=== PATIENT | male | born 1960 | race American Indian/Alaskan Native ===

== ENCOUNTER 2018-01-20 19:15 | Inpatient (IN) | payer OTHER ==
--- NOTE | 2018-01-20 20:01 | ED PDOC ---
Arrival/HPI - General Historian: Patient - History of Present Illness Narrative History of Present Illness (Text): 01/20/18 20:14 57yo male with pmhx of hypertension, Diabetes and DVT present with 3weeks history of b/l LE pain and swelling. States the swelling improved, but still having pain . Pain is not releived or exacerbated by anything. He also admits to intermittent SOB x weeks. He denies chest pain, fever, chills, nausea, abdominal pain, diaphoresis, recent travel/surgery, trauma, any other complaint. <Saroj Espinoza A - Last Filed: 01/20/18 23:37> - Critical Care Critical Care Minutes: 45 minutes <Bartolome Norton - Last Filed: 01/21/18 22:29> - General Chief Complaint: Lower Extremity Problem/Injury Time Seen by Provider: 01/20/18 19:58 Past Medical History - Provider Review Nursing Documentation Reviewed: Yes - Cardiac Hx Cardiac Disorders: Yes Hx Hypertension: Yes - Pulmonary Hx Respiratory Disorders: No - Neurological Hx Neurological Disorder: No - HEENT Hx HEENT Disorder: No - Renal Hx Renal Disorder: No - Endocrine/Metabolic Hx Endocrine Disorders: Yes Hx Adrenal Cancer: Yes Hx Diabetes Mellitus Type 1: Yes Hx Diabetes Mellitus Type 2: Yes - Hematological/Oncological Hx Blood Disorders: No - Integumentary Hx Dermatological Disorder: No - Musculoskeletal/Rheumatological Hx Musculoskeletal Disorders: No Hx Falls: No Other/Comment: Orthopedic surgery to L knee 07/02/2013 - Gastrointestinal Hx Gastrointestinal Disorders: No - Genitourinary/Gynecological Hx Genitourinary Disorders: No - Psychiatric Hx Psychophysiologic Disorder: No Hx Substance Use: Yes (CANNABIS) - Surgical History Hx Orthopedic Surgery: Yes Hx Tonsillectomy: Yes - Suicidal Assessment Feels Threatened In Home Enviroment: No <Saroj Espinoza A - Last Filed: 01/20/18 23:37> Family/Social History - Physician Review Nursing Documentation Reviewed: Yes Family/Social History: Unknown Family HX Smoking Status: Never Smoked Hx Alcohol Use: Yes Frequency of alcohol use: Socially Hx Substance Use: Yes (CANNABIS) <Saroj Espinoza A - Last Filed: 01/20/18 23:37> Allergies/Home Meds <Saroj Espinoza A - Last Filed: 01/20/18 23:37> <Bartolome Norton - Last Filed: 01/21/18 22:29> Allergies/Adverse Reactions: Allergies No Known Allergies Allergy (Verified 01/20/18 19:34) Home Medications: Home Meds Medication Instructions Recorded Confirmed RX: No Known Home Med 01/20/18 01/20/18 Review of Systems - Physician Review All systems were reviewed & negative as marked: Yes - Review of Systems Constitutional: Normal Eyes: Normal ENT: Normal Respiratory: Normal Cardiovascular: Normal Gastrointestinal: Normal Genitourinary Male: Normal Musculoskeletal: Arthralgias (B/L leg pain) Skin: Normal Neurological: Normal Endocrine: Normal Hemo/Lymphatic: Normal Psychiatric: Normal <Diru,Happiness A - Last Filed: 01/20/18 23:37> Physical Exam Vital Signs Reviewed: Yes Temperature: Afebrile Blood Pressure: Hypertensive Pulse: Tachycardic Respiratory Rate: Normal Appearance: Positive for: Well-Appearing, Non-Toxic, Comfortable Pain Distress: None Mental Status: Positive for: Alert and Oriented X 3 - Systems Exam Head: Present: Atraumatic, Normocephalic Pupils: Present: PERRL Extroacular Muscles: Present: EOMI Conjunctiva: Present: Icteric (b/l) Mouth: Present: Moist Mucous Membranes Neck: Present: Normal Range of Motion Respiratory/Chest: Present: Clear to Auscultation, Good Air Exchange. No: Respiratory Distress, Accessory Muscle Use Cardiovascular: Present: Regular Rate and Rhythm, Normal S1, S2. No: Murmurs Abdomen: No: Tenderness, Distention, Peritoneal Signs Back: Present: Normal Inspection Upper Extremity: Present: Normal Inspection. No: Cyanosis, Edema Lower Extremity: Present: Edema (4+ Worse on the left ), CALF TENDERNESS (B/L), Normal ROM, Tenderness, Erythema (Left lower leg), Neurovascularly Intact, Other (2blisters noted on left lower leg). No: NORMAL PULSES (Decreased ) Neurological: Present: GCS=15, CN II-XII Intact, Speech Normal Skin: Present: Warm, Dry, Normal Color. No: Rashes Psychiatric: Present: Alert, Oriented x 3, Normal Insight, Normal Concentration <Diru,Happiness A - Last Filed: 01/20/18 23:37> Vital Signs Temp Pulse Resp BP Pulse Ox 01/20/18 21:07 126 H 18 136/76 100 01/20/18 20:29 98.9 F 119 H 20 166/98 H 100 01/20/18 20:12 171 H 159/111 H 01/20/18 20:08 98.9 F 174 H 22 159/111 H 100 <Bartolome Norton - Last Filed: 01/21/18 22:29> Medical Decision Making ED Course and Treatment: 01/20/18 20:18 57yo male present with complaint of b/l lower leg x 3weeks Differential includes DVT VS PE VS Cellulitis Labs D dimer Car iso Doppler US b/l Chest CTA EKG Cardizem will re evaluate pt 01/20/18 21:52 EKG Sinus tach @ 174bpm. NSTEMI. CXR Cardiomegaly. NAD. Lab reviewed with h/h of 6.9 noted. Elevated d dimer 2210 , Leukocytosis, and Low bicarb of 12 noted Result was DW the pt and he denies melena, hematochezia, any source of bleeding. Type and cross x 2units ordered Consent for transfusion obtained. Pt leukocytosis likely secondary to cellulitis of left lower leg. Rocephin and vano will be ordered. CTA and Doppler US ordered and pending 01/20/18 22:36 Pt elevated Cr show acute kidney failure. Elevated troponin and BNP was also noted secondary to the kidney failure. Potassimu is only mildly elevated. Pt may need emergent dialysis. CTA was cancelled Guaic was positive and Protonix was ordered Per US tech Preliminary report pt have a partial popliteal vein DVT on the left. Pt cannot be heparinize at this time. He is actively bleeding. PT will be admitted to ICU for further treatment and obs Case was DW Dr. Longo and he accepted the case. 01/20/18 23:37 - Critical Care Critical Care Minutes: 45 minutes - RAD Interpretation Radiology Orders: 01/20/18 19:59 DUPLEX LOWER EXTRM VEIN BILAT [US] Stat 01/20/18 20:00 CHEST PORTABLE [RAD] Stat - Medication Orders Current Medication Orders: Diltiazem HCl (Cardizem) 25 mg IVP STAT STA Stop: 01/20/18 20:00 <Saroj Espinoza - Last Filed: 01/20/18 23:37> - Lab Interpretations Lab Results: 01/20/18 20:30 01/20/18 20:30 Lab Results 01/20/18 21:50: Stool Occult Blood Positive H 01/20/18 21:50: Urine Color Yellow, Urine Appearance Clear, Urine pH 6.0, Ur Specific [place] 1.025, Urine Protein >=300 H, Urine Glucose (UA) 250 H, Urine Ketones Negative, Urine Blood Small H, Urine Nitrate Negative, Urine Bilirubin Negative, Urine Urobilinogen 0.2, Ur Leukocyte Esterase Negative, Urine RBC 15 - 20, Urine WBC 2 - 5, Ur Epithelial Cells 6 - 8 01/20/18 21:00: Blood Type Pending, Antibody Screen Pending, BBK History Checked No verified bt 01/20/18 20:30: Sodium 136, Chloride 103, Potassium 5.2 H, Carbon Dioxide 12 L, Anion Gap 26 H, BUN 162 H*, Creatinine 18.5 H*, Est GFR ( Amer) 3, Est GFR (Non-Af Amer) 3, Random Glucose 157 H, Calcium 8.1 L, Magnesium 1.4 L, Total Bilirubin 0.6, AST 26, ALT 27, Alkaline Phosphatase 122, Lactate Dehydrogenase 514, Total Creatine Kinase 224, Troponin I 0.15 H*, NT-Pro-B Natriuret Pep Pending, Total Protein 7.4, Albumin 3.4, Globulin 3.9, Albumin/Globulin Ratio 0.9 L 01/20/18 20:30: pO2 40, VBG pH 7.24 L, VBG pCO2 28.0 L, VBG HCO3 12.0 L, VBG Total CO2 12.9 L, VBG O2 Sat (Calc) 73.7 H, VBG Base Excess -13.9 L, VBG Potassium 5.1, Sodium 133.0, Chloride 104.0, Glucose 158 H, Lactate 1.1, FiO2 21.0, Venous Blood Potassium 5.1 01/20/18 20:30: PT 17.3 H, INR 1.50, APTT 43.8 H, D-Dimer, Quantitative 2331 H 01/20/18 20:30: WBC 13.4 H, RBC 2.31 L, Hgb 6.9 L*, Hct 20.2 L*, MCV 87.4, MCH 29.9, MCHC 34.2, RDW 14.4, Plt Count 335, MPV 10.2, Gran % 91.9 H, Lymph % (Aut o) 5.7 L, [place] % (Auto) 2.2, Eos % (Auto) 0.1 L, Baso % (Auto) 0.1, Gran # 12.30 H, Lymph # (Auto) 0.8 L, [place] # (Auto) 0.3, Eos # (Auto) 0.0, Baso # (Auto) 0.01, Neutrophils % (Manual) 91 H, Band Neutrophils % 0, Lymphocytes % (Manual) 4 L, Atypical Lymphs % 0, Monocytes % (Manual) 5, Toxic Granulation 3+, Platelet Evaluation Normal, Hypochromasia 2+, Target Cells 1+, Rouleaux 2+ - RAD Interpretation Radiology Orders: 01/20/18 19:59 DUPLEX LOWER EXTRM VEIN BILAT [US] Stat 01/20/18 20:00 CHEST PORTABLE [RAD] Stat - Medication Orders Current Medication Orders: Ceftriaxone Sodium (Rocephin 1 Gram Ivpb) 1 gm in 100 mls @ 200 mls/hr IVPB STAT STA; Protocol Stop: 01/20/18 22:27 Vancomycin HCl (Vancomycin 1gm) 1 gm in 250 mls @ 167 mls/hr IVPB STAT STA; Protocol Stop: 01/20/18 23:28 Discontinued Medications Diltiazem HCl (Cardizem) 25 mg IVP STAT STA Stop: 01/20/18 20:00 Last Admin: 01/20/18 20:12 Dose: 25 mg IVP Administration Document 01/20/18 20:12 OCS (Rec: 01/20/18 20:12 OCS [id number]) Charges for Administration # of IVP Administrations 1 JUN Pulse and Blood Pressure Document 01/20/18 20:12 OCS (Rec: 01/20/18 20:12 OCS [id number]) Pulse Pulse Rate (60-90 beats/min) 171 Blood Pressure Blood Pressure (100/60-150/90 mm Hg) 159/111 Sodium Chloride (Sodium Chloride 0.9%) 1,000 mls @ 999 mls/hr IV .Q1H1M STA Stop: 01/20/18 22:08 Last Admin: 01/20/18 21:40 Dose: 999 mls/hr eMAR Start Stop Document 01/20/18 21:40 OCS (Rec: 01/20/18 21:40 OCS [id number]) Intravenous Solution Start Date 01/20/18 Start Time 21:40 End Date 01/20/18 End time 22:40 Total Infusion Time 60 Pantoprazole Sodium (Protonix Inj) 80 mg IVP STAT STA Stop: 01/20/18 22:05 <Bartolome Norton - Last Filed: 01/21/18 22:29> - PA / EN[employer]EVEL [employer]IV[employer] ENGINEER / Resident Statement EN has reviewed & agrees with the documentation as recorded. EN has examined the patient and agrees with the treatment plan. <Bartolome Norton - Last Filed: 01/21/18 22:29> Disposition/Present on Arrival - Present on Arrival Any Indicators Present on Arrival: No History of DVT/PE: No History of Uncontrolled Diabetes: No Urinary Catheter: No History of Decub. Ulcer: No History Surgical Site Infection Following: None - Disposition Have Diagnosis and Disposition been Completed?: Yes Disposition Time: 22:05 Patient Plan: Admission <Saroj Espinoza - Last Filed: 01/20/18 23:37> <Bartolome Norton - Last Filed: 01/21/18 22:29> - Disposition Diagnosis: Anemia, Cellulitis, GI bleed, Elevated troponin, Acute renal failure, DVT (deep venous thrombosis), CHF (congestive heart failure) Disposition: HOSPITALIZED Patient Problems: Current Active Problems Problem Status Onset Acute renal failure Acute Anemia Acute CHF (congestive heart failure) Acute Cellulitis Acute DVT (deep venous thrombosis) Acute Elevated troponin Acute GI bleed Acute Condition: GUARDED
[2018-01-20 20:42] LABS: BASO # 0.01 K/mm3 (0.0-2.0); BASO % 0.1 % (0.0-3.0); EOS % 0.1 % (1.5-5.0); GRAN % 91.9 % (50.0-68.0); LYMPH # 0.8 (1.2-3.4); LYMPH % 5.7 % (22.0-35.0); MEAN CELL VOLUME 87.4 fl (80.0-105.0); MEAN CORPUSCULAR HEMOGLOBIN 29.9 pg (25.0-35.0); MEAN CORPUSCULAR HGB CONC 34.2 g/dl (31.0-37.0); MEAN PLATELET VOLUME 10.2 fl (7.0-11.0); MONO # 0.3 (0.1-0.6); MONO % 2.2 % (1.0-6.0); PLATELET COUNT 335 10^3/uL (120.0-450.0); RBC 2.31 10^6/uL (3.5-6.1); RED CELL DISTRIBUTION WIDTH 14.4 % (11.5-14.5); WHITE BLOOD COUNT 13.4 10^3/ul (4.5-11.0)
[2018-01-20 20:52] LABS: HEMOGLOBIN 6.9 g/dL (14.0-18.0)
[2018-01-20 20:57] LABS: ALB/GLOB RATIO 0.9 (1.1-1.8); ALBUMIN 3.4 g/dL (3.0-4.8); CALCIUM 8.1 mg/dL (8.4-10.5); VENOUS BLOOD GAS BASE EXCESS -13.9 mmol/L (0.0-2.0); VENOUS BLOOD GAS PO2 40 mm/Hg (30-55); VENOUS BLOOD PH 7.24 (7.32-7.43)
[2018-01-20] MEDS ORDERED: Sodium Chloride 0.9% 1,000 ML IV STA (21:08)
[2018-01-20 21:09] LABS: INR 1.5; PARTIAL THROMBOPLASTIN TIME 43.8 Seconds (25.1-36.5); PROTHROMBIN TIME 17.3 SECONDS (9.4-12.5)
[2018-01-20 21:22] LABS: ATYPICAL LYMPHOCYTE 0 % (0.0-0.0); BAND 0 % (0-2); HYPOCHROMIA 2+; LYMPHOCYTE 4 % (22.0-35.0); MONOCYTE 5 % (1.0-6.0); NEUTROPHIL 91 % (50.0-70.0); PLATELET ESTIMATE NORMAL (NORMAL); ROULEAU 2+; TARGET CELLS 1+; TOXIC GRANULATION 3+
[2018-01-20] MEDS ORDERED: Iodixanol 320 MG/ML 100 ML BOTTLE IV ONE (21:49)
[2018-01-20] MEDS ORDERED: cefTRIAXone 1 gm 1 GM/100 ML BAG IVPB STA (21:58)
[2018-01-20] MEDS ORDERED: Vancomycin 1gm in NS 250ml 1 GM/250 ML BAG IVPB STA (21:59)
[2018-01-20 22:00] LABS: URINE BILIRUBIN NEGATIVE (NEGATIVE); URINE BLOOD SMALL (NEGATIVE); URINE GLUCOSE (UA) 250 mg/dL (NEGATIVE); URINE LEUKOCYTE ESTERASE NEGATIVE Leu/uL (NEGATIVE); URINE PROTEIN >=300 mg/dL (<30 mg/dL); URINE UROBILINOGEN 0.2 E.U./dL (<1 E.U./dL)
[2018-01-20 22:03] LABS: URINE APPEARANCE CLEAR (CLEAR); URINE COLOR YELLOW (YELLOW)
[2018-01-20 22:08] LABS: TROPONIN I 0.15 ng/mL
[2018-01-20 22:12] LABS: URINE RBC 15 - 20 /hpf (0-2)
--- NOTE | 2018-01-20 22:38 | CP.PCM.HP ---
<Fredrick Claire - Last Filed: 01/20/18 23:54> History of Present Illness - History of Present Illness History of Present Illness: PGY-2 H&P medicine note for Dr Longo Mr Meadows is a 57 year old male with a PMHx of CKD stage III, left lower extremity DVT, DM2, HTN, HLD, non-compliance with medications, who presented with worsening shortness of breath and increased swelling and pain in his lower left extremity. He stated these symptoms began concurrently 1 month ago. He had not seen a doctor because he felt the symptoms would go away on their own. He states his dyspnea is worse with exertion. His lower left extremity pain is most pronounced in the cha/calf area. He stated he hasn't seen his PMD in over a year. He ambulates normally with a cane. PMD: Dr Patel PMHx: CKD stage III, left lower extremity DVT, DM2, HTN, HLD PSHx: ACL repair 2012 All: NKA Home Meds: FamHx: Mother with diabetes and unknown cancer; Father with unknown cancer SocialHx: Denies tobacco use and hx, social alcohol use, denies illicit drug use Present on Admission - Present on Admission Any Indicators Present on Admission: No Review of Systems - Constitutional Constitutional: absent: Chills, Fever - EENT Eyes: absent: Blurred Vision Nose/Mouth/Throat: absent: Epistaxis - Cardiovascular Cardiovascular: Dyspnea. absent: Chest Pain, Diaphoresis - Respiratory Respiratory: Dyspnea, Dyspnea on Exertion. absent: Cough, Hemoptysis, Wheezing, Stridor - Gastrointestinal Gastrointestinal: absent: Abdominal Pain, Constipation, Diarrhea - Genitourinary Genitourinary: Urinary Hesitance. absent: Dysuria - Musculoskeletal Musculoskeletal: Back Pain Past Patient History - Past Social History Smoking Status: Never Smoked - CARDIAC Hx Cardiac Disorders: Yes Hx Hypertension: Yes - PULMONARY Hx Respiratory Disorders: No - NEUROLOGICAL Hx Neurological Disorder: No - HEENT Hx HEENT Problems: No - RENAL Hx Chronic Kidney Disease: No - ENDOCRINE/METABOLIC Hx Endocrine Disorders: Yes Hx Adrenal Cancer: Yes Hx Diabetes Mellitus Type 1: Yes Hx Diabetes Mellitus Type 2: Yes - HEMATOLOGICAL/ONCOLOGICAL Hx Blood Disorders: No - INTEGUMENTARY Hx Dermatological Problems: No - MUSCULOSKELETAL/RHEUMATOLOGICAL Hx Musculoskeletal Disorders: No Hx Falls: No Other/Comment: Orthopedic surgery to L knee 07/02/2013 - GASTROINTESTINAL Hx Gastrointestinal Disorders: No - GENITOURINARY/GYNECOLOGICAL Hx Genitourinary Disorders: No - PSYCHIATRIC Hx Psychophysiologic Disorder: No Hx Substance Use: Yes (CANNABIS) - SURGICAL HISTORY Hx Orthopedic Surgery: Yes Hx Tonsillectomy: Yes Meds Allergies/Adverse Reactions: Allergies Allergy/AdvReac Type Severity Reaction Status Date / Time No Known Allergies Allergy Verified 01/20/18 19:34 Physical Exam - Constitutional Appears: In Acute Distress, Older Than Stated Age, Chronically Ill - Head Exam Head Exam: ATRAUMATIC, NORMAL INSPECTION - Eye Exam Eye Exam: EOMI, Normal appearance, PERRL, Scleral icterus - ENT Exam ENT Exam: Mucous Membranes Dry, Normal Oropharynx Additional comments: poor dentition - Neck Exam Neck exam: Positive for: Normal Inspection - Respiratory Exam Respiratory Exam: Accessory Muscle Use, Clear to Auscultation Bilateral, NORMAL BREATHING PATTERN. absent: Rales, Rhonchi, Wheezes - Cardiovascular Exam Cardiovascular Exam: Tachycardia, REGULAR RHYTHM, +S1, +S2. absent: JVD, +S4, Systolic Murmur - GI/Abdominal Exam GI & Abdominal Exam: Normal Bowel Sounds, Soft. absent: Distended, Firm, Guarding, Hernia, Tenderness - Extremities Exam Extremities exam: Positive for: calf tenderness, pedal edema, tenderness, pedal pulses present. Negative for: normal inspection Additional comments: 3+ pitting edema left LE 1+ pitting edema right LE - Neurological Exam Neurological exam: Alert, CN II-XII Intact, Oriented x3 - Psychiatric Exam Psychiatric exam: Flat Affect - Skin Skin Exam: Normal Color, Warm Additional comments: 3 inch long bulla in left medial leg Results - Vital Signs Recent Vital Signs: Last Vital Signs Temp 98.9 F 01/20/18 20:29 Pulse 126 H 01/20/18 21:07 Resp 18 01/20/18 21:07 BP 136/76 01/20/18 21:07 Pulse Ox 100 01/20/18 21:07 - Labs Result Diagrams: 01/20/18 20:30 01/20/18 20:30 Labs: Laboratory Results - last 24 hr 01/20/18 01/20/18 01/20/18 20:30 20:30 20:30 WBC 13.4 H RBC 2.31 L Hgb 6.9 L* Hct 20.2 L* MCV 87.4 MCH 29.9 MCHC 34.2 RDW 14.4 Plt Count 335 MPV 10.2 Gran % 91.9 H Lymph % (Auto) 5.7 L [place] % (Auto) 2.2 Eos % (Auto) 0.1 L Baso % (Auto) 0.1 Gran # 12.30 H Lymph # (Auto) 0.8 L [place] # (Auto) 0.3 Eos # (Auto) 0.0 Baso # (Auto) 0.01 Neutrophils % (Manual) 91 H Band Neutrophils % 0 Lymphocytes % (Manual) 4 L Atypical Lymphs % 0 Monocytes % (Manual) 5 Toxic Granulation 3+ Platelet Evaluation Normal Hypochromasia 2+ Target Cells 1+ Rouleaux 2+ PT 17.3 H INR 1.50 APTT 43.8 H D-Dimer, Quantitative 2331 H pO2 40 VBG pH 7.24 L VBG pCO2 28.0 L VBG HCO3 12.0 L VBG Total CO2 12.9 L VBG O2 Sat (Calc) 73.7 H VBG Base Excess -13.9 L VBG Potassium 5.1 Sodium 133.0 Chloride 104.0 Glucose 158 H Lactate 1.1 FiO2 21.0 Potassium Carbon Dioxide Anion Gap BUN Creatinine Est GFR ( Amer) Est GFR (Non-Af Amer) Random Glucose Calcium Magnesium Total Bilirubin AST ALT Alkaline Phosphatase Lactate Dehydrogenase Total Creatine Kinase Troponin I NT-Pro-B Natriuret Pep Total Protein Albumin Globulin Albumin/Globulin Ratio Venous Blood Potassium 5.1 Urine Color Urine Appearance Urine pH Ur Specific Murray Urine Protein Urine Glucose (UA) Urine Ketones Urine Blood Urine Nitrate Urine Bilirubin Urine Urobilinogen Ur Leukocyte Esterase Urine RBC Urine WBC Ur Epithelial Cells Stool Occult Blood BBK History Checked 01/20/18 01/20/18 01/20/18 20:30 21:00 21:50 WBC RBC Hgb Hct MCV MCH MCHC RDW Plt Count MPV Gran % Lymph % (Auto) [place] % (Auto) Eos % (Auto) Baso % (Auto) Gran # Lymph # (Auto) [place] # (Auto) Eos # (Auto) Baso # (Auto) Neutrophils % (Manual) Band Neutrophils % Lymphocytes % (Manual) Atypical Lymphs % Monocytes % (Manual) Toxic Granulation Platelet Evaluation Hypochromasia Target Cells Rouleaux PT INR APTT D-Dimer, Quantitative pO2 VBG pH VBG pCO2 VBG HCO3 VBG Total CO2 VBG O2 Sat (Calc) VBG Base Excess VBG Potassium Sodium 136 Chloride 103 Glucose Lactate FiO2 Potassium 5.2 H Carbon Dioxide 12 L Anion Gap 26 H BUN 162 H* Creatinine 18.5 H* Est GFR ( Amer) 3 Est GFR (Non-Af Amer) 3 Random Glucose 157 H Calcium 8.1 L Magnesium 1.4 L Total Bilirubin 0.6 AST 26 ALT 27 Alkaline Phosphatase 122 Lactate Dehydrogenase 514 Total Creatine Kinase 224 Troponin I 0.15 H* NT-Pro-B Natriuret Pep 06867 H Total Protein 7.4 Albumin 3.4 Globulin 3.9 Albumin/Globulin Ratio 0.9 L Venous Blood Potassium Urine Color Yellow Urine Appearance Clear Urine pH 6.0 Ur Specific Murray 1.025 Urine Protein >=300 H Urine Glucose (UA) 250 H Urine Ketones Negative Urine Blood Small H Urine Nitrate Negative Urine Bilirubin Negative Urine Urobilinogen 0.2 Ur Leukocyte Esterase Negative Urine RBC 15 - 20 Urine WBC 2 - 5 Ur Epithelial Cells 6 - 8 Stool Occult Blood BBK History Checked No verified bt 01/20/18 21:50 WBC RBC Hgb Hct MCV MCH MCHC RDW Plt Count MPV Gran % Lymph % (Auto) [place] % (Auto) Eos % (Auto) Baso % (Auto) Gran # Lymph # (Auto) [place] # (Auto) Eos # (Auto) Baso # (Auto) Neutrophils % (Manual) Band Neutrophils % Lymphocytes % (Manual) Atypical Lymphs % Monocytes % (Manual) Toxic Granulation Platelet Evaluation Hypochromasia Target Cells Rouleaux PT INR APTT D-Dimer, Quantitative pO2 VBG pH VBG pCO2 VBG HCO3 VBG Total CO2 VBG O2 Sat (Calc) VBG Base Excess VBG Potassium Sodium Chloride Glucose Lactate FiO2 Potassium Carbon Dioxide Anion Gap BUN Creatinine Est GFR ( Amer) Est GFR (Non-Af Amer) Random Glucose Calcium Magnesium Total Bilirubin AST ALT Alkaline Phosphatase Lactate Dehydrogenase Total Creatine Kinase Troponin I NT-Pro-B Natriuret Pep Total Protein Albumin Globulin Albumin/Globulin Ratio Venous Blood Potassium Urine Color Urine Appearance Urine pH Ur Specific Murray Urine Protein Urine Glucose (UA) Urine Ketones Urine Blood Urine Nitrate Urine Bilirubin Urine Urobilinogen Ur Leukocyte Esterase Urine RBC Urine WBC Ur Epithelial Cells Stool Occult Blood Positive H BBK History Checked Assessment & Plan - Assessment and Plan (Free Text) Plan: Mr Meadows is a 57 year old male with a PMHx of CKD stage III, left lower extremity DVT, DM2, HTN, HLD, non-compliance with medications, who presented with worsening shortness of breath and increased swelling and pain in his lower left extremity: Anemia -consult GI, Dr Griffin -possibly 2/2 to GI bleed as patient with positive FOBT however CKD likely playing a role as well -Hgb 6.9 on admission -FOBT positive -transfuse 1u pRBC -f/u iron studies, vitamin b12, folate levels -protonix 40mg ivp q12h Left LE DVT -LE duplex preliminary report shows popliteal DVT of LLE -hx of LLE DVT and was previously on coumadin -patient not a candidate for therapeutic anticoagulation at this time 2/2 to GI bleed Elevated D-Dimer -D-dimer on admission 2331 -f/u V/Q scan * unable to do CTA as patient with GIO and poor kidney function (Cr 18.5) -f/u ekg, look for right heart strain GIO on CKD -consult nephrology, Dr Lea -BUN/Cr on admission: 162/18.5 -UA showing high protein leak -Per records, patient was stage III CKD in 2014 -hydrate gently at 75cc/hr NS for now as cardiac status unknown Elevated Pro-BNP -probnp on admission: 28540 -f/u echo -daily weights, strict Is/Os, head of bed 30 degrees, lundy Elevated Troponin -consult cardiology, Dr Mendez -troponin on admission 0.15 -trend serial troponins -patient not a candidate for therapeutic anticoagulation at this time 2/2 to GI bleed Leukocytosis -wbc on admission 13.4; afebrile -possibly stress response and/or 2/2 to LLE cellulitis -vancomycin 1g and ceftriaxone 1g given in ED -zosyn 2.25g ivpb q6h (renal dose) -f/u blood cx, urine cx Dyspnea -saturating well on room air however using accessory muscles; lung exam clean - did not appear to be congested -f/u v/q scan (unable to get CTA 2/2 to poor kidney function) -f/u cxr report -f/u echo -f/u ekg, look for right heart strain Cocaine Abuse -UDS positive for cocaine -avoid beta-blockers HTN -hydralzine 10mg ivp q6h prn DM2 -accuchecks achs -insulin sliding scale -f/u [id number] -hypoglycemia protocol PPX -scd's contraindicated 2/2 dvt -AO contraindicated 2/2 to gi bleed -renal diet <Tato Longo - Last Filed: 01/21/18 02:16> Results - Vital Signs Recent Vital Signs: Last Vital Signs Temp 98.6 F 01/21/18 01:54 Pulse 122 H 01/21/18 01:54 Resp 18 01/21/18 01:54 BP 159/99 H 01/21/18 01:54 Pulse Ox 96 01/21/18 01:54 - Labs Result Diagrams: 01/20/18 20:30 01/20/18 20:30 Labs: Laboratory Results - last 24 hr 01/20/18 01/20/18 01/20/18 20:30 20:30 20:30 WBC 13.4 H RBC 2.31 L Hgb 6.9 L* Hct 20.2 L* MCV 87.4 MCH 29.9 MCHC 34.2 RDW 14.4 Plt Count 335 MPV 10.2 Gran % 91.9 H Lymph % (Auto) 5.7 L [place] % (Auto) 2.2 Eos % (Auto) 0.1 L Baso % (Auto) 0.1 Gran # 12.30 H Lymph # (Auto) 0.8 L [place] # (Auto) 0.3 Eos # (Auto) 0.0 Baso # (Auto) 0.01 Neutrophils % (Manual) 91 H Band Neutrophils % 0 Lymphocytes % (Manual) 4 L Atypical Lymphs % 0 Monocytes % (Manual) 5 Toxic Granulation 3+ Platelet Evaluation Normal Hypochromasia 2+ Target Cells 1+ Rouleaux 2+ PT 17.3 H INR 1.50 APTT 43.8 H D-Dimer, Quantitative 2331 H pO2 40 VBG pH 7.24 L VBG pCO2 28.0 L VBG HCO3 12.0 L VBG Total CO2 12.9 L VBG O2 Sat (Calc) 73.7 H VBG Base Excess -13.9 L VBG Potassium 5.1 Sodium 133.0 Chloride 104.0 Glucose 158 H Lactate 1.1 FiO2 21.0 Potassium Carbon Dioxide Anion Gap BUN Creatinine Est GFR ( Amer) Est GFR (Non-Af Amer) Random Glucose Calcium Magnesium Total Bilirubin AST ALT Alkaline Phosphatase Lactate Dehydrogenase Total Creatine Kinase Troponin I NT-Pro-B Natriuret Pep Total Protein Albumin Globulin Albumin/Globulin Ratio Venous Blood Potassium 5.1 Urine Color Urine Appearance Urine pH Ur Specific Murray Urine Protein Urine Glucose (UA) Urine Ketones Urine Blood Urine Nitrate Urine Bilirubin Urine Urobilinogen Ur Leukocyte Esterase Urine RBC Urine WBC Ur Epithelial Cells Stool Occult Blood Urine Opiates Screen Urine Methadone Screen Ur Barbiturates Screen Ur Phencyclidine Scrn Ur Amphetamines Screen U Benzodiazepines Scrn U Oth Cocaine Metabols U Cannabinoids Screen Alcohol, Quantitative Blood Type Blood Type Confirm Antibody Screen BBK History Checked 01/20/18 01/20/18 01/20/18 20:30 20:30 21:00 WBC RBC Hgb Hct MCV MCH MCHC RDW Plt Count MPV Gran % Lymph % (Auto) [place] % (Auto) Eos % (Auto) Baso % (Auto) Gran # Lymph # (Auto) [place] # (Auto) Eos # (Auto) Baso # (Auto) Neutrophils % (Manual) Band Neutrophils % Lymphocytes % (Manual) Atypical Lymphs % Monocytes % (Manual) Toxic Granulation Platelet Evaluation Hypochromasia Target Cells Rouleaux PT INR APTT D-Dimer, Quantitative pO2 VBG pH VBG pCO2 VBG HCO3 VBG Total CO2 VBG O2 Sat (Calc) VBG Base Excess VBG Potassium Sodium 136 Chloride 103 Glucose Lactate FiO2 Potassium 5.2 H Carbon Dioxide 12 L Anion Gap 26 H BUN 162 H* Creatinine 18.5 H* Est GFR ( Amer) 3 Est GFR (Non-Af Amer) 3 Random Glucose 157 H Calcium 8.1 L Magnesium 1.4 L Total Bilirubin 0.6 AST 26 ALT 27 Alkaline Phosphatase 122 Lactate Dehydrogenase 514 Total Creatine Kinase 224 Troponin I 0.15 H* NT-Pro-B Natriuret Pep 56032 H Total Protein 7.4 Albumin 3.4 Globulin 3.9 Albumin/Globulin Ratio 0.9 L Venous Blood Potassium Urine Color Urine Appearance Urine pH Ur Specific Murray Urine Protein Urine Glucose (UA) Urine Ketones Urine Blood Urine Nitrate Urine Bilirubin Urine Urobilinogen Ur Leukocyte Esterase Urine RBC Urine WBC Ur Epithelial Cells Stool Occult Blood Urine Opiates Screen Urine Methadone Screen Ur Barbiturates Screen Ur Phencyclidine Scrn Ur Amphetamines Screen U Benzodiazepines Scrn U Oth Cocaine Metabols U Cannabinoids Screen Alcohol, Quantitative < 10 Blood Type A POSITIVE Blood Type Confirm Antibody Screen Negative BBK History Checked No verified bt 01/20/18 01/20/18 01/20/18 21:50 21:50 21:50 WBC RBC Hgb Hct MCV MCH MCHC RDW Plt Count MPV Gran % Lymph % (Auto) [place] % (Auto) Eos % (Auto) Baso % (Auto) Gran # Lymph # (Auto) [place] # (Auto) Eos # (Auto) Baso # (Auto) Neutrophils % (Manual) Band Neutrophils % Lymphocytes % (Manual) Atypical Lymphs % Monocytes % (Manual) Toxic Granulation Platelet Evaluation Hypochromasia Target Cells Rouleaux PT INR APTT D-Dimer, Quantitative pO2 VBG pH VBG pCO2 VBG HCO3 VBG Total CO2 VBG O2 Sat (Calc) VBG Base Excess VBG Potassium Sodium Chloride Glucose Lactate FiO2 Potassium Carbon Dioxide Anion Gap BUN Creatinine Est GFR ( Amer) Est GFR (Non-Af Amer) Random Glucose Calcium Magnesium Total Bilirubin AST ALT Alkaline Phosphatase Lactate Dehydrogenase Total Creatine Kinase Troponin I NT-Pro-B Natriuret Pep Total Protein Albumin Globulin Albumin/Globulin Ratio Venous Blood Potassium Urine Color Yellow Urine Appearance Clear Urine pH 6.0 Ur Specific Murray 1.025 Urine Protein >=300 H Urine Glucose (UA) 250 H Urine Ketones Negative Urine Blood Small H Urine Nitrate Negative Urine Bilirubin Negative Urine Urobilinogen 0.2 Ur Leukocyte Esterase Negative Urine RBC 15 - 20 Urine WBC 2 - 5 Ur Epithelial Cells 6 - 8 Stool Occult Blood Positive H Urine Opiates Screen Negative Urine Methadone Screen Negative Ur Barbiturates Screen Negative Ur Phencyclidine Scrn Negative Ur Amphetamines Screen Negative U Benzodiazepines Scrn Negative U Oth Cocaine Metabols Positive H U Cannabinoids Screen Negative Alcohol, Quantitative Blood Type Blood Type Confirm Antibody Screen BBK History Checked 01/20/18 22:22 WBC RBC Hgb Hct MCV MCH MCHC RDW Plt Count MPV Gran % Lymph % (Auto) [place] % (Auto) Eos % (Auto) Baso % (Auto) Gran # Lymph # (Auto) [place] # (Auto) Eos # (Auto) Baso # (Auto) Neutrophils % (Manual) Band Neutrophils % Lymphocytes % (Manual) Atypical Lymphs % Monocytes % (Manual) Toxic Granulation Platelet Evaluation Hypochromasia Target Cells Rouleaux PT INR APTT D-Dimer, Quantitative pO2 VBG pH VBG pCO2 VBG HCO3 VBG Total CO2 VBG O2 Sat (Calc) VBG Base Excess VBG Potassium Sodium Chloride Glucose Lactate FiO2 Potassium Carbon Dioxide Anion Gap BUN Creatinine Est GFR ( Amer) Est GFR (Non-Af Amer) Random Glucose Calcium Magnesium Total Bilirubin AST ALT Alkaline Phosphatase Lactate Dehydrogenase Total Creatine Kinase Troponin I NT-Pro-B Natriuret Pep Total Protein Albumin Globulin Albumin/Globulin Ratio Venous Blood Potassium Urine Color Urine Appearance Urine pH Ur Specific Murray Urine Protein Urine Glucose (UA) Urine Ketones Urine Blood Urine Nitrate Urine Bilirubin Urine Urobilinogen Ur Leukocyte Esterase Urine RBC Urine WBC Ur Epithelial Cells Stool Occult Blood Urine Opiates Screen Urine Methadone Screen Ur Barbiturates Screen Ur Phencyclidine Scrn Ur Amphetamines Screen U Benzodiazepines Scrn U Oth Cocaine Metabols U Cannabinoids Screen Alcohol, Quantitative Blood Type Blood Type Confirm A POSITIVE Antibody Screen BBK History Checked Attending/Attestation - Attestation I have personally seen and examined this patient.: Yes I have fully participated in the care of the patient.: Yes I have reviewed all pertinent clinical information: Yes
[2018-01-20 22:41] LABS: BARBITURATES, UR NEGATIVE (NEGATIVE); BENZODIAZEPINES, UR NEGATIVE (NEGATIVE); OPIATES, UR NEGATIVE (NEGATIVE); PHENCYCLIDINE, UR NEGATIVE (NEGATIVE)
[2018-01-21] MEDS ORDERED: Sodium Chloride 0.9% 1,000 ML IV SCH (00:30)
[2018-01-21] MEDS ORDERED: Magnesium Sulfate 2 gm/50 ml 2 GM/50 ML BAG IVPB ONE (00:30)
[2018-01-21] MEDS ORDERED: Dextrose 50% SYRINGE Inj (50 ml) IV PRN (00:34)
[2018-01-21] MEDS: Piperacillin/Tazobact 2.25gm 2.25 GM/100 ML BAG IVPB SCH ×2 (02:31→08:40)
[2018-01-21 05:32] LABS: BASO # 0.01 K/mm3 (0.0-2.0); BASO % 0.1 % (0.0-3.0); EOS # 0.1 (0.0-0.7); EOS % 0.5 % (1.5-5.0); GRAN # 11.75 (1.4-6.5); LYMPH # 1.1 (1.2-3.4); LYMPH % 8.4 % (22.0-35.0); MEAN CELL VOLUME 86.7 fl (80.0-105.0); MEAN CORPUSCULAR HGB CONC 34.7 g/dl (31.0-37.0); MEAN PLATELET VOLUME 8.8 fl (7.0-11.0); MONO # 0.3 (0.1-0.6); PLATELET COUNT 271 10^3/uL (120.0-450.0); RBC 2.03 10^6/uL (3.5-6.1); RED CELL DISTRIBUTION WIDTH 14.1 % (11.5-14.5); WHITE BLOOD COUNT 13.2 10^3/ul (4.5-11.0)
[2018-01-21 05:35] LABS: HEMOGLOBIN 6.1 g/dL (14.0-18.0)
[2018-01-21 06:04] LABS: IRON 27 ug/dL (45-180)
[2018-01-21 06:14] LABS: % IRON SATURATION 14 % (20-55); TOTAL IRON BINDING CAPACITY 190 ug/dL (261-462)
[2018-01-21 07:03] LABS: ALB/GLOB RATIO 0.8 (1.1-1.8); ALBUMIN 3.1 g/dL (3.0-4.8); CALCIUM 7.8 mg/dL (8.4-10.5)
[2018-01-21] MEDS ORDERED: Sodium Bicarbonate 8.4% 150 MEQ in Dextrose 5% In Water 1,000 ML IV SCH ×2 (08:15→19:57)
[2018-01-21 08:36] VITALS: BMI 30.5
[2018-01-21] MEDS ORDERED: Influenza Vaccine 60 mcg/0.5 mL SYR (4YR UP) IM ONE (08:37)
[2018-01-21] MEDS: Heparin25000 units/250ml 1/2NS 25,000 UNITS/250 ML BAG IV PRN (08:43)
[2018-01-21] MEDS: Insulin Lispro (humaLOG) MEDIUM Coverage SC SCH ×4 (08:49→21:55)
--- NOTE | 2018-01-21 09:08 | CP.PCM.CON ---
History of Present Illness - History of Present Illness History of Present Illness: Leonard Paz DO, PGY-2: Nephrology Consult Note for Dr. Lea 57 year old male with a past medical history of CKD III, LLE DVT, DM II, hypertension, and dyslipidemia who presents with one month of worsening shortness of breath, lower extremity swelling, fatigue, episodic anorexia and dysgeusia. He reports for the past two weeks or so unable to go to work secondary to feeling weak and his legs remaining. On admission he was found to have an GIO on CKD, elevated D-dimer, elevated Pro BNP, anemia requiring blood transfusion, and a metabolic acidosis, among other things. He underwent an US of the lower extremities that showed a partial DVT in the LLE. He was admitted to the ICU and started on a bicarbonate drip earlier this morning for his metabolic acidosis and a heparin drip for his likely PE. At the time of my examination, the patient is tachycardic, able to converse, on 3 L on oxygen via NC, and receiving PRBCs. He denies any recent diarrheal illness or URI. He denies fever, melena, hematochezia, chills, palpitations, or chest pain. He admits to lower extremity swelling, dyspnea, pruritus, dysgeusia. Otherwise, 12 point ROS is negative except as noted above. PMH: CKD III, LLE DVT, DM II, hypertension, dyslipidemia PSHx: ACL repair 2012 All: NKA Home Meds: FamHx: Mother with diabetes and unknown cancer; Father with unknown cancer Social: Ex-smoker, UDS positive for cocaine, works cleaning tanks; lives alone; has girlfriend Review of Systems - Review of Systems All systems: reviewed and no additional remarkable complaints except (as per HPI) Past Patient History - Past Social History Smoking Status: Never Smoked - CARDIAC Hx Cardiac Disorders: Yes Hx Hypertension: Yes - PULMONARY Hx Respiratory Disorders: No - NEUROLOGICAL Hx Neurological Disorder: No - HEENT Hx HEENT Problems: No - RENAL Hx Chronic Kidney Disease: No - ENDOCRINE/METABOLIC Hx Endocrine Disorders: Yes Hx Adrenal Cancer: Yes Hx Diabetes Mellitus Type 1: Yes Hx Diabetes Mellitus Type 2: Yes - HEMATOLOGICAL/ONCOLOGICAL Hx Blood Disorders: No - INTEGUMENTARY Hx Dermatological Problems: No - MUSCULOSKELETAL/RHEUMATOLOGICAL Hx Musculoskeletal Disorders: No Hx Falls: No Other/Comment: Orthopedic surgery to L knee 07/02/2013 - GASTROINTESTINAL Hx Gastrointestinal Disorders: No - GENITOURINARY/GYNECOLOGICAL Hx Genitourinary Disorders: No - PSYCHIATRIC Hx Psychophysiologic Disorder: No - SURGICAL HISTORY Hx Orthopedic Surgery: Yes Meds Allergies/Adverse Reactions: Allergies Allergy/AdvReac Type Severity Reaction Status Date / Time No Known Allergies Allergy Verified 01/20/18 19:34 - Medications Medications: Current Medications Acetaminophen (Tylenol 325mg Tab) 650 mg PO Q6H PRN PRN Reason: Fever >100.4 F Last Admin: 01/21/18 04:32 Dose: 650 mg Dextrose (Dextrose 50% Inj) 0 ml IV STAT PRN; Protocol PRN Reason: Hypoglycemia Protocol Hydralazine HCl (Apresoline) 10 mg IVP Q6H PRN PRN Reason: Systolic Blood Pressure Sodium Chloride (Sodium Chloride 0.9%) 1,000 mls @ 75 mls/hr IV .[id number] [facility] Last Admin: 01/21/18 00:46 Dose: 75 mls/hr Dextrose (Dextrose 5% In Water 1000 Ml) 1,000 mls @ 0 mls/hr IV .Q0M PRN; Protocol PRN Reason: Hypoglycemia Protocol Heparin Sodium/Sodium Chloride (Heparin 01687 Units/250ml 1/2 Normal Saline) 25,000 units in 250 mls @ 18.37 mls/hr IV .[id number] PRN; Protocol PRN Reason: ADJUST RATE PER PROTOCOL Last Admin: 01/21/18 08:43 Dose: 18 units/kg/hr, 18.37 mls/hr Sodium Bicarbonate 150 meq/ (Dextrose) 1,150 mls @ 200 mls/hr IV .[id number] [facility] Insulin Human Lispro (Humalog Med) 0 units SC ACHS [facility]; Protocol Last Admin: 01/21/18 08:49 Dose: Not Given Pantoprazole Sodium (Protonix Inj) 40 mg IVP Q12 CATHIE Last Admin: 01/21/18 09:03 Dose: 40 mg Physical Exam - Constitutional Appears: Toxic - Head Exam Head Exam: ATRAUMATIC, NORMOCEPHALIC - Eye Exam Eye Exam: EOMI Additional comments: conjunctival pallor - ENT Exam ENT Exam: Mucous Membranes Dry - Neck Exam Additional comments: JVD - Respiratory Exam Respiratory Exam: absent: Accessory Muscle Use - Cardiovascular Exam Cardiovascular Exam: Tachycardia Additional comments: hyperdynamic heart sounds - GI/Abdominal Exam GI & Abdominal Exam: absent: Guarding, Rebound - Extremities Exam Additional comments: 3/4 pitting edema, bullae noted in left medial cha - Neurological Exam Neurological exam: Oriented x3 - Psychiatric Exam Psychiatric exam: Flat Affect - Skin Skin Exam: Dry Results - Vital Signs Recent Vital Signs: Last Vital Signs Temp 98.9 F 01/21/18 08:01 Pulse 111 H 01/21/18 08:01 Resp 25 H 01/21/18 08:01 BP 156/94 H 01/21/18 08:01 Pulse Ox 95 01/21/18 07:20 - Labs Result Diagrams: 01/21/18 05:10 01/21/18 05:10 Labs: Laboratory Results - last 24 hr 01/20/18 01/20/18 01/20/18 20:30 20:30 20:30 WBC 13.4 H RBC 2.31 L Hgb 6.9 L* Hct 20.2 L* MCV 87.4 MCH 29.9 MCHC 34.2 RDW 14.4 Plt Count 335 MPV 10.2 Gran % 91.9 H Lymph % (Auto) 5.7 L [place] % (Auto) 2.2 Eos % (Auto) 0.1 L Baso % (Auto) 0.1 Gran # 12.30 H Lymph # (Auto) 0.8 L [place] # (Auto) 0.3 Eos # (Auto) 0.0 Baso # (Auto) 0.01 Neutrophils % (Manual) 91 H Band Neutrophils % 0 Lymphocytes % (Manual) 4 L Atypical Lymphs % 0 Monocytes % (Manual) 5 Toxic Granulation 3+ Platelet Evaluation Normal Hypochromasia 2+ Target Cells 1+ Rouleaux 2+ Retic Count PT 17.3 H INR 1.50 APTT 43.8 H D-Dimer, Quantitative 2331 H pO2 40 VBG pH 7.24 L VBG pCO2 28.0 L VBG HCO3 12.0 L VBG Total CO2 12.9 L VBG O2 Sat (Calc) 73.7 H VBG Base Excess -13.9 L VBG Potassium 5.1 Sodium 133.0 Chloride 104.0 Glucose 158 H Lactate 1.1 FiO2 21.0 Potassium Carbon Dioxide Anion Gap BUN Creatinine Est GFR ( Amer) Est GFR (Non-Af Amer) Random Glucose Calcium Magnesium Iron TIBC % Saturation Total Bilirubin AST ALT Alkaline Phosphatase Lactate Dehydrogenase Total Creatine Kinase Troponin I NT-Pro-B Natriuret Pep Total Protein Albumin Globulin Albumin/Globulin Ratio Triglycerides Cholesterol LDL Cholesterol Direct HDL Cholesterol TSH 3rd Generation Venous Blood Potassium 5.1 Urine Color Urine Appearance Urine pH Ur Specific [place] Urine Protein Urine Glucose (UA) Urine Ketones Urine Blood Urine Nitrate Urine Bilirubin Urine Urobilinogen Ur Leukocyte Esterase Urine RBC Urine WBC Ur Epithelial Cells Stool Occult Blood Urine Opiates Screen Urine Methadone Screen Ur Barbiturates Screen Ur Phencyclidine Scrn Ur Amphetamines Screen U Benzodiazepines Scrn U Oth Cocaine Metabols U Cannabinoids Screen Alcohol, Quantitative Blood Type Blood Type Confirm Antibody Screen Crossmatch BBK History Checked 01/20/18 01/20/18 01/20/18 20:30 20:30 21:00 WBC RBC Hgb Hct MCV MCH MCHC RDW Plt Count MPV Gran % Lymph % (Auto) [place] % (Auto) Eos % (Auto) Baso % (Auto) Gran # Lymph # (Auto) [place] # (Auto) Eos # (Auto) Baso # (Auto) Neutrophils % (Manual) Band Neutrophils % Lymphocytes % (Manual) Atypical Lymphs % Monocytes % (Manual) Toxic Granulation Platelet Evaluation Hypochromasia Target Cells Rouleaux Retic Count PT INR APTT D-Dimer, Quantitative pO2 VBG pH VBG pCO2 VBG HCO3 VBG Total CO2 VBG O2 Sat (Calc) VBG Base Excess VBG Potassium Sodium 136 Chloride 103 Glucose Lactate FiO2 Potassium 5.2 H Carbon Dioxide 12 L Anion Gap 26 H BUN 162 H* Creatinine 18.5 H* Est GFR ( Amer) 3 Est GFR (Non-Af Amer) 3 Random Glucose 157 H Calcium 8.1 L Magnesium 1.4 L Iron TIBC % Saturation Total Bilirubin 0.6 AST 26 ALT 27 Alkaline Phosphatase 122 Lactate Dehydrogenase 514 Total Creatine Kinase 224 Troponin I 0.15 H* NT-Pro-B Natriuret Pep 73700 H Total Protein 7.4 Albumin 3.4 Globulin 3.9 Albumin/Globulin Ratio 0.9 L Triglycerides Cholesterol LDL Cholesterol Direct HDL Cholesterol TSH 3rd Generation Venous Blood Potassium Urine Color Urine Appearance Urine pH Ur Specific [place] Urine Protein Urine Glucose (UA) Urine Ketones Urine Blood Urine Nitrate Urine Bilirubin Urine Urobilinogen Ur Leukocyte Esterase Urine RBC Urine WBC Ur Epithelial Cells Stool Occult Blood Urine Opiates Screen Urine Methadone Screen Ur Barbiturates Screen Ur Phencyclidine Scrn Ur Amphetamines Screen U Benzodiazepines Scrn U Oth Cocaine Metabols U Cannabinoids Screen Alcohol, Quantitative < 10 Blood Type A POSITIVE Blood Type Confirm Antibody Screen Negative Crossmatch See Detail BBK History Checked No verified bt 01/20/18 01/20/18 01/20/18 21:50 21:50 21:50 WBC RBC Hgb Hct MCV MCH MCHC RDW Plt Count MPV Gran % Lymph % (Auto) [place] % (Auto) Eos % (Auto) Baso % (Auto) Gran # Lymph # (Auto) [place] # (Auto) Eos # (Auto) Baso # (Auto) Neutrophils % (Manual) Band Neutrophils % Lymphocytes % (Manual) Atypical Lymphs % Monocytes % (Manual) Toxic Granulation Platelet Evaluation Hypochromasia Target Cells Rouleaux Retic Count PT INR APTT D-Dimer, Quantitative pO2 VBG pH VBG pCO2 VBG HCO3 VBG Total CO2 VBG O2 Sat (Calc) VBG Base Excess VBG Potassium Sodium Chloride Glucose Lactate FiO2 Potassium Carbon Dioxide Anion Gap BUN Creatinine Est GFR ( Amer) Est GFR (Non-Af Amer) Random Glucose Calcium Magnesium Iron TIBC % Saturation Total Bilirubin AST ALT Alkaline Phosphatase Lactate Dehydrogenase Total Creatine Kinase Troponin I NT-Pro-B Natriuret Pep Total Protein Albumin Globulin Albumin/Globulin Ratio Triglycerides Cholesterol LDL Cholesterol Direct HDL Cholesterol TSH 3rd Generation Venous Blood Potassium Urine Color Yellow Urine Appearance Clear Urine pH 6.0 Ur Specific [place] 1.025 Urine Protein >=300 H Urine Glucose (UA) 250 H Urine Ketones Negative Urine Blood Small H Urine Nitrate Negative Urine Bilirubin Negative Urine Urobilinogen 0.2 Ur Leukocyte Esterase Negative Urine RBC 15 - 20 Urine WBC 2 - 5 Ur Epithelial Cells 6 - 8 Stool Occult Blood Positive H Urine Opiates Screen Negative Urine Methadone Screen Negative Ur Barbiturates Screen Negative Ur Phencyclidine Scrn Negative Ur Amphetamines Screen Negative U Benzodiazepines Scrn Negative U Oth Cocaine Metabols Positive H U Cannabinoids Screen Negative Alcohol, Quantitative Blood Type Blood Type Confirm Antibody Screen Crossmatch BBK History Checked 01/20/18 01/21/18 01/21/18 22:22 02:45 05:10 WBC 13.2 H RBC 2.03 L Hgb 6.1 L* Hct 17.6 L* MCV 86.7 MCH 30.0 MCHC 34.7 RDW 14.1 Plt Count 271 MPV 8.8 Gran % 89.0 H Lymph % (Auto) 8.4 L [place] % (Auto) 2.0 Eos % (Auto) 0.5 L Baso % (Auto) 0.1 Gran # 11.75 H Lymph # (Auto) 1.1 L [place] # (Auto) 0.3 Eos # (Auto) 0.1 Baso # (Auto) 0.01 Neutrophils % (Manual) Band Neutrophils % Lymphocytes % (Manual) Atypical Lymphs % Monocytes % (Manual) Toxic Granulation Platelet Evaluation Hypochromasia Target Cells Rouleaux Retic Count 2.49 H PT INR APTT D-Dimer, Quantitative pO2 VBG pH VBG pCO2 VBG HCO3 VBG Total CO2 VBG O2 Sat (Calc) VBG Base Excess VBG Potassium Sodium Chloride Glucose Lactate FiO2 Potassium Carbon Dioxide Anion Gap BUN Creatinine Est GFR ( Amer) Est GFR (Non-Af Amer) Random Glucose Calcium Magnesium Iron TIBC % Saturation Total Bilirubin AST ALT Alkaline Phosphatase Lactate Dehydrogenase Total Creatine Kinase Troponin I 0.18 H* NT-Pro-B Natriuret Pep Total Protein Albumin Globulin Albumin/Globulin Ratio Triglycerides Cholesterol LDL Cholesterol Direct HDL Cholesterol TSH 3rd Generation Venous Blood Potassium Urine Color Urine Appearance Urine pH Ur Specific [place] Urine Protein Urine Glucose (UA) Urine Ketones Urine Blood Urine Nitrate Urine Bilirubin Urine Urobilinogen Ur Leukocyte Esterase Urine RBC Urine WBC Ur Epithelial Cells Stool Occult Blood Urine Opiates Screen Urine Methadone Screen Ur Barbiturates Screen Ur Phencyclidine Scrn Ur Amphetamines Screen U Benzodiazepines Scrn U Oth Cocaine Metabols U Cannabinoids Screen Alcohol, Quantitative Blood Type Blood Type Confirm A POSITIVE Antibody Screen Crossmatch BBK History Checked 01/21/18 01/21/18 01/21/18 05:10 05:10 05:10 WBC RBC Hgb Hct MCV MCH MCHC RDW Plt Count MPV Gran % Lymph % (Auto) [place] % (Auto) Eos % (Auto) Baso % (Auto) Gran # Lymph # (Auto) [place] # (Auto) Eos # (Auto) Baso # (Auto) Neutrophils % (Manual) Band Neutrophils % Lymphocytes % (Manual) Atypical Lymphs % Monocytes % (Manual) Toxic Granulation Platelet Evaluation Hypochromasia Target Cells Rouleaux Retic Count PT INR APTT D-Dimer, Quantitative pO2 VBG pH VBG pCO2 VBG HCO3 VBG Total CO2 VBG O2 Sat (Calc) VBG Base Excess VBG Potassium Sodium 137 Chloride 107 Glucose Lactate FiO2 Potassium 5.1 H Carbon Dioxide 8 L D Anion Gap 27 H BUN 159 H* Creatinine 17.8 H* Est GFR ( Amer) 3 Est GFR (Non-Af Amer) 3 Random Glucose 115 H Calcium 7.8 L Magnesium Iron 27 L TIBC 190 L % Saturation 14 L Total Bilirubin 0.4 AST 27 ALT 25 Alkaline Phosphatase 107 Lactate Dehydrogenase Total Creatine Kinase Troponin I NT-Pro-B Natriuret Pep Total Protein 6.7 Albumin 3.1 Globulin 3.7 Albumin/Globulin Ratio 0.8 L Triglycerides 71 Cholesterol 105 L LDL Cholesterol Direct 34 HDL Cholesterol 43 TSH 3rd Generation 1.73 Venous Blood Potassium Urine Color Urine Appearance Urine pH Ur Specific [place] Urine Protein Urine Glucose (UA) Urine Ketones Urine Blood Urine Nitrate Urine Bilirubin Urine Urobilinogen Ur Leukocyte Esterase Urine RBC Urine WBC Ur Epithelial Cells Stool Occult Blood Urine Opiates Screen Urine Methadone Screen Ur Barbiturates Screen Ur Phencyclidine Scrn Ur Amphetamines Screen U Benzodiazepines Scrn U Oth Cocaine Metabols U Cannabinoids Screen Alcohol, Quantitative Blood Type Blood Type Confirm Antibody Screen Crossmatch BBK History Checked Assessment & Plan - Assessment and Plan (Free Text) Assessment: 57 year old male with Acute Kidney failure. Plan: 1) Hemodialysis - Tunnel Catheter placement scheduled with IR - HD orders to be prescribed 2) GIO - Follow up PTH, serum protein electropheresis, urine total protein to creatinine ratio, urine microalbumin to creatinine ratio, 25-Vitamin D, HIV, Hepatitis B surface antigen, hepatitis B surface antibody, Hepatitis C Core Antibody, HIV 4th generation We will continue to treat aggressively with the primary medical team and the other consultants. - Date & Time Date: 01/21/18 Time: 14:54
--- NOTE | 2018-01-21 09:20 | CON ---
DATE: 01/21/2018 CARDIOLOGY CONSULTATION HISTORY: The patient is a 57-year-old male, who presents with swelling in his lower extremities and is thought to have a DVT. His laboratories were markedly abnormal with renal failure, hypertension and marked anemia to a hemoglobin is 6. EKG shows marked narrow complex tachycardia consistent with atrial fibrillation versus MAT. The patient denies previous cardiac history. No angina noted. No previous lung disease. According to the patient, he stopped smoking 30 years ago. Social history and review of systems are noncontributory. PHYSICAL EXAMINATION: VITAL SIGNS: Blood pressure is 156/94, heart rate is 110, what appears to be a multifocal atrial tachycardia. NECK: Negative JVD. LUNGS: Without rales. HEART: Reveals S1, S2. EXTREMITIES: Trace edema bilaterally, creatinine is 17.8. Troponins are 0.18. Hemoglobin is 6. IMPRESSION: 1. Marked anemia. 2. End-stage renal disease. 3. Multifocal atrial tachycardia secondary to marked anemia. 4. History of hypertension. PLAN: Given these findings, we will obtain an echocardiogram to evaluate the LV function. I would aggressively transfuse the patient. The patient will likely need dialysis. Maurizio Mendez MD
--- NOTE | 2018-01-21 09:21 | US ---
HISTORY: Leg pain and swelling. Evaluate for DVT PHYSICIAN(S): Maurizio Soria MD. TECHNIQUE: Duplex sonography and color-flow Doppler with graded compression were used to evaluate the deep venous systems of both lower extremities. FINDINGS: There is adherent thrombus noted in the left popliteal vein. It is somewhat echogenic. The left femoral vein and left common femoral vein are patent and compressible. There is no sonographic evidence for deep venous thrombosis in the visualized segments of the right lower extremity. IMPRESSION: Subacute/chronic partially occlusive thrombus in the left popliteal vein.
--- NOTE | 2018-01-21 09:31 | RAD ---
Date of service: 01/20/2018 HISTORY: admission COMPARISON: 07/25/2013 FINDINGS: LUNGS: No active pulmonary disease. PLEURA: No significant pleural effusion identified, no pneumothorax apparent. CARDIOVASCULAR: Normal. OSSEOUS STRUCTURES: No significant abnormalities. VISUALIZED UPPER ABDOMEN: Normal. OTHER FINDINGS: None. IMPRESSION: No active disease.
--- NOTE | 2018-01-21 10:04 | CARD ---
APPROVED REPORT Date of service: 01/21/2018 EKG Measurement Heart [id number] <Conclusion> Sinus tachycardia with premature supraventricular complexes with occasional Abberrantly Conducted Beat. Clockwise Rotation. Non Specific ST_T Changes.
[2018-01-21 11:53] LABS: TROPONIN I 0.21 ng/mL
[2018-01-21] MEDS: Sodium Bicarbonate 8.4% 150 MEQ in Dextrose 5% In Water 1,000 ML IV SCH ×2 (12:57→18:15)
--- NOTE | 2018-01-21 13:03 | CARD ---
APPROVED REPORT Date of service: 01/20/2018 EKG Measurement Heart [id number] <Conclusion> Sinus tachycardia Anteroseptal infarct, age undetermined Abnormal ECG
[2018-01-21] MEDS ORDERED: Lidocaine 2% PF (10 ml) Amp ONE (13:22)
[2018-01-21] MEDS ORDERED: Midazolam 2 MG/2 ML VIAL ONE ×2 (13:54→14:22)
[2018-01-21] MEDS ORDERED: Labetalol 5 mg/ml Inj 20ML ONE (14:29)
--- NOTE | 2018-01-21 15:26 | CP.CCUPN ---
<Murtaza Kwok - Last Filed: 01/21/18 16:03> CCU Subjective - Physician Review Subjective (Free Text): Murtaza Kwok, PGY-1, CCU Progress Note for Dr. Lisa Patient seen and evaluated at bedside. No overnight events occurred. Patient was transfused 1 U of PRBCs due to anemia of 6.1. Patient reports bilateral calf pain and left leg warmth, redness, and swelling. Patient denies dizziness, headache, fever, chest pain, dyspnea, heart palpitations, abdominal pain, nausea, vomiting, constipation, diarrhea, dysuria, hematuria, numbness/tingling. CCU Objective - Vital Signs / Intake & Output Vital Signs (Last 4 hours): Vital Signs Temp Pulse Resp BP Pulse Ox 01/21/18 14:00 109 H 01/21/18 13:00 125 H 25 H 175/103 H 95 01/21/18 12:30 115 H 23 179/92 H 90 L 01/21/18 12:00 99.5 F 119 H 27 H 191/93 H 90 L 01/21/18 11:31 99.5 F 126 H 23 195/98 H 01/21/18 11:30 107 H 24 195/98 H 100 Intake and Output (Last 8hrs): Intake & Output 01/21/18 01/21/18 01/21/18 06:59 14:59 22:59 Intake Total 345 371 Output Total 500 Balance -155 371 Weight 225 lb Intake: IV 225 46 Right Forearm 225 Oral 120 Blood Product 0 325 Red Blood Cells Cpd As1 0 Lr Unit [id number] Red Blood Cells Cpd As1 0 325 Lr Unit [id number] Output: Urine 500 Urethral (Bailey) 500 Other: Voiding Method Indwelling Catheter - Physical Exam Head: Positive for: Atraumatic, Normocephalic Pupils: Positive for: PERRL Extroacular Muscles: Positive for: EOMI Conjunctiva: Positive for: Icteric (b/l) Mouth: Positive for: Moist Mucous Membranes Neck: Positive for: Normal Range of Motion Respiratory/Chest: Positive for: Clear to Auscultation, Good Air Exchange. Negative for: Respiratory Distress, Accessory Muscle Use Cardiovascular: Positive for: Regular Rate and Rhythm, Normal S1, S2. Negative for: Murmurs Abdomen: Negative for: Tenderness, Distention, Peritoneal Signs Back: Positive for: Normal Inspection Upper Extremity: Positive for: Normal Inspection. Negative for: Cyanosis, Edema Lower Extremity: Positive for: Edema (4+ Worse on the left ), CALF TENDERNESS (B/L), Normal ROM, Tenderness, Erythema (Left lower leg), Neurovascularly Intact, Other (2 blisters noted on left lower extremity. left lower extremity is warm and painful to the touch and has no discharge.). Negative for: NORMAL PULSES (Decreased ) Neurological: Positive for: GCS=15, CN II-XII Intact, Speech Normal Skin: Positive for: Warm, Dry, Normal Color. Negative for: Rashes Psychiatric: Positive for: Alert, Oriented x 3, Normal Insight, Normal Concentration - Medications Active Medications: Active Medications Generic Name Dose Route Start Last Admin Trade Name Freq PRN Reason Stop Dose Admin Acetaminophen 650 mg 01/21/18 04:19 01/21/18 04:32 Tylenol 325mg Tab PO 650 mg Q6H PRN Administration Fever >100.4 F Dextrose 0 ml 01/21/18 00:34 Dextrose 50% Inj IV STAT PRN Hypoglycemia Protocol Protocol Hydralazine HCl 10 mg 01/21/18 00:25 01/21/18 10:01 Apresoline IVP 10 mg Q6H PRN Administration Systolic Blood Pressure Dextrose 1,000 mls @ 0 mls/hr 01/21/18 00:34 Dextrose 5% In Water 1000 Ml IV .Q0M PRN Hypoglycemia Protocol Protocol Per Protocol Heparin Sodium/Sodium Chloride 25,000 units in 250 mls @ 18.37 mls/hr 01/21/18 08:09 01/21/18 11:20 Heparin 50413 Units/250ml 1/2 Normal Saline IV 0 units/kg/hr .[id number] PRN 0 mls/hr ADJUST RATE PER PROTOCOL Titration Protocol 18 UNITS/KG/HR Sodium Bicarbonate 150 meq/ 1,150 mls @ 200 mls/hr 01/21/18 08:20 01/21/18 12:57 Dextrose IV 200 mls/hr .[id number] CATHIE Administration Insulin Human Lispro 0 units 01/21/18 07:30 01/21/18 13:06 Humalog Med SC Not Given ACHS CATHIE Protocol Pantoprazole Sodium 40 mg 01/21/18 10:00 01/21/18 09:03 Protonix Inj IVP 40 mg Q12 CATHIE Administration - Patient Studies Lab Studies: Lab Studies 01/21/18 01/21/18 01/21/18 Range/Units 11:29 10:50 05:10 WBC (4.5-11.0) 10^3/ul RBC (3.5-6.1) 10^6/uL Hgb (14.0-18.0) g/dL Hct (42.0-52.0) % MCV (80.0-105.0) fl MCH (25.0-35.0) pg MCHC (31.0-37.0) g/dl RDW (11.5-14.5) % Plt Count (120.0-450.0) 10^3/uL MPV (7.0-11.0) fl Gran % (50.0-68.0) % Lymph % (Auto) (22.0-35.0) % Jenkins % (Auto) (1.0-6.0) % Eos % (Auto) (1.5-5.0) % Baso % (Auto) (0.0-3.0) % Gran # (1.4-6.5) Lymph # (Auto) (1.2-3.4) Jenkins # (Auto) (0.1-0.6) Eos # (Auto) (0.0-0.7) Baso # (Auto) (0.0-2.0) K/mm3 Neutrophils % (Manual) (50.0-70.0) % Band Neutrophils % (0-2) % Lymphocytes % (Manual) (22.0-35.0) % Atypical Lymphs % (0.0-0.0) % Monocytes % (Manual) (1.0-6.0) % Toxic Granulation Platelet Evaluation (NORMAL) Hypochromasia Target Cells Rouleaux Retic Count (0.5-1.5) % PT (9.4-12.5) SECONDS INR APTT (25.1-36.5) Seconds D-Dimer, Quantitative (0-243) ng/mlDDU pO2 (30-55) mm/Hg VBG pH (7.32-7.43) VBG pCO2 (40-60) VBG HCO3 (21-28) mmol/l VBG Total CO2 (22-28) mmol.L VBG O2 Sat (Calc) (40-65) % VBG Base Excess (0.0-2.0) mmol/L VBG Potassium (3.6-5.2) mmol/L Sodium (132-148) mmol/L Chloride (98-107) mmol/L Glucose (75-110) mg/dl Lactate (0.7-2.1) mmol/L FiO2 % Potassium (3.6-5.0) mmol/L Carbon Dioxide (21-33) mmol/L Anion Gap (10-20) BUN (7-21) mg/dL Creatinine (0.8-1.5) mg/dl Est GFR ( Amer) Est GFR (Non-Af Amer) POC Glucose (mg/dL) 156 H (65-110) mg/dL Random Glucose (70-110) mg/dL Calcium (8.4-10.5) mg/dL Magnesium (1.7-2.2) mg/dL Iron (45-180) ug/dL TIBC (261-462) ug/dL % Saturation (20-55) % Total Bilirubin (0.2-1.3) mg/dL AST (17-59) U/L ALT (7-56) U/L Alkaline Phosphatase (38-126) U/L Lactate Dehydrogenase (333-699) U/L Total Creatine Kinase 217 (35-230) U/L Troponin I 0.21 H* ng/mL NT-Pro-B Natriuret Pep (0-450) pg/mL Total Protein (5.8-8.3) g/dL Albumin (3.0-4.8) g/dL Globulin gm/dL Albumin/Globulin Ratio (1.1-1.8) Triglycerides (35-160) mg/dL Cholesterol (130-200) mg/dL LDL Cholesterol Direct (0-129) mg/dL HDL Cholesterol (29-60) mg/dL TSH 3rd Generation 1.73 (0.46-4.68) mIU/mL Venous Blood Potassium (3.6-5.2) mmol/L Urine Color (YELLOW) Urine Appearance (CLEAR) Urine pH (4.7-8.0) Ur Specific [place] (1.005-1.035) Urine Protein (<30 mg/dL) mg/dL Urine Glucose (UA) (NEGATIVE) mg/dL Urine Ketones (NEGATIVE) mg/dL Urine Blood (NEGATIVE) Urine Nitrate (NEGATIVE) Urine Bilirubin (NEGATIVE) Urine Urobilinogen (<1 E.U./dL) E.U./dL Ur Leukocyte Esterase (NEGATIVE) Krystle/uL Urine RBC (0-2) /hpf Urine WBC (0-6) /hpf Ur Epithelial Cells (0-5) /hpf Stool Occult Blood (NEGATIVE) Urine Opiates Screen (NEGATIVE) Urine Methadone Screen (NEGATIVE) Ur Barbiturates Screen (NEGATIVE) Ur Phencyclidine Scrn (NEGATIVE) Ur Amphetamines Screen (NEGATIVE) U Benzodiazepines Scrn (NEGATIVE) U Oth Cocaine Metabols (NEGATIVE) U Cannabinoids Screen (NEGATIVE) Alcohol, Quantitative (0-10) mg/dL Blood Type Blood Type Confirm Antibody Screen Crossmatch BBK History Checked 01/21/18 01/21/18 01/21/18 Range/Units 05:10 05:10 05:10 WBC 13.2 H (4.5-11.0) 10^3/ul RBC 2.03 L (3.5-6.1) 10^6/uL Hgb 6.1 L* (14.0-18.0) g/dL Hct 17.6 L* (42.0-52.0) % MCV 86.7 (80.0-105.0) fl MCH 30.0 (25.0-35.0) pg MCHC 34.7 (31.0-37.0) g/dl RDW 14.1 (11.5-14.5) % Plt Count 271 (120.0-450.0) 10^3/uL MPV 8.8 (7.0-11.0) fl Gran % 89.0 H (50.0-68.0) % Lymph % (Auto) 8.4 L (22.0-35.0) % Jenkins % (Auto) 2.0 (1.0-6.0) % Eos % (Auto) 0.5 L (1.5-5.0) % Baso % (Auto) 0.1 (0.0-3.0) % Gran # 11.75 H (1.4-6.5) Lymph # (Auto) 1.1 L (1.2-3.4) Jenkins # (Auto) 0.3 (0.1-0.6) Eos # (Auto) 0.1 (0.0-0.7) Baso # (Auto) 0.01 (0.0-2.0) K/mm3 Neutrophils % (Manual) (50.0-70.0) % Band Neutrophils % (0-2) % Lymphocytes % (Manual) (22.0-35.0) % Atypical Lymphs % (0.0-0.0) % Monocytes % (Manual) (1.0-6.0) % Toxic Granulation Platelet Evaluation (NORMAL) Hypochromasia Target Cells Rouleaux Retic Count 2.49 H (0.5-1.5) % PT (9.4-12.5) SECONDS INR APTT (25.1-36.5) Seconds D-Dimer, Quantitative (0-243) ng/mlDDU pO2 (30-55) mm/Hg VBG pH (7.32-7.43) VBG pCO2 (40-60) VBG HCO3 (21-28) mmol/l VBG Total CO2 (22-28) mmol.L VBG O2 Sat (Calc) (40-65) % VBG Base Excess (0.0-2.0) mmol/L VBG Potassium (3.6-5.2) mmol/L Sodium 137 (132-148) mmol/L Chloride 107 (98-107) mmol/L Glucose (75-110) mg/dl Lactate (0.7-2.1) mmol/L FiO2 % Potassium 5.1 H (3.6-5.0) mmol/L Carbon Dioxide 8 L D (21-33) mmol/L Anion Gap 27 H (10-20) BUN 159 H* (7-21) mg/dL Creatinine 17.8 H* (0.8-1.5) mg/dl Est GFR ( Amer) 3 Est GFR (Non-Af Amer) 3 POC Glucose (mg/dL) (65-110) mg/dL Random Glucose 115 H (70-110) mg/dL Calcium 7.8 L (8.4-10.5) mg/dL Magnesium (1.7-2.2) mg/dL Iron 27 L (45-180) ug/dL TIBC 190 L (261-462) ug/dL % Saturation 14 L (20-55) % Total Bilirubin 0.4 (0.2-1.3) mg/dL AST 27 (17-59) U/L ALT 25 (7-56) U/L Alkaline Phosphatase 107 (38-126) U/L Lactate Dehydrogenase (333-699) U/L Total Creatine Kinase (35-230) U/L Troponin I ng/mL NT-Pro-B Natriuret Pep (0-450) pg/mL Total Protein 6.7 (5.8-8.3) g/dL Albumin 3.1 (3.0-4.8) g/dL Globulin 3.7 gm/dL Albumin/Globulin Ratio 0.8 L (1.1-1.8) Triglycerides 71 (35-160) mg/dL Cholesterol 105 L (130-200) mg/dL LDL Cholesterol Direct 34 (0-129) mg/dL HDL Cholesterol 43 (29-60) mg/dL TSH 3rd Generation (0.46-4.68) mIU/mL Venous Blood Potassium (3.6-5.2) mmol/L Urine Color (YELLOW) Urine Appearance (CLEAR) Urine pH (4.7-8.0) Ur Specific [place] (1.005-1.035) Urine Protein (<30 mg/dL) mg/dL Urine Glucose (UA) (NEGATIVE) mg/dL Urine Ketones (NEGATIVE) mg/dL Urine Blood (NEGATIVE) Urine Nitrate (NEGATIVE) Urine Bilirubin (NEGATIVE) Urine Urobilinogen (<1 E.U./dL) E.U./dL Ur Leukocyte Esterase (NEGATIVE) Krystle/uL Urine RBC (0-2) /hpf Urine WBC (0-6) /hpf Ur Epithelial Cells (0-5) /hpf Stool Occult Blood (NEGATIVE) Urine Opiates Screen (NEGATIVE) Urine Methadone Screen (NEGATIVE) Ur Barbiturates Screen (NEGATIVE) Ur Phencyclidine Scrn (NEGATIVE) Ur Amphetamines Screen (NEGATIVE) U Benzodiazepines Scrn (NEGATIVE) U Oth Cocaine Metabols (NEGATIVE) U Cannabinoids Screen (NEGATIVE) Alcohol, Quantitative (0-10) mg/dL Blood Type Blood Type Confirm Antibody Screen Crossmatch BBK History Checked 01/21/18 01/20/18 01/20/18 Range/Units 02:45 22:22 21:50 WBC (4.5-11.0) 10^3/ul RBC (3.5-6.1) 10^6/uL Hgb (14.0-18.0) g/dL Hct (42.0-52.0) % MCV (80.0-105.0) fl MCH (25.0-35.0) pg MCHC (31.0-37.0) g/dl RDW (11.5-14.5) % Plt Count (120.0-450.0) 10^3/uL MPV (7.0-11.0) fl Gran % (50.0-68.0) % Lymph % (Auto) (22.0-35.0) % Jenkins % (Auto) (1.0-6.0) % Eos % (Auto) (1.5-5.0) % Baso % (Auto) (0.0-3.0) % Gran # (1.4-6.5) Lymph # (Auto) (1.2-3.4) Jenkins # (Auto) (0.1-0.6) Eos # (Auto) (0.0-0.7) Baso # (Auto) (0.0-2.0) K/mm3 Neutrophils % (Manual) (50.0-70.0) % Band Neutrophils % (0-2) % Lymphocytes % (Manual) (22.0-35.0) % Atypical Lymphs % (0.0-0.0) % Monocytes % (Manual) (1.0-6.0) % Toxic Granulation Platelet Evaluation (NORMAL) Hypochromasia Target Cells Rouleaux Retic Count (0.5-1.5) % PT (9.4-12.5) SECONDS INR APTT (25.1-36.5) Seconds D-Dimer, Quantitative (0-243) ng/mlDDU pO2 (30-55) mm/Hg VBG pH (7.32-7.43) VBG pCO2 (40-60) VBG HCO3 (21-28) mmol/l VBG Total CO2 (22-28) mmol.L VBG O2 Sat (Calc) (40-65) % VBG Base Excess (0.0-2.0) mmol/L VBG Potassium (3.6-5.2) mmol/L Sodium (132-148) mmol/L Chloride (98-107) mmol/L Glucose (75-110) mg/dl Lactate (0.7-2.1) mmol/L FiO2 % Potassium (3.6-5.0) mmol/L Carbon Dioxide (21-33) mmol/L Anion Gap (10-20) BUN (7-21) mg/dL Creatinine (0.8-1.5) mg/dl Est GFR ( Amer) Est GFR (Non-Af Amer) POC Glucose (mg/dL) (65-110) mg/dL Random Glucose (70-110) mg/dL Calcium (8.4-10.5) mg/dL Magnesium (1.7-2.2) mg/dL Iron (45-180) ug/dL TIBC (261-462) ug/dL % Saturation (20-55) % Total Bilirubin (0.2-1.3) mg/dL AST (17-59) U/L ALT (7-56) U/L Alkaline Phosphatase (38-126) U/L Lactate Dehydrogenase (333-699) U/L Total Creatine Kinase (35-230) U/L Troponin I 0.18 H* ng/mL NT-Pro-B Natriuret Pep (0-450) pg/mL Total Protein (5.8-8.3) g/dL Albumin (3.0-4.8) g/dL Globulin gm/dL Albumin/Globulin Ratio (1.1-1.8) Triglycerides (35-160) mg/dL Cholesterol (130-200) mg/dL LDL Cholesterol Direct (0-129) mg/dL HDL Cholesterol (29-60) mg/dL TSH 3rd Generation (0.46-4.68) mIU/mL Venous Blood Potassium (3.6-5.2) mmol/L Urine Color (YELLOW) Urine Appearance (CLEAR) Urine pH (4.7-8.0) Ur Specific [place] (1.005-1.035) Urine Protein (<30 mg/dL) mg/dL Urine Glucose (UA) (NEGATIVE) mg/dL Urine Ketones (NEGATIVE) mg/dL Urine Blood (NEGATIVE) Urine Nitrate (NEGATIVE) Urine Bilirubin (NEGATIVE) Urine Urobilinogen (<1 E.U./dL) E.U./dL Ur Leukocyte Esterase (NEGATIVE) Krystle/uL Urine RBC (0-2) /hpf Urine WBC (0-6) /hpf Ur Epithelial Cells (0-5) /hpf Stool Occult Blood Positive H (NEGATIVE) Urine Opiates Screen (NEGATIVE) Urine Methadone Screen (NEGATIVE) Ur Barbiturates Screen (NEGATIVE) Ur Phencyclidine Scrn (NEGATIVE) Ur Amphetamines Screen (NEGATIVE) U Benzodiazepines Scrn (NEGATIVE) U Oth Cocaine Metabols (NEGATIVE) U Cannabinoids Screen (NEGATIVE) Alcohol, Quantitative (0-10) mg/dL Blood Type Blood Type Confirm A POSITIVE Antibody Screen Crossmatch BBK History Checked 01/20/18 01/20/18 01/20/18 Range/Units 21:50 21:50 21:00 WBC (4.5-11.0) 10^3/ul RBC (3.5-6.1) 10^6/uL Hgb (14.0-18.0) g/dL Hct (42.0-52.0) % MCV (80.0-105.0) fl MCH (25.0-35.0) pg MCHC (31.0-37.0) g/dl RDW (11.5-14.5) % Plt Count (120.0-450.0) 10^3/uL MPV (7.0-11.0) fl Gran % (50.0-68.0) % Lymph % (Auto) (22.0-35.0) % Jenkins % (Auto) (1.0-6.0) % Eos % (Auto) (1.5-5.0) % Baso % (Auto) (0.0-3.0) % Gran # (1.4-6.5) Lymph # (Auto) (1.2-3.4) Jenkins # (Auto) (0.1-0.6) Eos # (Auto) (0.0-0.7) Baso # (Auto) (0.0-2.0) K/mm3 Neutrophils % (Manual) (50.0-70.0) % Band Neutrophils % (0-2) % Lymphocytes % (Manual) (22.0-35.0) % Atypical Lymphs % (0.0-0.0) % Monocytes % (Manual) (1.0-6.0) % Toxic Granulation Platelet Evaluation (NORMAL) Hypochromasia Target Cells Rouleaux Retic Count (0.5-1.5) % PT (9.4-12.5) SECONDS INR APTT (25.1-36.5) Seconds D-Dimer, Quantitative (0-243) ng/mlDDU pO2 (30-55) mm/Hg VBG pH (7.32-7.43) VBG pCO2 (40-60) VBG HCO3 (21-28) mmol/l VBG Total CO2 (22-28) mmol.L VBG O2 Sat (Calc) (40-65) % VBG Base Excess (0.0-2.0) mmol/L VBG Potassium (3.6-5.2) mmol/L Sodium (132-148) mmol/L Chloride (98-107) mmol/L Glucose (75-110) mg/dl Lactate (0.7-2.1) mmol/L FiO2 % Potassium (3.6-5.0) mmol/L Carbon Dioxide (21-33) mmol/L Anion Gap (10-20) BUN (7-21) mg/dL Creatinine (0.8-1.5) mg/dl Est GFR ( Amer) Est GFR (Non-Af Amer) POC Glucose (mg/dL) (65-110) mg/dL Random Glucose (70-110) mg/dL Calcium (8.4-10.5) mg/dL Magnesium (1.7-2.2) mg/dL Iron (45-180) ug/dL TIBC (261-462) ug/dL % Saturation (20-55) % Total Bilirubin (0.2-1.3) mg/dL AST (17-59) U/L ALT (7-56) U/L Alkaline Phosphatase (38-126) U/L Lactate Dehydrogenase (333-699) U/L Total Creatine Kinase (35-230) U/L Troponin I ng/mL NT-Pro-B Natriuret Pep (0-450) pg/mL Total Protein (5.8-8.3) g/dL Albumin (3.0-4.8) g/dL Globulin gm/dL Albumin/Globulin Ratio (1.1-1.8) Triglycerides (35-160) mg/dL Cholesterol (130-200) mg/dL LDL Cholesterol Direct (0-129) mg/dL HDL Cholesterol (29-60) mg/dL TSH 3rd Generation (0.46-4.68) mIU/mL Venous Blood Potassium (3.6-5.2) mmol/L Urine Color Yellow (YELLOW) Urine Appearance Clear (CLEAR) Urine pH 6.0 (4.7-8.0) Ur Specific [place] 1.025 (1.005-1.035) Urine Protein >=300 H (<30 mg/dL) mg/dL Urine Glucose (UA) 250 H (NEGATIVE) mg/dL Urine Ketones Negative (NEGATIVE) mg/dL Urine Blood Small H (NEGATIVE) Urine Nitrate Negative (NEGATIVE) Urine Bilirubin Negative (NEGATIVE) Urine Urobilinogen 0.2 (<1 E.U./dL) E.U./dL Ur Leukocyte Esterase Negative (NEGATIVE) Krystle/uL Urine RBC 15 - 20 (0-2) /hpf Urine WBC 2 - 5 (0-6) /hpf Ur Epithelial Cells 6 - 8 (0-5) /hpf Stool Occult Blood (NEGATIVE) Urine Opiates Screen Negative (NEGATIVE) Urine Methadone Screen Negative (NEGATIVE) Ur Barbiturates Screen Negative (NEGATIVE) Ur Phencyclidine Scrn Negative (NEGATIVE) Ur Amphetamines Screen Negative (NEGATIVE) U Benzodiazepines Scrn Negative (NEGATIVE) U Oth Cocaine Metabols Positive H (NEGATIVE) U Cannabinoids Screen Negative (NEGATIVE) Alcohol, Quantitative (0-10) mg/dL Blood Type A POSITIVE Blood Type Confirm Antibody Screen Negative Crossmatch See Detail BBK History Checked No verified bt 01/20/18 01/20/18 01/20/18 Range/Units 20:30 20:30 20:30 WBC (4.5-11.0) 10^3/ul RBC (3.5-6.1) 10^6/uL Hgb (14.0-18.0) g/dL Hct (42.0-52.0) % MCV (80.0-105.0) fl MCH (25.0-35.0) pg MCHC (31.0-37.0) g/dl RDW (11.5-14.5) % Plt Count (120.0-450.0) 10^3/uL MPV (7.0-11.0) fl Gran % (50.0-68.0) % Lymph % (Auto) (22.0-35.0) % Jenkins % (Auto) (1.0-6.0) % Eos % (Auto) (1.5-5.0) % Baso % (Auto) (0.0-3.0) % Gran # (1.4-6.5) Lymph # (Auto) (1.2-3.4) Jenkins # (Auto) (0.1-0.6) Eos # (Auto) (0.0-0.7) Baso # (Auto) (0.0-2.0) K/mm3 Neutrophils % (Manual) (50.0-70.0) % Band Neutrophils % (0-2) % Lymphocytes % (Manual) (22.0-35.0) % Atypical Lymphs % (0.0-0.0) % Monocytes % (Manual) (1.0-6.0) % Toxic Granulation Platelet Evaluation (NORMAL) Hypochromasia Target Cells Rouleaux Retic Count (0.5-1.5) % PT (9.4-12.5) SECONDS INR APTT (25.1-36.5) Seconds D-Dimer, Quantitative (0-243) ng/mlDDU pO2 40 (30-55) mm/Hg VBG pH 7.24 L (7.32-7.43) VBG pCO2 28.0 L (40-60) VBG HCO3 12.0 L (21-28) mmol/l VBG Total CO2 12.9 L (22-28) mmol.L VBG O2 Sat (Calc) 73.7 H (40-65) % VBG Base Excess -13.9 L (0.0-2.0) mmol/L VBG Potassium 5.1 (3.6-5.2) mmol/L Sodium 136 133.0 (132-148) mmol/L Chloride 103 104.0 (98-107) mmol/L Glucose 158 H (75-110) mg/dl Lactate 1.1 (0.7-2.1) mmol/L FiO2 21.0 % Potassium 5.2 H (3.6-5.0) mmol/L Carbon Dioxide 12 L (21-33) mmol/L Anion Gap 26 H (10-20) BUN 162 H* (7-21) mg/dL Creatinine 18.5 H* (0.8-1.5) mg/dl Est GFR ( Amer) 3 Est GFR (Non-Af Amer) 3 POC Glucose (mg/dL) (65-110) mg/dL Random Glucose 157 H (70-110) mg/dL Calcium 8.1 L (8.4-10.5) mg/dL Magnesium 1.4 L (1.7-2.2) mg/dL Iron (45-180) ug/dL TIBC (261-462) ug/dL % Saturation (20-55) % Total Bilirubin 0.6 (0.2-1.3) mg/dL AST 26 (17-59) U/L ALT 27 (7-56) U/L Alkaline Phosphatase 122 (38-126) U/L Lactate Dehydrogenase 514 (333-699) U/L Total Creatine Kinase 224 (35-230) U/L Troponin I 0.15 H* ng/mL NT-Pro-B Natriuret Pep 54145 H (0-450) pg/mL Total Protein 7.4 (5.8-8.3) g/dL Albumin 3.4 (3.0-4.8) g/dL Globulin 3.9 gm/dL Albumin/Globulin Ratio 0.9 L (1.1-1.8) Triglycerides (35-160) mg/dL Cholesterol (130-200) mg/dL LDL Cholesterol Direct (0-129) mg/dL HDL Cholesterol (29-60) mg/dL TSH 3rd Generation (0.46-4.68) mIU/mL Venous Blood Potassium 5.1 (3.6-5.2) mmol/L Urine Color (YELLOW) Urine Appearance (CLEAR) Urine pH (4.7-8.0) Ur Specific [place] (1.005-1.035) Urine Protein (<30 mg/dL) mg/dL Urine Glucose (UA) (NEGATIVE) mg/dL Urine Ketones (NEGATIVE) mg/dL Urine Blood (NEGATIVE) Urine Nitrate (NEGATIVE) Urine Bilirubin (NEGATIVE) Urine Urobilinogen (<1 E.U./dL) E.U./dL Ur Leukocyte Esterase (NEGATIVE) Krystle/uL Urine RBC (0-2) /hpf Urine WBC (0-6) /hpf Ur Epithelial Cells (0-5) /hpf Stool Occult Blood (NEGATIVE) Urine Opiates Screen (NEGATIVE) Urine Methadone Screen (NEGATIVE) Ur Barbiturates Screen (NEGATIVE) Ur Phencyclidine Scrn (NEGATIVE) Ur Amphetamines Screen (NEGATIVE) U Benzodiazepines Scrn (NEGATIVE) U Oth Cocaine Metabols (NEGATIVE) U Cannabinoids Screen (NEGATIVE) Alcohol, Quantitative < 10 (0-10) mg/dL Blood Type Blood Type Confirm Antibody Screen Crossmatch BBK History Checked 01/20/18 01/20/18 Range/Units 20:30 20:30 WBC 13.4 H (4.5-11.0) 10^3/ul RBC 2.31 L (3.5-6.1) 10^6/uL Hgb 6.9 L* (14.0-18.0) g/dL Hct 20.2 L* (42.0-52.0) % MCV 87.4 (80.0-105.0) fl MCH 29.9 (25.0-35.0) pg MCHC 34.2 (31.0-37.0) g/dl RDW 14.4 (11.5-14.5) % Plt Count 335 (120.0-450.0) 10^3/uL MPV 10.2 (7.0-11.0) fl Gran % 91.9 H (50.0-68.0) % Lymph % (Auto) 5.7 L (22.0-35.0) % Jenkins % (Auto) 2.2 (1.0-6.0) % Eos % (Auto) 0.1 L (1.5-5.0) % Baso % (Auto) 0.1 (0.0-3.0) % Gran # 12.30 H (1.4-6.5) Lymph # (Auto) 0.8 L (1.2-3.4) Jenkins # (Auto) 0.3 (0.1-0.6) Eos # (Auto) 0.0 (0.0-0.7) Baso # (Auto) 0.01 (0.0-2.0) K/mm3 Neutrophils % (Manual) 91 H (50.0-70.0) % Band Neutrophils % 0 (0-2) % Lymphocytes % (Manual) 4 L (22.0-35.0) % Atypical Lymphs % 0 (0.0-0.0) % Monocytes % (Manual) 5 (1.0-6.0) % Toxic Granulation 3+ Platelet Evaluation Normal (NORMAL) Hypochromasia 2+ Target Cells 1+ Rouleaux 2+ Retic Count (0.5-1.5) % PT 17.3 H (9.4-12.5) SECONDS INR 1.50 APTT 43.8 H (25.1-36.5) Seconds D-Dimer, Quantitative 2331 H (0-243) ng/mlDDU pO2 (30-55) mm/Hg VBG pH (7.32-7.43) VBG pCO2 (40-60) VBG HCO3 (21-28) mmol/l VBG Total CO2 (22-28) mmol.L VBG O2 Sat (Calc) (40-65) % VBG Base Excess (0.0-2.0) mmol/L VBG Potassium (3.6-5.2) mmol/L Sodium (132-148) mmol/L Chloride (98-107) mmol/L Glucose (75-110) mg/dl Lactate (0.7-2.1) mmol/L FiO2 % Potassium (3.6-5.0) mmol/L Carbon Dioxide (21-33) mmol/L Anion Gap (10-20) BUN (7-21) mg/dL Creatinine (0.8-1.5) mg/dl Est GFR ( Amer) Est GFR (Non-Af Amer) POC Glucose (mg/dL) (65-110) mg/dL Random Glucose (70-110) mg/dL Calcium (8.4-10.5) mg/dL Magnesium (1.7-2.2) mg/dL Iron (45-180) ug/dL TIBC (261-462) ug/dL % Saturation (20-55) % Total Bilirubin (0.2-1.3) mg/dL AST (17-59) U/L ALT (7-56) U/L Alkaline Phosphatase (38-126) U/L Lactate Dehydrogenase (333-699) U/L Total Creatine Kinase (35-230) U/L Troponin I ng/mL NT-Pro-B Natriuret Pep (0-450) pg/mL Total Protein (5.8-8.3) g/dL Albumin (3.0-4.8) g/dL Globulin gm/dL Albumin/Globulin Ratio (1.1-1.8) Triglycerides (35-160) mg/dL Cholesterol (130-200) mg/dL LDL Cholesterol Direct (0-129) mg/dL HDL Cholesterol (29-60) mg/dL TSH 3rd Generation (0.46-4.68) mIU/mL Venous Blood Potassium (3.6-5.2) mmol/L Urine Color (YELLOW) Urine Appearance (CLEAR) Urine pH (4.7-8.0) Ur Specific [place] (1.005-1.035) Urine Protein (<30 mg/dL) mg/dL Urine Glucose (UA) (NEGATIVE) mg/dL Urine Ketones (NEGATIVE) mg/dL Urine Blood (NEGATIVE) Urine Nitrate (NEGATIVE) Urine Bilirubin (NEGATIVE) Urine Urobilinogen (<1 E.U./dL) E.U./dL Ur Leukocyte Esterase (NEGATIVE) Krystle/uL Urine RBC (0-2) /hpf Urine WBC (0-6) /hpf Ur Epithelial Cells (0-5) /hpf Stool Occult Blood (NEGATIVE) Urine Opiates Screen (NEGATIVE) Urine Methadone Screen (NEGATIVE) Ur Barbiturates Screen (NEGATIVE) Ur Phencyclidine Scrn (NEGATIVE) Ur Amphetamines Screen (NEGATIVE) U Benzodiazepines Scrn (NEGATIVE) U Oth Cocaine Metabols (NEGATIVE) U Cannabinoids Screen (NEGATIVE) Alcohol, Quantitative (0-10) mg/dL Blood Type Blood Type Confirm Antibody Screen Crossmatch BBK History Checked Laboratory Results - last 24 hr 01/20/18 01/20/18 01/20/18 20:30 20:30 20:30 WBC 13.4 H RBC 2.31 L Hgb 6.9 L* Hct 20.2 L* MCV 87.4 MCH 29.9 MCHC 34.2 RDW 14.4 Plt Count 335 MPV 10.2 Gran % 91.9 H Lymph % (Auto) 5.7 L Jenkins % (Auto) 2.2 Eos % (Auto) 0.1 L Baso % (Auto) 0.1 Gran # 12.30 H Lymph # (Auto) 0.8 L Jenkins # (Auto) 0.3 Eos # (Auto) 0.0 Baso # (Auto) 0.01 Neutrophils % (Manual) 91 H Band Neutrophils % 0 Lymphocytes % (Manual) 4 L Atypical Lymphs % 0 Monocytes % (Manual) 5 Toxic Granulation 3+ Platelet Evaluation Normal Hypochromasia 2+ Target Cells 1+ Rouleaux 2+ Retic Count PT 17.3 H INR 1.50 APTT 43.8 H D-Dimer, Quantitative 2331 H pO2 40 VBG pH 7.24 L VBG pCO2 28.0 L VBG HCO3 12.0 L VBG Total CO2 12.9 L VBG O2 Sat (Calc) 73.7 H VBG Base Excess -13.9 L VBG Potassium 5.1 Sodium 133.0 Chloride 104.0 Glucose 158 H Lactate 1.1 FiO2 21.0 Potassium Carbon Dioxide Anion Gap BUN Creatinine Est GFR ( Amer) Est GFR (Non-Af Amer) POC Glucose (mg/dL) Random Glucose Calcium Magnesium Iron TIBC % Saturation Total Bilirubin AST ALT Alkaline Phosphatase Lactate Dehydrogenase Total Creatine Kinase Troponin I NT-Pro-B Natriuret Pep Total Protein Albumin Globulin Albumin/Globulin Ratio Triglycerides Cholesterol LDL Cholesterol Direct HDL Cholesterol TSH 3rd Generation Venous Blood Potassium 5.1 Urine Color Urine Appearance Urine pH Ur Specific [place] Urine Protein Urine Glucose (UA) Urine Ketones Urine Blood Urine Nitrate Urine Bilirubin Urine Urobilinogen Ur Leukocyte Esterase Urine RBC Urine WBC Ur Epithelial Cells Stool Occult Blood Urine Opiates Screen Urine Methadone Screen Ur Barbiturates Screen Ur Phencyclidine Scrn Ur Amphetamines Screen U Benzodiazepines Scrn U Oth Cocaine Metabols U Cannabinoids Screen Alcohol, Quantitative Blood Type Blood Type Confirm Antibody Screen Crossmatch BBK History Checked 01/20/18 01/20/18 01/20/18 20:30 20:30 21:00 WBC RBC Hgb Hct MCV MCH MCHC RDW Plt Count MPV Gran % Lymph % (Auto) Jenkins % (Auto) Eos % (Auto) Baso % (Auto) Gran # Lymph # (Auto) Jenkins # (Auto) Eos # (Auto) Baso # (Auto) Neutrophils % (Manual) Band Neutrophils % Lymphocytes % (Manual) Atypical Lymphs % Monocytes % (Manual) Toxic Granulation Platelet Evaluation Hypochromasia Target Cells Rouleaux Retic Count PT INR APTT D-Dimer, Quantitative pO2 VBG pH VBG pCO2 VBG HCO3 VBG Total CO2 VBG O2 Sat (Calc) VBG Base Excess VBG Potassium Sodium 136 Chloride 103 Glucose Lactate FiO2 Potassium 5.2 H Carbon Dioxide 12 L Anion Gap 26 H BUN 162 H* Creatinine 18.5 H* Est GFR ( Amer) 3 Est GFR (Non-Af Amer) 3 POC Glucose (mg/dL) Random Glucose 157 H Calcium 8.1 L Magnesium 1.4 L Iron TIBC % Saturation Total Bilirubin 0.6 AST 26 ALT 27 Alkaline Phosphatase 122 Lactate Dehydrogenase 514 Total Creatine Kinase 224 Troponin I 0.15 H* NT-Pro-B Natriuret Pep 77939 H Total Protein 7.4 Albumin 3.4 Globulin 3.9 Albumin/Globulin Ratio 0.9 L Triglycerides Cholesterol LDL Cholesterol Direct HDL Cholesterol TSH 3rd Generation Venous Blood Potassium Urine Color Urine Appearance Urine pH Ur Specific [place] Urine Protein Urine Glucose (UA) Urine Ketones Urine Blood Urine Nitrate Urine Bilirubin Urine Urobilinogen Ur Leukocyte Esterase Urine RBC Urine WBC Ur Epithelial Cells Stool Occult Blood Urine Opiates Screen Urine Methadone Screen Ur Barbiturates Screen Ur Phencyclidine Scrn Ur Amphetamines Screen U Benzodiazepines Scrn U Oth Cocaine Metabols U Cannabinoids Screen Alcohol, Quantitative < 10 Blood Type A POSITIVE Blood Type Confirm Antibody Screen Negative Crossmatch See Detail BBK History Checked No verified bt 01/20/18 01/20/18 01/20/18 21:50 21:50 21:50 WBC RBC Hgb Hct MCV MCH MCHC RDW Plt Count MPV Gran % Lymph % (Auto) Jenkins % (Auto) Eos % (Auto) Baso % (Auto) Gran # Lymph # (Auto) Jenkins # (Auto) Eos # (Auto) Baso # (Auto) Neutrophils % (Manual) Band Neutrophils % Lymphocytes % (Manual) Atypical Lymphs % Monocytes % (Manual) Toxic Granulation Platelet Evaluation Hypochromasia Target Cells Rouleaux Retic Count PT INR APTT D-Dimer, Quantitative pO2 VBG pH VBG pCO2 VBG HCO3 VBG Total CO2 VBG O2 Sat (Calc) VBG Base Excess VBG Potassium Sodium Chloride Glucose Lactate FiO2 Potassium Carbon Dioxide Anion Gap BUN Creatinine Est GFR ( Amer) Est GFR (Non-Af Amer) POC Glucose (mg/dL) Random Glucose Calcium Magnesium Iron TIBC % Saturation Total Bilirubin AST ALT Alkaline Phosphatase Lactate Dehydrogenase Total Creatine Kinase Troponin I NT-Pro-B Natriuret Pep Total Protein Albumin Globulin Albumin/Globulin Ratio Triglycerides Cholesterol LDL Cholesterol Direct HDL Cholesterol TSH 3rd Generation Venous Blood Potassium Urine Color Yellow Urine Appearance Clear Urine pH 6.0 Ur Specific [place] 1.025 Urine Protein >=300 H Urine Glucose (UA) 250 H Urine Ketones Negative Urine Blood Small H Urine Nitrate Negative Urine Bilirubin Negative Urine Urobilinogen 0.2 Ur Leukocyte Esterase Negative Urine RBC 15 - 20 Urine WBC 2 - 5 Ur Epithelial Cells 6 - 8 Stool Occult Blood Positive H Urine Opiates Screen Negative Urine Methadone Screen Negative Ur Barbiturates Screen Negative Ur Phencyclidine Scrn Negative Ur Amphetamines Screen Negative U Benzodiazepines Scrn Negative U Oth Cocaine Metabols Positive H U Cannabinoids Screen Negative Alcohol, Quantitative Blood Type Blood Type Confirm Antibody Screen Crossmatch BBK History Checked 01/20/18 01/21/18 01/21/18 22:22 02:45 05:10 WBC 13.2 H RBC 2.03 L Hgb 6.1 L* Hct 17.6 L* MCV 86.7 MCH 30.0 MCHC 34.7 RDW 14.1 Plt Count 271 MPV 8.8 Gran % 89.0 H Lymph % (Auto) 8.4 L Jenkins % (Auto) 2.0 Eos % (Auto) 0.5 L Baso % (Auto) 0.1 Gran # 11.75 H Lymph # (Auto) 1.1 L Jenkins # (Auto) 0.3 Eos # (Auto) 0.1 Baso # (Auto) 0.01 Neutrophils % (Manual) Band Neutrophils % Lymphocytes % (Manual) Atypical Lymphs % Monocytes % (Manual) Toxic Granulation Platelet Evaluation Hypochromasia Target Cells Rouleaux Retic Count 2.49 H PT INR APTT D-Dimer, Quantitative pO2 VBG pH VBG pCO2 VBG HCO3 VBG Total CO2 VBG O2 Sat (Calc) VBG Base Excess VBG Potassium Sodium Chloride Glucose Lactate FiO2 Potassium Carbon Dioxide Anion Gap BUN Creatinine Est GFR ( Amer) Est GFR (Non-Af Amer) POC Glucose (mg/dL) Random Glucose Calcium Magnesium Iron TIBC % Saturation Total Bilirubin AST ALT Alkaline Phosphatase Lactate Dehydrogenase Total Creatine Kinase Troponin I 0.18 H* NT-Pro-B Natriuret Pep Total Protein Albumin Globulin Albumin/Globulin Ratio Triglycerides Cholesterol LDL Cholesterol Direct HDL Cholesterol TSH 3rd Generation Venous Blood Potassium Urine Color Urine Appearance Urine pH Ur Specific [place] Urine Protein Urine Glucose (UA) Urine Ketones Urine Blood Urine Nitrate Urine Bilirubin Urine Urobilinogen Ur Leukocyte Esterase Urine RBC Urine WBC Ur Epithelial Cells Stool Occult Blood Urine Opiates Screen Urine Methadone Screen Ur Barbiturates Screen Ur Phencyclidine Scrn Ur Amphetamines Screen U Benzodiazepines Scrn U Oth Cocaine Metabols U Cannabinoids Screen Alcohol, Quantitative Blood Type Blood Type Confirm A POSITIVE Antibody Screen Crossmatch BBK History Checked 01/21/18 01/21/18 01/21/18 05:10 05:10 05:10 WBC RBC Hgb Hct MCV MCH MCHC RDW Plt Count MPV Gran % Lymph % (Auto) Jenkins % (Auto) Eos % (Auto) Baso % (Auto) Gran # Lymph # (Auto) Jenkins # (Auto) Eos # (Auto) Baso # (Auto) Neutrophils % (Manual) Band Neutrophils % Lymphocytes % (Manual) Atypical Lymphs % Monocytes % (Manual) Toxic Granulation Platelet Evaluation Hypochromasia Target Cells Rouleaux Retic Count PT INR APTT D-Dimer, Quantitative pO2 VBG pH VBG pCO2 VBG HCO3 VBG Total CO2 VBG O2 Sat (Calc) VBG Base Excess VBG Potassium Sodium 137 Chloride 107 Glucose Lactate FiO2 Potassium 5.1 H Carbon Dioxide 8 L D Anion Gap 27 H BUN 159 H* Creatinine 17.8 H* Est GFR ( Amer) 3 Est GFR (Non-Af Amer) 3 POC Glucose (mg/dL) Random Glucose 115 H Calcium 7.8 L Magnesium Iron 27 L TIBC 190 L % Saturation 14 L Total Bilirubin 0.4 AST 27 ALT 25 Alkaline Phosphatase 107 Lactate Dehydrogenase Total Creatine Kinase Troponin I NT-Pro-B Natriuret Pep Total Protein 6.7 Albumin 3.1 Globulin 3.7 Albumin/Globulin Ratio 0.8 L Triglycerides 71 Cholesterol 105 L LDL Cholesterol Direct 34 HDL Cholesterol 43 TSH 3rd Generation 1.73 Venous Blood Potassium Urine Color Urine Appearance Urine pH Ur Specific [place] Urine Protein Urine Glucose (UA) Urine Ketones Urine Blood Urine Nitrate Urine Bilirubin Urine Urobilinogen Ur Leukocyte Esterase Urine RBC Urine WBC Ur Epithelial Cells Stool Occult Blood Urine Opiates Screen Urine Methadone Screen Ur Barbiturates Screen Ur Phencyclidine Scrn Ur Amphetamines Screen U Benzodiazepines Scrn U Oth Cocaine Metabols U Cannabinoids Screen Alcohol, Quantitative Blood Type Blood Type Confirm Antibody Screen Crossmatch BBK History Checked 01/21/18 01/21/18 10:50 11:29 WBC RBC Hgb Hct MCV MCH MCHC RDW Plt Count MPV Gran % Lymph % (Auto) Jenkins % (Auto) Eos % (Auto) Baso % (Auto) Gran # Lymph # (Auto) Jenkins # (Auto) Eos # (Auto) Baso # (Auto) Neutrophils % (Manual) Band Neutrophils % Lymphocytes % (Manual) Atypical Lymphs % Monocytes % (Manual) Toxic Granulation Platelet Evaluation Hypochromasia Target Cells Rouleaux Retic Count PT INR APTT D-Dimer, Quantitative pO2 VBG pH VBG pCO2 VBG HCO3 VBG Total CO2 VBG O2 Sat (Calc) VBG Base Excess VBG Potassium Sodium Chloride Glucose Lactate FiO2 Potassium Carbon Dioxide Anion Gap BUN Creatinine Est GFR ( Amer) Est GFR (Non-Af Amer) POC Glucose (mg/dL) 156 H Random Glucose Calcium Magnesium Iron TIBC % Saturation Total Bilirubin AST ALT Alkaline Phosphatase Lactate Dehydrogenase Total Creatine Kinase 217 Troponin I 0.21 H* NT-Pro-B Natriuret Pep Total Protein Albumin Globulin Albumin/Globulin Ratio Triglycerides Cholesterol LDL Cholesterol Direct HDL Cholesterol TSH 3rd Generation Venous Blood Potassium Urine Color Urine Appearance Urine pH Ur Specific [place] Urine Protein Urine Glucose (UA) Urine Ketones Urine Blood Urine Nitrate Urine Bilirubin Urine Urobilinogen Ur Leukocyte Esterase Urine RBC Urine WBC Ur Epithelial Cells Stool Occult Blood Urine Opiates Screen Urine Methadone Screen Ur Barbiturates Screen Ur Phencyclidine Scrn Ur Amphetamines Screen U Benzodiazepines Scrn U Oth Cocaine Metabols U Cannabinoids Screen Alcohol, Quantitative Blood Type Blood Type Confirm Antibody Screen Crossmatch BBK History Checked EKG/Cardiology Studies: Cardiology / EKG Studies 01/20/18 19:55 EKG [ELECTROCARDIOGRAM] Stat Comment: Reason For Exam: LEG PROBLEM AND PAIN 01/21/18 08:00 EKG [ELECTROCARDIOGRAM] Routine Comment: Reason For Exam: elevated troponin Fingerstick Blood Sugar Results: 156 Review of Systems - Constitutional Constitutional: absent: Fever, Chills, Sweats - EENT Eyes: absent: Blurred Vision Ears: absent: Decreased Hearing Nose/Mouth/Throat: absent: Dysphagia - Cardiovascular Cardiovascular: absent: Chest Pain, Chest Pain at Rest, Chest Pain with Activity - Respiratory Respiratory: absent: Cough, Dyspnea, Wheezing - Gastrointestinal Gastrointestinal: absent: Abdominal Pain, Constipation, Diarrhea, Nausea, Vomiting - Genitourinary Genitourinary: absent: Change in Urinary Stream, Dysuria, Hematuria - Musculoskeletal Musculoskeletal: absent: Arthralgias, Back Pain, Myalgias - Integumentary Integumentary: Other (large blister) - Neurological Neurological: absent: Confusion, Numbness, Tingling, Weakness Critical Care Progress Note - Ventilator Checklist Head of Bed 30 Degrees: Yes PUD Prophalyxis: Yes DVT Prophylaxis: Yes - Extremities/Vascular Does the Patient have a Central Venous Catheter?: Yes Does the Patient need a Central Venous Catheter?: Yes Does the Patient have a Bailey Catheter?: Yes - Nutrition Nutrition: Nutrition Category Date Time Status Renal Diet [DIET] Diets 01/21/18 Breakfast Ordered Assessment/Plan - Assessment and Plan (Free Text) Assessment: 57 year old male with past medical history of CKD stage V, left lower extremity DVT, diabetes mellitus type II, Hypertension, hyperlipidemia, presents with shortness of breath worse with exertion; swelling, erythema, and pain of left lower extremity which started one month ago. Patient also presented with fecal occult blood test positive, had a hemoglobin of 6.9 on presentation and was given 1 U of PRBCs. Popliteal vein DVT was seen on ultrasound Plan: Neuro: -AAOx3, no FND, moving extremities past midline. -Monitor neuro status. -Reorient patient as necessary. Cardio: -Tachycardic, hypertensive at 156/94, no signs of HD compromise -EKG: sinus tachycardia with premature supraventricular complexes and PVCs. HR: 124, VT: 144, QRS: 80, QTc: 483 -Patient has elevated troponins taken Q6 at 0.15, 0.18, 0.21. Elevated troponins likely due to elevated creatinine vs. right heart strain from massive PE vs. myocardial infarction vs. cocaine use. -BNP: 59,000 -Hydralazine 10 mg Q6 for elevated blood pressures -Maintain MAP>65. -Monitor for S/S, HD compromise. -Dr. Mendez, Cardiology, consulted for recommendations. Dr. Mendez recommends patient get echocardiogram to evaluate cardiac function. Pulm: -No signs of respiratory distress. CTA B/L -Lower extremity ultrasound: left popliteal DVT -CXR: mild pulmonary congestion -V/Q scan ordered to evaluate for PE since CTA cannot be done due to renal status. -Elevated troponins possibly due to right heart strain from PE. -Patient started on therapeutic heparin 18 mg/kg/hr -Patient is stating well on room air. -Maintain O2 saturation>95%. GI: -Renal diet -Protonix 40 mg Q12 /Nephro: -BUN/Cr severely elevated at 154/17.8 -UA: protein>300, glucose>250, small blood, negative nitrate, negative leukocyte esterase, 15-20 RBC, 2-5 WBC, 6-8 epithelial cells -UDS: cocaine positive -Bailey catheter insertion showing 275 mL this morning. -Potassium: elevated at 5.2 from 5.1. Continue to monitor. -Bicarbonate 8 from 12. Sodium bicarbonate drip started at 200 cc/hr -Renal ultrasound and renal duplex ultrasound ordered. -Tunnel catheter procedure performed today. -As per nephrology, ANNETTE, HIV, immunofixation, kappa light chain, antiphospholipid antibody, PTH, protein electrophoresis, hepatitis B panel -As per nephrology, hemodialysis to be done due to GIO on CKD stage V. -Continue monitoring. -Replete electrolytes as needed. -Strict I and Os. Take daily weights. -Maintain euvolemia. Endocrinology: -Random glucose: 115 -Medium dose SSI -Maintain euglycemia. Heme/Onc: -H/H stable at 6.1/17.6. Last hemoglobin was 6.9. One more unit of PRBCs was given. -Iron low at 27. TIBC low at 190. Bilirubin normal at 0.4. Ferritin pending. Anemia likely due to anemia of chronic disease. -Leukocytosis at 13.2. -Continue monitoring H/H ID: -Afebrile, Leukocytosis at 13.2 -Follow up BCx, UCx, Procalcitonin -VBG lactate: 1.1 -Monitor for signs and symptoms of infection. DVT prophylaxis: therapeutic heparin at 18 mg/kg/hr GI prophylaxis: protonix 40 mg BID Patient case discussed with Dr. Lisa. - Date & Time Date: 01/21/18 Time: 15:35 <Duarte Lisa - Last Filed: 01/21/18 16:56> CCU Objective - Vital Signs / Intake & Output Vital Signs (Last 4 hours): Vital Signs Pulse Resp BP Pulse Ox 01/21/18 14:00 109 H 01/21/18 13:00 125 H 25 H 175/103 H 95 Intake and Output (Last 8hrs): Intake & Output 01/21/18 01/21/18 01/21/18 06:59 14:59 22:59 Intake Total 345 371 0 Output Total 500 Balance -155 371 0 Weight 225 lb Intake: IV 225 46 0 Right Forearm 225 Oral 120 Blood Product 0 325 Red Blood Cells Cpd As1 0 Lr Unit [id number] Red Blood Cells Cpd As1 0 325 Lr Unit [id number] Output: Urine 500 Urethral (Bailey) 500 Other: Voiding Method Indwelling Catheter - Medications Active Medications: Active Medications Generic Name Dose Route Start Last Admin Trade Name Freq PRN Reason Stop Dose Admin Acetaminophen 650 mg 01/21/18 04:19 01/21/18 04:32 Tylenol 325mg Tab PO 650 mg Q6H PRN Administration Fever >100.4 F Dextrose 0 ml 01/21/18 00:34 Dextrose 50% Inj IV STAT PRN Hypoglycemia Protocol Protocol Hydralazine HCl 10 mg 01/21/18 00:25 01/21/18 10:01 Apresoline IVP 10 mg Q6H PRN Administration Systolic Blood Pressure Dextrose 1,000 mls @ 0 mls/hr 01/21/18 00:34 Dextrose 5% In Water 1000 Ml IV .Q0M PRN Hypoglycemia Protocol Protocol Per Protocol Heparin Sodium/Sodium Chloride 25,000 units in 250 mls @ 18.37 mls/hr 01/21/18 08:09 01/21/18 16:00 Heparin 93164 Units/250ml 1/2 Normal Saline IV 18 units/kg/hr .[id number] PRN 18.37 mls/hr ADJUST RATE PER PROTOCOL Titration Protocol 18 UNITS/KG/HR Sodium Bicarbonate 150 meq/ 1,150 mls @ 200 mls/hr 01/21/18 08:20 01/21/18 12:57 Dextrose IV 200 mls/hr .[id number] CATHIE Administration Insulin Human Lispro 0 units 01/21/18 07:30 01/21/18 13:06 Humalog Med SC Not Given ACHS [facility] Protocol Pantoprazole Sodium 40 mg 01/21/18 10:00 01/21/18 09:03 Protonix Inj IVP 40 mg Q12 CATHIE Administration - Patient Studies Lab Studies: Lab Studies 01/21/18 01/21/18 01/21/18 Range/Units 11:29 10:50 05:10 WBC (4.5-11.0) 10^3/ul RBC (3.5-6.1) 10^6/uL Hgb (14.0-18.0) g/dL Hct (42.0-52.0) % MCV (80.0-105.0) fl MCH (25.0-35.0) pg MCHC (31.0-37.0) g/dl RDW (11.5-14.5) % Plt Count (120.0-450.0) 10^3/uL MPV (7.0-11.0) fl Gran % (50.0-68.0) % Lymph % (Auto) (22.0-35.0) % Jenkins % (Auto) (1.0-6.0) % Eos % (Auto) (1.5-5.0) % Baso % (Auto) (0.0-3.0) % Gran # (1.4-6.5) Lymph # (Auto) (1.2-3.4) Jenkins # (Auto) (0.1-0.6) Eos # (Auto) (0.0-0.7) Baso # (Auto) (0.0-2.0) K/mm3 Neutrophils % (Manual) (50.0-70.0) % Band Neutrophils % (0-2) % Lymphocytes % (Manual) (22.0-35.0) % Atypical Lymphs % (0.0-0.0) % Monocytes % (Manual) (1.0-6.0) % Toxic Granulation Platelet Evaluation (NORMAL) Hypochromasia Target Cells Rouleaux Retic Count (0.5-1.5) % PT (9.4-12.5) SECONDS INR APTT (25.1-36.5) Seconds D-Dimer, Quantitative (0-243) ng/mlDDU pO2 (30-55) mm/Hg VBG pH (7.32-7.43) VBG pCO2 (40-60) VBG HCO3 (21-28) mmol/l VBG Total CO2 (22-28) mmol.L VBG O2 Sat (Calc) (40-65) % VBG Base Excess (0.0-2.0) mmol/L VBG Potassium (3.6-5.2) mmol/L Sodium (132-148) mmol/L Chloride (98-107) mmol/L Glucose (75-110) mg/dl Lactate (0.7-2.1) mmol/L FiO2 % Potassium (3.6-5.0) mmol/L Carbon Dioxide (21-33) mmol/L Anion Gap (10-20) BUN (7-21) mg/dL Creatinine (0.8-1.5) mg/dl Est GFR ( Amer) Est GFR (Non-Af Amer) POC Glucose (mg/dL) 156 H (65-110) mg/dL Random Glucose (70-110) mg/dL Hemoglobin A1c (4.2-6.5) % Calcium (8.4-10.5) mg/dL Magnesium (1.7-2.2) mg/dL Iron (45-180) ug/dL TIBC (261-462) ug/dL % Saturation (20-55) % Ferritin ng/mL Total Bilirubin (0.2-1.3) mg/dL AST (17-59) U/L ALT (7-56) U/L Alkaline Phosphatase (38-126) U/L Lactate Dehydrogenase (333-699) U/L Total Creatine Kinase 217 (35-230) U/L Troponin I 0.21 H* ng/mL NT-Pro-B Natriuret Pep (0-450) pg/mL Total Protein (5.8-8.3) g/dL Albumin (3.0-4.8) g/dL Globulin gm/dL Albumin/Globulin Ratio (1.1-1.8) Triglycerides (35-160) mg/dL Cholesterol (130-200) mg/dL LDL Cholesterol Direct (0-129) mg/dL HDL Cholesterol (29-60) mg/dL TSH 3rd Generation 1.73 (0.46-4.68) mIU/mL Venous Blood Potassium (3.6-5.2) mmol/L Urine Color (YELLOW) Urine Appearance (CLEAR) Urine pH (4.7-8.0) Ur Specific [place] (1.005-1.035) Urine Protein (<30 mg/dL) mg/dL Urine Glucose (UA) (NEGATIVE) mg/dL Urine Ketones (NEGATIVE) mg/dL Urine Blood (NEGATIVE) Urine Nitrate (NEGATIVE) Urine Bilirubin (NEGATIVE) Urine Urobilinogen (<1 E.U./dL) E.U./dL Ur Leukocyte Esterase (NEGATIVE) Rkystle/uL Urine RBC (0-2) /hpf Urine WBC (0-6) /hpf Ur Epithelial Cells (0-5) /hpf Stool Occult Blood (NEGATIVE) Urine Opiates Screen (NEGATIVE) Urine Methadone Screen (NEGATIVE) Ur Barbiturates Screen (NEGATIVE) Ur Phencyclidine Scrn (NEGATIVE) Ur Amphetamines Screen (NEGATIVE) U Benzodiazepines Scrn (NEGATIVE) U Oth Cocaine Metabols (NEGATIVE) U Cannabinoids Screen (NEGATIVE) Alcohol, Quantitative (0-10) mg/dL Blood Type Blood Type Confirm Antibody Screen Crossmatch BBK History Checked 01/21/18 01/21/18 01/21/18 Range/Units 05:10 05:10 05:10 WBC (4.5-11.0) 10^3/ul RBC (3.5-6.1) 10^6/uL Hgb (14.0-18.0) g/dL Hct (42.0-52.0) % MCV (80.0-105.0) fl MCH (25.0-35.0) pg MCHC (31.0-37.0) g/dl RDW (11.5-14.5) % Plt Count (120.0-450.0) 10^3/uL MPV (7.0-11.0) fl Gran % (50.0-68.0) % Lymph % (Auto) (22.0-35.0) % Jenkins % (Auto) (1.0-6.0) % Eos % (Auto) (1.5-5.0) % Baso % (Auto) (0.0-3.0) % Gran # (1.4-6.5) Lymph # (Auto) (1.2-3.4) Jenkins # (Auto) (0.1-0.6) Eos # (Auto) (0.0-0.7) Baso # (Auto) (0.0-2.0) K/mm3 Neutrophils % (Manual) (50.0-70.0) % Band Neutrophils % (0-2) % Lymphocytes % (Manual) (22.0-35.0) % Atypical Lymphs % (0.0-0.0) % Monocytes % (Manual) (1.0-6.0) % Toxic Granulation Platelet Evaluation (NORMAL) Hypochromasia Target Cells Rouleaux Retic Count (0.5-1.5) % PT (9.4-12.5) SECONDS INR APTT (25.1-36.5) Seconds D-Dimer, Quantitative (0-243) ng/mlDDU pO2 (30-55) mm/Hg VBG pH (7.32-7.43) VBG pCO2 (40-60) VBG HCO3 (21-28) mmol/l VBG Total CO2 (22-28) mmol.L VBG O2 Sat (Calc) (40-65) % VBG Base Excess (0.0-2.0) mmol/L VBG Potassium (3.6-5.2) mmol/L Sodium 137 (132-148) mmol/L Chloride 107 (98-107) mmol/L Glucose (75-110) mg/dl Lactate (0.7-2.1) mmol/L FiO2 % Potassium 5.1 H (3.6-5.0) mmol/L Carbon Dioxide 8 L D (21-33) mmol/L Anion Gap 27 H (10-20) BUN 159 H* (7-21) mg/dL Creatinine 17.8 H* (0.8-1.5) mg/dl Est GFR ( Amer) 3 Est GFR (Non-Af Amer) 3 POC Glucose (mg/dL) (65-110) mg/dL Random Glucose 115 H (70-110) mg/dL Hemoglobin A1c 6.5 (4.2-6.5) % Calcium 7.8 L (8.4-10.5) mg/dL Magnesium (1.7-2.2) mg/dL Iron 27 L (45-180) ug/dL TIBC 190 L (261-462) ug/dL % Saturation 14 L (20-55) % Ferritin 477.0 ng/mL Total Bilirubin 0.4 (0.2-1.3) mg/dL AST 27 (17-59) U/L ALT 25 (7-56) U/L Alkaline Phosphatase 107 (38-126) U/L Lactate Dehydrogenase (333-699) U/L Total Creatine Kinase (35-230) U/L Troponin I ng/mL NT-Pro-B Natriuret Pep (0-450) pg/mL Total Protein 6.7 (5.8-8.3) g/dL Albumin 3.1 (3.0-4.8) g/dL Globulin 3.7 gm/dL Albumin/Globulin Ratio 0.8 L (1.1-1.8) Triglycerides 71 (35-160) mg/dL Cholesterol 105 L (130-200) mg/dL LDL Cholesterol Direct 34 (0-129) mg/dL HDL Cholesterol 43 (29-60) mg/dL TSH 3rd Generation (0.46-4.68) mIU/mL Venous Blood Potassium (3.6-5.2) mmol/L Urine Color (YELLOW) Urine Appearance (CLEAR) Urine pH (4.7-8.0) Ur Specific [place] (1.005-1.035) Urine Protein (<30 mg/dL) mg/dL Urine Glucose (UA) (NEGATIVE) mg/dL Urine Ketones (NEGATIVE) mg/dL Urine Blood (NEGATIVE) Urine Nitrate (NEGATIVE) Urine Bilirubin (NEGATIVE) Urine Urobilinogen (<1 E.U./dL) E.U./dL Ur Leukocyte Esterase (NEGATIVE) Krystle/uL Urine RBC (0-2) /hpf Urine WBC (0-6) /hpf Ur Epithelial Cells (0-5) /hpf Stool Occult Blood (NEGATIVE) Urine Opiates Screen (NEGATIVE) Urine Methadone Screen (NEGATIVE) Ur Barbiturates Screen (NEGATIVE) Ur Phencyclidine Scrn (NEGATIVE) Ur Amphetamines Screen (NEGATIVE) U Benzodiazepines Scrn (NEGATIVE) U Oth Cocaine Metabols (NEGATIVE) U Cannabinoids Screen (NEGATIVE) Alcohol, Quantitative (0-10) mg/dL Blood Type Blood Type Confirm Antibody Screen Crossmatch BBK History Checked 01/21/18 01/21/18 01/20/18 Range/Units 05:10 02:45 22:22 WBC 13.2 H (4.5-11.0) 10^3/ul RBC 2.03 L (3.5-6.1) 10^6/uL Hgb 6.1 L* (14.0-18.0) g/dL Hct 17.6 L* (42.0-52.0) % MCV 86.7 (80.0-105.0) fl MCH 30.0 (25.0-35.0) pg MCHC 34.7 (31.0-37.0) g/dl RDW 14.1 (11.5-14.5) % Plt Count 271 (120.0-450.0) 10^3/uL MPV 8.8 (7.0-11.0) fl Gran % 89.0 H (50.0-68.0) % Lymph % (Auto) 8.4 L (22.0-35.0) % Jenkins % (Auto) 2.0 (1.0-6.0) % Eos % (Auto) 0.5 L (1.5-5.0) % Baso % (Auto) 0.1 (0.0-3.0) % Gran # 11.75 H (1.4-6.5) Lymph # (Auto) 1.1 L (1.2-3.4) Jenkins # (Auto) 0.3 (0.1-0.6) Eos # (Auto) 0.1 (0.0-0.7) Baso # (Auto) 0.01 (0.0-2.0) K/mm3 Neutrophils % (Manual) (50.0-70.0) % Band Neutrophils % (0-2) % Lymphocytes % (Manual) (22.0-35.0) % Atypical Lymphs % (0.0-0.0) % Monocytes % (Manual) (1.0-6.0) % Toxic Granulation Platelet Evaluation (NORMAL) Hypochromasia Target Cells Rouleaux Retic Count 2.49 H (0.5-1.5) % PT (9.4-12.5) SECONDS INR APTT (25.1-36.5) Seconds D-Dimer, Quantitative (0-243) ng/mlDDU pO2 (30-55) mm/Hg VBG pH (7.32-7.43) VBG pCO2 (40-60) VBG HCO3 (21-28) mmol/l VBG Total CO2 (22-28) mmol.L VBG O2 Sat (Calc) (40-65) % VBG Base Excess (0.0-2.0) mmol/L VBG Potassium (3.6-5.2) mmol/L Sodium (132-148) mmol/L Chloride (98-107) mmol/L Glucose (75-110) mg/dl Lactate (0.7-2.1) mmol/L FiO2 % Potassium (3.6-5.0) mmol/L Carbon Dioxide (21-33) mmol/L Anion Gap (10-20) BUN (7-21) mg/dL Creatinine (0.8-1.5) mg/dl Est GFR ( Amer) Est GFR (Non-Af Amer) POC Glucose (mg/dL) (65-110) mg/dL Random Glucose (70-110) mg/dL Hemoglobin A1c (4.2-6.5) % Calcium (8.4-10.5) mg/dL Magnesium (1.7-2.2) mg/dL Iron (45-180) ug/dL TIBC (261-462) ug/dL % Saturation (20-55) % Ferritin ng/mL Total Bilirubin (0.2-1.3) mg/dL AST (17-59) U/L ALT (7-56) U/L Alkaline Phosphatase (38-126) U/L Lactate Dehydrogenase (333-699) U/L Total Creatine Kinase (35-230) U/L Troponin I 0.18 H* ng/mL NT-Pro-B Natriuret Pep (0-450) pg/mL Total Protein (5.8-8.3) g/dL Albumin (3.0-4.8) g/dL Globulin gm/dL Albumin/Globulin Ratio (1.1-1.8) Triglycerides (35-160) mg/dL Cholesterol (130-200) mg/dL LDL Cholesterol Direct (0-129) mg/dL HDL Cholesterol (29-60) mg/dL TSH 3rd Generation (0.46-4.68) mIU/mL Venous Blood Potassium (3.6-5.2) mmol/L Urine Color (YELLOW) Urine Appearance (CLEAR) Urine pH (4.7-8.0) Ur Specific [place] (1.005-1.035) Urine Protein (<30 mg/dL) mg/dL Urine Glucose (UA) (NEGATIVE) mg/dL Urine Ketones (NEGATIVE) mg/dL Urine Blood (NEGATIVE) Urine Nitrate (NEGATIVE) Urine Bilirubin (NEGATIVE) Urine Urobilinogen (<1 E.U./dL) E.U./dL Ur Leukocyte Esterase (NEGATIVE) Krystle/uL Urine RBC (0-2) /hpf Urine WBC (0-6) /hpf Ur Epithelial Cells (0-5) /hpf Stool Occult Blood (NEGATIVE) Urine Opiates Screen (NEGATIVE) Urine Methadone Screen (NEGATIVE) Ur Barbiturates Screen (NEGATIVE) Ur Phencyclidine Scrn (NEGATIVE) Ur Amphetamines Screen (NEGATIVE) U Benzodiazepines Scrn (NEGATIVE) U Oth Cocaine Metabols (NEGATIVE) U Cannabinoids Screen (NEGATIVE) Alcohol, Quantitative (0-10) mg/dL Blood Type Blood Type Confirm A POSITIVE Antibody Screen Crossmatch BBK History Checked 01/20/18 01/20/18 01/20/18 Range/Units 21:50 21:50 21:50 WBC (4.5-11.0) 10^3/ul RBC (3.5-6.1) 10^6/uL Hgb (14.0-18.0) g/dL Hct (42.0-52.0) % MCV (80.0-105.0) fl MCH (25.0-35.0) pg MCHC (31.0-37.0) g/dl RDW (11.5-14.5) % Plt Count (120.0-450.0) 10^3/uL MPV (7.0-11.0) fl Gran % (50.0-68.0) % Lymph % (Auto) (22.0-35.0) % Jenkins % (Auto) (1.0-6.0) % Eos % (Auto) (1.5-5.0) % Baso % (Auto) (0.0-3.0) % Gran # (1.4-6.5) Lymph # (Auto) (1.2-3.4) Jenkins # (Auto) (0.1-0.6) Eos # (Auto) (0.0-0.7) Baso # (Auto) (0.0-2.0) K/mm3 Neutrophils % (Manual) (50.0-70.0) % Band Neutrophils % (0-2) % Lymphocytes % (Manual) (22.0-35.0) % Atypical Lymphs % (0.0-0.0) % Monocytes % (Manual) (1.0-6.0) % Toxic Granulation Platelet Evaluation (NORMAL) Hypochromasia Target Cells Rouleaux Retic Count (0.5-1.5) % PT (9.4-12.5) SECONDS INR APTT (25.1-36.5) Seconds D-Dimer, Quantitative (0-243) ng/mlDDU pO2 (30-55) mm/Hg VBG pH (7.32-7.43) VBG pCO2 (40-60) VBG HCO3 (21-28) mmol/l VBG Total CO2 (22-28) mmol.L VBG O2 Sat (Calc) (40-65) % VBG Base Excess (0.0-2.0) mmol/L VBG Potassium (3.6-5.2) mmol/L Sodium (132-148) mmol/L Chloride (98-107) mmol/L Glucose (75-110) mg/dl Lactate (0.7-2.1) mmol/L FiO2 % Potassium (3.6-5.0) mmol/L Carbon Dioxide (21-33) mmol/L Anion Gap (10-20) BUN (7-21) mg/dL Creatinine (0.8-1.5) mg/dl Est GFR ( Amer) Est GFR (Non-Af Amer) POC Glucose (mg/dL) (65-110) mg/dL Random Glucose (70-110) mg/dL Hemoglobin A1c (4.2-6.5) % Calcium (8.4-10.5) mg/dL Magnesium (1.7-2.2) mg/dL Iron (45-180) ug/dL TIBC (261-462) ug/dL % Saturation (20-55) % Ferritin ng/mL Total Bilirubin (0.2-1.3) mg/dL AST (17-59) U/L ALT (7-56) U/L Alkaline Phosphatase (38-126) U/L Lactate Dehydrogenase (333-699) U/L Total Creatine Kinase (35-230) U/L Troponin I ng/mL NT-Pro-B Natriuret Pep (0-450) pg/mL Total Protein (5.8-8.3) g/dL Albumin (3.0-4.8) g/dL Globulin gm/dL Albumin/Globulin Ratio (1.1-1.8) Triglycerides (35-160) mg/dL Cholesterol (130-200) mg/dL LDL Cholesterol Direct (0-129) mg/dL HDL Cholesterol (29-60) mg/dL TSH 3rd Generation (0.46-4.68) mIU/mL Venous Blood Potassium (3.6-5.2) mmol/L Urine Color Yellow (YELLOW) Urine Appearance Clear (CLEAR) Urine pH 6.0 (4.7-8.0) Ur Specific [place] 1.025 (1.005-1.035) Urine Protein >=300 H (<30 mg/dL) mg/dL Urine Glucose (UA) 250 H (NEGATIVE) mg/dL Urine Ketones Negative (NEGATIVE) mg/dL Urine Blood Small H (NEGATIVE) Urine Nitrate Negative (NEGATIVE) Urine Bilirubin Negative (NEGATIVE) Urine Urobilinogen 0.2 (<1 E.U./dL) E.U./dL Ur Leukocyte Esterase Negative (NEGATIVE) Krystle/uL Urine RBC 15 - 20 (0-2) /hpf Urine WBC 2 - 5 (0-6) /hpf Ur Epithelial Cells 6 - 8 (0-5) /hpf Stool Occult Blood Positive H (NEGATIVE) Urine Opiates Screen Negative (NEGATIVE) Urine Methadone Screen Negative (NEGATIVE) Ur Barbiturates Screen Negative (NEGATIVE) Ur Phencyclidine Scrn Negative (NEGATIVE) Ur Amphetamines Screen Negative (NEGATIVE) U Benzodiazepines Scrn Negative (NEGATIVE) U Oth Cocaine Metabols Positive H (NEGATIVE) U Cannabinoids Screen Negative (NEGATIVE) Alcohol, Quantitative (0-10) mg/dL Blood Type Blood Type Confirm Antibody Screen Crossmatch BBK History Checked 01/20/18 01/20/18 01/20/18 Range/Units 21:00 20:30 20:30 WBC (4.5-11.0) 10^3/ul RBC (3.5-6.1) 10^6/uL Hgb (14.0-18.0) g/dL Hct (42.0-52.0) % MCV (80.0-105.0) fl MCH (25.0-35.0) pg MCHC (31.0-37.0) g/dl RDW (11.5-14.5) % Plt Count (120.0-450.0) 10^3/uL MPV (7.0-11.0) fl Gran % (50.0-68.0) % Lymph % (Auto) (22.0-35.0) % Jenkins % (Auto) (1.0-6.0) % Eos % (Auto) (1.5-5.0) % Baso % (Auto) (0.0-3.0) % Gran # (1.4-6.5) Lymph # (Auto) (1.2-3.4) Jenkins # (Auto) (0.1-0.6) Eos # (Auto) (0.0-0.7) Baso # (Auto) (0.0-2.0) K/mm3 Neutrophils % (Manual) (50.0-70.0) % Band Neutrophils % (0-2) % Lymphocytes % (Manual) (22.0-35.0) % Atypical Lymphs % (0.0-0.0) % Monocytes % (Manual) (1.0-6.0) % Toxic Granulation Platelet Evaluation (NORMAL) Hypochromasia Target Cells Rouleaux Retic Count (0.5-1.5) % PT (9.4-12.5) SECONDS INR APTT (25.1-36.5) Seconds D-Dimer, Quantitative (0-243) ng/mlDDU pO2 (30-55) mm/Hg VBG pH (7.32-7.43) VBG pCO2 (40-60) VBG HCO3 (21-28) mmol/l VBG Total CO2 (22-28) mmol.L VBG O2 Sat (Calc) (40-65) % VBG Base Excess (0.0-2.0) mmol/L VBG Potassium (3.6-5.2) mmol/L Sodium 136 (132-148) mmol/L Chloride 103 (98-107) mmol/L Glucose (75-110) mg/dl Lactate (0.7-2.1) mmol/L FiO2 % Potassium 5.2 H (3.6-5.0) mmol/L Carbon Dioxide 12 L (21-33) mmol/L Anion Gap 26 H (10-20) BUN 162 H* (7-21) mg/dL Creatinine 18.5 H* (0.8-1.5) mg/dl Est GFR ( Amer) 3 Est GFR (Non-Af Amer) 3 POC Glucose (mg/dL) (65-110) mg/dL Random Glucose 157 H (70-110) mg/dL Hemoglobin A1c (4.2-6.5) % Calcium 8.1 L (8.4-10.5) mg/dL Magnesium 1.4 L (1.7-2.2) mg/dL Iron (45-180) ug/dL TIBC (261-462) ug/dL % Saturation (20-55) % Ferritin ng/mL Total Bilirubin 0.6 (0.2-1.3) mg/dL AST 26 (17-59) U/L ALT 27 (7-56) U/L Alkaline Phosphatase 122 (38-126) U/L Lactate Dehydrogenase 514 (333-699) U/L Total Creatine Kinase 224 (35-230) U/L Troponin I 0.15 H* ng/mL NT-Pro-B Natriuret Pep 35773 H (0-450) pg/mL Total Protein 7.4 (5.8-8.3) g/dL Albumin 3.4 (3.0-4.8) g/dL Globulin 3.9 gm/dL Albumin/Globulin Ratio 0.9 L (1.1-1.8) Triglycerides (35-160) mg/dL Cholesterol (130-200) mg/dL LDL Cholesterol Direct (0-129) mg/dL HDL Cholesterol (29-60) mg/dL TSH 3rd Generation (0.46-4.68) mIU/mL Venous Blood Potassium (3.6-5.2) mmol/L Urine Color (YELLOW) Urine Appearance (CLEAR) Urine pH (4.7-8.0) Ur Specific [place] (1.005-1.035) Urine Protein (<30 mg/dL) mg/dL Urine Glucose (UA) (NEGATIVE) mg/dL Urine Ketones (NEGATIVE) mg/dL Urine Blood (NEGATIVE) Urine Nitrate (NEGATIVE) Urine Bilirubin (NEGATIVE) Urine Urobilinogen (<1 E.U./dL) E.U./dL Ur Leukocyte Esterase (NEGATIVE) Krystle/uL Urine RBC (0-2) /hpf Urine WBC (0-6) /hpf Ur Epithelial Cells (0-5) /hpf Stool Occult Blood (NEGATIVE) Urine Opiates Screen (NEGATIVE) Urine Methadone Screen (NEGATIVE) Ur Barbiturates Screen (NEGATIVE) Ur Phencyclidine Scrn (NEGATIVE) Ur Amphetamines Screen (NEGATIVE) U Benzodiazepines Scrn (NEGATIVE) U Oth Cocaine Metabols (NEGATIVE) U Cannabinoids Screen (NEGATIVE) Alcohol, Quantitative < 10 (0-10) mg/dL Blood Type A POSITIVE Blood Type Confirm Antibody Screen Negative Crossmatch See Detail BBK History Checked No verified bt 01/20/18 01/20/18 01/20/18 Range/Units 20:30 20:30 20:30 WBC 13.4 H (4.5-11.0) 10^3/ul RBC 2.31 L (3.5-6.1) 10^6/uL Hgb 6.9 L* (14.0-18.0) g/dL Hct 20.2 L* (42.0-52.0) % MCV 87.4 (80.0-105.0) fl MCH 29.9 (25.0-35.0) pg MCHC 34.2 (31.0-37.0) g/dl RDW 14.4 (11.5-14.5) % Plt Count 335 (120.0-450.0) 10^3/uL MPV 10.2 (7.0-11.0) fl Gran % 91.9 H (50.0-68.0) % Lymph % (Auto) 5.7 L (22.0-35.0) % Jenkins % (Auto) 2.2 (1.0-6.0) % Eos % (Auto) 0.1 L (1.5-5.0) % Baso % (Auto) 0.1 (0.0-3.0) % Gran # 12.30 H (1.4-6.5) Lymph # (Auto) 0.8 L (1.2-3.4) Jenkins # (Auto) 0.3 (0.1-0.6) Eos # (Auto) 0.0 (0.0-0.7) Baso # (Auto) 0.01 (0.0-2.0) K/mm3 Neutrophils % (Manual) 91 H (50.0-70.0) % Band Neutrophils % 0 (0-2) % Lymphocytes % (Manual) 4 L (22.0-35.0) % Atypical Lymphs % 0 (0.0-0.0) % Monocytes % (Manual) 5 (1.0-6.0) % Toxic Granulation 3+ Platelet Evaluation Normal (NORMAL) Hypochromasia 2+ Target Cells 1+ Rouleaux 2+ Retic Count (0.5-1.5) % PT 17.3 H (9.4-12.5) SECONDS INR 1.50 APTT 43.8 H (25.1-36.5) Seconds D-Dimer, Quantitative 2331 H (0-243) ng/mlDDU pO2 40 (30-55) mm/Hg VBG pH 7.24 L (7.32-7.43) VBG pCO2 28.0 L (40-60) VBG HCO3 12.0 L (21-28) mmol/l VBG Total CO2 12.9 L (22-28) mmol.L VBG O2 Sat (Calc) 73.7 H (40-65) % VBG Base Excess -13.9 L (0.0-2.0) mmol/L VBG Potassium 5.1 (3.6-5.2) mmol/L Sodium 133.0 (132-148) mmol/L Chloride 104.0 (98-107) mmol/L Glucose 158 H (75-110) mg/dl Lactate 1.1 (0.7-2.1) mmol/L FiO2 21.0 % Potassium (3.6-5.0) mmol/L Carbon Dioxide (21-33) mmol/L Anion Gap (10-20) BUN (7-21) mg/dL Creatinine (0.8-1.5) mg/dl Est GFR ( Amer) Est GFR (Non-Af Amer) POC Glucose (mg/dL) (65-110) mg/dL Random Glucose (70-110) mg/dL Hemoglobin A1c (4.2-6.5) % Calcium (8.4-10.5) mg/dL Magnesium (1.7-2.2) mg/dL Iron (45-180) ug/dL TIBC (261-462) ug/dL % Saturation (20-55) % Ferritin ng/mL Total Bilirubin (0.2-1.3) mg/dL AST (17-59) U/L ALT (7-56) U/L Alkaline Phosphatase (38-126) U/L Lactate Dehydrogenase (333-699) U/L Total Creatine Kinase (35-230) U/L Troponin I ng/mL NT-Pro-B Natriuret Pep (0-450) pg/mL Total Protein (5.8-8.3) g/dL Albumin (3.0-4.8) g/dL Globulin gm/dL Albumin/Globulin Ratio (1.1-1.8) Triglycerides (35-160) mg/dL Cholesterol (130-200) mg/dL LDL Cholesterol Direct (0-129) mg/dL HDL Cholesterol (29-60) mg/dL TSH 3rd Generation (0.46-4.68) mIU/mL Venous Blood Potassium 5.1 (3.6-5.2) mmol/L Urine Color (YELLOW) Urine Appearance (CLEAR) Urine pH (4.7-8.0) Ur Specific [place] (1.005-1.035) Urine Protein (<30 mg/dL) mg/dL Urine Glucose (UA) (NEGATIVE) mg/dL Urine Ketones (NEGATIVE) mg/dL Urine Blood (NEGATIVE) Urine Nitrate (NEGATIVE) Urine Bilirubin (NEGATIVE) Urine Urobilinogen (<1 E.U./dL) E.U./dL Ur Leukocyte Esterase (NEGATIVE) Krystle/uL Urine RBC (0-2) /hpf Urine WBC (0-6) /hpf Ur Epithelial Cells (0-5) /hpf Stool Occult Blood (NEGATIVE) Urine Opiates Screen (NEGATIVE) Urine Methadone Screen (NEGATIVE) Ur Barbiturates Screen (NEGATIVE) Ur Phencyclidine Scrn (NEGATIVE) Ur Amphetamines Screen (NEGATIVE) U Benzodiazepines Scrn (NEGATIVE) U Oth Cocaine Metabols (NEGATIVE) U Cannabinoids Screen (NEGATIVE) Alcohol, Quantitative (0-10) mg/dL Blood Type Blood Type Confirm Antibody Screen Crossmatch BBK History Checked Laboratory Results - last 24 hr 01/20/18 01/20/18 01/20/18 20:30 20:30 20:30 WBC 13.4 H RBC 2.31 L Hgb 6.9 L* Hct 20.2 L* MCV 87.4 MCH 29.9 MCHC 34.2 RDW 14.4 Plt Count 335 MPV 10.2 Gran % 91.9 H Lymph % (Auto) 5.7 L Jenkins % (Auto) 2.2 Eos % (Auto) 0.1 L Baso % (Auto) 0.1 Gran # 12.30 H Lymph # (Auto) 0.8 L Jenkins # (Auto) 0.3 Eos # (Auto) 0.0 Baso # (Auto) 0.01 Neutrophils % (Manual) 91 H Band Neutrophils % 0 Lymphocytes % (Manual) 4 L Atypical Lymphs % 0 Monocytes % (Manual) 5 Toxic Granulation 3+ Platelet Evaluation Normal Hypochromasia 2+ Target Cells 1+ Rouleaux 2+ Retic Count PT 17.3 H INR 1.50 APTT 43.8 H D-Dimer, Quantitative 2331 H pO2 40 VBG pH 7.24 L VBG pCO2 28.0 L VBG HCO3 12.0 L VBG Total CO2 12.9 L VBG O2 Sat (Calc) 73.7 H VBG Base Excess -13.9 L VBG Potassium 5.1 Sodium 133.0 Chloride 104.0 Glucose 158 H Lactate 1.1 FiO2 21.0 Potassium Carbon Dioxide Anion Gap BUN Creatinine Est GFR ( Amer) Est GFR (Non-Af Amer) POC Glucose (mg/dL) Random Glucose Hemoglobin A1c Calcium Magnesium Iron TIBC % Saturation Ferritin Total Bilirubin AST ALT Alkaline Phosphatase Lactate Dehydrogenase Total Creatine Kinase Troponin I NT-Pro-B Natriuret Pep Total Protein Albumin Globulin Albumin/Globulin Ratio Triglycerides Cholesterol LDL Cholesterol Direct HDL Cholesterol TSH 3rd Generation Venous Blood Potassium 5.1 Urine Color Urine Appearance Urine pH Ur Specific [place] Urine Protein Urine Glucose (UA) Urine Ketones Urine Blood Urine Nitrate Urine Bilirubin Urine Urobilinogen Ur Leukocyte Esterase Urine RBC Urine WBC Ur Epithelial Cells Stool Occult Blood Urine Opiates Screen Urine Methadone Screen Ur Barbiturates Screen Ur Phencyclidine Scrn Ur Amphetamines Screen U Benzodiazepines Scrn U Oth Cocaine Metabols U Cannabinoids Screen Alcohol, Quantitative Blood Type Blood Type Confirm Antibody Screen Crossmatch BBK History Checked 01/20/18 01/20/18 01/20/18 20:30 20:30 21:00 WBC RBC Hgb Hct MCV MCH MCHC RDW Plt Count MPV Gran % Lymph % (Auto) Jenkins % (Auto) Eos % (Auto) Baso % (Auto) Gran # Lymph # (Auto) Jenkins # (Auto) Eos # (Auto) Baso # (Auto) Neutrophils % (Manual) Band Neutrophils % Lymphocytes % (Manual) Atypical Lymphs % Monocytes % (Manual) Toxic Granulation Platelet Evaluation Hypochromasia Target Cells Rouleaux Retic Count PT INR APTT D-Dimer, Quantitative pO2 VBG pH VBG pCO2 VBG HCO3 VBG Total CO2 VBG O2 Sat (Calc) VBG Base Excess VBG Potassium Sodium 136 Chloride 103 Glucose Lactate FiO2 Potassium 5.2 H Carbon Dioxide 12 L Anion Gap 26 H BUN 162 H* Creatinine 18.5 H* Est GFR ( Amer) 3 Est GFR (Non-Af Amer) 3 POC Glucose (mg/dL) Random Glucose 157 H Hemoglobin A1c Calcium 8.1 L Magnesium 1.4 L Iron TIBC % Saturation Ferritin Total Bilirubin 0.6 AST 26 ALT 27 Alkaline Phosphatase 122 Lactate Dehydrogenase 514 Total Creatine Kinase 224 Troponin I 0.15 H* NT-Pro-B Natriuret Pep 10925 H Total Protein 7.4 Albumin 3.4 Globulin 3.9 Albumin/Globulin Ratio 0.9 L Triglycerides Cholesterol LDL Cholesterol Direct HDL Cholesterol TSH 3rd Generation Venous Blood Potassium Urine Color Urine Appearance Urine pH Ur Specific [place] Urine Protein Urine Glucose (UA) Urine Ketones Urine Blood Urine Nitrate Urine Bilirubin Urine Urobilinogen Ur Leukocyte Esterase Urine RBC Urine WBC Ur Epithelial Cells Stool Occult Blood Urine Opiates Screen Urine Methadone Screen Ur Barbiturates Screen Ur Phencyclidine Scrn Ur Amphetamines Screen U Benzodiazepines Scrn U Oth Cocaine Metabols U Cannabinoids Screen Alcohol, Quantitative < 10 Blood Type A POSITIVE Blood Type Confirm Antibody Screen Negative Crossmatch See Detail BBK History Checked No verified bt 01/20/18 01/20/18 01/20/18 21:50 21:50 21:50 WBC RBC Hgb Hct MCV MCH MCHC RDW Plt Count MPV Gran % Lymph % (Auto) Jenkins % (Auto) Eos % (Auto) Baso % (Auto) Gran # Lymph # (Auto) Jenkins # (Auto) Eos # (Auto) Baso # (Auto) Neutrophils % (Manual) Band Neutrophils % Lymphocytes % (Manual) Atypical Lymphs % Monocytes % (Manual) Toxic Granulation Platelet Evaluation Hypochromasia Target Cells Rouleaux Retic Count PT INR APTT D-Dimer, Quantitative pO2 VBG pH VBG pCO2 VBG HCO3 VBG Total CO2 VBG O2 Sat (Calc) VBG Base Excess VBG Potassium Sodium Chloride Glucose Lactate FiO2 Potassium Carbon Dioxide Anion Gap BUN Creatinine Est GFR ( Amer) Est GFR (Non-Af Amer) POC Glucose (mg/dL) Random Glucose Hemoglobin A1c Calcium Magnesium Iron TIBC % Saturation Ferritin Total Bilirubin AST ALT Alkaline Phosphatase Lactate Dehydrogenase Total Creatine Kinase Troponin I NT-Pro-B Natriuret Pep Total Protein Albumin Globulin Albumin/Globulin Ratio Triglycerides Cholesterol LDL Cholesterol Direct HDL Cholesterol TSH 3rd Generation Venous Blood Potassium Urine Color Yellow Urine Appearance Clear Urine pH 6.0 Ur Specific [place] 1.025 Urine Protein >=300 H Urine Glucose (UA) 250 H Urine Ketones Negative Urine Blood Small H Urine Nitrate Negative Urine Bilirubin Negative Urine Urobilinogen 0.2 Ur Leukocyte Esterase Negative Urine RBC 15 - 20 Urine WBC 2 - 5 Ur Epithelial Cells 6 - 8 Stool Occult Blood Positive H Urine Opiates Screen Negative Urine Methadone Screen Negative Ur Barbiturates Screen Negative Ur Phencyclidine Scrn Negative Ur Amphetamines Screen Negative U Benzodiazepines Scrn Negative U Oth Cocaine Metabols Positive H U Cannabinoids Screen Negative Alcohol, Quantitative Blood Type Blood Type Confirm Antibody Screen Crossmatch BBK History Checked 01/20/18 01/21/18 01/21/18 22:22 02:45 05:10 WBC 13.2 H RBC 2.03 L Hgb 6.1 L* Hct 17.6 L* MCV 86.7 MCH 30.0 MCHC 34.7 RDW 14.1 Plt Count 271 MPV 8.8 Gran % 89.0 H Lymph % (Auto) 8.4 L Jenkins % (Auto) 2.0 Eos % (Auto) 0.5 L Baso % (Auto) 0.1 Gran # 11.75 H Lymph # (Auto) 1.1 L Jenkins # (Auto) 0.3 Eos # (Auto) 0.1 Baso # (Auto) 0.01 Neutrophils % (Manual) Band Neutrophils % Lymphocytes % (Manual) Atypical Lymphs % Monocytes % (Manual) Toxic Granulation Platelet Evaluation Hypochromasia Target Cells Rouleaux Retic Count 2.49 H PT INR APTT D-Dimer, Quantitative pO2 VBG pH VBG pCO2 VBG HCO3 VBG Total CO2 VBG O2 Sat (Calc) VBG Base Excess VBG Potassium Sodium Chloride Glucose Lactate FiO2 Potassium Carbon Dioxide Anion Gap BUN Creatinine Est GFR ( Amer) Est GFR (Non-Af Amer) POC Glucose (mg/dL) Random Glucose Hemoglobin A1c Calcium Magnesium Iron TIBC % Saturation Ferritin Total Bilirubin AST ALT Alkaline Phosphatase Lactate Dehydrogenase Total Creatine Kinase Troponin I 0.18 H* NT-Pro-B Natriuret Pep Total Protein Albumin Globulin Albumin/Globulin Ratio Triglycerides Cholesterol LDL Cholesterol Direct HDL Cholesterol TSH 3rd Generation Venous Blood Potassium Urine Color Urine Appearance Urine pH Ur Specific [place] Urine Protein Urine Glucose (UA) Urine Ketones Urine Blood Urine Nitrate Urine Bilirubin Urine Urobilinogen Ur Leukocyte Esterase Urine RBC Urine WBC Ur Epithelial Cells Stool Occult Blood Urine Opiates Screen Urine Methadone Screen Ur Barbiturates Screen Ur Phencyclidine Scrn Ur Amphetamines Screen U Benzodiazepines Scrn U Oth Cocaine Metabols U Cannabinoids Screen Alcohol, Quantitative Blood Type Blood Type Confirm A POSITIVE Antibody Screen Crossmatch BBK History Checked 01/21/18 01/21/18 01/21/18 05:10 05:10 05:10 WBC RBC Hgb Hct MCV MCH MCHC RDW Plt Count MPV Gran % Lymph % (Auto) Jenkins % (Auto) Eos % (Auto) Baso % (Auto) Gran # Lymph # (Auto) Jenkins # (Auto) Eos # (Auto) Baso # (Auto) Neutrophils % (Manual) Band Neutrophils % Lymphocytes % (Manual) Atypical Lymphs % Monocytes % (Manual) Toxic Granulation Platelet Evaluation Hypochromasia Target Cells Rouleaux Retic Count PT INR APTT D-Dimer, Quantitative pO2 VBG pH VBG pCO2 VBG HCO3 VBG Total CO2 VBG O2 Sat (Calc) VBG Base Excess VBG Potassium Sodium 137 Chloride 107 Glucose Lactate FiO2 Potassium 5.1 H Carbon Dioxide 8 L D Anion Gap 27 H BUN 159 H* Creatinine 17.8 H* Est GFR ( Amer) 3 Est GFR (Non-Af Amer) 3 POC Glucose (mg/dL) Random Glucose 115 H Hemoglobin A1c 6.5 Calcium 7.8 L Magnesium Iron 27 L TIBC 190 L % Saturation 14 L Ferritin 477.0 Total Bilirubin 0.4 AST 27 ALT 25 Alkaline Phosphatase 107 Lactate Dehydrogenase Total Creatine Kinase Troponin I NT-Pro-B Natriuret Pep Total Protein 6.7 Albumin 3.1 Globulin 3.7 Albumin/Globulin Ratio 0.8 L Triglycerides 71 Cholesterol 105 L LDL Cholesterol Direct 34 HDL Cholesterol 43 TSH 3rd Generation Venous Blood Potassium Urine Color Urine Appearance Urine pH Ur Specific [place] Urine Protein Urine Glucose (UA) Urine Ketones Urine Blood Urine Nitrate Urine Bilirubin Urine Urobilinogen Ur Leukocyte Esterase Urine RBC Urine WBC Ur Epithelial Cells Stool Occult Blood Urine Opiates Screen Urine Methadone Screen Ur Barbiturates Screen Ur Phencyclidine Scrn Ur Amphetamines Screen U Benzodiazepines Scrn U Oth Cocaine Metabols U Cannabinoids Screen Alcohol, Quantitative Blood Type Blood Type Confirm Antibody Screen Crossmatch BBK History Checked 01/21/18 01/21/18 01/21/18 05:10 10:50 11:29 WBC RBC Hgb Hct MCV MCH MCHC RDW Plt Count MPV Gran % Lymph % (Auto) Jenkins % (Auto) Eos % (Auto) Baso % (Auto) Gran # Lymph # (Auto) Jenkins # (Auto) Eos # (Auto) Baso # (Auto) Neutrophils % (Manual) Band Neutrophils % Lymphocytes % (Manual) Atypical Lymphs % Monocytes % (Manual) Toxic Granulation Platelet Evaluation Hypochromasia Target Cells Rouleaux Retic Count PT INR APTT D-Dimer, Quantitative pO2 VBG pH VBG pCO2 VBG HCO3 VBG Total CO2 VBG O2 Sat (Calc) VBG Base Excess VBG Potassium Sodium Chloride Glucose Lactate FiO2 Potassium Carbon Dioxide Anion Gap BUN Creatinine Est GFR ( Amer) Est GFR (Non-Af Amer) POC Glucose (mg/dL) 156 H Random Glucose Hemoglobin A1c Calcium Magnesium Iron TIBC % Saturation Ferritin Total Bilirubin AST ALT Alkaline Phosphatase Lactate Dehydrogenase Total Creatine Kinase 217 Troponin I 0.21 H* NT-Pro-B Natriuret Pep Total Protein Albumin Globulin Albumin/Globulin Ratio Triglycerides Cholesterol LDL Cholesterol Direct HDL Cholesterol TSH 3rd Generation 1.73 Venous Blood Potassium Urine Color Urine Appearance Urine pH Ur Specific [place] Urine Protein Urine Glucose (UA) Urine Ketones Urine Blood Urine Nitrate Urine Bilirubin Urine Urobilinogen Ur Leukocyte Esterase Urine RBC Urine WBC Ur Epithelial Cells Stool Occult Blood Urine Opiates Screen Urine Methadone Screen Ur Barbiturates Screen Ur Phencyclidine Scrn Ur Amphetamines Screen U Benzodiazepines Scrn U Oth Cocaine Metabols U Cannabinoids Screen Alcohol, Quantitative Blood Type Blood Type Confirm Antibody Screen Crossmatch BBK History Checked EKG/Cardiology Studies: Cardiology / EKG Studies 01/20/18 19:55 EKG [ELECTROCARDIOGRAM] Stat Comment: Reason For Exam: LEG PROBLEM AND PAIN 01/21/18 08:00 EKG [ELECTROCARDIOGRAM] Routine Comment: Reason For Exam: elevated troponin Critical Care Progress Note - Nutrition Nutrition: Nutrition Category Date Time Status Renal Diet [DIET] Diets 01/21/18 Breakfast Ordered Attending/Attestation - Attestation I have personally seen and examined this patient.: Yes I have fully participated in the care of the patient.: Yes I have reviewed all pertinent clinical information: Yes Notes (Text): 01/21/18 16:[address] Lisa note
[2018-01-21 16:59] LABS: FOLATE 7.3 ng/mL
--- NOTE | 2018-01-21 18:03 | US ---
Date of service: 01/21/2018 PROCEDURE: Ultrasound of the Kidneys HISTORY: GIO COMPARISON: 07/26/2013 renal ultrasound. TECHNIQUE: Sonogram of the kidneys. FINDINGS: RIGHT KIDNEY: Measures: 4.2 x 5.5 x 10.7 cm. Normal in size, contour and echogenicity. No stone, solid mass lesion or hydronephrosis visualized. LEFT KIDNEY: Measures: 5.4 x 5.1 x 9.2 cm. Normal in size, contour and echogenicity. No stone, solid mass lesion or hydronephrosis visualized. OTHER FINDINGS: Low volume abdominal ascites. IMPRESSION: Unremarkable renal sonogram.No significant interval change compared to the prior examination(s).
--- NOTE | 2018-01-21 18:08 | CON ---
DATE: 01/21/2018 HISTORY OF PRESENT ILLNESS: I saw Mr. Meadows this morning. He is a 57-year-old black male with past medical history of advanced chronic kidney disease, lower extremity DVT, diabetes, hypertension and medication noncompliance. Patient presents with increasing shortness of breath and pain to his lower extremity. He has not seen Dr. Patel, his primary care doctor in about a year. He also indicates he does not follow his blood sugar level from the outside. Patient has never had any upper endoscopy or colonoscopy previously. He denied abdominal operations. There is no family history of colon cancer as he knows in the family. I discussed his history of anemia with him at the bedside. He indicated that there was no evidence of rectal bleeding to his knowledge. Denied any abdominal pain, nausea, vomiting, etc. PHYSICAL EXAMINATION: VITAL SIGNS: I reviewed this patient's vital signs. HEENT: Noncontributory. LUNGS: Decreased breath sounds bilaterally at the bases. HEART: Mildly tachy, irregular. ABDOMEN: Soft, doughy. LABORATORY DATA: I reviewed the patient's laboratory data. White count 13,000, H and H 6 and 17. Procalcitonin 1. Retic count 2.4. Rest of CMP indicates BUN/creatinine ratio 162/19, iron 27 with the TIBC 190. His B-natriuretic peptide 59,000. ASSESSMENT: This is a 57-year-old black male with history of diabetes, severe kidney disease, medication noncompliance, presents with anemia, renal failure, shortness of breath and, swelling of his extremity. The laboratory data and physical exam plus history is not suggestive of an acute gastrointestinal bleed. I think my assessment is more inclined to feel that his anemia is based on his renal failure issue. No endoscopic evaluation pending this admission. Patient obviously needs colonoscopy at some time point, which can be completed on the outpatient side after he is released from the hospital. However, this patient needs followed by Renal information consultant and optimization of his kidney function. His lower extremity issue can be addressed as well. Floyd Griffin DO, PhD MEGAN
[2018-01-21 18:24] LABS: EOS % 0.2 % (1.5-5.0); GRAN # 11.72 (1.4-6.5); GRAN % 91.9 % (50.0-68.0); HEMOGLOBIN 7.5 g/dL (14.0-18.0); LYMPH # 0.9 (1.2-3.4); LYMPH % 6.7 % (22.0-35.0); MEAN CELL VOLUME 86.2 fl (80.0-105.0); MEAN CORPUSCULAR HEMOGLOBIN 29.6 pg (25.0-35.0); MEAN CORPUSCULAR HGB CONC 34.4 g/dl (31.0-37.0); MEAN PLATELET VOLUME 10.8 fl (7.0-11.0); MONO # 0.2 (0.1-0.6); MONO % 1.2 % (1.0-6.0); RBC 2.53 10^6/uL (3.5-6.1); RED CELL DISTRIBUTION WIDTH 14.6 % (11.5-14.5); WHITE BLOOD COUNT 12.8 10^3/ul (4.5-11.0)
--- NOTE | 2018-01-21 18:48 | CARD ---
APPROVED REPORT Date of service: 01/21/2018 EXAM: Two-dimensional and M-mode echocardiogram with Doppler and color Doppler. INDICATION ACUTE CHF 2D DIMENSIONS RVDd3.6 (2.9-3.5cm)Left Atrium (2D)5.8 (1.6-4.0cm) IVSd1.6 (0.7-1.1cm)LVDd5.6 (3.9-5.9cm) PWd1.8 (0.7-1.1cm)LVDs4.8 (2.5-4.0cm) FS (%) 14.4 %LVEF (%)30.1 (>50%) M-Mode DIMENSIONS Aortic Root3.60 (2.2-3.7cm)Aortic Cusp Exc.2.20 (1.5-2.0cm) Aortic Valve AoV Peak Csebucry606.0cm/Annabella Peak GR.5mmHgAI P 1/2 Sook067mb Mitral Valve E/A ratio0.0 TDI E/Lateral E'0.0E/Medial E'0.0 Pulmonary Valve PV Peak Wvfiifrj76.3cm/sPV Peak Grad.1mmHg Tricuspid Valve TR Peak [id number]/sRAP [id number] Peak Gr.39mmHg [id number] LEFT VENTRICLE The Left Ventricle is borderline dilated. There is mild concentric left ventricular hypertrophy. The systolic function is severely impaired.EF-20-2% There is global hypokinesis of the left ventricle. Transmitral Doppler flow pattern is Grade II-pseudonormal filling dynamics. No left ventricle thrombus noted on this study. There is no ventricular septal defect visualized. There is no left ventricular aneurysm. There is no mass noted in the left ventricle. RIGHT VENTRICLE The right ventricle is moderately dilated. There is normal right ventricular wall thickness. Systolic function is moderately to severely reduced. ATRIA The left atrium is moderately dilated. The right atrium is moderately dilated. The interatrial septum is intact with no evidence for an atrial septal defect. AORTIC VALVE The aortic valve is thickened but opens well. There is trace to mild aortic regurgitation. There is no aortic valvular stenosis. There is no aortic valvular vegetation. MITRAL VALVE The mitral valve is thickened but opens well. Mitral regurgitation is moderate. There is no mitral valve stenosis. There is no evidence of mitral valve prolapse. TRICUSPID VALVE The tricuspid valve leaflets are thickened , but open well. There is severe tricuspid regurgitation. There is no tricuspid valve stenosis. There is no tricuspid valve prolapse or vegetation. PULMONIC VALVE The pulmonic valve is borderline thickened. There is trace pulmonic valvular regurgitation. There is no pulmonic valvular stenosis. GREAT VESSELS The aortic root is normal in size. The ascending aorta is normal in size. The pulmonary artery is normal. The IVC is dilated. PERICARDIAL EFFUSION There is no pleural effusion. There is no pericardial effusion. <Conclusion> Four chamber Dilatation C/w CMP EF-20-25% global Hypokinesis There is trace to mild aortic regurgitation. Mitral regurgitation is moderate. There is severe tricuspid regurgitation. There is trace pulmonic valvular regurgitation. The IVC is dilated. There is no pericardial effusion. Calculate RVSP-49 mmof Hg is underestimating B/c of configuration of TR jet( severe TR).
--- NOTE | 2018-01-21 20:31 | CON ---
DATE: 01/21/2018 HISTORY OF PRESENT ILLNESS: This is a 57-year-old gentleman with history of DVT in the past, past medical history of CKD stage 3, left lower extremity DVT, diabetes, hypertension, hypercholesterolemia, who presented with worsening shortness of breath and increased swelling and pain in his lower left extremity. It appears that initially his symptoms started about a month ago, but he was really noncompliant with physician appointments and it reached to the point that he could not tolerate it yesterday and he decided to go to Emergency Room. No nausea, no vomiting, no diarrhea, no constipation at present time; however, nausea and vomiting were present before he came to ER. PAST MEDICAL HISTORY: CKD stage 3, left lower extremity DVT, diabetes, hypertension, and hypercholesterolemia. PAST SURGICAL HISTORY: ACL repair in 2012. ALLERGIES: NKDA. FAMILY HISTORY: Noncontributory. SOCIAL HISTORY: No alcohol or illicit drug abuse. No tobacco smoking. MEDICATIONS: Glipizide, metoprolol, and insulin. Heparin drip, hydralazine p.r.n., regular insulin sliding scale medium protocol, Protonix, ceftriaxone, vancomycin x1, bicarb drip at 200 mL/hour. REVIEW OF SYSTEMS: Reveals 12-organ systems other than mentioned in history present illness is negative. PHYSICAL EXAMINATION: VITAL SIGNS: Heart rate is 108 (irregular on the monitor), oxygen saturation 100% on nasal cannula 2 L per minute, respiratory rate 26, blood pressure 157/99. ENT: Head and neck atraumatic. LUNGS: Clear to auscultation bilaterally. HEART: Regular rate and rhythm. S1 and S2 normal. ABDOMEN: Soft, nontender and nondistended. MUSCULOSKELETAL: There is a bulla on the left calf and left calf is swollen; however, palpable pulses on DPA. Left calf is tender on palpation, but not a lot. The left calf is asymmetrically swollen compared with the right side. The patient is able to move toes on the left foot. SKIN: Moist. PSYCH: The patient is alert, awake and oriented, not in respiratory or otherwise distress. LABORATORY DATA: WBC 13.2, hemoglobin 6.1 (1 unit of blood was transfused and 2 units of blood will be transfused shortly), platelet count 271. Sodium 137, potassium 5.1, chloride 107, carbon dioxide 8 (bicarb drip started at rate of 200 mL/hour), BUN 159, creatinine 17.8 (the patient is not on hemodialysis), AST 27, ALT 25, and total bilirubin 0.4. ProBNP 59,000 (echocardiogram was ordered). Renal ultrasound, renal Doppler and CT of the abdomen and pelvis were ordered. Lower extremity venous Doppler revealed DVT's in the left extremities. ASSESSMENT AND PLAN: This is a 57-year-old gentleman, who presented with acute deep venous thrombosis with very low hemoglobin without melena, hematemesis or hematochezia. At present time, we will proceed with fluid resuscitation and Nephrology consult. Whether or not to proceed with renal replacement therapy will be deferred to Nephrology Service. Of note, no significant CPK elevation or lactate elevation noted on labs. I have low suspicion for phlegmasia cerulea dolens or alba. The patient will be started on therapeutic anticoagulation. I spoke with GI Service (Dr. Griffin), who thinks that the low hemoglobin is not related to gastrointestinal bleed and he okayed to proceed with therapeutic anticoagulation as needed for deep venous thrombosis. We will, however, proceed with CAT scan of the abdomen and pelvis to rule out extraluminal sources of bleeding. We will continue with serial CBC. We will continue with proton pump inhibitor b.i.d. The patient had low-grade fever and has mild leukocytosis. I agree with septic workup and antibiotics. ccm time 40 min Duarte Lisa MD MEGAN
--- NOTE | 2018-01-21 20:40 | VASCULAR ---
PROCEDURE: Ultrasound and fluoroscopic tunneled right IJ dialysis catheter. CLINICAL HISTORY: ESRD PHYSICIAN(S): Maurizio Soria M.D. TECHNIQUE: The relative risks and indications for the procedure were explained to the patient and informed written consent obtained. The patient was placed supine on the arteriography table and the right neck/chest was prepped and draped in the usual sterile fashion. 1% Xylocaine was used to anesthetize the skin and soft tissues at the puncture site. Conscious sedation and monitoring were provided throughout the procedure by a nurse. Under direct ultrasound guidance, the rightinternal jugular vein was punctured with a micropuncture set. A 0.035 Glidewire was advanced into the IVC. Sequential dilatation was performed with subsequent placement of a 28cm next gen catheter with its tip in the right atrium. A retrograde tunnel below the right clavicle was performed. The catheter was trimmed and the hub attached. Both ports aspirate and inject easily. The catheter was secured and a dressing applied. The patient tolerated the procedure well. IMPRESSION: 1. Ultrasound and fluoroscopically placed right IJ tunneled dialysis catheter.
[2018-01-21 21:30] LABS: MEAN CELL VOLUME 84.9 fl (80.0-105.0); MEAN CORPUSCULAR HEMOGLOBIN 30.1 pg (25.0-35.0); MEAN CORPUSCULAR HGB CONC 35.5 g/dl (31.0-37.0); MEAN PLATELET VOLUME 10.3 fl (7.0-11.0); RBC 2.39 10^6/uL (3.5-6.1); RED CELL DISTRIBUTION WIDTH 14.6 % (11.5-14.5); WHITE BLOOD COUNT 12.8 10^3/ul (4.5-11.0)
[2018-01-21 21:35] LABS: HEMOGLOBIN 7.2 g/dL (14.0-18.0)
[2018-01-21 21:36] LABS: HEPATITIS B SURFACE AG Negative (NEGATIVE)
[2018-01-21 21:41] LABS: HEPATITIS B CORE AB NEGATIVE (NEGATIVE)
[2018-01-22] MEDS ORDERED: DiphenhydrAMINE 50 mg/ml Inj IVP ONE (00:28)
[2018-01-22 02:03] LABS: URINE APPEARANCE CLEAR (CLEAR); URINE BILIRUBIN NEGATIVE (NEGATIVE); URINE BLOOD MODERATE (NEGATIVE); URINE COLOR YELLOW (YELLOW); URINE GLUCOSE (UA) 500 mg/dL (NEGATIVE); URINE LEUKOCYTE ESTERASE SMALL Leu/uL (NEGATIVE); URINE PROTEIN >=300 mg/dL (<30 mg/dL); URINE UROBILINOGEN 0.2 E.U./dL (<1 E.U./dL)
[2018-01-22 02:14] LABS: URINE BILIRUBIN NEGATIVE (NEGATIVE); URINE BLOOD MODERATE (NEGATIVE); URINE GLUCOSE (UA) 500 mg/dL (NEGATIVE); URINE LEUKOCYTE ESTERASE SMALL Leu/uL (NEGATIVE); URINE PROTEIN >=300 mg/dL (<30 mg/dL); URINE UROBILINOGEN 0.2 E.U./dL (<1 E.U./dL)
[2018-01-22 02:17] LABS: URINE APPEARANCE CLEAR (CLEAR); URINE COLOR YELLOW (YELLOW)
[2018-01-22 02:20] LABS: URINE BACTERIA SMALL (NEG); URINE EPITHELIAL CELLS 0 - 2 /hpf (0-5); URINE WBC 15 - 20 /hpf (0-6)
[2018-01-22 02:23] LABS: URINE EPITHELIAL CELLS 0 - 2 /hpf (0-5); URINE WBC 15 - 20 /hpf (0-6)
[2018-01-22 02:24] LABS: URINE BACTERIA SMALL (NEG)
--- NOTE | 2018-01-22 02:50 | CP.PCM.PN ---
<Fletcher Gunderson - Last Filed: 01/22/18 02:55> Subjective - Date & Time of Evaluation Date of Evaluation: 01/22/18 Time of Evaluation: 01:15 - Subjective Subjective: Fletcher Gunderson, PGY-1 Progress Note for Hospitalist Service Patient was set to receive his fourth unit of PRBCs earlier today. Patient's most recent Hgb was 7.2. 75 cc into the transfustion, patient became hypertensive, experienced chills, and temperature abner. Transfusion was stopped, at which point patient received Benadryl and Tylenol for symptom management. Denies chest pain and shortness of breath. Symptoms improved. Patient hemodynamically stabilized. Will continue to monitor for manifestations of reactions and circulatory compromise. Patient discussed with Dr Liu. Fletcher Gunderson, PGY-1 Objective - Vital Signs/Intake and Output Vital Signs (last 24 hours): Temp Pulse Resp BP Pulse Ox 100.2 F H 128 H 29 H 178/106 H 95 01/22/18 00:51 01/22/18 00:52 01/22/18 00:30 01/22/18 00:52 01/21/18 13:00 Intake and Output: 01/21/18 01/22/18 18:59 06:59 Intake Total 2801 273 Output Total 850 Balance 1951 273 - Medications Medications: Current Medications Acetaminophen (Tylenol 325mg Tab) 650 mg PO Q6H PRN PRN Reason: Fever >100.4 F Last Admin: 01/21/18 04:32 Dose: 650 mg Dextrose (Dextrose 50% Inj) 0 ml IV STAT PRN; Protocol PRN Reason: Hypoglycemia Protocol Hydralazine HCl (Apresoline) 10 mg IVP Q6H PRN PRN Reason: Systolic Blood Pressure Last Admin: 01/22/18 00:52 Dose: 10 mg Dextrose (Dextrose 5% In Water 1000 Ml) 1,000 mls @ 0 mls/hr IV .Q0M PRN; Protocol PRN Reason: Hypoglycemia Protocol Heparin Sodium/Sodium Chloride (Heparin 48021 Units/250ml 1/2 Normal Saline) 25,000 units in 250 mls @ 18.37 mls/hr IV .[id number] PRN; Protocol PRN Reason: ADJUST RATE PER PROTOCOL Last Titration: 01/21/18 23:00 Dose: 22 units/kg/hr, 22.453 mls/hr Sodium Bicarbonate 150 meq/ (Dextrose) 1,150 mls @ 100 mls/hr IV .[id number] [facility] Last Admin: 01/22/18 00:55 Dose: 100 mls/hr Insulin Human Lispro (Humalog Med) 0 units SC ACHS CATHIE; Protocol Last Admin: 01/21/18 21:55 Dose: Not Given Pantoprazole Sodium (Protonix Inj) 40 mg IVP Q12 [facility] Last Admin: 01/21/18 21:44 Dose: 40 mg - Labs Labs: 01/21/18 21:00 01/21/18 05:10 PT 17.3 SECONDS (9.4-12.5) H 01/20/18 20:30 INR 1.50 01/20/18 20:30 APTT 31.9 Seconds (25.1-36.5) 01/21/18 22:00 <Alex Liu - Last Filed: 01/22/18 03:17> Objective - Vital Signs/Intake and Output Vital Signs (last 24 hours): Temp Pulse Resp BP Pulse Ox 100.2 F H 128 H 30 H 178/106 H 95 01/22/18 00:51 01/22/18 00:52 01/22/18 00:30 01/22/18 00:52 01/21/18 13:00 Intake and Output: 01/21/18 01/22/18 18:59 06:59 Intake Total 2801 273 Output Total 850 Balance 1951 273 - Medications Medications: Current Medications Acetaminophen (Tylenol 325mg Tab) 650 mg PO Q6H PRN PRN Reason: Fever >100.4 F Last Admin: 01/21/18 04:32 Dose: 650 mg Dextrose (Dextrose 50% Inj) 0 ml IV STAT PRN; Protocol PRN Reason: Hypoglycemia Protocol Hydralazine HCl (Apresoline) 10 mg IVP Q6H PRN PRN Reason: Systolic Blood Pressure Last Admin: 01/22/18 00:52 Dose: 10 mg Dextrose (Dextrose 5% In Water 1000 Ml) 1,000 mls @ 0 mls/hr IV .Q0M PRN; Protocol PRN Reason: Hypoglycemia Protocol Heparin Sodium/Sodium Chloride (Heparin 89072 Units/250ml 1/2 Normal Saline) 25,000 units in 250 mls @ 18.37 mls/hr IV .[id number] PRN; Protocol PRN Reason: ADJUST RATE PER PROTOCOL Last Titration: 01/21/18 23:00 Dose: 22 units/kg/hr, 22.453 mls/hr Sodium Bicarbonate 150 meq/ (Dextrose) 1,150 mls @ 100 mls/hr IV .[id number] [facility] Last Admin: 01/22/18 00:55 Dose: 100 mls/hr Insulin Human Lispro (Humalog Med) 0 units SC ACHS CATHIE; Protocol Last Admin: 01/21/18 21:55 Dose: Not Given Pantoprazole Sodium (Protonix Inj) 40 mg IVP Q12 [facility] Last Admin: 01/21/18 21:44 Dose: 40 mg - Labs Labs: 01/21/18 21:00 01/21/18 05:10 PT 17.3 SECONDS (9.4-12.5) H 01/20/18 20:30 INR 1.50 01/20/18 20:30 APTT 31.9 Seconds (25.1-36.5) 01/21/18 22:00 Attending/Attestation - Attestation I have personally seen and examined this patient.: Yes I have fully participated in the care of the patient.: Yes I have reviewed all pertinent clinical information, including history, physical exam and plan: Yes Notes (Text): 01/22/18 03:17 Agree with resident physician's documentation.
[2018-01-22 03:19] LABS: FREE KAPPA SERUM 272.1 mg/L (3.3-19.4)
[2018-01-22 03:52] LABS: MEAN CELL VOLUME 85.7 fl (80.0-105.0); MEAN CORPUSCULAR HEMOGLOBIN 29.1 pg (25.0-35.0); MEAN PLATELET VOLUME 10.3 fl (7.0-11.0); RBC 2.37 10^6/uL (3.5-6.1); RED CELL DISTRIBUTION WIDTH 14.7 % (11.5-14.5); WHITE BLOOD COUNT 12.5 10^3/ul (4.5-11.0)
[2018-01-22 03:55] LABS: HEMOGLOBIN 6.9 g/dL (14.0-18.0)
--- NOTE | 2018-01-22 05:30 | CP.PCM.PN ---
Subjective - Date & Time of Evaluation Date of Evaluation: 01/22/18 Time of Evaluation: 05:30 - Subjective Subjective: INTERNAL MEDICINE PROGRESS NOTE FOR DR. HILARIA Ruffin D.O. PGY-1 Objective - Vital Signs/Intake and Output Vital Signs (last 24 hours): Temp Pulse Resp BP Pulse Ox 100 F H 17 L 30 H 178/106 H 95 01/22/18 04:00 01/22/18 02:00 01/22/18 00:30 01/22/18 00:52 01/21/18 13:00 Intake and Output: 01/21/18 01/22/18 18:59 06:59 Intake Total 2801 273 Output Total 850 Balance 1951 273 - Medications Medications: Current Medications Acetaminophen (Tylenol 325mg Tab) 650 mg PO Q6H PRN PRN Reason: Fever >100.4 F Last Admin: 01/21/18 04:32 Dose: 650 mg Dextrose (Dextrose 50% Inj) 0 ml IV STAT PRN; Protocol PRN Reason: Hypoglycemia Protocol Hydralazine HCl (Apresoline) 10 mg IVP Q6H PRN PRN Reason: Systolic Blood Pressure Last Admin: 01/22/18 00:52 Dose: 10 mg Dextrose (Dextrose 5% In Water 1000 Ml) 1,000 mls @ 0 mls/hr IV .Q0M PRN; Protocol PRN Reason: Hypoglycemia Protocol Heparin Sodium/Sodium Chloride (Heparin 35671 Units/250ml 1/2 Normal Saline) 25,000 units in 250 mls @ 18.37 mls/hr IV .[id number] PRN; Protocol PRN Reason: ADJUST RATE PER PROTOCOL Last Titration: 01/21/18 23:00 Dose: 22 units/kg/hr, 22.453 mls/hr Sodium Bicarbonate 150 meq/ (Dextrose) 1,150 mls @ 100 mls/hr IV .[id number] [facility] Last Admin: 01/22/18 00:55 Dose: 100 mls/hr Insulin Human Lispro (Humalog Med) 0 units SC ACHS CATHIE; Protocol Last Admin: 01/21/18 21:55 Dose: Not Given Pantoprazole Sodium (Protonix Inj) 40 mg IVP Q12 [facility] Last Admin: 01/21/18 21:44 Dose: 40 mg - Labs Labs: 01/22/18 03:00 01/21/18 05:10 PT 17.3 SECONDS (9.4-12.5) H 01/20/18 20:30 INR 1.50 01/20/18 20:30 APTT 38.8 Seconds (25.1-36.5) H 01/22/18 03:00
[2018-01-22 07:10] LABS: BASO # 0.01 K/mm3 (0.0-2.0); BASO % 0.1 % (0.0-3.0); EOS # 0.1 (0.0-0.7); EOS % 0.5 % (1.5-5.0); GRAN # 11.9 (1.4-6.5); GRAN % 87.8 % (50.0-68.0); LYMPH # 0.5 (1.2-3.4); LYMPH % 3.9 % (22.0-35.0); MEAN CELL VOLUME 85.2 fl (80.0-105.0); MEAN CORPUSCULAR HEMOGLOBIN 29.7 pg (25.0-35.0); MEAN CORPUSCULAR HGB CONC 34.8 g/dl (31.0-37.0); MEAN PLATELET VOLUME 10.1 fl (7.0-11.0); MONO % 7.7 % (1.0-6.0); RBC 2.36 10^6/uL (3.5-6.1); RED CELL DISTRIBUTION WIDTH 14.6 % (11.5-14.5); WHITE BLOOD COUNT 13.6 10^3/ul (4.5-11.0)
[2018-01-22] MEDS: Heparin25000 units/250ml 1/2NS 25,000 UNITS/250 ML BAG IV PRN ×2 (07:15→18:39)
[2018-01-22 07:35] LABS: ALB/GLOB RATIO 0.8 (1.1-1.8); ALBUMIN 2.8 g/dL (3.0-4.8); CALCIUM 7.3 mg/dL (8.4-10.5)
--- NOTE | 2018-01-22 08:10 | CP.PCM.PN ---
<Palmira Ruffin - Last Filed: 01/22/18 12:15> Subjective - Date & Time of Evaluation Date of Evaluation: 01/21/18 Time of Evaluation: 10:00 - Subjective Subjective: INTERNAL MEDICINE PROGRESS NOTE FOR DR. HILARIA Ruffin D.O. PGY-1 Pt seen and examined at bedside in ICU this am. Pt reports continued discomfort in lower extremities. He continues to complain of discomfort from lundy catheter. He also complains of b/l lower extremity swelling/erythema with L greater than R. Pt had received 1u PRBC @0516 this am. Scheduled to receive 2 more units PRBC this am. He denies fevers, chills, chest pain, palpitations, dyspnea, constipation, diarrhea, hematuria. Objective - Vital Signs/Intake and Output Vital Signs (last 24 hours): Temp Pulse Resp BP Pulse Ox 100 F H 17 L 30 H 178/106 H 95 01/22/18 04:00 01/22/18 02:00 01/22/18 00:30 01/22/18 00:52 01/21/18 13:00 Intake and Output: 01/22/18 01/22/18 06:59 18:59 Intake Total 279 Balance 279 - Medications Medications: Current Medications Acetaminophen (Tylenol 325mg Tab) 650 mg PO Q6H PRN PRN Reason: Fever >100.4 F Last Admin: 01/21/18 04:32 Dose: 650 mg Dextrose (Dextrose 50% Inj) 0 ml IV STAT PRN; Protocol PRN Reason: Hypoglycemia Protocol Hydralazine HCl (Apresoline) 10 mg IVP Q6H PRN PRN Reason: Systolic Blood Pressure Last Admin: 01/22/18 00:52 Dose: 10 mg Dextrose (Dextrose 5% In Water 1000 Ml) 1,000 mls @ 0 mls/hr IV .Q0M PRN; Protocol PRN Reason: Hypoglycemia Protocol Heparin Sodium/Sodium Chloride (Heparin 78389 Units/250ml 1/2 Normal Saline) 25,000 units in 250 mls @ 18.37 mls/hr IV .[id number] PRN; Protocol PRN Reason: ADJUST RATE PER PROTOCOL Last Admin: 01/22/18 07:15 Dose: 22 units/kg/hr, 22.453 mls/hr Sodium Bicarbonate 150 meq/ (Dextrose) 1,150 mls @ 100 mls/hr IV .[id number] [facility] Last Admin: 01/22/18 00:55 Dose: 100 mls/hr Insulin Human Lispro (Humalog Med) 0 units SC ACHS [facility]; Protocol Last Admin: 01/21/18 21:55 Dose: Not Given Pantoprazole Sodium (Protonix Inj) 40 mg IVP Q12 [facility] Last Admin: 01/21/18 21:44 Dose: 40 mg - Labs Labs: 01/22/18 06:20 01/22/18 06:20 PT 17.3 SECONDS (9.4-12.5) H 01/20/18 20:30 INR 1.50 01/20/18 20:30 APTT 38.8 Seconds (25.1-36.5) H 01/22/18 03:00 - Constitutional Appears: Well, Non-toxic, No Acute Distress - Head Exam Head Exam: NORMAL INSPECTION - Eye Exam Eye Exam: EOMI, Normal appearance - ENT Exam ENT Exam: Mucous Membranes Moist, Normal Exam - Respiratory Exam Respiratory Exam: NORMAL BREATHING PATTERN. absent: Rhonchi, Wheezes Additional comments: crackles @ lung bases - Cardiovascular Exam Cardiovascular Exam: Tachycardia, +S1, +S2 - GI/Abdominal Exam GI & Abdominal Exam: Soft, Normal Bowel Sounds. absent: Tenderness - Exam Additional comments: lundy catheter in place - Extremities Exam Extremities Exam: Calf Tenderness (L sided), Pedal Edema - Back Exam Back Exam: NORMAL INSPECTION. absent: CVA tenderness (L), CVA tenderness (R) - Neurological Exam Neurological Exam: Alert, Awake, Oriented x3 - Psychiatric Exam Psychiatric exam: Normal Affect, Normal Mood - Skin Skin Exam: Dry, Intact, Warm Assessment and Plan - Assessment and Plan (Free Text) Assessment: 57 year old male with past medical history of CKD stage V, left lower extremity DVT, diabetes mellitus type II, Hypertension, hyperlipidemia, presents with shortness of breath worse with exertion; swelling, erythema, and pain of left lower extremity which started one month ago. Patient also presented with fecal occult blood test positive, had a hemoglobin of 6.9 on presentation and was given 1 U of PRBCs. Popliteal vein DVT was seen on ultrasound Plan: CKD3 BUN/Cr severely elevated at 154/17.8 UA: protein>300, glucose>250, small blood, negative nitrate, negative leukocyte esterase, 15-20 RBC, 2-5 WBC, 6-8 epithelial cells UDS: cocaine positive Lundy catheter insertion showing 275 mL this morning. Potassium: elevated at 5.2 from 5.1. Continue to monitor. Bicarbonate 8 from 12. Sodium bicarbonate drip started at 200 cc/hr Renal ultrasound and renal duplex ultrasound ordered. Tunnel catheter procedure performed today. As per nephrology, ANNETTE, HIV, immunofixation, kappa light chain, antiphospholipid antibody, PTH, protein electrophoresis, hepatitis B panel As per nephrology, hemodialysis to be done due to GIO on CKD stage V. Continue monitoring. Replete electrolytes as needed. Strict I and Os. Take daily weights. Maintain euvolemia. 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 right heart strain from massive PE vs. myocardial infarction vs. cocaine use Start therapeutic heparin drip Monitor H&H for signs of bleeding. Appreciate GI recs V/Q scan ordered to evaluate for PE since CTA cannot be done due to renal status. CHFrEF Echo: EF 20-25% BNP: 59,000 Elevated troponins likely due to elevated creatinine vs. right heart strain from massive PE vs. myocardial infarction vs. cocaine use Pt to start hemodialysis after IJ port placement Maintain MAP>65. Monitor for S/S, HD compromise. Dr. Mendez, Cardiology, consulted for recommendations. Dr. Mendez recommends patient get echocardiogram to evaluate cardiac function DM2 Hgb A1c 6.5% Medium dose SSI Maintain euglycemia. HTN Hydralazine 10 mg Q6 for elevated blood pressures Dr. Mendez, Cardiology, consulted for recommendations. Dr. Mendez recommends patient get echocardiogram to evaluate cardiac function DVT prophylaxis: therapeutic heparin at 18 mg/kg/hr GI prophylaxis:protonix 40 mg BID Case seen, examined & discussed with attending physician, Dr. Marc <Elizabeth Marc R - Last Filed: 01/27/18 14:38> Objective - Vital Signs/Intake and Output Vital Signs (last 24 hours): Temp Pulse Resp BP Pulse Ox 99.4 F 129 H 22 154/90 H 98 01/27/18 12:00 01/27/18 13:50 01/27/18 12:00 01/27/18 13:50 01/27/18 06:00 Intake and Output: 01/27/18 01/27/18 06:59 18:59 Intake Total 1652 500 Output Total 1650 950 Balance 2 -450 - Medications Medications: Current Medications Acetaminophen (Tylenol 325mg Tab) 650 mg PO Q6H PRN PRN Reason: Fever >100.4 F Last Admin: 01/25/18 17:42 Dose: 650 mg Calcium Acetate (Phoslo) 667 mg PO WM [facility] Last Admin: 01/27/18 12:26 Dose: 667 mg Dextrose (Dextrose 50% Inj) 0 ml IV STAT PRN; Protocol PRN Reason: Hypoglycemia Protocol Digoxin (Lanoxin) 0.125 mg PO 1400 [facility] Last Admin: 01/27/18 13:49 Dose: 0.125 mg Diltiazem HCl (Cardizem Cd) 180 mg PO DAILY [facility] Last Admin: 01/27/18 13:49 Dose: 180 mg Hydralazine HCl (Apresoline) 25 mg PO QID [facility] Last Admin: 01/27/18 13:50 Dose: 25 mg Dextrose (Dextrose 5% In Water 1000 Ml) 1,000 mls @ 0 mls/hr IV .Q0M PRN; Protocol PRN Reason: Hypoglycemia Protocol Heparin Sodium/Sodium Chloride (Heparin 29503 Units/250ml 1/2 Normal Saline) 25,000 units in 250 mls @ 18.37 mls/hr IV .[id number] PRN; Protocol PRN Reason: ADJUST RATE PER PROTOCOL Last Titration: 01/27/18 08:40 Dose: 30 units/kg/hr, 30.617 mls/hr Insulin Human Lispro (Humalog Med) 0 units SC ACHS [facility]; Protocol Last Admin: 01/27/18 11:43 Dose: Not Given Isosorbide Mononitrate (Imdur) 60 mg PO DAILY [facility] Last Admin: 01/27/18 09:07 Dose: 60 mg - Labs Labs: 01/27/18 06:00 01/27/18 06:00 PT 17.3 SECONDS (9.4-12.5) H 01/20/18 20:30 INR 1.50 01/20/18 20:30 APTT 35.2 Seconds (25.1-36.5) 01/27/18 06:30 Attending/Attestation - Attestation I have personally seen and examined this patient.: Yes I have fully participated in the care of the patient.: Yes I have reviewed all pertinent clinical information, including history, physical exam and plan: Yes Notes (Text): Patient seen and examined by me at 10:10AM with resident 01/21/18. Case including HPI, physical exam, and assessment and plan discussed with resident. Agree with above with following additions/corrections. Patient is a 57-year-old male with past medical history significant for chronic kidney disease stage III, left lower extremity DVT, type 2 diabetes, hypertension, hyperlipidemia, and noncompliance of medications that presented to the emergency room with worsening of shortness of breath and increased swelling and pain in left lower extremity. Patient states that he is feeling ok. Complains of bilateral lower extremity pain. Patient also complains of discomfort at lundy catheter site. He denies any chest pain or shortness of breath. No nausea, vomiting,or abdominal pain. No h eadaches or dizziness. Patient afebrile.Patient is tolerating diet. Physical exam: General: Awake and alert, lying in bed in no acute distress HEENT: Normocephalic, atraumatic. Extraocular muscles intact. Pupils equal reactive. No scleral icterus. Oropharynx is pink and moist. Neck is supple. Cardiovascular: Normal rhythm. Normal S1, S2. Positive systolic murmur. No rubs or gallops appreciated Pulmonary: Normal respiratory effort. Decreased breath sounds. No rhonchi, rales, or wheezing appreciated. Gastrointestinal: Soft, nondistended. Nontender. Positive bowel sounds all 4 quadrants, no guarding. Musculoskeletal: Moves all extremities. Positive bilateral lower extremity edema, left greater than right. Positive erythema left lower extremity. Positive calf tenderness left lower extremity. Central nervous system: AAO x3 Dermatologic: Skin warm and dry. Assessment and plan: Patient is a 57-year-old male with past medical history significant for chronic kidney disease stage III, left lower extremity DVT, type 2 diabetes, hypertension, hyperlipidemia, and noncompliance of medications that presented to the emergency room with worsening of shortness of breath and increased swelling and pain in left lower extremity. 1. Acute on chronic renal failure. BUN/Cr slightly improved. Nephrology following, recommendations appreciated. Patient to have dialysis. Renal ultraso und per radiologist showed unremarkable renal sonogram; no significant interval change. CT abd/pelvis per radiologist showed no acute intra-abdominal findings. Continue sodium bicarb drip. 2. Anemia. Likely secondary to renal failure. Patient being transfused PRBCs. Stool for occult blood positive. GI following, recommendations appreciated. Patient placed on heparin drip for DVT. Continue to monitor CBC. Continue with protonix 3. Dyspnea. Likely multifactorial. Secondary to renal failure, CHF exacerbation, and anemia. Pending V/q Scan to rule out PE. Patient for dialysis. Patient also receiving PRBCs. 4. Elevated troponin. Multifocal atrial tachycardia. Cardiology following, recommendations appreciated. Patient on heparin drip. Troponins uptrending. 2d echo per linotype machinist showed four chamber dilatation consistent with CMP, EF 20- 25%, global hypokinesis, trace to mild aortic regurgitation, mitral regurgitation is moderate, severe tricuspid regurgitation, IVC dilated, no pericardial effusion. Tachycardia may be secondary to anemia. Patient given Cardizem overnight. 5. Elevated BNP. Acute on chronic CHF exacerbation. 2d echo as above. Cardiology following, recommendations appreciated. Patient for dialysis. Monitor ins and outs. 6. Elevated d-dimer. Left lower extremity DVT. V/Q scan pending. On heparin drip. Left lower extremity venous Doppler per radiologist showed subacute/chronic partially occlusive thrombus in the left popliteal vein. 7. Leukocytosis. Downtrending. Likely reactive. Blood and urine culture pending. 8. DM2. Continue insulin sliding scale. Hgb A1C 6.5. Continue to monitor accuchecks 9. Hypertension. Continue hydralazine. 10. Cocaine abuse. Patient counseled on cessation. 11. GI and DVT prophylaxis. Protonix and heparin drip 12. Patient is a full code. Case was discussed in detail with patient regarding current diagnosis and treatment plan. All questions answered.
[2018-01-22 10:07] LABS: ALBUMIN (PEP) 2.5 g/dL (3.8-4.8); ALPHA-1-GLOBULIN (PEP) 0.6 g/dL (0.2-0.3)
[2018-01-22] MEDS ORDERED: Metoprolol 1 mg/ml Inj IVP ONE (11:04)
[2018-01-22] MEDS ORDERED: Metoprolol 1 mg/ml Inj ONE (11:07)
[2018-01-22] MEDS: Insulin Lispro (humaLOG) MEDIUM Coverage SC SCH ×4 (11:10→21:44)
--- NOTE | 2018-01-22 11:46 | CARD ---
APPROVED REPORT Date of service: 01/22/2018 EKG Measurement Heart [id number] <Conclusion> Sinus tachycardia with blocked premature atrial complexes Possible Left atrial enlargement Nonspecific T wave abnormality Abnormal ECG
[2018-01-22 12:34] LABS: HEMOGLOBIN 7.6 g/dL (14.0-18.0)
--- NOTE | 2018-01-22 14:17 | PN ---
DATE: 01/22/2018 CARDIOLOGY FOLLOWUP SUBJECTIVE: The patient is in bed, undergoing dialysis and tolerating. PHYSICAL EXAMINATION: VITAL SIGNS: Blood pressure is 154/70, heart rate is in the 90s, normal sinus rhythm with frequent APCs and PVCs. NECK: Negative JVD. LUNGS: Without rales. HEART: Reveals S1, S2. EXTREMITIES: Without edema. LABORATORY DATA: Hemoglobin is 7. Chemistries: BUN and creatinine are noted. IMPRESSION: 1. End-stage renal disease. 2. Improvement of the tachycardia. 3. Marked anemia. 4. Frequent atrial premature contractions and premature ventricular contractions. PLAN: Given these findings, the heart rate is much improved after dialysis and transfusions of blood. Maurizio Menedz MD
--- NOTE | 2018-01-22 16:00 | CP.CCUPN ---
<Murtaza Kwok - Last Filed: 01/22/18 16:01> CCU Subjective - Physician Review Subjective (Free Text): Murtaza Kwok, PGY-1, CCU Progress Note for Dr. Lisa Patient seen and evaluated at bedside. No overnight events occurred. Patient was transfused 1 U of PRBCs due to anemia of 6.1. Patient reports bilateral calf pain and left leg warmth, redness, and swelling. Patient denies dizziness, headache, fever, chest pain, dyspnea, heart palpitations, abdominal pain, nausea, vomiting, constipation, diarrhea, dysuria, hematuria, numbness/tingling. CCU Objective - Vital Signs / Intake & Output Vital Signs (Last 4 hours): Vital Signs Pulse BP 01/22/18 14:10 112 H 137/84 Intake and Output (Last 8hrs): Intake & Output 01/22/18 01/22/18 01/22/18 06:59 14:59 22:59 Intake Total 2579 Output Total 1000 Balance 1579 Intake: IV 2404 bicarb 2200 Oral 100 Blood Product 75 Red Blood Cells Cpd As1 75 Lr Unit [id number] Output: Urine 1000 Urethral (Bailey) 1000 Other: # Bowel Movements 0 - Physical Exam Head: Positive for: Atraumatic, Normocephalic Pupils: Positive for: PERRL Extroacular Muscles: Positive for: EOMI Conjunctiva: Positive for: Icteric (b/l) Mouth: Positive for: Moist Mucous Membranes Neck: Positive for: Normal Range of Motion Respiratory/Chest: Positive for: Clear to Auscultation, Good Air Exchange. Negative for: Respiratory Distress, Accessory Muscle Use Cardiovascular: Positive for: Regular Rate and Rhythm, Normal S1, S2. Negative for: Murmurs Abdomen: Negative for: Tenderness, Distention, Peritoneal Signs Back: Positive for: Normal Inspection Upper Extremity: Positive for: Normal Inspection. Negative for: Cyanosis, Edema Lower Extremity: Positive for: Edema (4+ Worse on the left ), CALF TENDERNESS (B/L), Normal ROM, Tenderness, Erythema (Left lower leg), Neurovascularly Intact, Other (2 blisters noted on left lower extremity. left lower extremity is warm and painful to the touch and has no discharge.). Negative for: NORMAL PULSES (Decreased ) Neurological: Positive for: GCS=15, CN II-XII Intact, Speech Normal Skin: Positive for: Warm, Dry, Normal Color. Negative for: Rashes Psychiatric: Positive for: Alert, Oriented x 3, Normal Insight, Normal Concentration - Medications Active Medications: Active Medications Generic Name Dose Route Start Last Admin Trade Name Freq PRN Reason Stop Dose Admin Acetaminophen 650 mg 01/21/18 04:19 01/21/18 04:32 Tylenol 325mg Tab PO 650 mg Q6H PRN Administration Fever >100.4 F Dextrose 0 ml 01/21/18 00:34 Dextrose 50% Inj IV STAT PRN Hypoglycemia Protocol Protocol Hydralazine HCl 25 mg 01/22/18 14:00 01/22/18 14:10 Apresoline PO 25 mg QID CATHIE Administration Dextrose 1,000 mls @ 0 mls/hr 01/21/18 00:34 Dextrose 5% In Water 1000 Ml IV .Q0M PRN Hypoglycemia Protocol Protocol Per Protocol Heparin Sodium/Sodium Chloride 25,000 units in 250 mls @ 18.37 mls/hr 01/21/18 08:09 01/22/18 07:15 Heparin 18437 Units/250ml 1/2 Normal Saline IV 22 units/kg/hr .[id number] PRN 22.453 mls/hr ADJUST RATE PER PROTOCOL Administration Protocol 18 UNITS/KG/HR Insulin Human Lispro 0 units 01/21/18 07:30 01/22/18 12:58 Humalog Med SC Not Given ACHS CATHIE Protocol Isosorbide Mononitrate 60 mg 01/22/18 11:00 01/22/18 13:00 Imdur PO 60 mg DAILY CATHIE Administration Metoprolol Tartrate 25 mg 01/22/18 11:00 01/22/18 11:24 Lopressor PO 25 mg BID CATHIE Administration Pantoprazole Sodium 40 mg 01/21/18 10:00 01/22/18 13:00 Protonix Inj IVP 40 mg Q12 CATHIE Administration - Patient Studies Lab Studies: Microbiology Studies 01/20/18 20:30 Blood Culture - Preliminary Blood-Venous NO GROWTH AFTER 24 HOURS 01/20/18 20:00 Blood Culture - Preliminary Blood-Venous NO GROWTH AFTER 24 HOURS Lab Studies 01/22/18 01/22/18 01/22/18 Range/Units 12:20 11:04 10:50 WBC (4.5-11.0) 10^3/ul RBC (3.5-6.1) 10^6/uL Hgb 7.6 L (14.0-18.0) g/dL Hct 21.6 L (42.0-52.0) % MCV (80.0-105.0) fl MCH (25.0-35.0) pg MCHC (31.0-37.0) g/dl RDW (11.5-14.5) % Plt Count (120.0-450.0) 10^3/uL MPV (7.0-11.0) fl Gran % (50.0-68.0) % Lymph % (Auto) (22.0-35.0) % [place] % (Auto) (1.0-6.0) % Eos % (Auto) (1.5-5.0) % Baso % (Auto) (0.0-3.0) % Gran # (1.4-6.5) Lymph # (Auto) (1.2-3.4) [place] # (Auto) (0.1-0.6) Eos # (Auto) (0.0-0.7) Baso # (Auto) (0.0-2.0) K/mm3 APTT 58.1 H (25.1-36.5) Seconds Sodium (132-148) mmol/L Potassium (3.6-5.0) mmol/L Chloride (98-107) mmol/L Carbon Dioxide (21-33) mmol/L Anion Gap (10-20) BUN (7-21) mg/dL Creatinine (0.8-1.5) mg/dl Est GFR ( Amer) Est GFR (Non-Af Amer) POC Glucose (mg/dL) 197 H (65-110) mg/dL Random Glucose (70-110) mg/dL Calcium (8.4-10.5) mg/dL Ferritin ng/mL Total Bilirubin (0.2-1.3) mg/dL Pre-Trans Tot Bilirubin (0.2-1.3) mg/dL Post-Trans Total Bili mg/dL AST (17-59) U/L ALT (7-56) U/L Alkaline Phosphatase (38-126) U/L Total Protein (5.8-8.3) g/dL Total Protein (PEP) (6.1-8.1) g/dL Albumin (3.0-4.8) g/dL Albumin (PEP) (3.8-4.8) g/dL Globulin gm/dL Albumin/Globulin Ratio (1.1-1.8) Yylmg-7-Hbmmcpwwg (0.2-0.3) g/dL Xevnr-9-Jwueehzeu (0.5-0.9) g/dL Rocm-2-Bwxxxxbr (0.4-0.6) g/dL Ohme-9-Dgcqwhoy (0.2-0.5) g/dL Gamma Globulins (0.8-1.7) g/dL Abnorm Protein Band 1 Abnorm Protein Band 2 Abnorm Protein Band 3 Vitamin B12 (239-931) pg/mL 25-OH Vitamin D Total (30.0-100.0) NG/ML Folate ng/mL PTH Intact Whole Molec (14-64) pg/mL Urine Color (YELLOW) Urine Appearance (CLEAR) Urine pH (4.7-8.0) Ur Specific [place] (1.005-1.035) Urine Protein (<30 mg/dL) mg/dL Urine Glucose (UA) (NEGATIVE) mg/dL Urine Ketones (NEGATIVE) mg/dL Urine Blood (NEGATIVE) Urine Nitrate (NEGATIVE) Urine Bilirubin (NEGATIVE) Urine Urobilinogen (<1 E.U./dL) E.U./dL Ur Leukocyte Esterase (NEGATIVE) Krystle/uL Urine RBC (0-2) /hpf Urine WBC (0-6) /hpf Ur Epithelial Cells (0-5) /hpf Urine Bacteria (NEG) TANIYA & SPEP Interp Free [place] Light Chains (3.3-19.4) mg/L Hep Bs Antigen (NEGATIVE) Hep Bs Antibody (NEGATIVE) Hep B Core IgM Ab (NEGATIVE) HIV-1 Antibody HIV-2 Antibody HIV 1&2 Ag/Ab, 4th Gen (Nonreactive) Blood Type Antibody Screen Crossmatch Reaction Clerical Check (NO DISCREPA) Pre-Trans Blood Type Pre-Trans Bld Appearanc (NO HEMOLYSI) Pre-Trans BEA (NEGATIVE) Post-Trans Blood Type Post-Trans Spec Appear (NO HEMOLYSI) Post-Trans BEA (NEGATIVE) BBK History Checked 01/22/18 01/22/18 01/22/18 Range/Units 06:20 06:20 06:20 WBC 13.6 H (4.5-11.0) 10^3/ul RBC 2.36 L (3.5-6.1) 10^6/uL Hgb 7.0 L (14.0-18.0) g/dL Hct 20.1 L* (42.0-52.0) % MCV 85.2 (80.0-105.0) fl MCH 29.7 (25.0-35.0) pg MCHC 34.8 (31.0-37.0) g/dl RDW 14.6 H (11.5-14.5) % Plt Count 238 (120.0-450.0) 10^3/uL MPV 10.1 (7.0-11.0) fl Gran % 87.8 H (50.0-68.0) % Lymph % (Auto) 3.9 L (22.0-35.0) % [place] % (Auto) 7.7 H (1.0-6.0) % Eos % (Auto) 0.5 L (1.5-5.0) % Baso % (Auto) 0.1 (0.0-3.0) % Gran # 11.90 H (1.4-6.5) Lymph # (Auto) 0.5 L (1.2-3.4) [place] # (Auto) 1.0 H (0.1-0.6) Eos # (Auto) 0.1 (0.0-0.7) Baso # (Auto) 0.01 (0.0-2.0) K/mm3 APTT (25.1-36.5) Seconds Sodium 136 (132-148) mmol/L Potassium 4.0 (3.6-5.0) mmol/L Chloride 103 (98-107) mmol/L Carbon Dioxide 18 L (21-33) mmol/L Anion Gap 19 (10-20) BUN 124 H* (7-21) mg/dL Creatinine 13.5 H* D (0.8-1.5) mg/dl Est GFR ( Amer) 5 Est GFR (Non-Af Amer) 4 POC Glucose (mg/dL) (65-110) mg/dL Random Glucose 136 H (70-110) mg/dL Calcium 7.3 L (8.4-10.5) mg/dL Ferritin ng/mL Total Bilirubin 0.8 (0.2-1.3) mg/dL Pre-Trans Tot Bilirubin (0.2-1.3) mg/dL Post-Trans Total Bili 0.9 mg/dL AST 23 (17-59) U/L ALT 26 (7-56) U/L Alkaline Phosphatase 101 (38-126) U/L Total Protein 6.3 (5.8-8.3) g/dL Total Protein (PEP) (6.1-8.1) g/dL Albumin 2.8 L (3.0-4.8) g/dL Albumin (PEP) (3.8-4.8) g/dL Globulin 3.5 gm/dL Albumin/Globulin Ratio 0.8 L (1.1-1.8) Fpojt-0-Zlncjxfvw (0.2-0.3) g/dL Nezyi-9-Pjmhzynyr (0.5-0.9) g/dL Teyy-2-Yiwglerk (0.4-0.6) g/dL Lvip-3-Bragkrvq (0.2-0.5) g/dL Gamma Globulins (0.8-1.7) g/dL Abnorm Protein Band 1 Abnorm Protein Band 2 Abnorm Protein Band 3 Vitamin B12 (239-931) pg/mL 25-OH Vitamin D Total (30.0-100.0) NG/ML Folate ng/mL PTH Intact Whole Molec (14-64) pg/mL Urine Color (YELLOW) Urine Appearance (CLEAR) Urine pH (4.7-8.0) Ur Specific [place] (1.005-1.035) Urine Protein (<30 mg/dL) mg/dL Urine Glucose (UA) (NEGATIVE) mg/dL Urine Ketones (NEGATIVE) mg/dL Urine Blood (NEGATIVE) Urine Nitrate (NEGATIVE) Urine Bilirubin (NEGATIVE) Urine Urobilinogen (<1 E.U./dL) E.U./dL Ur Leukocyte Esterase (NEGATIVE) Krystle/uL Urine RBC (0-2) /hpf Urine WBC (0-6) /hpf Ur Epithelial Cells (0-5) /hpf Urine Bacteria (NEG) TANIYA & SPEP Interp Free [place] Light Chains (3.3-19.4) mg/L Hep Bs Antigen (NEGATIVE) Hep Bs Antibody (NEGATIVE) Hep B Core IgM Ab (NEGATIVE) HIV-1 Antibody HIV-2 Antibody HIV 1&2 Ag/Ab, 4th Gen (Nonreactive) Blood Type Antibody Screen Crossmatch Reaction Clerical Check (NO DISCREPA) Pre-Trans Blood Type Pre-Trans Bld Appearanc (NO HEMOLYSI) Pre-Trans BEA (NEGATIVE) Post-Trans Blood Type Post-Trans Spec Appear (NO HEMOLYSI) Post-Trans BEA (NEGATIVE) BBK History Checked 01/22/18 01/22/18 01/22/18 Range/Units 03:00 03:00 00:40 WBC 12.5 H (4.5-11.0) 10^3/ul RBC 2.37 L (3.5-6.1) 10^6/uL Hgb 6.9 L* (14.0-18.0) g/dL Hct 20.3 L* (42.0-52.0) % MCV 85.7 (80.0-105.0) fl MCH 29.1 (25.0-35.0) pg MCHC 34.0 (31.0-37.0) g/dl RDW 14.7 H (11.5-14.5) % Plt Count 242 (120.0-450.0) 10^3/uL MPV 10.3 (7.0-11.0) fl Gran % (50.0-68.0) % Lymph % (Auto) (22.0-35.0) % [place] % (Auto) (1.0-6.0) % Eos % (Auto) (1.5-5.0) % Baso % (Auto) (0.0-3.0) % Gran # (1.4-6.5) Lymph # (Auto) (1.2-3.4) [place] # (Auto) (0.1-0.6) Eos # (Auto) (0.0-0.7) Baso # (Auto) (0.0-2.0) K/mm3 APTT 38.8 H (25.1-36.5) Seconds Sodium (132-148) mmol/L Potassium (3.6-5.0) mmol/L Chloride (98-107) mmol/L Carbon Dioxide (21-33) mmol/L Anion Gap (10-20) BUN (7-21) mg/dL Creatinine (0.8-1.5) mg/dl Est GFR ( Amer) Est GFR (Non-Af Amer) POC Glucose (mg/dL) (65-110) mg/dL Random Glucose (70-110) mg/dL Calcium (8.4-10.5) mg/dL Ferritin ng/mL Total Bilirubin (0.2-1.3) mg/dL Pre-Trans Tot Bilirubin (0.2-1.3) mg/dL Post-Trans Total Bili mg/dL AST (17-59) U/L ALT (7-56) U/L Alkaline Phosphatase (38-126) U/L Total Protein (5.8-8.3) g/dL Total Protein (PEP) (6.1-8.1) g/dL Albumin (3.0-4.8) g/dL Albumin (PEP) (3.8-4.8) g/dL Globulin gm/dL Albumin/Globulin Ratio (1.1-1.8) Spywo-5-Owfwrywbl (0.2-0.3) g/dL Lsfst-4-Erbpxjlwp (0.5-0.9) g/dL Djgg-2-Nubbbaot (0.4-0.6) g/dL Amqx-6-Afghkdns (0.2-0.5) g/dL Gamma Globulins (0.8-1.7) g/dL Abnorm Protein Band 1 Abnorm Protein Band 2 Abnorm Protein Band 3 Vitamin B12 (239-931) pg/mL 25-OH Vitamin D Total (30.0-100.0) NG/ML Folate ng/mL PTH Intact Whole Molec (14-64) pg/mL Urine Color Yellow (YELLOW) Urine Appearance Clear (CLEAR) Urine pH 6.0 (4.7-8.0) Ur Specific [place] 1.015 (1.005-1.035) Urine Protein >=300 H (<30 mg/dL) mg/dL Urine Glucose (UA) 500 H (NEGATIVE) mg/dL Urine Ketones Negative (NEGATIVE) mg/dL Urine Blood Moderate H (NEGATIVE) Urine Nitrate Negative (NEGATIVE) Urine Bilirubin Negative (NEGATIVE) Urine Urobilinogen 0.2 (<1 E.U./dL) E.U./dL Ur Leukocyte Esterase Small H (NEGATIVE) Krystle/uL Urine RBC 1 - 3 (0-2) /hpf Urine WBC 15 - 20 (0-6) /hpf Ur Epithelial Cells 0 - 2 (0-5) /hpf Urine Bacteria Small (NEG) TANIYA & SPEP Interp Free [place] Light Chains (3.3-19.4) mg/L Hep Bs Antigen (NEGATIVE) Hep Bs Antibody (NEGATIVE) Hep B Core IgM Ab (NEGATIVE) HIV-1 Antibody HIV-2 Antibody HIV 1&2 Ag/Ab, 4th Gen (Nonreactive) Blood Type Antibody Screen Crossmatch Reaction Clerical Check (NO DISCREPA) Pre-Trans Blood Type Pre-Trans Bld Appearanc (NO HEMOLYSI) Pre-Trans BEA (NEGATIVE) Post-Trans Blood Type Post-Trans Spec Appear (NO HEMOLYSI) Post-Trans BEA (NEGATIVE) BBK History Checked 01/22/18 01/22/18 01/22/18 Range/Units 00:40 00:40 00:36 WBC (4.5-11.0) 10^3/ul RBC (3.5-6.1) 10^6/uL Hgb (14.0-18.0) g/dL Hct (42.0-52.0) % MCV (80.0-105.0) fl MCH (25.0-35.0) pg MCHC (31.0-37.0) g/dl RDW (11.5-14.5) % Plt Count (120.0-450.0) 10^3/uL MPV (7.0-11.0) fl Gran % (50.0-68.0) % Lymph % (Auto) (22.0-35.0) % [place] % (Auto) (1.0-6.0) % Eos % (Auto) (1.5-5.0) % Baso % (Auto) (0.0-3.0) % Gran # (1.4-6.5) Lymph # (Auto) (1.2-3.4) [place] # (Auto) (0.1-0.6) Eos # (Auto) (0.0-0.7) Baso # (Auto) (0.0-2.0) K/mm3 APTT (25.1-36.5) Seconds Sodium (132-148) mmol/L Potassium (3.6-5.0) mmol/L Chloride (98-107) mmol/L Carbon Dioxide (21-33) mmol/L Anion Gap (10-20) BUN (7-21) mg/dL Creatinine (0.8-1.5) mg/dl Est GFR ( Amer) Est GFR (Non-Af Amer) POC Glucose (mg/dL) (65-110) mg/dL Random Glucose (70-110) mg/dL Calcium (8.4-10.5) mg/dL Ferritin ng/mL Total Bilirubin (0.2-1.3) mg/dL Pre-Trans Tot Bilirubin 0.8 (0.2-1.3) mg/dL Post-Trans Total Bili mg/dL AST (17-59) U/L ALT (7-56) U/L Alkaline Phosphatase (38-126) U/L Total Protein (5.8-8.3) g/dL Total Protein (PEP) (6.1-8.1) g/dL Albumin (3.0-4.8) g/dL Albumin (PEP) (3.8-4.8) g/dL Globulin gm/dL Albumin/Globulin Ratio (1.1-1.8) Oobtx-3-Rhktoacaz (0.2-0.3) g/dL Otzmd-7-Puxofnpzt (0.5-0.9) g/dL Xmio-9-Otyzbcth (0.4-0.6) g/dL Zfxi-3-Mlhclyir (0.2-0.5) g/dL Gamma Globulins (0.8-1.7) g/dL Abnorm Protein Band 1 Abnorm Protein Band 2 Abnorm Protein Band 3 Vitamin B12 (239-931) pg/mL 25-OH Vitamin D Total (30.0-100.0) NG/ML Folate ng/mL PTH Intact Whole [place]olec (14-64) pg/mL Urine Color Yellow (YELLOW) Urine Appearance Clear (CLEAR) Urine pH 6.0 (4.7-8.0) Ur Specific [place] 1.020 (1.005-1.035) Urine Protein >=300 H (<30 mg/dL) mg/dL Urine Glucose (UA) 500 H (NEGATIVE) mg/dL Urine Ketones Negative (NEGATIVE) mg/dL Urine Blood Moderate H (NEGATIVE) Urine Nitrate Negative (NEGATIVE) Urine Bilirubin Negative (NEGATIVE) Urine Urobilinogen 0.2 (<1 E.U./dL) E.U./dL Ur Leukocyte Esterase Small H (NEGATIVE) Krystle/uL Urine RBC 1 - 3 (0-2) /hpf Urine WBC 15 - 20 (0-6) /hpf Ur Epithelial Cells 0 - 2 (0-5) /hpf Urine Bacteria Small (NEG) TANIYA & SPEP Interp Free [place]ains (3.3-19.4) mg/L Hep Bs Antigen (NEGATIVE) Hep Bs Antibody (NEGATIVE) Hep B Core IgM Ab (NEGATIVE) HIV-1 Antibody HIV-2 Antibody HIV 1&2 Ag/Ab, 4th Gen (Nonreactive) Blood Type Antibody Screen Crossmatch Reaction Clerical Check No discrepancy (NO DISCREPA) Pre-Trans Blood Type A POSITIVE Pre-Trans Bld Appearanc No hemolysis (NO HEMOLYSI) Pre-Trans BEA Negative (NEGATIVE) Post-Trans Blood Type A POSITIVE Post-Trans Spec Appear No hemolysis (NO HEMOLYSI) Post-Trans BEA Negative (NEGATIVE) BBK History Checked 01/21/18 01/21/18 01/21/18 Range/Units 22:00 21:53 21:00 WBC 12.8 H (4.5-11.0) 10^3/ul RBC 2.39 L (3.5-6.1) 10^6/uL Hgb 7.2 L (14.0-18.0) g/dL Hct 20.3 L* (42.0-52.0) % MCV 84.9 (80.0-105.0) fl MCH 30.1 (25.0-35.0) pg MCHC 35.5 (31.0-37.0) g/dl RDW 14.6 H (11.5-14.5) % Plt Count 249 (120.0-450.0) 10^3/uL MPV 10.3 (7.0-11.0) fl Gran % (50.0-68.0) % Lymph % (Auto) (22.0-35.0) % [place] % (Auto) (1.0-6.0) % Eos % (Auto) (1.5-5.0) % Baso % (Auto) (0.0-3.0) % Gran # (1.4-6.5) Lymph # (Auto) (1.2-3.4) [place] # (Auto) (0.1-0.6) Eos # (Auto) (0.0-0.7) Baso # (Auto) (0.0-2.0) K/mm3 APTT 31.9 (25.1-36.5) Seconds Sodium (132-148) mmol/L Potassium (3.6-5.0) mmol/L Chloride (98-107) mmol/L Carbon Dioxide (21-33) mmol/L Anion Gap (10-20) BUN (7-21) mg/dL Creatinine (0.8-1.5) mg/dl Est GFR ( Amer) Est GFR (Non-Af Amer) POC Glucose (mg/dL) 179 H (65-110) mg/dL Random Glucose (70-110) mg/dL Calcium (8.4-10.5) mg/dL Ferritin ng/mL Total Bilirubin (0.2-1.3) mg/dL Pre-Trans Tot Bilirubin (0.2-1.3) mg/dL Post-Trans Total Bili mg/dL AST (17-59) U/L ALT (7-56) U/L Alkaline Phosphatase (38-126) U/L Total Protein (5.8-8.3) g/dL Total Protein (PEP) (6.1-8.1) g/dL Albumin (3.0-4.8) g/dL Albumin (PEP) (3.8-4.8) g/dL Globulin gm/dL Albumin/Globulin Ratio (1.1-1.8) Qgvhx-7-Iwjtzyqyy (0.2-0.3) g/dL Eexwb-4-Oehtwqqdx (0.5-0.9) g/dL Xkqd-3-Hzoknlsn (0.4-0.6) g/dL Ysxc-9-Pggwlbmd (0.2-0.5) g/dL Gamma Globulins (0.8-1.7) g/dL Abnorm Protein Band 1 Abnorm Protein Band 2 Abnorm Protein Band 3 Vitamin B12 (239-931) pg/mL 25-OH Vitamin D Total (30.0-100.0) NG/ML Folate ng/mL PTH Intact Whole [place]olec (14-64) pg/mL Urine Color (YELLOW) Urine Appearance (CLEAR) Urine pH (4.7-8.0) Ur Specific [place] (1.005-1.035) Urine Protein (<30 mg/dL) mg/dL Urine Glucose (UA) (NEGATIVE) mg/dL Urine Ketones (NEGATIVE) mg/dL Urine Blood (NEGATIVE) Urine Nitrate (NEGATIVE) Urine Bilirubin (NEGATIVE) Urine Urobilinogen (<1 E.U./dL) E.U./dL Ur Leukocyte Esterase (NEGATIVE) Krystle/uL Urine RBC (0-2) /hpf Urine WBC (0-6) /hpf Ur Epithelial Cells (0-5) /hpf Urine Bacteria (NEG) TANIYA & SPEP Interp Free [place]ains (3.3-19.4) mg/L Hep Bs Antigen (NEGATIVE) Hep Bs Antibody (NEGATIVE) Hep B Core IgM Ab (NEGATIVE) HIV-1 Antibody HIV-2 Antibody HIV 1&2 Ag/Ab, 4th Gen (Nonreactive) Blood Type Antibody Screen Crossmatch Reaction Clerical Check (NO DISCREPA) Pre-Trans Blood Type Pre-Trans Bld Appearanc (NO HEMOLYSI) Pre-Trans BEA (NEGATIVE) Post-Trans Blood Type Post-Trans Spec Appear (NO HEMOLYSI) Post-Trans BEA (NEGATIVE) BBK History Checked 01/21/18 01/21/18 01/21/18 Range/Units 18:16 18:16 18:16 WBC 12.8 H (4.5-11.0) 10^3/ul RBC 2.53 L (3.5-6.1) 10^6/uL Hgb 7.5 L (14.0-18.0) g/dL Hct 21.8 L (42.0-52.0) % MCV 86.2 (80.0-105.0) fl MCH 29.6 (25.0-35.0) pg MCHC 34.4 (31.0-37.0) g/dl RDW 14.6 H (11.5-14.5) % Plt Count 268 (120.0-450.0) 10^3/uL MPV 10.8 (7.0-11.0) fl Gran % 91.9 H (50.0-68.0) % Lymph % (Auto) 6.7 L (22.0-35.0) % [place] % (Auto) 1.2 (1.0-6.0) % Eos % (Auto) 0.2 L (1.5-5.0) % Baso % (Auto) 0.0 (0.0-3.0) % Gran # 11.72 H (1.4-6.5) Lymph # (Auto) 0.9 L (1.2-3.4) [place] # (Auto) 0.2 (0.1-0.6) Eos # (Auto) 0.0 (0.0-0.7) Baso # (Auto) 0.00 (0.0-2.0) K/mm3 APTT (25.1-36.5) Seconds Sodium (132-148) mmol/L Potassium (3.6-5.0) mmol/L Chloride (98-107) mmol/L Carbon Dioxide (21-33) mmol/L Anion Gap (10-20) BUN (7-21) mg/dL Creatinine (0.8-1.5) mg/dl Est GFR ( Amer) Est GFR (Non-Af Amer) POC Glucose (mg/dL) (65-110) mg/dL Random Glucose (70-110) mg/dL Calcium (8.4-10.5) mg/dL Ferritin ng/mL Total Bilirubin (0.2-1.3) mg/dL Pre-Trans Tot Bilirubin (0.2-1.3) mg/dL Post-Trans Total Bili mg/dL AST (17-59) U/L ALT (7-56) U/L Alkaline Phosphatase (38-126) U/L Total Protein (5.8-8.3) g/dL Total Protein (PEP) (6.1-8.1) g/dL Albumin (3.0-4.8) g/dL Albumin (PEP) (3.8-4.8) g/dL Globulin gm/dL Albumin/Globulin Ratio (1.1-1.8) Pnnck-9-Iqzbjvjyo (0.2-0.3) g/dL Qhxya-6-Fuitpqxnf (0.5-0.9) g/dL Zgdv-5-Suidirgk (0.4-0.6) g/dL Japk-1-Lvnpcmgm (0.2-0.5) g/dL Gamma Globulins (0.8-1.7) g/dL Abnorm Protein Band 1 Abnorm Protein Band 2 Abnorm Protein Band 3 Vitamin B12 (239-931) pg/mL 25-OH Vitamin D Total (30.0-100.0) NG/ML Folate ng/mL PTH Intact Whole Molec (14-64) pg/mL Urine Color (YELLOW) Urine Appearance (CLEAR) Urine pH (4.7-8.0) Ur Specific [place] (1.005-1.035) Urine Protein (<30 mg/dL) mg/dL Urine Glucose (UA) (NEGATIVE) mg/dL Urine Ketones (NEGATIVE) mg/dL Urine Blood (NEGATIVE) Urine Nitrate (NEGATIVE) Urine Bilirubin (NEGATIVE) Urine Urobilinogen (<1 E.U./dL) E.U./dL Ur Leukocyte Esterase (NEGATIVE) Krystle/uL Urine RBC (0-2) /hpf Urine WBC (0-6) /hpf Ur Epithelial Cells (0-5) /hpf Urine Bacteria (NEG) TANIYA & SPEP Interp Free [place] Light Chains 272.1 H (3.3-19.4) mg/L Hep Bs Antigen (NEGATIVE) Hep Bs Antibody (NEGATIVE) Hep B Core IgM Ab (NEGATIVE) HIV-1 Antibody TEST NOT PERFORMED HIV-2 Antibody TEST NOT PERFORMED HIV 1&2 Ag/Ab, 4th Gen Nonreactive (Nonreactive) Blood Type Antibody Screen Crossmatch Reaction Clerical Check (NO DISCREPA) Pre-Trans Blood Type Pre-Trans Bld Appearanc (NO HEMOLYSI) Pre-Trans BEA (NEGATIVE) Post-Trans Blood Type Post-Trans Spec Appear (NO HEMOLYSI) Post-Trans BEA (NEGATIVE) BBK History Checked 01/21/18 01/21/18 01/21/18 Range/Units 16:39 13:44 13:44 WBC (4.5-11.0) 10^3/ul RBC (3.5-6.1) 10^6/uL Hgb (14.0-18.0) g/dL Hct (42.0-52.0) % MCV (80.0-105.0) fl MCH (25.0-35.0) pg MCHC (31.0-37.0) g/dl RDW (11.5-14.5) % Plt Count (120.0-450.0) 10^3/uL MPV (7.0-11.0) fl Gran % (50.0-68.0) % Lymph % (Auto) (22.0-35.0) % [place] % (Auto) (1.0-6.0) % Eos % (Auto) (1.5-5.0) % Baso % (Auto) (0.0-3.0) % Gran # (1.4-6.5) Lymph # (Auto) (1.2-3.4) [place] # (Auto) (0.1-0.6) Eos # (Auto) (0.0-0.7) Baso # (Auto) (0.0-2.0) K/mm3 APTT (25.1-36.5) Seconds Sodium (132-148) mmol/L Potassium (3.6-5.0) mmol/L Chloride (98-107) mmol/L Carbon Dioxide (21-33) mmol/L Anion Gap (10-20) BUN (7-21) mg/dL Creatinine (0.8-1.5) mg/dl Est GFR ( Amer) Est GFR (Non-Af Amer) POC Glucose (mg/dL) 210 H (65-110) mg/dL Random Glucose (70-110) mg/dL Calcium (8.4-10.5) mg/dL Ferritin ng/mL Total Bilirubin (0.2-1.3) mg/dL Pre-Trans Tot Bilirubin (0.2-1.3) mg/dL Post-Trans Total Bili mg/dL AST (17-59) U/L ALT (7-56) U/L Alkaline Phosphatase (38-126) U/L Total Protein (5.8-8.3) g/dL Total Protein (PEP) (6.1-8.1) g/dL Albumin (3.0-4.8) g/dL Albumin (PEP) (3.8-4.8) g/dL Globulin gm/dL Albumin/Globulin Ratio (1.1-1.8) Zudna-2-Fwplcbmis (0.2-0.3) g/dL Kkwhz-0-Viqkxzwsd (0.5-0.9) g/dL Zglg-9-Svogcgqf (0.4-0.6) g/dL Wkpw-3-Soigmtmq (0.2-0.5) g/dL Gamma Globulins (0.8-1.7) g/dL Abnorm Protein Band 1 Abnorm Protein Band 2 Abnorm Protein Band 3 Vitamin B12 (239-931) pg/mL 25-OH Vitamin D Total (30.0-100.0) NG/ML Folate ng/mL PTH Intact Whole [place] (14-64) pg/mL Urine Color (YELLOW) Urine Appearance (CLEAR) Urine pH (4.7-8.0) Ur Specific [place] (1.005-1.035) Urine Protein (<30 mg/dL) mg/dL Urine Glucose (UA) (NEGATIVE) mg/dL Urine Ketones (NEGATIVE) mg/dL Urine Blood (NEGATIVE) Urine Nitrate (NEGATIVE) Urine Bilirubin (NEGATIVE) Urine Urobilinogen (<1 E.U./dL) E.U./dL Ur Leukocyte Esterase (NEGATIVE) Krystle/uL Urine RBC (0-2) /hpf Urine WBC (0-6) /hpf Ur Epithelial Cells (0-5) /hpf Urine Bacteria (NEG) TANIYA & SPEP Interp Free [place] Chains (3.3-19.4) mg/L Hep Bs Antigen Negative (NEGATIVE) Hep Bs Antibody Negative (NEGATIVE) Hep B Core IgM Ab Negative (NEGATIVE) HIV-1 Antibody HIV-2 Antibody HIV 1&2 Ag/Ab, 4th Gen (Nonreactive) Blood Type Antibody Screen Crossmatch Reaction Clerical Check (NO DISCREPA) Pre-Trans Blood Type Pre-Trans Bld Appearanc (NO HEMOLYSI) Pre-Trans BEA (NEGATIVE) Post-Trans Blood Type Post-Trans Spec Appear (NO HEMOLYSI) Post-Trans BEA (NEGATIVE) BBK History Checked 01/21/18 01/21/18 01/21/18 Range/Units 13:31 12:16 12:14 WBC (4.5-11.0) 10^3/ul RBC (3.5-6.1) 10^6/uL Hgb (14.0-18.0) g/dL Hct (42.0-52.0) % MCV (80.0-105.0) fl MCH (25.0-35.0) pg MCHC (31.0-37.0) g/dl RDW (11.5-14.5) % Plt Count (120.0-450.0) 10^3/uL MPV (7.0-11.0) fl Gran % (50.0-68.0) % Lymph % (Auto) (22.0-35.0) % [place] % (Auto) (1.0-6.0) % Eos % (Auto) (1.5-5.0) % Baso % (Auto) (0.0-3.0) % Gran # (1.4-6.5) Lymph # (Auto) (1.2-3.4) [place] # (Auto) (0.1-0.6) Eos # (Auto) (0.0-0.7) Baso # (Auto) (0.0-2.0) K/mm3 APTT (25.1-36.5) Seconds Sodium (132-148) mmol/L Potassium (3.6-5.0) mmol/L Chloride (98-107) mmol/L Carbon Dioxide (21-33) mmol/L Anion Gap (10-20) BUN (7-21) mg/dL Creatinine (0.8-1.5) mg/dl Est GFR ( Amer) Est GFR (Non-Af Amer) POC Glucose (mg/dL) (65-110) mg/dL Random Glucose (70-110) mg/dL Calcium (8.4-10.5) mg/dL Ferritin ng/mL Total Bilirubin (0.2-1.3) mg/dL Pre-Trans Tot Bilirubin (0.2-1.3) mg/dL Post-Trans Total Bili mg/dL AST (17-59) U/L ALT (7-56) U/L Alkaline Phosphatase (38-126) U/L Total Protein (5.8-8.3) g/dL Total Protein (PEP) 6.3 (6.1-8.1) g/dL Albumin (3.0-4.8) g/dL Albumin (PEP) 2.5 L (3.8-4.8) g/dL Globulin gm/dL Albumin/Globulin Ratio (1.1-1.8) Mtjrn-4-Betohspnq 0.6 H (0.2-0.3) g/dL Thmrd-4-Gbudbxahd 1.1 H (0.5-0.9) g/dL Ujpp-0-Yuqqnlfw 0.3 L (0.4-0.6) g/dL Igqx-6-Fvbwpqim 0.4 (0.2-0.5) g/dL Gamma Globulins 1.4 (0.8-1.7) g/dL Abnorm Protein Band 1 TEST NOT PERFORMED Abnorm Protein Band 2 TEST NOT PERFORMED Abnorm Protein Band 3 TEST NOT PERFORMED Vitamin B12 (239-931) pg/mL 25-OH Vitamin D Total 31.4 (30.0-100.0) NG/ML Folate ng/mL PTH Intact Whole [place] 1649 H (14-64) pg/mL Urine Color (YELLOW) Urine Appearance (CLEAR) Urine pH (4.7-8.0) Ur Specific [place] (1.005-1.035) Urine Protein (<30 mg/dL) mg/dL Urine Glucose (UA) (NEGATIVE) mg/dL Urine Ketones (NEGATIVE) mg/dL Urine Blood (NEGATIVE) Urine Nitrate (NEGATIVE) Urine Bilirubin (NEGATIVE) Urine Urobilinogen (<1 E.U./dL) E.U./dL Ur Leukocyte Esterase (NEGATIVE) Krystle/uL Urine RBC (0-2) /hpf Urine WBC (0-6) /hpf Ur Epithelial Cells (0-5) /hpf Urine Bacteria (NEG) TANIYA & SPEP Interp See note Free [place] Light Chains (3.3-19.4) mg/L Hep Bs Antigen (NEGATIVE) Hep Bs Antibody (NEGATIVE) Hep B Core IgM Ab (NEGATIVE) HIV-1 Antibody HIV-2 Antibody HIV 1&2 Ag/Ab, 4th Gen (Nonreactive) Blood Type Antibody Screen Crossmatch Reaction Clerical Check (NO DISCREPA) Pre-Trans Blood Type Pre-Trans Bld Appearanc (NO HEMOLYSI) Pre-Trans BEA (NEGATIVE) Post-Trans Blood Type Post-Trans Spec Appear (NO HEMOLYSI) Post-Trans BEA (NEGATIVE) BBK History Checked 01/21/18 01/20/18 Range/Units 05:10 21:00 WBC (4.5-11.0) 10^3/ul RBC (3.5-6.1) 10^6/uL Hgb (14.0-18.0) g/dL Hct (42.0-52.0) % MCV (80.0-105.0) fl MCH (25.0-35.0) pg MCHC (31.0-37.0) g/dl RDW (11.5-14.5) % Plt Count (120.0-450.0) 10^3/uL MPV (7.0-11.0) fl Gran % (50.0-68.0) % Lymph % (Auto) (22.0-35.0) % [place] % (Auto) (1.0-6.0) % Eos % (Auto) (1.5-5.0) % Baso % (Auto) (0.0-3.0) % Gran # (1.4-6.5) Lymph # (Auto) (1.2-3.4) [place] # (Auto) (0.1-0.6) Eos # (Auto) (0.0-0.7) Baso # (Auto) (0.0-2.0) K/mm3 APTT (25.1-36.5) Seconds Sodium (132-148) mmol/L Potassium (3.6-5.0) mmol/L Chloride (98-107) mmol/L Carbon Dioxide (21-33) mmol/L Anion Gap (10-20) BUN (7-21) mg/dL Creatinine (0.8-1.5) mg/dl Est GFR ( Amer) Est GFR (Non-Af Amer) POC Glucose (mg/dL) (65-110) mg/dL Random Glucose (70-110) mg/dL Calcium (8.4-10.5) mg/dL Ferritin 477.0 ng/mL Total Bilirubin (0.2-1.3) mg/dL Pre-Trans Tot Bilirubin (0.2-1.3) mg/dL Post-Trans Total Bili mg/dL AST (17-59) U/L ALT (7-56) U/L Alkaline Phosphatase (38-126) U/L Total Protein (5.8-8.3) g/dL Total Protein (PEP) (6.1-8.1) g/dL Albumin (3.0-4.8) g/dL Albumin (PEP) (3.8-4.8) g/dL Globulin gm/dL Albumin/Globulin Ratio (1.1-1.8) Lxqmw-3-Syewgjhhw (0.2-0.3) g/dL Pdpiv-6-Iubqwplpv (0.5-0.9) g/dL Fwmp-3-Zngugciq (0.4-0.6) g/dL Advp-9-Snncvvtg (0.2-0.5) g/dL Gamma Globulins (0.8-1.7) g/dL Abnorm Protein Band 1 Abnorm Protein Band 2 Abnorm Protein Band 3 Vitamin B12 820 (239-931) pg/mL 25-OH Vitamin D Total (30.0-100.0) NG/ML Folate 7.3 ng/mL PTH Intact Whole Molec (14-64) pg/mL Urine Color (YELLOW) Urine Appearance (CLEAR) Urine pH (4.7-8.0) Ur Specific [place] (1.005-1.035) Urine Protein (<30 mg/dL) mg/dL Urine Glucose (UA) (NEGATIVE) mg/dL Urine Ketones (NEGATIVE) mg/dL Urine Blood (NEGATIVE) Urine Nitrate (NEGATIVE) Urine Bilirubin (NEGATIVE) Urine Urobilinogen (<1 E.U./dL) E.U./dL Ur Leukocyte Esterase (NEGATIVE) Krystle/uL Urine RBC (0-2) /hpf Urine WBC (0-6) /hpf Ur Epithelial Cells (0-5) /hpf Urine Bacteria (NEG) TANIYA & SPEP Interp Free [place] (3.3-19.4) mg/L Hep Bs Antigen (NEGATIVE) Hep Bs Antibody (NEGATIVE) Hep B Core IgM Ab (NEGATIVE) HIV-1 Antibody HIV-2 Antibody HIV 1&2 Ag/Ab, 4th Gen (Nonreactive) Blood Type A POSITIVE Antibody Screen Negative Crossmatch See Detail Reaction Clerical Check (NO DISCREPA) Pre-Trans Blood Type Pre-Trans Bld Appearanc (NO HEMOLYSI) Pre-Trans BEA (NEGATIVE) Post-Trans Blood Type Post-Trans Spec Appear (NO HEMOLYSI) Post-Trans BEA (NEGATIVE) BBK History Checked No verified bt Laboratory Results - last 24 hr 01/20/18 01/21/18 01/21/18 21:00 05:10 12:14 WBC RBC Hgb Hct MCV MCH MCHC RDW Plt Count MPV Gran % Lymph % (Auto) [place] % (Auto) Eos % (Auto) Baso % (Auto) Gran # Lymph # (Auto) [place] # (Auto) Eos # (Auto) Baso # (Auto) APTT Sodium Potassium Chloride Carbon Dioxide Anion Gap BUN Creatinine Est GFR ( Amer) Est GFR (Non-Af Amer) POC Glucose (mg/dL) Random Glucose Calcium Ferritin 477.0 Total Bilirubin Pre-Trans Tot Bilirubin Post-Trans Total Bili AST ALT Alkaline Phosphatase Total Protein Total Protein (PEP) Albumin Albumin (PEP) Globulin Albumin/Globulin Ratio Ktdwy-2-Druhhrxxc Wipjx-6-Voputhrtl Ioxn-4-Vrmkzsyc Jssd-5-Urttikhs Gamma Globulins Abnorm Protein Band 1 Abnorm Protein Band 2 Abnorm Protein Band 3 Vitamin B12 820 25-OH Vitamin D Total Folate 7.3 PTH Intact Whole Molec 1649 H Urine Color Urine Appearance Urine pH Ur Specific [place] Urine Protein Urine Glucose (UA) Urine Ketones Urine Blood Urine Nitrate Urine Bilirubin Urine Urobilinogen Ur Leukocyte Esterase Urine RBC Urine WBC Ur Epithelial Cells Urine Bacteria TANIYA & SPEP Interp Free [place] Hep Bs Antigen Hep Bs Antibody Hep B Core IgM Ab HIV-1 Antibody HIV-2 Antibody HIV 1&2 Ag/Ab, 4th Gen Blood Type A POSITIVE Antibody Screen Negative Crossmatch See Detail Reaction Clerical Check Pre-Trans Blood Type Pre-Trans Bld Appearanc Pre-Trans BEA Post-Trans Blood Type Post-Trans Spec Appear Post-Trans BEA BBK History Checked No verified bt 01/21/18 01/21/18 01/21/18 12:16 13:31 13:44 WBC RBC Hgb Hct MCV MCH MCHC RDW Plt Count MPV Gran % Lymph % (Auto) [place] % (Auto) Eos % (Auto) Baso % (Auto) Gran # Lymph # (Auto) [place] # (Auto) Eos # (Auto) Baso # (Auto) APTT Sodium Potassium Chloride Carbon Dioxide Anion Gap BUN Creatinine Est GFR ( Amer) Est GFR (Non-Af Amer) POC Glucose (mg/dL) Random Glucose Calcium Ferritin Total Bilirubin Pre-Trans Tot Bilirubin Post-Trans Total Bili AST ALT Alkaline Phosphatase Total Protein Total Protein (PEP) 6.3 Albumin Albumin (PEP) 2.5 L Globulin Albumin/Globulin Ratio Bgiyh-9-Ssqfipzxz 0.6 H Rqxcy-5-Vfrneeuxr 1.1 H Drhq-7-Jofttfeu 0.3 L Luwt-6-Bbilbisl 0.4 Gamma Globulins 1.4 Abnorm Protein Band 1 TEST NOT PERFORMED Abnorm Protein Band 2 TEST NOT PERFORMED Abnorm Protein Band 3 TEST NOT PERFORMED Vitamin B12 25-OH Vitamin D Total 31.4 Folate PTH Intact Whole Molec Urine Color Urine Appearance Urine pH Ur Specific [place] Urine Protein Urine Glucose (UA) Urine Ketones Urine Blood Urine Nitrate Urine Bilirubin Urine Urobilinogen Ur Leukocyte Esterase Urine RBC Urine WBC Ur Epithelial Cells Urine Bacteria TANIYA & SPEP Interp See note Free [place] Hep Bs Antigen Negative Hep Bs Antibody Hep B Core IgM Ab Negative HIV-1 Antibody HIV-2 Antibody HIV 1&2 Ag/Ab, 4th Gen Blood Type Antibody Screen Crossmatch Reaction Clerical Check Pre-Trans Blood Type Pre-Trans Bld Appearanc Pre-Trans BEA Post-Trans Blood Type Post-Trans Spec Appear Post-Trans BEA BBK History Checked 01/21/18 01/21/18 01/21/18 13:44 16:39 18:16 WBC 12.8 H RBC 2.53 L Hgb 7.5 L Hct 21.8 L MCV 86.2 MCH 29.6 MCHC 34.4 RDW 14.6 H Plt Count 268 MPV 10.8 Gran % 91.9 H Lymph % (Auto) 6.7 L [place] % (Auto) 1.2 Eos % (Auto) 0.2 L Baso % (Auto) 0.0 Gran # 11.72 H Lymph # (Auto) 0.9 L [place] # (Auto) 0.2 Eos # (Auto) 0.0 Baso # (Auto) 0.00 APTT Sodium Potassium Chloride Carbon Dioxide Anion Gap BUN Creatinine Est GFR ( Amer) Est GFR (Non-Af Amer) POC Glucose (mg/dL) 210 H Random Glucose Calcium Ferritin Total Bilirubin Pre-Trans Tot Bilirubin Post-Trans Total Bili AST ALT Alkaline Phosphatase Total Protein Total Protein (PEP) Albumin Albumin (PEP) Globulin Albumin/Globulin Ratio Dvwer-2-Nhxcwpgyz Qvdhe-4-Baursdckx Rbjb-2-Hyblxmit Abkl-2-Wyyylckz Gamma Globulins Abnorm Protein Band 1 Abnorm Protein Band 2 Abnorm Protein Band 3 Vitamin B12 25-OH Vitamin D Total Folate PTH Intact Whole [place] Urine Color Urine Appearance Urine pH Ur Specific [place] Urine Protein Urine Glucose (UA) Urine Ketones Urine Blood Urine Nitrate Urine Bilirubin Urine Urobilinogen Ur Leukocyte Esterase Urine RBC Urine WBC Ur Epithelial Cells Urine Bacteria TANIYA & SPEP Interp Free [place] Hep Bs Antigen Hep Bs Antibody Negative Hep B Core IgM Ab HIV-1 Antibody HIV-2 Antibody HIV 1&2 Ag/Ab, 4th Gen Blood Type Antibody Screen Crossmatch Reaction Clerical Check Pre-Trans Blood Type Pre-Trans Bld Appearanc Pre-Trans BEA Post-Trans Blood Type Post-Trans Spec Appear Post-Trans BEA BBK History Checked 01/21/18 01/21/18 01/21/18 18:16 18:16 21:00 WBC 12.8 H RBC 2.39 L Hgb 7.2 L Hct 20.3 L* MCV 84.9 MCH 30.1 MCHC 35.5 RDW 14.6 H Plt Count 249 MPV 10.3 Gran % Lymph % (Auto) [place] % (Auto) Eos % (Auto) Baso % (Auto) Gran # Lymph # (Auto) [place] # (Auto) Eos # (Auto) Baso # (Auto) APTT Sodium Potassium Chloride Carbon Dioxide Anion Gap BUN Creatinine Est GFR ( Amer) Est GFR (Non-Af Amer) POC Glucose (mg/dL) Random Glucose Calcium Ferritin Total Bilirubin Pre-Trans Tot Bilirubin Post-Trans Total Bili AST ALT Alkaline Phosphatase Total Protein Total Protein (PEP) Albumin Albumin (PEP) Globulin Albumin/Globulin Ratio Bljfx-2-Vxlryoiku Jxczc-8-Rbeaakzuj Egeu-5-Asihztyc Wwte-9-Ttnvohag Gamma Globulins Abnorm Protein Band 1 Abnorm Protein Band 2 Abnorm Protein Band 3 Vitamin B12 25-OH Vitamin D Total Folate PTH Intact Whole [place] Urine Color Urine Appearance Urine pH Ur Specific [place] Urine Protein Urine Glucose (UA) Urine Ketones Urine Blood Urine Nitrate Urine Bilirubin Urine Urobilinogen Ur Leukocyte Esterase Urine RBC Urine WBC Ur Epithelial Cells Urine Bacteria TANIYA & SPEP Interp Free [place] 272.1 H Hep Bs Antigen Hep Bs Antibody Hep B Core IgM Ab HIV-1 Antibody TEST NOT PERFORMED HIV-2 Antibody TEST NOT PERFORMED HIV 1&2 Ag/Ab, 4th Gen Nonreactive Blood Type Antibody Screen Crossmatch Reaction Clerical Check Pre-Trans Blood Type Pre-Trans Bld Appearanc Pre-Trans BEA Post-Trans Blood Type Post-Trans Spec Appear Post-Trans BEA BBK History Checked 01/21/18 01/21/18 01/22/18 21:53 22:00 00:36 WBC RBC Hgb Hct MCV MCH MCHC RDW Plt Count MPV Gran % Lymph % (Auto) [place] % (Auto) Eos % (Auto) Baso % (Auto) Gran # Lymph # (Auto) [place] # (Auto) Eos # (Auto) Baso # (Auto) APTT 31.9 Sodium Potassium Chloride Carbon Dioxide Anion Gap BUN Creatinine Est GFR ( Amer) Est GFR (Non-Af Amer) POC Glucose (mg/dL) 179 H Random Glucose Calcium Ferritin Total Bilirubin Pre-Trans Tot Bilirubin Post-Trans Total Bili AST ALT Alkaline Phosphatase Total Protein Total Protein (PEP) Albumin Albumin (PEP) Globulin Albumin/Globulin Ratio Mijcs-7-Zhvlzdqdf Gkrvd-0-Sstzcvbps Fhhd-0-Oawalojc Fhry-3-Nyekfrfh Gamma Globulins Abnorm Protein Band 1 Abnorm Protein Band 2 Abnorm Protein Band 3 Vitamin B12 25-OH Vitamin D Total Folate PTH Intact Whole [place] Urine Color Urine Appearance Urine pH Ur Specific [place] Urine Protein Urine Glucose (UA) Urine Ketones Urine Blood Urine Nitrate Urine Bilirubin Urine Urobilinogen Ur Leukocyte Esterase Urine RBC Urine WBC Ur Epithelial Cells Urine Bacteria TANIYA & SPEP Interp Free [place] Hep Bs Antigen Hep Bs Antibody Hep B Core IgM Ab HIV-1 Antibody HIV-2 Antibody HIV 1&2 Ag/Ab, 4th Gen Blood Type Antibody Screen Crossmatch Reaction Clerical Check No discrepancy Pre-Trans Blood Type A POSITIVE Pre-Trans Bld Appearanc No hemolysis Pre-Trans BEA Negative Post-Trans Blood Type A POSITIVE Post-Trans Spec Appear No hemolysis Post-Trans BEA Negative BBK History Checked 01/22/18 01/22/18 01/22/18 00:40 00:40 00:40 WBC RBC Hgb Hct MCV MCH MCHC RDW Plt Count MPV Gran % Lymph % (Auto) [place] % (Auto) Eos % (Auto) Baso % (Auto) Gran # Lymph # (Auto) [place] # (Auto) Eos # (Auto) Baso # (Auto) APTT Sodium Potassium Chloride Carbon Dioxide Anion Gap BUN Creatinine Est GFR ( Amer) Est GFR (Non-Af Amer) POC Glucose (mg/dL) Random Glucose Calcium Ferritin Total Bilirubin Pre-Trans Tot Bilirubin 0.8 Post-Trans Total Bili AST ALT Alkaline Phosphatase Total Protein Total Protein (PEP) Albumin Albumin (PEP) Globulin Albumin/Globulin Ratio Txdks-2-Ztjxjjpnk Ixjjy-8-Dqgrwiqhp Tdvz-7-Kgcojpww Iygz-9-Xlwuhooj Gamma Globulins Abnorm Protein Band 1 Abnorm Protein Band 2 Abnorm Protein Band 3 Vitamin B12 25-OH Vitamin D Total Folate PTH Intact Whole [place] Urine Color Yellow Yellow Urine Appearance Clear Clear Urine pH 6.0 6.0 Ur Specific [place] 1.020 1.015 Urine Protein >=300 H >=300 H Urine Glucose (UA) 500 H 500 H Urine Ketones Negative Negative Urine Blood Moderate H Moderate H Urine Nitrate Negative Negative Urine Bilirubin Negative Negative Urine Urobilinogen 0.2 0.2 Ur Leukocyte Esterase Small H Small H Urine RBC 1 - 3 1 - 3 Urine WBC 15 - 20 15 - 20 Ur Epithelial Cells 0 - 2 0 - 2 Urine Bacteria Small Small TANIYA & SPEP Interp Free [place] Hep Bs Antigen Hep Bs Antibody Hep B Core IgM Ab HIV-1 Antibody HIV-2 Antibody HIV 1&2 Ag/Ab, 4th Gen Blood Type Antibody Screen Crossmatch Reaction Clerical Check Pre-Trans Blood Type Pre-Trans Bld Appearanc Pre-Trans BEA Post-Trans Blood Type Post-Trans Spec Appear Post-Trans BEA BBK History Checked 01/22/18 01/22/18 01/22/18 03:00 03:00 06:20 WBC 12.5 H 13.6 H RBC 2.37 L 2.36 L Hgb 6.9 L* 7.0 L Hct 20.3 L* 20.1 L* MCV 85.7 85.2 MCH 29.1 29.7 MCHC 34.0 34.8 RDW 14.7 H 14.6 H Plt Count 242 238 MPV 10.3 10.1 Gran % 87.8 H Lymph % (Auto) 3.9 L [place] % (Auto) 7.7 H Eos % (Auto) 0.5 L Baso % (Auto) 0.1 Gran # 11.90 H Lymph # (Auto) 0.5 L [place] # (Auto) 1.0 H Eos # (Auto) 0.1 Baso # (Auto) 0.01 APTT 38.8 H Sodium Potassium Chloride Carbon Dioxide Anion Gap BUN Creatinine Est GFR ( Amer) Est GFR (Non-Af Amer) POC Glucose (mg/dL) Random Glucose Calcium Ferritin Total Bilirubin Pre-Trans Tot Bilirubin Post-Trans Total Bili AST ALT Alkaline Phosphatase Total Protein Total Protein (PEP) Albumin Albumin (PEP) Globulin Albumin/Globulin Ratio Krgyi-3-Qhpjdpptl Ntqkj-6-Lsmydmzca Hxyu-4-Ntabonod Hdvg-2-Kdueretb Gamma Globulins Abnorm Protein Band 1 Abnorm Protein Band 2 Abnorm Protein Band 3 Vitamin B12 25-OH Vitamin D Total Folate PTH Intact Whole [place] Urine Color Urine Appearance Urine pH Ur Specific [place] Urine Protein Urine Glucose (UA) Urine Ketones Urine Blood Urine Nitrate Urine Bilirubin Urine Urobilinogen Ur Leukocyte Esterase Urine RBC Urine WBC Ur Epithelial Cells Urine Bacteria TANIYA & SPEP Interp Free [place] Hep Bs Antigen Hep Bs Antibody Hep B Core IgM Ab HIV-1 Antibody HIV-2 Antibody HIV 1&2 Ag/Ab, 4th Gen Blood Type Antibody Screen Crossmatch Reaction Clerical Check Pre-Trans Blood Type Pre-Trans Bld Appearanc Pre-Trans BEA Post-Trans Blood Type Post-Trans Spec Appear Post-Trans BEA BBK History Checked 01/22/18 01/22/18 01/22/18 06:20 06:20 10:50 WBC RBC Hgb Hct MCV MCH MCHC RDW Plt Count MPV Gran % Lymph % (Auto) [place] % (Auto) Eos % (Auto) Baso % (Auto) Gran # Lymph # (Auto) [place] # (Auto) Eos # (Auto) Baso # (Auto) APTT 58.1 H Sodium 136 Potassium 4.0 Chloride 103 Carbon Dioxide 18 L Anion Gap 19 BUN 124 H* Creatinine 13.5 H* D Est GFR ( Amer) 5 Est GFR (Non-Af Amer) 4 POC Glucose (mg/dL) Random Glucose 136 H Calcium 7.3 L Ferritin Total Bilirubin 0.8 Pre-Trans Tot Bilirubin Post-Trans Total Bili 0.9 AST 23 ALT 26 Alkaline Phosphatase 101 Total Protein 6.3 Total Protein (PEP) Albumin 2.8 L Albumin (PEP) Globulin 3.5 Albumin/Globulin Ratio 0.8 L Sgkgd-1-Snkgplapm Tqbpl-5-Brtiurfkw Xscb-1-Vcwdcygg Cjlb-8-Xxxnksuv Gamma Globulins Abnorm Protein Band 1 Abnorm Protein Band 2 Abnorm Protein Band 3 Vitamin B12 25-OH Vitamin D Total Folate PTH Intact Whole [place] Urine Color Urine Appearance Urine pH Ur Specific [place] Urine Protein Urine Glucose (UA) Urine Ketones Urine Blood Urine Nitrate Urine Bilirubin Urine Urobilinogen Ur Leukocyte Esterase Urine RBC Urine WBC Ur Epithelial Cells Urine Bacteria TANIYA & SPEP Interp Free [place] Hep Bs Antigen Hep Bs Antibody Hep B Core IgM Ab HIV-1 Antibody HIV-2 Antibody HIV 1&2 Ag/Ab, 4th Gen Blood Type Antibody Screen Crossmatch Reaction Clerical Check Pre-Trans Blood Type Pre-Trans Bld Appearanc Pre-Trans BEA Post-Trans Blood Type Post-Trans Spec Appear Post-Trans BEA BBK History Checked 01/22/18 01/22/18 11:04 12:20 WBC RBC Hgb 7.6 L Hct 21.6 L MCV MCH MCHC RDW Plt Count MPV Gran % Lymph % (Auto) [place] % (Auto) Eos % (Auto) Baso % (Auto) Gran # Lymph # (Auto) [place] # (Auto) Eos # (Auto) Baso # (Auto) APTT Sodium Potassium Chloride Carbon Dioxide Anion Gap BUN Creatinine Est GFR ( Amer) Est GFR (Non-Af Amer) POC Glucose (mg/dL) 197 H Random Glucose Calcium Ferritin Total Bilirubin Pre-Trans Tot Bilirubin Post-Trans Total Bili AST ALT Alkaline Phosphatase Total Protein Total Protein (PEP) Albumin Albumin (PEP) Globulin Albumin/Globulin Ratio Wpccg-3-Aovlitsgc Wpjpt-8-Cjqiqcoyf Vdwr-9-Umivjdff Talb-6-Ndnuvrqh Gamma Globulins Abnorm Protein Band 1 Abnorm Protein Band 2 Abnorm Protein Band 3 Vitamin B12 25-OH Vitamin D Total Folate PTH Intact Whole [place] Urine Color Urine Appearance Urine pH Ur Specific [place] Urine Protein Urine Glucose (UA) Urine Ketones Urine Blood Urine Nitrate Urine Bilirubin Urine Urobilinogen Ur Leukocyte Esterase Urine RBC Urine WBC Ur Epithelial Cells Urine Bacteria TANIYA & SPEP Interp Free [place] Hep Bs Antigen Hep Bs Antibody Hep B Core IgM Ab HIV-1 Antibody HIV-2 Antibody HIV 1&2 Ag/Ab, 4th Gen Blood Type Antibody Screen Crossmatch Reaction Clerical Check Pre-Trans Blood Type Pre-Trans Bld Appearanc Pre-Trans BEA Post-Trans Blood Type Post-Trans Spec Appear Post-Trans BEA BBK History Checked EKG/Cardiology Studies: Cardiology / EKG Studies 01/22/18 09:47 ELECTROCARDIOGRAM Stat Comment: Reason For Exam: SOB 01/22/18 15:23 EKG [ELECTROCARDIOGRAM] Stat Comment: Reason For Exam: chest pain Fingerstick Blood Sugar Results: 197 Review of Systems - Constitutional Constitutional: absent: Fever, Chills, Sweats - EENT Eyes: absent: Blurred Vision Ears: absent: Decreased Hearing Nose/Mouth/Throat: absent: Dysphagia - Cardiovascular Cardiovascular: Chest Pain. absent: Dyspnea, Edema, Orthopnea, Palpitations - Respiratory Respiratory: absent: Cough, Dyspnea, Wheezing - Gastrointestinal Gastrointestinal: Hematochezia. absent: Abdominal Pain, Constipation, Diarrhea, Nausea, Vomiting - Genitourinary Genitourinary: absent: Dysuria, Hematuria - Musculoskeletal Musculoskeletal: absent: Arthralgias, Back Pain - Integumentary Integumentary: absent: Rash - Neurological Neurological: absent: Confusion, Numbness, Tingling, Tremor Critical Care Progress Note - Ventilator Checklist Head of Bed 30 Degrees: Yes PUD Prophalyxis: Yes DVT Prophylaxis: Yes - Nutrition Nutrition: Nutrition Category Date Time Status Renal Diet [DIET] Diets 01/21/18 Breakfast Ordered Assessment/Plan - Assessment and Plan (Free Text) Assessment: 57 year old male with past medical history of CKD stage V, left lower extremity DVT, diabetes mellitus type II, Hypertension, hyperlipidemia, presents with shortness of breath worse with exertion; swelling, erythema, and pain of left lower extremity which started one month ago. Patient also presented with fecal occult blood test positive, had a hemoglobin of 6.9 on presentation and was given 1 U of PRBCs. Popliteal vein DVT was seen on ultrasound Plan: Neuro: -AAOx3, no FND, moving extremities past midline. -Monitor neuro status. -Reorient patient as necessary. Cardio: -Tachycardic, hypertensive at 137/84, no signs of HD compromise -EKG: sinus tachycardia with premature supraventricular complexes and PVCs. HR: 99, CA: 128, QRS: 80, QTc: 451 -Patient had elevated troponins taken Q6 at 0.15, 0.18, 0.21. Elevated troponins likely due to elevated creatinine vs. right heart strain from massive PE vs. myocardial infarction vs. cocaine use. -Echo: LVEF: 30.1%, severe tricuspid regurgitation, dilated IVC, moderate mitral regurgitation -BNP: 59,000 -Hydralazine 25 mg QID, Imdur 60 daily, and Lopressor 50 mg BID -Maintain MAP>65. -Monitor for S/S, HD compromise. -Dr. Mendez, Cardiology, consulted for recommendations. Dr. Mendez recommends patient get echocardiogram to evaluate cardiac function. Pulm: -No signs of respiratory distress. CTA B/L -Lower extremity ultrasound: left popliteal DVT -CXR: mild pulmonary congestion -V/Q scan ordered to evaluate for PE since CTA cannot be done due to renal status. -Elevated troponins possibly due to right heart strain from PE. -Patient on therapeutic heparin 18 mg/kg/hr -Patient is stating well on 2L NC -Maintain O2 saturation>95%. GI: -Renal diet -CT abdomen ordered to rule out intraabdominal infection: showed no acute intraabdominal findings -Protonix 40 mg Q12 /Nephro: -BUN/Cr severely elevated at 124/13.5 -UA: protein>300, glucose>250, small blood, negative nitrate, negative leukocyte esterase, 15-20 RBC, 2-5 WBC, 6-8 epithelial cells -UDS: cocaine positive -Bailey catheter insertion showing 275 mL this morning. -Potassium: 4 -Bicarbonate 18 from 8. Sodium bicarbonate drip continued at 200 cc/hr -Renal ultrasound and renal duplex ultrasound ordered. -Tunnel catheter procedure performed yesterday -As per nephrology, ANNETTE, HIV, immunofixation, kappa light chain, antiphospholipid antibody, PTH, protein electrophoresis, hepatitis B panel -As per nephrology, hemodialysis to be done due to GIO on CKD stage V. -Renal ultrasound: unremarkable and unchanged since last ultrasound -Continue monitoring. -Replete electrolytes as needed. -Strict I and Os. Take daily weights. -Maintain euvolemia. Endocrinology: -Random glucose: 136 -Medium dose SSI -Maintain euglycemia. Heme/Onc: -H/H improved to 7.6/21.6 from previous . Last hemoglobin was 6.9. One more unit of PRBCs was given. -Iron low at 27. TIBC low at 190. Bilirubin normal at 0.4. Ferritin: elevated at 477. Anemia likely due to anemia of chronic disease. -Leukocytosis at 13.6. -Continue monitoring H/H ID: -Afebrile, Leukocytosis at 13.6 -Blood culture: no growth in 24 hours -CRP:>270 -VBG lactate: 1.1 -Monitor for signs and symptoms of infection. DVT prophylaxis: therapeutic heparin at 18 mg/kg/hr GI prophylaxis: protonix 40 mg BID Patient case discussed with Dr. Lisa. - Date & Time Date: 01/22/18 Time: 15:59 <Duarte Lisa - Last Filed: 01/22/18 16:57> CCU Objective - Vital Signs / Intake & Output Vital Signs (Last 4 hours): Vital Signs Pulse BP 01/22/18 14:10 112 H 137/84 Intake and Output (Last 8hrs): Intake & Output 01/22/18 01/22/18 01/22/18 06:59 14:59 22:59 Intake Total 2579 Output Total 1000 Balance 1579 Intake: IV 2404 bicarb 2200 Oral 100 Blood Product 75 Red Blood Cells Cpd As1 75 Lr Unit [id number] Output: Urine 1000 Urethral (Bailey) 1000 Other: # Bowel Movements 0 - Medications Active Medications: Active Medications Generic Name Dose Route Start Last Admin Trade Name Freq PRN Reason Stop Dose Admin Acetaminophen 650 mg 01/21/18 04:19 01/21/18 04:32 Tylenol 325mg Tab PO 650 mg Q6H PRN Administration Fever >100.4 F Dextrose 0 ml 01/21/18 00:34 Dextrose 50% Inj IV STAT PRN Hypoglycemia Protocol Protocol Hydralazine HCl 25 mg 01/22/18 14:00 01/22/18 14:10 Apresoline PO 25 mg QID CATHIE Administration Dextrose 1,000 mls @ 0 mls/hr 01/21/18 00:34 Dextrose 5% In Water 1000 Ml IV .Q0M PRN Hypoglycemia Protocol Protocol Per Protocol Heparin Sodium/Sodium Chloride 25,000 units in 250 mls @ 18.37 mls/hr 01/21/18 08:09 01/22/18 07:15 Heparin 40962 Units/250ml 1/2 Normal Saline IV 22 units/kg/hr .[id number] PRN 22.453 mls/hr ADJUST RATE PER PROTOCOL Administration Protocol 18 UNITS/KG/HR Insulin Human Lispro 0 units 01/21/18 07:30 01/22/18 12:58 Humalog Med SC Not Given ACHS CATHIE Protocol Isosorbide Mononitrate 60 mg 01/22/18 11:00 01/22/18 13:00 Imdur PO 60 mg DAILY CATHIE Administration Metoprolol Tartrate 50 mg 01/22/18 16:30 Lopressor PO BID CATHIE Pantoprazole Sodium 40 mg 01/21/18 10:00 01/22/18 13:00 Protonix Inj IVP 40 mg Q12 CATHIE Administration - Patient Studies Lab Studies: Microbiology Studies 01/20/18 20:30 Blood Culture - Preliminary Blood-Venous NO GROWTH AFTER 24 HOURS 01/20/18 20:00 Blood Culture - Preliminary Blood-Venous NO GROWTH AFTER 24 HOURS Lab Studies 01/22/18 01/22/18 01/22/18 Range/Units 12:20 11:04 10:50 WBC (4.5-11.0) 10^3/ul RBC (3.5-6.1) 10^6/uL Hgb 7.6 L (14.0-18.0) g/dL Hct 21.6 L (42.0-52.0) % MCV (80.0-105.0) fl MCH (25.0-35.0) pg MCHC (31.0-37.0) g/dl RDW (11.5-14.5) % Plt Count (120.0-450.0) 10^3/uL MPV (7.0-11.0) fl Gran % (50.0-68.0) % Lymph % (Auto) (22.0-35.0) % [place] % (Auto) (1.0-6.0) % Eos % (Auto) (1.5-5.0) % Baso % (Auto) (0.0-3.0) % Gran # (1.4-6.5) Lymph # (Auto) (1.2-3.4) [place] # (Auto) (0.1-0.6) Eos # (Auto) (0.0-0.7) Baso # (Auto) (0.0-2.0) K/mm3 APTT 58.1 H (25.1-36.5) Seconds Sodium (132-148) mmol/L Potassium (3.6-5.0) mmol/L Chloride (98-107) mmol/L Carbon Dioxide (21-33) mmol/L Anion Gap (10-20) BUN (7-21) mg/dL Creatinine (0.8-1.5) mg/dl Est GFR ( Amer) Est GFR (Non-Af Amer) POC Glucose (mg/dL) 197 H (65-110) mg/dL Random Glucose (70-110) mg/dL Calcium (8.4-10.5) mg/dL Total Bilirubin (0.2-1.3) mg/dL Pre-Trans Tot Bilirubin (0.2-1.3) mg/dL Post-Trans Total Bili mg/dL AST (17-59) U/L ALT (7-56) U/L Alkaline Phosphatase (38-126) U/L Total Protein (5.8-8.3) g/dL Total Protein (PEP) (6.1-8.1) g/dL Albumin (3.0-4.8) g/dL Albumin (PEP) (3.8-4.8) g/dL Globulin gm/dL Albumin/Globulin Ratio (1.1-1.8) Jhamg-7-Aqylzodrn (0.2-0.3) g/dL Wbaro-6-Muyqioawd (0.5-0.9) g/dL Nxxc-9-Wxxthhto (0.4-0.6) g/dL Xikl-8-Spejbvpg (0.2-0.5) g/dL Gamma Globulins (0.8-1.7) g/dL Abnorm Protein Band 1 Abnorm Protein Band 2 Abnorm Protein Band 3 Vitamin B12 (239-931) pg/mL 25-OH Vitamin D Total (30.0-100.0) NG/ML Folate ng/mL PTH Intact Whole Molec (14-64) pg/mL Urine Color (YELLOW) Urine Appearance (CLEAR) Urine pH (4.7-8.0) Ur Specific [place] (1.005-1.035) Urine Protein (<30 mg/dL) mg/dL Urine Glucose (UA) (NEGATIVE) mg/dL Urine Ketones (NEGATIVE) mg/dL Urine Blood (NEGATIVE) Urine Nitrate (NEGATIVE) Urine Bilirubin (NEGATIVE) Urine Urobilinogen (<1 E.U./dL) E.U./dL Ur Leukocyte Esterase (NEGATIVE) Krystle/uL Urine RBC (0-2) /hpf Urine WBC (0-6) /hpf Ur Epithelial Cells (0-5) /hpf Urine Bacteria (NEG) TANIYA & SPEP Interp Free [place] Light Chains (3.3-19.4) mg/L Hep Bs Antigen (NEGATIVE) Hep Bs Antibody (NEGATIVE) Hep B Core IgM Ab (NEGATIVE) HIV-1 Antibody HIV-2 Antibody HIV 1&2 Ag/Ab, 4th Gen (Nonreactive) Blood Type Antibody Screen Crossmatch Reaction Clerical Check (NO DISCREPA) Pre-Trans Blood Type Pre-Trans Bld Appearanc (NO HEMOLYSI) Pre-Trans BEA (NEGATIVE) Post-Trans Blood Type Post-Trans Spec Appear (NO HEMOLYSI) Post-Trans BEA (NEGATIVE) BBK History Checked 01/22/18 01/22/18 01/22/18 Range/Units 06:20 06:20 06:20 WBC 13.6 H (4.5-11.0) 10^3/ul RBC 2.36 L (3.5-6.1) 10^6/uL Hgb 7.0 L (14.0-18.0) g/dL Hct 20.1 L* (42.0-52.0) % MCV 85.2 (80.0-105.0) fl MCH 29.7 (25.0-35.0) pg MCHC 34.8 (31.0-37.0) g/dl RDW 14.6 H (11.5-14.5) % Plt Count 238 (120.0-450.0) 10^3/uL MPV 10.1 (7.0-11.0) fl Gran % 87.8 H (50.0-68.0) % Lymph % (Auto) 3.9 L (22.0-35.0) % [place] % (Auto) 7.7 H (1.0-6.0) % Eos % (Auto) 0.5 L (1.5-5.0) % Baso % (Auto) 0.1 (0.0-3.0) % Gran # 11.90 H (1.4-6.5) Lymph # (Auto) 0.5 L (1.2-3.4) [place] # (Auto) 1.0 H (0.1-0.6) Eos # (Auto) 0.1 (0.0-0.7) Baso # (Auto) 0.01 (0.0-2.0) K/mm3 APTT (25.1-36.5) Seconds Sodium 136 (132-148) mmol/L Potassium 4.0 (3.6-5.0) mmol/L Chloride 103 (98-107) mmol/L Carbon Dioxide 18 L (21-33) mmol/L Anion Gap 19 (10-20) BUN 124 H* (7-21) mg/dL Creatinine 13.5 H* D (0.8-1.5) mg/dl Est GFR ( Amer) 5 Est GFR (Non-Af Amer) 4 POC Glucose (mg/dL) (65-110) mg/dL Random Glucose 136 H (70-110) mg/dL Calcium 7.3 L (8.4-10.5) mg/dL Total Bilirubin 0.8 (0.2-1.3) mg/dL Pre-Trans Tot Bilirubin (0.2-1.3) mg/dL Post-Trans Total Bili 0.9 mg/dL AST 23 (17-59) U/L ALT 26 (7-56) U/L Alkaline Phosphatase 101 (38-126) U/L Total Protein 6.3 (5.8-8.3) g/dL Total Protein (PEP) (6.1-8.1) g/dL Albumin 2.8 L (3.0-4.8) g/dL Albumin (PEP) (3.8-4.8) g/dL Globulin 3.5 gm/dL Albumin/Globulin Ratio 0.8 L (1.1-1.8) Wowwx-7-Qcjdydyts (0.2-0.3) g/dL Nfilt-5-Eaxxhffky (0.5-0.9) g/dL Xzfy-0-Gssptvsw (0.4-0.6) g/dL Scuc-7-Nkjlqrhp (0.2-0.5) g/dL Gamma Globulins (0.8-1.7) g/dL Abnorm Protein Band 1 Abnorm Protein Band 2 Abnorm Protein Band 3 Vitamin B12 (239-931) pg/mL 25-OH Vitamin D Total (30.0-100.0) NG/ML Folate ng/mL PTH Intact Whole Molec (14-64) pg/mL Urine Color (YELLOW) Urine Appearance (CLEAR) Urine pH (4.7-8.0) Ur Specific [place] (1.005-1.035) Urine Protein (<30 mg/dL) mg/dL Urine Glucose (UA) (NEGATIVE) mg/dL Urine Ketones (NEGATIVE) mg/dL Urine Blood (NEGATIVE) Urine Nitrate (NEGATIVE) Urine Bilirubin (NEGATIVE) Urine Urobilinogen (<1 E.U./dL) E.U./dL Ur Leukocyte Esterase (NEGATIVE) Krystle/uL Urine RBC (0-2) /hpf Urine WBC (0-6) /hpf Ur Epithelial Cells (0-5) /hpf Urine Bacteria (NEG) TANIYA & SPEP Interp Free [place]ains (3.3-19.4) mg/L Hep Bs Antigen (NEGATIVE) Hep Bs Antibody (NEGATIVE) Hep B Core IgM Ab (NEGATIVE) HIV-1 Antibody HIV-2 Antibody HIV 1&2 Ag/Ab, 4th Gen (Nonreactive) Blood Type Antibody Screen Crossmatch Reaction Clerical Check (NO DISCREPA) Pre-Trans Blood Type Pre-Trans Bld Appearanc (NO HEMOLYSI) Pre-Trans BEA (NEGATIVE) Post-Trans Blood Type Post-Trans Spec Appear (NO HEMOLYSI) Post-Trans BEA (NEGATIVE) BBK History Checked 01/22/18 01/22/18 01/22/18 Range/Units 03:00 03:00 00:40 WBC 12.5 H (4.5-11.0) 10^3/ul RBC 2.37 L (3.5-6.1) 10^6/uL Hgb 6.9 L* (14.0-18.0) g/dL Hct 20.3 L* (42.0-52.0) % MCV 85.7 (80.0-105.0) fl MCH 29.1 (25.0-35.0) pg MCHC 34.0 (31.0-37.0) g/dl RDW 14.7 H (11.5-14.5) % Plt Count 242 (120.0-450.0) 10^3/uL MPV 10.3 (7.0-11.0) fl Gran % (50.0-68.0) % Lymph % (Auto) (22.0-35.0) % [place] % (Auto) (1.0-6.0) % Eos % (Auto) (1.5-5.0) % Baso % (Auto) (0.0-3.0) % Gran # (1.4-6.5) Lymph # (Auto) (1.2-3.4) [place] # (Auto) (0.1-0.6) Eos # (Auto) (0.0-0.7) Baso # (Auto) (0.0-2.0) K/mm3 APTT 38.8 H (25.1-36.5) Seconds Sodium (132-148) mmol/L Potassium (3.6-5.0) mmol/L Chloride (98-107) mmol/L Carbon Dioxide (21-33) mmol/L Anion Gap (10-20) BUN (7-21) mg/dL Creatinine (0.8-1.5) mg/dl Est GFR ( Amer) Est GFR (Non-Af Amer) POC Glucose (mg/dL) (65-110) mg/dL Random Glucose (70-110) mg/dL Calcium (8.4-10.5) mg/dL Total Bilirubin (0.2-1.3) mg/dL Pre-Trans Tot Bilirubin (0.2-1.3) mg/dL Post-Trans Total Bili mg/dL AST (17-59) U/L ALT (7-56) U/L Alkaline Phosphatase (38-126) U/L Total Protein (5.8-8.3) g/dL Total Protein (PEP) (6.1-8.1) g/dL Albumin (3.0-4.8) g/dL Albumin (PEP) (3.8-4.8) g/dL Globulin gm/dL Albumin/Globulin Ratio (1.1-1.8) Gqtjg-1-Nedobphnv (0.2-0.3) g/dL Evwlk-2-Ssybncmbf (0.5-0.9) g/dL Utqz-3-Ptmywebc (0.4-0.6) g/dL Yqzc-5-Eynffqjy (0.2-0.5) g/dL Gamma Globulins (0.8-1.7) g/dL Abnorm Protein Band 1 Abnorm Protein Band 2 Abnorm Protein Band 3 Vitamin B12 (239-931) pg/mL 25-OH Vitamin D Total (30.0-100.0) NG/ML Folate ng/mL PTH Intact Whole Molec (14-64) pg/mL Urine Color Yellow (YELLOW) Urine Appearance Clear (CLEAR) Urine pH 6.0 (4.7-8.0) Ur Specific [place] 1.015 (1.005-1.035) Urine Protein >=300 H (<30 mg/dL) mg/dL Urine Glucose (UA) 500 H (NEGATIVE) mg/dL Urine Ketones Negative (NEGATIVE) mg/dL Urine Blood Moderate H (NEGATIVE) Urine Nitrate Negative (NEGATIVE) Urine Bilirubin Negative (NEGATIVE) Urine Urobilinogen 0.2 (<1 E.U./dL) E.U./dL Ur Leukocyte Esterase Small H (NEGATIVE) Krystle/uL Urine RBC 1 - 3 (0-2) /hpf Urine WBC 15 - 20 (0-6) /hpf Ur Epithelial Cells 0 - 2 (0-5) /hpf Urine Bacteria Small (NEG) TANIYA & SPEP Interp Free [place]ains (3.3-19.4) mg/L Hep Bs Antigen (NEGATIVE) Hep Bs Antibody (NEGATIVE) Hep B Core IgM Ab (NEGATIVE) HIV-1 Antibody HIV-2 Antibody HIV 1&2 Ag/Ab, 4th Gen (Nonreactive) Blood Type Antibody Screen Crossmatch Reaction Clerical Check (NO DISCREPA) Pre-Trans Blood Type Pre-Trans Bld Appearanc (NO HEMOLYSI) Pre-Trans BEA (NEGATIVE) Post-Trans Blood Type Post-Trans Spec Appear (NO HEMOLYSI) Post-Trans BEA (NEGATIVE) BBK History Checked 01/22/18 01/22/18 01/22/18 Range/Units 00:40 00:40 00:36 WBC (4.5-11.0) 10^3/ul RBC (3.5-6.1) 10^6/uL Hgb (14.0-18.0) g/dL Hct (42.0-52.0) % MCV (80.0-105.0) fl MCH (25.0-35.0) pg MCHC (31.0-37.0) g/dl RDW (11.5-14.5) % Plt Count (120.0-450.0) 10^3/uL MPV (7.0-11.0) fl Gran % (50.0-68.0) % Lymph % (Auto) (22.0-35.0) % [place] % (Auto) (1.0-6.0) % Eos % (Auto) (1.5-5.0) % Baso % (Auto) (0.0-3.0) % Gran # (1.4-6.5) Lymph # (Auto) (1.2-3.4) [place] # (Auto) (0.1-0.6) Eos # (Auto) (0.0-0.7) Baso # (Auto) (0.0-2.0) K/mm3 APTT (25.1-36.5) Seconds Sodium (132-148) mmol/L Potassium (3.6-5.0) mmol/L Chloride (98-107) mmol/L Carbon Dioxide (21-33) mmol/L Anion Gap (10-20) BUN (7-21) mg/dL Creatinine (0.8-1.5) mg/dl Est GFR ( Amer) Est GFR (Non-Af Amer) POC Glucose (mg/dL) (65-110) mg/dL Random Glucose (70-110) mg/dL Calcium (8.4-10.5) mg/dL Total Bilirubin (0.2-1.3) mg/dL Pre-Trans Tot Bilirubin 0.8 (0.2-1.3) mg/dL Post-Trans Total Bili mg/dL AST (17-59) U/L ALT (7-56) U/L Alkaline Phosphatase (38-126) U/L Total Protein (5.8-8.3) g/dL Total Protein (PEP) (6.1-8.1) g/dL Albumin (3.0-4.8) g/dL Albumin (PEP) (3.8-4.8) g/dL Globulin gm/dL Albumin/Globulin Ratio (1.1-1.8) Cbuyy-5-Pifrsbgts (0.2-0.3) g/dL Oqcnp-5-Zfdcfqudd (0.5-0.9) g/dL Tcgq-4-Cppgzyvo (0.4-0.6) g/dL Hdvp-6-Stybldka (0.2-0.5) g/dL Gamma Globulins (0.8-1.7) g/dL Abnorm Protein Band 1 Abnorm Protein Band 2 Abnorm Protein Band 3 Vitamin B12 (239-931) pg/mL 25-OH Vitamin D Total (30.0-100.0) NG/ML Folate ng/mL PTH Intact Whole Molec (14-64) pg/mL Urine Color Yellow (YELLOW) Urine Appearance Clear (CLEAR) Urine pH 6.0 (4.7-8.0) Ur Specific [place] 1.020 (1.005-1.035) Urine Protein >=300 H (<30 mg/dL) mg/dL Urine Glucose (UA) 500 H (NEGATIVE) mg/dL Urine Ketones Negative (NEGATIVE) mg/dL Urine Blood Moderate H (NEGATIVE) Urine Nitrate Negative (NEGATIVE) Urine Bilirubin Negative (NEGATIVE) Urine Urobilinogen 0.2 (<1 E.U./dL) E.U./dL Ur Leukocyte Esterase Small H (NEGATIVE) Krystle/uL Urine RBC 1 - 3 (0-2) /hpf Urine WBC 15 - 20 (0-6) /hpf Ur Epithelial Cells 0 - 2 (0-5) /hpf Urine Bacteria Small (NEG) TANIYA & SPEP Interp Free [place]ains (3.3-19.4) mg/L Hep Bs Antigen (NEGATIVE) Hep Bs Antibody (NEGATIVE) Hep B Core IgM Ab (NEGATIVE) HIV-1 Antibody HIV-2 Antibody HIV 1&2 Ag/Ab, 4th Gen (Nonreactive) Blood Type Antibody Screen Crossmatch Reaction Clerical Check No discrepancy (NO DISCREPA) Pre-Trans Blood Type A POSITIVE Pre-Trans Bld Appear[place] No hemolysis (NO HEMOLYSI) Pre-Trans BEA Negative (NEGATIVE) Post-Trans Blood Type A POSITIVE Post-Trans Spec Appear No hemolysis (NO HEMOLYSI) Post-Trans BEA Negative (NEGATIVE) BBK History Checked 01/21/18 01/21/18 01/21/18 Range/Units 22:00 21:53 21:00 WBC 12.8 H (4.5-11.0) 10^3/ul RBC 2.39 L (3.5-6.1) 10^6/uL Hgb 7.2 L (14.0-18.0) g/dL Hct 20.3 L* (42.0-52.0) % MCV 84.9 (80.0-105.0) fl MCH 30.1 (25.0-35.0) pg MCHC 35.5 (31.0-37.0) g/dl RDW 14.6 H (11.5-14.5) % Plt Count 249 (120.0-450.0) 10^3/uL MPV 10.3 (7.0-11.0) fl Gran % (50.0-68.0) % Lymph % (Auto) (22.0-35.0) % [place] % (Auto) (1.0-6.0) % Eos % (Auto) (1.5-5.0) % Baso % (Auto) (0.0-3.0) % Gran # (1.4-6.5) Lymph # (Auto) (1.2-3.4) [place] # (Auto) (0.1-0.6) Eos # (Auto) (0.0-0.7) Baso # (Auto) (0.0-2.0) K/mm3 APTT 31.9 (25.1-36.5) Seconds Sodium (132-148) mmol/L Potassium (3.6-5.0) mmol/L Chloride (98-107) mmol/L Carbon Dioxide (21-33) mmol/L Anion Gap (10-20) BUN (7-21) mg/dL Creatinine (0.8-1.5) mg/dl Est GFR ( Amer) Est GFR (Non-Af Amer) POC Glucose (mg/dL) 179 H (65-110) mg/dL Random Glucose (70-110) mg/dL Calcium (8.4-10.5) mg/dL Total Bilirubin (0.2-1.3) mg/dL Pre-Trans Tot Bilirubin (0.2-1.3) mg/dL Post-Trans Total Bili mg/dL AST (17-59) U/L ALT (7-56) U/L Alkaline Phosphatase (38-126) U/L Total Protein (5.8-8.3) g/dL Total Protein (PEP) (6.1-8.1) g/dL Albumin (3.0-4.8) g/dL Albumin (PEP) (3.8-4.8) g/dL Globulin gm/dL Albumin/Globulin Ratio (1.1-1.8) Jzfpa-7-Dqvgtgcui (0.2-0.3) g/dL Wgbsg-5-Nccmujedy (0.5-0.9) g/dL Cqba-1-Hbyqhoyr (0.4-0.6) g/dL Snbt-2-Jawybpde (0.2-0.5) g/dL Gamma Globulins (0.8-1.7) g/dL Abnorm Protein Band 1 Abnorm Protein Band 2 Abnorm Protein Band 3 Vitamin B12 (239-931) pg/mL 25-OH Vitamin D Total (30.0-100.0) NG/ML Folate ng/mL PTH Intact Whole Molec (14-64) pg/mL Urine Color (YELLOW) Urine Appearance (CLEAR) Urine pH (4.7-8.0) Ur Specific [place] (1.005-1.035) Urine Protein (<30 mg/dL) mg/dL Urine Glucose (UA) (NEGATIVE) mg/dL Urine Ketones (NEGATIVE) mg/dL Urine Blood (NEGATIVE) Urine Nitrate (NEGATIVE) Urine Bilirubin (NEGATIVE) Urine Urobilinogen (<1 E.U./dL) E.U./dL Ur Leukocyte Esterase (NEGATIVE) Krystle/uL Urine RBC (0-2) /hpf Urine WBC (0-6) /hpf Ur Epithelial Cells (0-5) /hpf Urine Bacteria (NEG) TANIYA & SPEP Interp Free [place]ains (3.3-19.4) mg/L Hep Bs Antigen (NEGATIVE) Hep Bs Antibody (NEGATIVE) Hep B Core IgM Ab (NEGATIVE) HIV-1 Antibody HIV-2 Antibody HIV 1&2 Ag/Ab, 4th Gen (Nonreactive) Blood Type Antibody Screen Crossmatch Reaction Clerical Check (NO DISCREPA) Pre-Trans Blood Type Pre-Trans Bld Appearanc (NO HEMOLYSI) Pre-Trans BEA (NEGATIVE) Post-Trans Blood Type Post-Trans Spec Appear (NO HEMOLYSI) Post-Trans BEA (NEGATIVE) BBK History Checked 01/21/18 01/21/18 01/21/18 Range/Units 18:16 18:16 18:16 WBC 12.8 H (4.5-11.0) 10^3/ul RBC 2.53 L (3.5-6.1) 10^6/uL Hgb 7.5 L (14.0-18.0) g/dL Hct 21.8 L (42.0-52.0) % MCV 86.2 (80.0-105.0) fl MCH 29.6 (25.0-35.0) pg MCHC 34.4 (31.0-37.0) g/dl RDW 14.6 H (11.5-14.5) % Plt Count 268 (120.0-450.0) 10^3/uL MPV 10.8 (7.0-11.0) fl Gran % 91.9 H (50.0-68.0) % Lymph % (Auto) 6.7 L (22.0-35.0) % [place] % (Auto) 1.2 (1.0-6.0) % Eos % (Auto) 0.2 L (1.5-5.0) % Baso % (Auto) 0.0 (0.0-3.0) % Gran # 11.72 H (1.4-6.5) Lymph # (Auto) 0.9 L (1.2-3.4) [place] # (Auto) 0.2 (0.1-0.6) Eos # (Auto) 0.0 (0.0-0.7) Baso # (Auto) 0.00 (0.0-2.0) K/mm3 APTT (25.1-36.5) Seconds Sodium (132-148) mmol/L Potassium (3.6-5.0) mmol/L Chloride (98-107) mmol/L Carbon Dioxide (21-33) mmol/L Anion Gap (10-20) BUN (7-21) mg/dL Creatinine (0.8-1.5) mg/dl Est GFR ( Amer) Est GFR (Non-Af Amer) POC Glucose (mg/dL) (65-110) mg/dL Random Glucose (70-110) mg/dL Calcium (8.4-10.5) mg/dL Total Bilirubin (0.2-1.3) mg/dL Pre-Trans Tot Bilirubin (0.2-1.3) mg/dL Post-Trans Total Bili mg/dL AST (17-59) U/L ALT (7-56) U/L Alkaline Phosphatase (38-126) U/L Total Protein (5.8-8.3) g/dL Total Protein (PEP) (6.1-8.1) g/dL Albumin (3.0-4.8) g/dL Albumin (PEP) (3.8-4.8) g/dL Globulin gm/dL Albumin/Globulin Ratio (1.1-1.8) Icous-7-Zwfenwpmk (0.2-0.3) g/dL Ljiic-8-Hcavdvelj (0.5-0.9) g/dL Konh-4-Apvobpgo (0.4-0.6) g/dL Yitw-9-Nfaqyiwi (0.2-0.5) g/dL Gamma Globulins (0.8-1.7) g/dL Abnorm Protein Band 1 Abnorm Protein Band 2 Abnorm Protein Band 3 Vitamin B12 (239-931) pg/mL 25-OH Vitamin D Total (30.0-100.0) NG/ML Folate ng/mL PTH Intact Whole Molec (14-64) pg/mL Urine Color (YELLOW) Urine Appearance (CLEAR) Urine pH (4.7-8.0) Ur Specific [place] (1.005-1.035) Urine Protein (<30 mg/dL) mg/dL Urine Glucose (UA) (NEGATIVE) mg/dL Urine Ketones (NEGATIVE) mg/dL Urine Blood (NEGATIVE) Urine Nitrate (NEGATIVE) Urine Bilirubin (NEGATIVE) Urine Urobilinogen (<1 E.U./dL) E.U./dL Ur Leukocyte Esterase (NEGATIVE) Krystle/uL Urine RBC (0-2) /hpf Urine WBC (0-6) /hpf Ur Epithelial Cells (0-5) /hpf Urine Bacteria (NEG) TANIYA & SPEP Interp Free [place]ains 272.1 H (3.3-19.4) mg/L Hep Bs Antigen (NEGATIVE) Hep Bs Antibody (NEGATIVE) Hep B Core IgM Ab (NEGATIVE) HIV-1 Antibody TEST NOT PERFORMED HIV-2 Antibody TEST NOT PERFORMED HIV 1&2 Ag/Ab, 4th Gen Nonreactive (Nonreactive) Blood Type Antibody Screen Crossmatch Reaction Clerical Check (NO DISCREPA) Pre-Trans Blood Type Pre-Trans Bld Appearanc (NO HEMOLYSI) Pre-Trans BEA (NEGATIVE) Post-Trans Blood Type Post-Trans Spec Appear (NO HEMOLYSI) Post-Trans BEA (NEGATIVE) BBK History Checked 01/21/18 01/21/18 01/21/18 Range/Units 16:39 13:44 13:44 WBC (4.5-11.0) 10^3/ul RBC (3.5-6.1) 10^6/uL Hgb (14.0-18.0) g/dL Hct (42.0-52.0) % MCV (80.0-105.0) fl MCH (25.0-35.0) pg MCHC (31.0-37.0) g/dl RDW (11.5-14.5) % Plt Count (120.0-450.0) 10^3/uL MPV (7.0-11.0) fl Gran % (50.0-68.0) % Lymph % (Auto) (22.0-35.0) % [place] % (Auto) (1.0-6.0) % Eos % (Auto) (1.5-5.0) % Baso % (Auto) (0.0-3.0) % Gran # (1.4-6.5) Lymph # (Auto) (1.2-3.4) [place] # (Auto) (0.1-0.6) Eos # (Auto) (0.0-0.7) Baso # (Auto) (0.0-2.0) K/mm3 APTT (25.1-36.5) Seconds Sodium (132-148) mmol/L Potassium (3.6-5.0) mmol/L Chloride (98-107) mmol/L Carbon Dioxide (21-33) mmol/L Anion Gap (10-20) BUN (7-21) mg/dL Creatinine (0.8-1.5) mg/dl Est GFR ( Amer) Est GFR (Non-Af Amer) POC Glucose (mg/dL) 210 H (65-110) mg/dL Random Glucose (70-110) mg/dL Calcium (8.4-10.5) mg/dL Total Bilirubin (0.2-1.3) mg/dL Pre-Trans Tot Bilirubin (0.2-1.3) mg/dL Post-Trans Total Bili mg/dL AST (17-59) U/L ALT (7-56) U/L Alkaline Phosphatase (38-126) U/L Total Protein (5.8-8.3) g/dL Total Protein (PEP) (6.1-8.1) g/dL Albumin (3.0-4.8) g/dL Albumin (PEP) (3.8-4.8) g/dL Globulin gm/dL Albumin/Globulin Ratio (1.1-1.8) Fgjea-8-Oilnfsjgf (0.2-0.3) g/dL Gkizk-5-Mbruhlrta (0.5-0.9) g/dL Hbcx-2-Tjbafcnd (0.4-0.6) g/dL Nrup-6-Vgakgyci (0.2-0.5) g/dL Gamma Globulins (0.8-1.7) g/dL Abnorm Protein Band 1 Abnorm Protein Band 2 Abnorm Protein Band 3 Vitamin B12 (239-931) pg/mL 25-OH Vitamin D Total (30.0-100.0) NG/ML Folate ng/mL PTH Intact Whole Molec (14-64) pg/mL Urine Color (YELLOW) Urine Appearance (CLEAR) Urine pH (4.7-8.0) Ur Specific [place] (1.005-1.035) Urine Protein (<30 mg/dL) mg/dL Urine Glucose (UA) (NEGATIVE) mg/dL Urine Ketones (NEGATIVE) mg/dL Urine Blood (NEGATIVE) Urine Nitrate (NEGATIVE) Urine Bilirubin (NEGATIVE) Urine Urobilinogen (<1 E.U./dL) E.U./dL Ur Leukocyte Esterase (NEGATIVE) Krystle/uL Urine RBC (0-2) /hpf Urine WBC (0-6) /hpf Ur Epithelial Cells (0-5) /hpf Urine Bacteria (NEG) TANIYA & SPEP Interp Free [place]ains (3.3-19.4) mg/L Hep Bs Antigen Negative (NEGATIVE) Hep Bs Antibody Negative (NEGATIVE) Hep B Core IgM Ab Negative (NEGATIVE) HIV-1 Antibody HIV-2 Antibody HIV 1&2 Ag/Ab, 4th Gen (Nonreactive) Blood Type Antibody Screen Crossmatch Reaction Clerical Check (NO DISCREPA) Pre-Trans Blood Type Pre-Trans Bld Appearanc (NO HEMOLYSI) Pre-Trans BEA (NEGATIVE) Post-Trans Blood Type Post-Trans Spec Appear (NO HEMOLYSI) Post-Trans BEA (NEGATIVE) BBK History Checked 01/21/18 01/21/18 01/21/18 Range/Units 13:31 12:16 12:14 WBC (4.5-11.0) 10^3/ul RBC (3.5-6.1) 10^6/uL Hgb (14.0-18.0) g/dL Hct (42.0-52.0) % MCV (80.0-105.0) fl MCH (25.0-35.0) pg MCHC (31.0-37.0) g/dl RDW (11.5-14.5) % Plt Count (120.0-450.0) 10^3/uL MPV (7.0-11.0) fl Gran % (50.0-68.0) % Lymph % (Auto) (22.0-35.0) % [place] % (Auto) (1.0-6.0) % Eos % (Auto) (1.5-5.0) % Baso % (Auto) (0.0-3.0) % Gran # (1.4-6.5) Lymph # (Auto) (1.2-3.4) [place] # (Auto) (0.1-0.6) Eos # (Auto) (0.0-0.7) Baso # (Auto) (0.0-2.0) K/mm3 APTT (25.1-36.5) Seconds Sodium (132-148) mmol/L Potassium (3.6-5.0) mmol/L Chloride (98-107) mmol/L Carbon Dioxide (21-33) mmol/L Anion Gap (10-20) BUN (7-21) mg/dL Creatinine (0.8-1.5) mg/dl Est GFR ( Amer) Est GFR (Non-Af Amer) POC Glucose (mg/dL) (65-110) mg/dL Random Glucose (70-110) mg/dL Calcium (8.4-10.5) mg/dL Total Bilirubin (0.2-1.3) mg/dL Pre-Trans Tot Bilirubin (0.2-1.3) mg/dL Post-Trans Total Bili mg/dL AST (17-59) U/L ALT (7-56) U/L Alkaline Phosphatase (38-126) U/L Total Protein (5.8-8.3) g/dL Total Protein (PEP) 6.3 (6.1-8.1) g/dL Albumin (3.0-4.8) g/dL Albumin (PEP) 2.5 L (3.8-4.8) g/dL Globulin gm/dL Albumin/Globulin Ratio (1.1-1.8) Rofwx-0-Jilmnuiau 0.6 H (0.2-0.3) g/dL Blpvc-6-Hqzshyyul 1.1 H (0.5-0.9) g/dL Wyct-8-Yyinieuu 0.3 L (0.4-0.6) g/dL Ukem-2-Lonnibno 0.4 (0.2-0.5) g/dL Gamma Globulins 1.4 (0.8-1.7) g/dL Abnorm Protein Band 1 TEST NOT PERFORMED Abnorm Protein Band 2 TEST NOT PERFORMED Abnorm Protein Band 3 TEST NOT PERFORMED Vitamin B12 (239-931) pg/mL 25-OH Vitamin D Total 31.4 (30.0-100.0) NG/ML Folate ng/mL PTH Intact Whole Molec 1649 H (14-64) pg/mL Urine Color (YELLOW) Urine Appearance (CLEAR) Urine pH (4.7-8.0) Ur Specific [place] (1.005-1.035) Urine Protein (<30 mg/dL) mg/dL Urine Glucose (UA) (NEGATIVE) mg/dL Urine Ketones (NEGATIVE) mg/dL Urine Blood (NEGATIVE) Urine Nitrate (NEGATIVE) Urine Bilirubin (NEGATIVE) Urine Urobilinogen (<1 E.U./dL) E.U./dL Ur Leukocyte Esterase (NEGATIVE) Krystle/uL Urine RBC (0-2) /hpf Urine WBC (0-6) /hpf Ur Epithelial Cells (0-5) /hpf Urine Bacteria (NEG) TANIYA & SPEP Interp See note Free [place] Light Chains (3.3-19.4) mg/L Hep Bs Antigen (NEGATIVE) Hep Bs Antibody (NEGATIVE) Hep B Core IgM Ab (NEGATIVE) HIV-1 Antibody HIV-2 Antibody HIV 1&2 Ag/Ab, 4th Gen (Nonreactive) Blood Type Antibody Screen Crossmatch Reaction Clerical Check (NO DISCREPA) Pre-Trans Blood Type Pre-Trans Bld Appearanc (NO HEMOLYSI) Pre-Trans BEA (NEGATIVE) Post-Trans Blood Type Post-Trans Spec Appear (NO HEMOLYSI) Post-Trans BEA (NEGATIVE) BBK History Checked 01/21/18 01/20/18 Range/Units 05:10 21:00 WBC (4.5-11.0) 10^3/ul RBC (3.5-6.1) 10^6/uL Hgb (14.0-18.0) g/dL Hct (42.0-52.0) % MCV (80.0-105.0) fl MCH (25.0-35.0) pg MCHC (31.0-37.0) g/dl RDW (11.5-14.5) % Plt Count (120.0-450.0) 10^3/uL MPV (7.0-11.0) fl Gran % (50.0-68.0) % Lymph % (Auto) (22.0-35.0) % [place] % (Auto) (1.0-6.0) % Eos % (Auto) (1.5-5.0) % Baso % (Auto) (0.0-3.0) % Gran # (1.4-6.5) Lymph # (Auto) (1.2-3.4) [place] # (Auto) (0.1-0.6) Eos # (Auto) (0.0-0.7) Baso # (Auto) (0.0-2.0) K/mm3 APTT (25.1-36.5) Seconds Sodium (132-148) mmol/L Potassium (3.6-5.0) mmol/L Chloride (98-107) mmol/L Carbon Dioxide (21-33) mmol/L Anion Gap (10-20) BUN (7-21) mg/dL Creatinine (0.8-1.5) mg/dl Est GFR ( Amer) Est GFR (Non-Af Amer) POC Glucose (mg/dL) (65-110) mg/dL Random Glucose (70-110) mg/dL Calcium (8.4-10.5) mg/dL Total Bilirubin (0.2-1.3) mg/dL Pre-Trans Tot Bilirubin (0.2-1.3) mg/dL Post-Trans Total Bili mg/dL AST (17-59) U/L ALT (7-56) U/L Alkaline Phosphatase (38-126) U/L Total Protein (5.8-8.3) g/dL Total Protein (PEP) (6.1-8.1) g/dL Albumin (3.0-4.8) g/dL Albumin (PEP) (3.8-4.8) g/dL Globulin gm/dL Albumin/Globulin Ratio (1.1-1.8) Wdriz-6-Ukndiwhck (0.2-0.3) g/dL Ttrbe-2-Hqoaskqfd (0.5-0.9) g/dL Qyud-6-Nczjxnim (0.4-0.6) g/dL Cfaz-2-Jwhtslrw (0.2-0.5) g/dL Gamma Globulins (0.8-1.7) g/dL Abnorm Protein Band 1 Abnorm Protein Band 2 Abnorm Protein Band 3 Vitamin B12 820 (239-931) pg/mL 25-OH Vitamin D Total (30.0-100.0) NG/ML Folate 7.3 ng/mL PTH Intact Whole Molec (14-64) pg/mL Urine Color (YELLOW) Urine Appearance (CLEAR) Urine pH (4.7-8.0) Ur Specific [place] (1.005-1.035) Urine Protein (<30 mg/dL) mg/dL Urine Glucose (UA) (NEGATIVE) mg/dL Urine Ketones (NEGATIVE) mg/dL Urine Blood (NEGATIVE) Urine Nitrate (NEGATIVE) Urine Bilirubin (NEGATIVE) Urine Urobilinogen (<1 E.U./dL) E.U./dL Ur Leukocyte Esterase (NEGATIVE) Krystle/uL Urine RBC (0-2) /hpf Urine WBC (0-6) /hpf Ur Epithelial Cells (0-5) /hpf Urine Bacteria (NEG) TANIYA & SPEP Interp Free [place] Light Chains (3.3-19.4) mg/L Hep Bs Antigen (NEGATIVE) Hep Bs Antibody (NEGATIVE) Hep B Core IgM Ab (NEGATIVE) HIV-1 Antibody HIV-2 Antibody HIV 1&2 Ag/Ab, 4th Gen (Nonreactive) Blood Type A POSITIVE Antibody Screen Negative Crossmatch See Detail Reaction Clerical Check (NO DISCREPA) Pre-Trans Blood Type Pre-Trans Bld Appearanc (NO HEMOLYSI) Pre-Trans BEA (NEGATIVE) Post-Trans Blood Type Post-Trans Spec Appear (NO HEMOLYSI) Post-Trans BEA (NEGATIVE) BBK History Checked No verified bt Laboratory Results - last 24 hr 01/20/18 01/21/18 01/21/18 21:00 05:10 12:14 WBC RBC Hgb Hct MCV MCH MCHC RDW Plt Count MPV Gran % Lymph % (Auto) [place] % (Auto) Eos % (Auto) Baso % (Auto) Gran # Lymph # (Auto) [place] # (Auto) Eos # (Auto) Baso # (Auto) APTT Sodium Potassium Chloride Carbon Dioxide Anion Gap BUN Creatinine Est GFR ( Amer) Est GFR (Non-Af Amer) POC Glucose (mg/dL) Random Glucose Calcium Total Bilirubin Pre-Trans Tot Bilirubin Post-Trans Total Bili AST ALT Alkaline Phosphatase Total Protein Total Protein (PEP) Albumin Albumin (PEP) Globulin Albumin/Globulin Ratio Tsvzm-6-Jnljdpzsa Wcbfb-7-Ftdzjfhps Fdtm-0-Rhkpwmsn Jqfj-9-Lcejjlgv Gamma Globulins Abnorm Protein Band 1 Abnorm Protein Band 2 Abnorm Protein Band 3 Vitamin B12 820 25-OH Vitamin D Total Folate 7.3 PTH Intact Whole Molec 1649 H Urine Color Urine Appearance Urine pH Ur Specific [place] Urine Protein Urine Glucose (UA) Urine Ketones Urine Blood Urine Nitrate Urine Bilirubin Urine Urobilinogen Ur Leukocyte Esterase Urine RBC Urine WBC Ur Epithelial Cells Urine Bacteria TANIYA & SPEP Interp Free [place]ains Hep Bs Antigen Hep Bs Antibody Hep B Core IgM Ab HIV-1 Antibody HIV-2 Antibody HIV 1&2 Ag/Ab, 4th Gen Blood Type A POSITIVE Antibody Screen Negative Crossmatch See Detail Reaction Clerical Check Pre-Trans Blood Type Pre-Trans Bld Appearanc Pre-Trans BEA Post-Trans Blood Type Post-Trans Spec Appear Post-Trans BEA BBK History Checked No verified bt 01/21/18 01/21/18 01/21/18 12:16 13:31 13:44 WBC RBC Hgb Hct MCV MCH MCHC RDW Plt Count MPV Gran % Lymph % (Auto) [place] % (Auto) Eos % (Auto) Baso % (Auto) Gran # Lymph # (Auto) [place] # (Auto) Eos # (Auto) Baso # (Auto) APTT Sodium Potassium Chloride Carbon Dioxide Anion Gap BUN Creatinine Est GFR ( Amer) Est GFR (Non-Af Amer) POC Glucose (mg/dL) Random Glucose Calcium Total Bilirubin Pre-Trans Tot Bilirubin Post-Trans Total Bili AST ALT Alkaline Phosphatase Total Protein Total Protein (PEP) 6.3 Albumin Albumin (PEP) 2.5 L Globulin Albumin/Globulin Ratio Atbfj-7-Mtqygjrdn 0.6 H Qrdal-6-Puoaqjpsv 1.1 H Duda-1-Udosgxlr 0.3 L Prpy-0-Ysloagkf 0.4 Gamma Globulins 1.4 Abnorm Protein Band 1 TEST NOT PERFORMED Abnorm Protein Band 2 TEST NOT PERFORMED Abnorm Protein Band 3 TEST NOT PERFORMED Vitamin B12 25-OH Vitamin D Total 31.4 Folate PTH Intact Whole Molec Urine Color Urine Appearance Urine pH Ur Specific [place] Urine Protein Urine Glucose (UA) Urine Ketones Urine Blood Urine Nitrate Urine Bilirubin Urine Urobilinogen Ur Leukocyte Esterase Urine RBC Urine WBC Ur Epithelial Cells Urine Bacteria TANIYA & SPEP Interp See note Free [place] Hep Bs Antigen Negative Hep Bs Antibody Hep B Core IgM Ab Negative HIV-1 Antibody HIV-2 Antibody HIV 1&2 Ag/Ab, 4th Gen Blood Type Antibody Screen Crossmatch Reaction Clerical Check Pre-Trans Blood Type Pre-Trans Bld Appearanc Pre-Trans BEA Post-Trans Blood Type Post-Trans Spec Appear Post-Trans BEA BBK History Checked 01/21/18 01/21/18 01/21/18 13:44 16:39 18:16 WBC 12.8 H RBC 2.53 L Hgb 7.5 L Hct 21.8 L MCV 86.2 MCH 29.6 MCHC 34.4 RDW 14.6 H Plt Count 268 MPV 10.8 Gran % 91.9 H Lymph % (Auto) 6.7 L [place] % (Auto) 1.2 Eos % (Auto) 0.2 L Baso % (Auto) 0.0 Gran # 11.72 H Lymph # (Auto) 0.9 L [place] # (Auto) 0.2 Eos # (Auto) 0.0 Baso # (Auto) 0.00 APTT Sodium Potassium Chloride Carbon Dioxide Anion Gap BUN Creatinine Est GFR ( Amer) Est GFR (Non-Af Amer) POC Glucose (mg/dL) 210 H Random Glucose Calcium Total Bilirubin Pre-Trans Tot Bilirubin Post-Trans Total Bili AST ALT Alkaline Phosphatase Total Protein Total Protein (PEP) Albumin Albumin (PEP) Globulin Albumin/Globulin Ratio Xoryn-5-Yvqiypstu Otmlh-2-Ozurmysch Uqml-1-Thsweimw Kxrk-9-Iephtfjo Gamma Globulins Abnorm Protein Band 1 Abnorm Protein Band 2 Abnorm Protein Band 3 Vitamin B12 25-OH Vitamin D Total Folate PTH Intact Whole [place] Urine Color Urine Appearance Urine pH Ur Specific [place] Urine Protein Urine Glucose (UA) Urine Ketones Urine Blood Urine Nitrate Urine Bilirubin Urine Urobilinogen Ur Leukocyte Esterase Urine RBC Urine WBC Ur Epithelial Cells Urine Bacteria TANIYA & SPEP Interp Free [place] Hep Bs Antigen Hep Bs Antibody Negative Hep B Core IgM Ab HIV-1 Antibody HIV-2 Antibody HIV 1&2 Ag/Ab, 4th Gen Blood Type Antibody Screen Crossmatch Reaction Clerical Check Pre-Trans Blood Type Pre-Trans Bld Appearanc Pre-Trans BEA Post-Trans Blood Type Post-Trans Spec Appear Post-Trans BEA BBK History Checked 01/21/18 01/21/18 01/21/18 18:16 18:16 21:00 WBC 12.8 H RBC 2.39 L Hgb 7.2 L Hct 20.3 L* MCV 84.9 MCH 30.1 MCHC 35.5 RDW 14.6 H Plt Count 249 MPV 10.3 Gran % Lymph % (Auto) [place] % (Auto) Eos % (Auto) Baso % (Auto) Gran # Lymph # (Auto) [place] # (Auto) Eos # (Auto) Baso # (Auto) APTT Sodium Potassium Chloride Carbon Dioxide Anion Gap BUN Creatinine Est GFR ( Amer) Est GFR (Non-Af Amer) POC Glucose (mg/dL) Random Glucose Calcium Total Bilirubin Pre-Trans Tot Bilirubin Post-Trans Total Bili AST ALT Alkaline Phosphatase Total Protein Total Protein (PEP) Albumin Albumin (PEP) Globulin Albumin/Globulin Ratio Cdpcu-4-Faqlxxjmx Hqjut-9-Snfjyoavx Uszz-7-Zywhpbpp Radr-5-Pifsmyft Gamma Globulins Abnorm Protein Band 1 Abnorm Protein Band 2 Abnorm Protein Band 3 Vitamin B12 25-OH Vitamin D Total Folate PTH Intact Whole [place] Urine Color Urine Appearance Urine pH Ur Specific [place] Urine Protein Urine Glucose (UA) Urine Ketones Urine Blood Urine Nitrate Urine Bilirubin Urine Urobilinogen Ur Leukocyte Esterase Urine RBC Urine WBC Ur Epithelial Cells Urine Bacteria TANIYA & SPEP Interp Free [place] 272.1 H Hep Bs Antigen Hep Bs Antibody Hep B Core IgM Ab HIV-1 Antibody TEST NOT PERFORMED HIV-2 Antibody TEST NOT PERFORMED HIV 1&2 Ag/Ab, 4th Gen Nonreactive Blood Type Antibody Screen Crossmatch Reaction Clerical Check Pre-Trans Blood Type Pre-Trans Bld Appearanc Pre-Trans BEA Post-Trans Blood Type Post-Trans Spec Appear Post-Trans BEA BBK History Checked 01/21/18 01/21/18 01/22/18 21:53 22:00 00:36 WBC RBC Hgb Hct MCV MCH MCHC RDW Plt Count MPV Gran % Lymph % (Auto) [place] % (Auto) Eos % (Auto) Baso % (Auto) Gran # Lymph # (Auto) [place] # (Auto) Eos # (Auto) Baso # (Auto) APTT 31.9 Sodium Potassium Chloride Carbon Dioxide Anion Gap BUN Creatinine Est GFR ( Amer) Est GFR (Non-Af Amer) POC Glucose (mg/dL) 179 H Random Glucose Calcium Total Bilirubin Pre-Trans Tot Bilirubin Post-Trans Total Bili AST ALT Alkaline Phosphatase Total Protein Total Protein (PEP) Albumin Albumin (PEP) Globulin Albumin/Globulin Ratio Dzqro-6-Qoewewucy Ytehb-7-Icjzotebu Xutp-6-Rgdvehcp Jixl-3-Uroixmza Gamma Globulins Abnorm Protein Band 1 Abnorm Protein Band 2 Abnorm Protein Band 3 Vitamin B12 25-OH Vitamin D Total Folate PTH Intact Whole [place] Urine Color Urine Appearance Urine pH Ur Specific [place] Urine Protein Urine Glucose (UA) Urine Ketones Urine Blood Urine Nitrate Urine Bilirubin Urine Urobilinogen Ur Leukocyte Esterase Urine RBC Urine WBC Ur Epithelial Cells Urine Bacteria TANIYA & SPEP Interp Free [place] Hep Bs Antigen Hep Bs Antibody Hep B Core IgM Ab HIV-1 Antibody HIV-2 Antibody HIV 1&2 Ag/Ab, 4th Gen Blood Type Antibody Screen Crossmatch Reaction Clerical Check No discrepancy Pre-Trans Blood Type A POSITIVE Pre-Trans Bld Appearanc No hemolysis Pre-Trans BEA Negative Post-Trans Blood Type A POSITIVE Post-Trans Spec Appear No hemolysis Post-Trans BEA Negative BBK History Checked 01/22/18 01/22/18 01/22/18 00:40 00:40 00:40 WBC RBC Hgb Hct MCV MCH MCHC RDW Plt Count MPV Gran % Lymph % (Auto) [place] % (Auto) Eos % (Auto) Baso % (Auto) Gran # Lymph # (Auto) [place] # (Auto) Eos # (Auto) Baso # (Auto) APTT Sodium Potassium Chloride Carbon Dioxide Anion Gap BUN Creatinine Est GFR ( Amer) Est GFR (Non-Af Amer) POC Glucose (mg/dL) Random Glucose Calcium Total Bilirubin Pre-Trans Tot Bilirubin 0.8 Post-Trans Total Bili AST ALT Alkaline Phosphatase Total Protein Total Protein (PEP) Albumin Albumin (PEP) Globulin Albumin/Globulin Ratio Yuvhl-9-Eosqswsme Qflqg-7-Mhruvdeuq Krlb-4-Ufbwgron Pgse-8-Ekiqzpkc Gamma Globulins Abnorm Protein Band 1 Abnorm Protein Band 2 Abnorm Protein Band 3 Vitamin B12 25-OH Vitamin D Total Folate PTH Intact Whole [place] Urine Color Yellow Yellow Urine Appearance Clear Clear Urine pH 6.0 6.0 Ur Specific [place] 1.020 1.015 Urine Protein >=300 H >=300 H Urine Glucose (UA) 500 H 500 H Urine Ketones Negative Negative Urine Blood Moderate H Moderate H Urine Nitrate Negative Negative Urine Bilirubin Negative Negative Urine Urobilinogen 0.2 0.2 Ur Leukocyte Esterase Small H Small H Urine RBC 1 - 3 1 - 3 Urine WBC 15 - 20 15 - 20 Ur Epithelial Cells 0 - 2 0 - 2 Urine Bacteria Small Small TANIYA & SPEP Interp Free [place] Hep Bs Antigen Hep Bs Antibody Hep B Core IgM Ab HIV-1 Antibody HIV-2 Antibody HIV 1&2 Ag/Ab, 4th Gen Blood Type Antibody Screen Crossmatch Reaction Clerical Check Pre-Trans Blood Type Pre-Trans Bld [place] Pre-Trans BEA Post-Trans Blood Type Post-Trans Spec Appear Post-Trans BEA BBK History Checked 01/22/18 01/22/18 01/22/18 03:00 03:00 06:20 WBC 12.5 H 13.6 H RBC 2.37 L 2.36 L Hgb 6.9 L* 7.0 L Hct 20.3 L* 20.1 L* MCV 85.7 85.2 MCH 29.1 29.7 MCHC 34.0 34.8 RDW 14.7 H 14.6 H Plt Count 242 238 MPV 10.3 10.1 Gran % 87.8 H Lymph % (Auto) 3.9 L [place] % (Auto) 7.7 H Eos % (Auto) 0.5 L Baso % (Auto) 0.1 Gran # 11.90 H Lymph # (Auto) 0.5 L [place] # (Auto) 1.0 H Eos # (Auto) 0.1 Baso # (Auto) 0.01 APTT 38.8 H Sodium Potassium Chloride Carbon Dioxide Anion Gap BUN Creatinine Est GFR ( Amer) Est GFR (Non-Af Amer) POC Glucose (mg/dL) Random Glucose Calcium Total Bilirubin Pre-Trans Tot Bilirubin Post-Trans Total Bili AST ALT Alkaline Phosphatase Total Protein Total Protein (PEP) Albumin Albumin (PEP) Globulin Albumin/Globulin Ratio Tijfz-6-Pyrmlbmcl Knqig-7-Yijpdlihp Dqlt-6-Zvkcgkxq Upio-8-Fsfkzkyv Gamma Globulins Abnorm Protein Band 1 Abnorm Protein Band 2 Abnorm Protein Band 3 Vitamin B12 25-OH Vitamin D Total Folate PTH Intact Whole [place] Urine Color Urine Appearance Urine pH Ur Specific [place] Urine Protein Urine Glucose (UA) Urine Ketones Urine Blood Urine Nitrate Urine Bilirubin Urine Urobilinogen Ur Leukocyte Esterase Urine RBC Urine WBC Ur Epithelial Cells Urine Bacteria TANIYA & SPEP Interp Free [place] Hep Bs Antigen Hep Bs Antibody Hep B Core IgM Ab HIV-1 Antibody HIV-2 Antibody HIV 1&2 Ag/Ab, 4th Gen Blood Type Antibody Screen Crossmatch Reaction Clerical Check Pre-Trans Blood Type Pre-Trans Bld Appearanc Pre-Trans BEA Post-Trans Blood Type Post-Trans Spec Appear Post-Trans BEA BBK History Checked 01/22/18 01/22/18 01/22/18 06:20 06:20 10:50 WBC RBC Hgb Hct MCV MCH MCHC RDW Plt Count MPV Gran % Lymph % (Auto) [place] % (Auto) Eos % (Auto) Baso % (Auto) Gran # Lymph # (Auto) [place] # (Auto) Eos # (Auto) Baso # (Auto) APTT 58.1 H Sodium 136 Potassium 4.0 Chloride 103 Carbon Dioxide 18 L Anion Gap 19 BUN 124 H* Creatinine 13.5 H* D Est GFR ( Amer) 5 Est GFR (Non-Af Amer) 4 POC Glucose (mg/dL) Random Glucose 136 H Calcium 7.3 L Total Bilirubin 0.8 Pre-Trans Tot Bilirubin Post-Trans Total Bili 0.9 AST 23 ALT 26 Alkaline Phosphatase 101 Total Protein 6.3 Total Protein (PEP) Albumin 2.8 L Albumin (PEP) Globulin 3.5 Albumin/Globulin Ratio 0.8 L Rfklh-2-Mxmhyyvpl Sqqmp-5-Rdzfxruio Qrel-7-Yhmqzyob Wkgk-2-Odfvizzp Gamma Globulins Abnorm Protein Band 1 Abnorm Protein Band 2 Abnorm Protein Band 3 Vitamin B12 25-OH Vitamin D Total Folate PTH Intact Whole [place] Urine Color Urine Appearance Urine pH Ur Specific [place] Urine Protein Urine Glucose (UA) Urine Ketones Urine Blood Urine Nitrate Urine Bilirubin Urine Urobilinogen Ur Leukocyte Esterase Urine RBC Urine WBC Ur Epithelial Cells Urine Bacteria TANIYA & SPEP Interp Free [place] Hep Bs Antigen Hep Bs Antibody Hep B Core IgM Ab HIV-1 Antibody HIV-2 Antibody HIV 1&2 Ag/Ab, 4th Gen Blood Type Antibody Screen Crossmatch Reaction Clerical Check Pre-Trans Blood Type Pre-Trans Bld Appear[place] Pre-Trans BEA Post-Trans Blood Type Post-Trans Spec Appear Post-Trans BEA BBK History Checked 01/22/18 01/22/18 11:04 12:20 WBC RBC Hgb 7.6 L Hct 21.6 L MCV MCH MCHC RDW Plt Count MPV Gran % Lymph % (Auto) [place] % (Auto) Eos % (Auto) Baso % (Auto) Gran # Lymph # (Auto) [place] # (Auto) Eos # (Auto) Baso # (Auto) APTT Sodium Potassium Chloride Carbon Dioxide Anion Gap BUN Creatinine Est GFR ( Amer) Est GFR (Non-Af Amer) POC Glucose (mg/dL) 197 H Random Glucose Calcium Total Bilirubin Pre-Trans Tot Bilirubin Post-Trans Total Bili AST ALT Alkaline Phosphatase Total Protein Total Protein (PEP) Albumin Albumin (PEP) Globulin Albumin/Globulin Ratio Arvos-6-Nvnkueabw Uuykf-9-Tejknuvwa Wzvf-1-Nmhbytfc Gfyl-9-Ccspyejx Gamma Globulins Abnorm Protein Band 1 Abnorm Protein Band 2 Abnorm Protein Band 3 Vitamin B12 25-OH Vitamin D Total Folate PTH Intact Whole [place] Urine Color Urine Appearance Urine pH Ur Specific [place] Urine Protein Urine Glucose (UA) Urine Ketones Urine Blood Urine Nitrate Urine Bilirubin Urine Urobilinogen Ur Leukocyte Esterase Urine RBC Urine WBC Ur Epithelial Cells Urine Bacteria TANIYA & SPEP Interp Free [place] Hep Bs Antigen Hep Bs Antibody Hep B Core IgM Ab HIV-1 Antibody HIV-2 Antibody HIV 1&2 Ag/Ab, 4th Gen Blood Type Antibody Screen Crossmatch Reaction Clerical Check Pre-Trans Blood Type Pre-Trans Bld [place]ar[place] Pre-Trans BEA Post-Trans Blood Type Post-Trans Spec Appear Post-Trans BEA BBK History Checked EKG/Cardiology Studies: Cardiology / EKG Studies 01/22/18 09:47 ELECTROCARDIOGRAM Stat Comment: Reason For Exam: SOB 01/22/18 15:23 EKG [ELECTROCARDIOGRAM] Stat Comment: Reason For Exam: chest pain Critical Care Progress Note - Nutrition Nutrition: Nutrition Category Date Time Status Renal Diet [DIET] Diets 01/21/18 Breakfast Ordered Attending/Attestation - Attestation I have personally seen and examined this patient.: Yes I have fully participated in the care of the patient.: Yes I have reviewed all pertinent clinical information: Yes Notes (Text): 01/22/18 16:[address] Lisa note
--- NOTE | 2018-01-22 16:17 | CT ---
Date of service: 01/22/2018 PROCEDURE: CT Abdomen and Pelvis without intravenous contrast HISTORY: bleeding COMPARISON: None. TECHNIQUE: Without contrast.. Contrast dose: Radiation dose: Total exam DLP = 1325 mGy-cm. This CT exam was performed using one or more of the following dose reduction techniques: Automated exposure control, adjustment of the mA and/or kV according to patient size, and/or use of iterative reconstruction technique. FINDINGS: LOWER THORAX: Small pleural effusions LIVER: Unremarkable. No gross lesion or ductal dilatation. GALLBLADDER AND BILE DUCTS: Contracted gallbladder with pericholecystic fluid PANCREAS: Unremarkable. No gross lesion or ductal dilatation. SPLEEN: Unremarkable. ADRENALS: Unremarkable. No mass. KIDNEYS AND URETERS: Mild bilateral atrophy. No evidence of hydronephrosis VASCULATURE: Unremarkable. No aortic aneurysm. BOWEL: Unremarkable. No obstruction. No gross mural thickening. APPENDIX: Unremarkable. Normal appendix. PERITONEUM: Unremarkable. No free fluid. No free air. LYMPH NODES: Unremarkable. No enlarged lymph nodes. BLADDER: The bladder is decompressed by Bailey catheter. REPRODUCTIVE: Unremarkable. BONES: No acute fracture. OTHER FINDINGS: Diffuse subcutaneous edema IMPRESSION: No acute intra-abdominal findings
--- NOTE | 2018-01-22 16:26 | PN ---
DATE: 01/22/2018 SUBJECTIVE: The patient is seen and examined at bedside. He is comfortable. He talks full sentences. He is not in respiratory or otherwise distress. He is tolerating dialysis well. He had some reaction to blood transfusion yesterday with a low-grade fever and some diaphoresis. However, he is back to his baseline now. OBJECTIVE: VITAL SIGNS: His heart rate is irregular and ranging between 100 and 140. Blood pressure 120/92, oxygen saturation 100% on 2 liters nasal cannula. Respiratory rate 13. ENT: Head and neck atraumatic. LUNGS: Clear to auscultation bilaterally. HEART: Irregular rate and rhythm. S1, S2 distant. ABDOMEN: Soft, nontender, nondistended. MUSCULOSKELETAL: There is a blister in the left cuff and the left cuff appears to be more swollen than the right one; however, it appears that the cuff is less tender than yesterday and less swollen than yesterday. SKIN: Moist. PSYCH: The patient is alert, awake, and oriented x3. LABORATORY DATA: Sodium 136, potassium 4, chloride 103, carbon dioxide 18, BUN 124, creatinine 13.5, AST 23, ALT 26, total bilirubin 0.8, glucose 136. WBC 13.6, hemoglobin 7 (up from 6.9 after 3 units of blood), platelet count 238. MEDICATIONS: Tylenol p.r.n., heparin drip, hydralazine, isosorbide mononitrate 60 mg p.o. daily, metoprolol 25 mg p.o. b.i.d., and Protonix 40 mg IV every 12 hours. ASSESSMENT AND PLAN: This is a 57-year-old gentleman who presented with left leg swelling that turns out to be acute deep venous thrombosis and was started on therapeutic anticoagulation with heparin. He was also found to have acute on chronic renal disease which was decided to be treated with dialysis. Hemodialysis catheter was placed and two sessions of dialysis given. The patient's echocardiogram also revealed severe left ventricular systolic dysfunction. Beta-blockers as well as Imdur/hydralazine were given for afterload reduction. Cardiology consult obtained. The patient did not respond to blood transfusion appropriately. GI consult also obtained, who recommended against EGD. CT of the abdomen and pelvis pending. The patient will receive another 2 units of blood and serial CBC will be continued. We will continue to target euvolemia, euglycemia, normothermia and oxygen saturation more than 90%. We will continue with deep venous thrombosis and gastrointestinal prophylaxis. CTAP: no acute intra-abdominal findings ccm time 40 min Duarte Lisa MD MEGAN
--- NOTE | 2018-01-22 22:29 | CP.PCM.PN ---
Subjective - Date & Time of Evaluation Date of Evaluation: 01/22/18 Time of Evaluation: 11:00 - Subjective Subjective: Patient tolerating diet; says he's trying to get used to dialysis; no issues reported on HD; Objective - Vital Signs/Intake and Output Vital Signs (last 24 hours): Temp Pulse Resp BP Pulse Ox 99.7 F H 98 H 12 147/77 100 01/22/18 17:46 01/22/18 18:00 01/22/18 18:00 01/22/18 21:47 01/22/18 18:00 Intake and Output: 01/22/18 01/23/18 18:59 06:59 Intake Total 250 Output Total 700 Balance -450 - Medications Medications: Current Medications Acetaminophen (Tylenol 325mg Tab) 650 mg PO Q6H PRN PRN Reason: Fever >100.4 F Last Admin: 01/22/18 17:46 Dose: 650 mg Dextrose (Dextrose 50% Inj) 0 ml IV STAT PRN; Protocol PRN Reason: Hypoglycemia Protocol Hydralazine HCl (Apresoline) 25 mg PO QID [facility] Last Admin: 01/22/18 21:47 Dose: 25 mg Dextrose (Dextrose 5% In Water 1000 Ml) 1,000 mls @ 0 mls/hr IV .Q0M PRN; Protocol PRN Reason: Hypoglycemia Protocol Heparin Sodium/Sodium Chloride (Heparin 72619 Units/250ml 1/2 Normal Saline) 25,000 units in 250 mls @ 18.37 mls/hr IV .[id number] PRN; Protocol PRN Reason: ADJUST RATE PER PROTOCOL Last Admin: 01/22/18 18:39 Dose: 24 units/kg/hr, 24.494 mls/hr Insulin Human Lispro (Humalog Med) 0 units SC ACHS [facility]; Protocol Last Admin: 01/22/18 21:44 Dose: Not Given Isosorbide Mononitrate (Imdur) 60 mg PO DAILY [facility] Last Admin: 01/22/18 13:00 Dose: 60 mg Metoprolol Tartrate (Lopressor) 50 mg PO BID [facility] Last Admin: 01/22/18 17:50 Dose: 50 mg Pantoprazole Sodium (Protonix Inj) 40 mg IVP Q12 [facility] Last Admin: 01/22/18 21:47 Dose: 40 mg - Labs Labs: 01/22/18 12:20 01/22/18 06:20 PT 17.3 SECONDS (9.4-12.5) H 01/20/18 20:30 INR 1.50 01/20/18 20:30 APTT 58.1 Seconds (25.1-36.5) H 01/22/18 10:50 - Constitutional Appears: Non-toxic, No Acute Distress - Eye Exam Eye Exam: Normal appearance - Respiratory Exam Respiratory Exam: Clear to Ausculation Bilateral. absent: Respiratory Distress - Cardiovascular Exam Cardiovascular Exam: Tachycardia, Irregular Rhythm - GI/Abdominal Exam GI & Abdominal Exam: Soft. absent: Distended, Tenderness - Extremities Exam Additional comments: mild lower leg edema; b/l - Neurological Exam Neurological Exam: Alert, Awake - Psychiatric Exam Psychiatric exam: absent: Agitated - Skin Skin Exam: Warm. absent: Cyanosis Assessment and Plan (1) CKD (chronic kidney disease) stage V requiring chronic dialysis Assessment & Plan: CKD 4, presenting with markedly worsened renal failure and uremic symptoms along with severe anemia and uncontrolled htn; initiated on HD yesterday via R tunneled IJ cath placed by IR; slow HD performed to avoid dialysis dysequilibrium and was well tolerated; renal US images reviewed, kidneys appear echogenic (despite report stating otherwise); nevertheless, has longstanding renal failure and has no history that suggests any acute insult (no GI losses, no acute illnesses); therefore, it is safe to say that patient will require chronic HD; utility of renal biopsy at this late stage is generally futile as we will just see a lot of sclerosed glomeruli and interstitial fibrosis; -HD today, with goal of achieving more clearance and UF 1.5L; Status: Acute (2) Hypertensive kidney disease with CKD (chronic kidney disease) stage V Assessment & Plan: BP controlled on current meds, continue; will benefit from UF on HD; Status: Acute (3) Anemia Assessment & Plan: Hgb not responding appropriately to prbc transfusion; will give dose of aranesp 100 mcg; Status: Acute
[2018-01-23 04:08] LABS: BASO # 0.01 K/mm3 (0.0-2.0); BASO % 0.1 % (0.0-3.0); EOS % 0.3 % (1.5-5.0); GRAN # 11.96 (1.4-6.5); GRAN % 88.7 % (50.0-68.0); HEMOGLOBIN 7.4 g/dL (14.0-18.0); LYMPH # 0.9 (1.2-3.4); MEAN CELL VOLUME 86.9 fl (80.0-105.0); MEAN CORPUSCULAR HEMOGLOBIN 29.5 pg (25.0-35.0); MEAN CORPUSCULAR HGB CONC 33.9 g/dl (31.0-37.0); MEAN PLATELET VOLUME 9.4 fl (7.0-11.0); MONO # 0.5 (0.1-0.6); MONO % 3.9 % (1.0-6.0); RBC 2.51 10^6/uL (3.5-6.1); RED CELL DISTRIBUTION WIDTH 14.9 % (11.5-14.5); WHITE BLOOD COUNT 13.5 10^3/ul (4.5-11.0)
[2018-01-23 05:00] LABS: ALB/GLOB RATIO 0.8 (1.1-1.8); ALBUMIN 2.9 g/dL (3.0-4.8); CALCIUM 7.6 mg/dL (8.4-10.5)
[2018-01-23] MEDS: Heparin25000 units/250ml 1/2NS 25,000 UNITS/250 ML BAG IV PRN ×3 (06:30→18:36)
--- NOTE | 2018-01-23 06:33 | CARD ---
APPROVED REPORT Date of service: 01/22/2018 EKG Measurement Heart [id number] CT [id number] <Conclusion> Sinus rhythm with premature atrial complexes Possible Left atrial enlargement Nonspecific T wave abnormality Abnormal ECG
--- NOTE | 2018-01-23 07:16 | CP.PCM.PN ---
<Palmira Ruffin - Last Filed: 01/23/18 07:39> Subjective - Date & Time of Evaluation Date of Evaluation: 01/22/18 Time of Evaluation: 09:15 - Subjective Subjective: INTERNAL MEDICINE PROGRESS NOTE FOR DR. HILARIA Ruffin D.O. PGY-1 Pt seen and examined at bedside this am. He reports feeling weak and discomfort with the lundy catheter. He reports continued swelling, pain and warmth in his lower extremities. Pt undergoing bedside hemodialysis upon interview with 1500mL of ultrafiltration. He denies fevers, chills, chest pain, headache, dizziness, chest pain, palpitations, abdominal pain, nausea, vomiting, constipation, diarrhea. Objective - Vital Signs/Intake and Output Vital Signs (last 24 hours): Temp Pulse Resp BP Pulse Ox 99.0 F 98 H 12 147/77 100 01/23/18 00:00 01/23/18 02:00 01/22/18 18:00 01/22/18 21:47 01/22/18 18:00 Intake and Output: 01/23/18 01/23/18 06:59 18:59 Intake Total 250 Balance 250 - Medications Medications: Current Medications Acetaminophen (Tylenol 325mg Tab) 650 mg PO Q6H PRN PRN Reason: Fever >100.4 F Last Admin: 01/22/18 17:46 Dose: 650 mg Dextrose (Dextrose 50% Inj) 0 ml IV STAT PRN; Protocol PRN Reason: Hypoglycemia Protocol Hydralazine HCl (Apresoline) 25 mg PO QID [facility]ATH[facility] Last Admin: 01/22/18 21:47 Dose: 25 mg Dextrose (Dextrose 5% In Water 1000 Ml) 1,000 mls @ 0 mls/hr IV .Q0M PRN; Protocol PRN Reason: Hypoglycemia Protocol Heparin Sodium/Sodium Chloride (Heparin 18603 Units/250ml 1/2 Normal Saline) 25,000 units in 250 mls @ 18.37 mls/hr IV .[id number] PRN; Protocol PRN Reason: ADJUST RATE PER PROTOCOL Last Admin: 01/23/18 06:30 Dose: 24 units/kg/hr, 24.494 mls/hr Insulin Human Lispro (Humalog Med) 0 units SC ACHS CATHIE; Protocol Last Admin: 01/22/18 21:44 Dose: Not Given Isosorbide Mononitrate (Imdur) 60 mg PO DAILY [facility] Last Admin: 01/22/18 13:00 Dose: 60 mg Metoprolol Tartrate (Lopressor) 50 mg PO BID [facility] Last Admin: 01/22/18 17:50 Dose: 50 mg Pantoprazole Sodium (Protonix Inj) 40 mg IVP Q12 [facility] Last Admin: 01/22/18 21:47 Dose: 40 mg - Labs Labs: 01/23/18 03:59 01/23/18 03:59 PT 17.3 SECONDS (9.4-12.5) H 01/20/18 20:30 INR 1.50 01/20/18 20:30 APTT 54.1 Seconds (25.1-36.5) H 01/22/18 22:39 - Constitutional Appears: Well, Non-toxic, No Acute Distress - Head Exam Head Exam: NORMAL INSPECTION, NORMOCEPHALIC - Eye Exam Eye Exam: EOMI, Normal appearance - ENT Exam ENT Exam: Mucous Membranes Moist, Normal Exam - Neck Exam Neck Exam: Normal Inspection - Respiratory Exam Respiratory Exam: NORMAL BREATHING PATTERN. absent: Rhonchi, Wheezes - Cardiovascular Exam Cardiovascular Exam: Tachycardia, +S1, +S2 - GI/Abdominal Exam GI & Abdominal Exam: Soft. absent: Tenderness Additional comments: lundy catheter in place - Extremities Exam Extremities Exam: Calf Tenderness, Normal Inspection - Neurological Exam Neurological Exam: Alert, Awake, Oriented x3 - Psychiatric Exam Psychiatric exam: Normal Affect, Normal Mood - Skin Skin Exam: Dry, Intact, Warm Assessment and Plan - Assessment and Plan (Free Text) Assessment: 57 year old male with past medical history of CKD stage V, left lower extremity DVT, diabetes mellitus type II, Hypertension, hyperlipidemia, presents with shortness of breath worse with exertion; swelling, erythema, and pain of left lower extremity which started one month ago. Patient also presented with fecal occult blood test positive, had a hemoglobin of 6.9 on presentation and was given 4 U of PRBCs. Popliteal vein DVT was seen on ultrasound. Pt has been undergoing bedside HD treatments Plan: CKD3 BUN/Cr severely elevated at 124/13.5 Lundy catheter insertion showing ~400mL Tunnel catheter procedure performed today. Unremarkable renal ultrasound As per nephrology, ANNETTE, HIV, immunofixation, kappa light chain, antiphospholipid antibody, PTH, protein electrophoresis, hepatitis B panel As per nephrology, hemodialysis to be done due to GIO on CKD stage V. Continue monitoring. Replete electrolytes as needed. Strict I and Os. Take daily weights. Maintain euvolemia. 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 right heart strain from massive PE vs. myocardial infarction vs. cocaine use Start therapeutic heparin drip Monitor H&H for signs of bleeding. Appreciate GI recs V/Q scan ordered to evaluate for PE since CTA cannot be done due to renal status. CHFrEF Echo: EF 20-25% BNP: 59,000 Elevated troponins likely due to elevated creatinine vs. right heart strain from massive PE vs. myocardial infarction vs. cocaine use Pt to start hemodialysis after IJ port placement Maintain MAP>65. Monitor for S/S, HD compromise. Dr. Mendez, Cardiology, consulted for recommendations. DM2 Hgb A1c 6.5% Medium dose SSI Maintain euglycemia. HTN Hydralazine 25 mg Q6 for elevated blood pressures Dr. Mendez, Cardiology, consulted for recommendations. HTN/ HR has improved with dialysis DVT prophylaxis: therapeutic heparin at 18 mg/kg/hr GI prophylaxis:protonix 40 mg IVP BID Case seen, examined & discussed with attending physician, Dr. Marc <Elizabeth Marc R - Last Filed: 01/27/18 15:00> Objective - Vital Signs/Intake and Output Vital Signs (last 24 hours): Temp Pulse Resp BP Pulse Ox 99.4 F 129 H 22 154/90 H 98 01/27/18 12:00 01/27/18 13:50 01/27/18 12:00 01/27/18 13:50 01/27/18 06:00 Intake and Output: 01/27/18 01/27/18 06:59 18:59 Intake Total 1652 500 Output Total 1650 950 Balance 2 -450 - Medications Medications: Current Medications Acetaminophen (Tylenol 325mg Tab) 650 mg PO Q6H PRN PRN Reason: Fever >100.4 F Last Admin: 01/25/18 17:42 Dose: 650 mg Calcium Acetate (Phoslo) 667 mg PO WM [facility]ATHIE Last Admin: 01/27/18 12:26 Dose: 667 mg Dextrose (Dextrose 50% Inj) 0 ml IV STAT PRN; Protocol PRN Reason: Hypoglycemia Protocol Digoxin (Lanoxin) 0.125 mg PO 1400 [facility] Last Admin: 01/27/18 13:49 Dose: 0.125 mg Diltiazem HCl (Cardizem Cd) 180 mg PO DAILY [facility] Last Admin: 01/27/18 13:49 Dose: 180 mg Hydralazine HCl (Apresoline) 25 mg PO QID [facility] Last Admin: 01/27/18 13:50 Dose: 25 mg Dextrose (Dextrose 5% In Water 1000 Ml) 1,000 mls @ 0 mls/hr IV .Q0M PRN; Protocol PRN Reason: Hypoglycemia Protocol Heparin Sodium/Sodium Chloride (Heparin 26180 Units/250ml 1/2 Normal Saline) 25,000 units in 250 mls @ 18.37 mls/hr IV .[id number] PRN; Protocol PRN Reason: ADJUST RATE PER PROTOCOL Last Titration: 01/27/18 08:40 Dose: 30 units/kg/hr, 30.617 mls/hr Insulin Human Lispro (Humalog Med) 0 units SC ACHS [facility]; Protocol Last Admin: 01/27/18 11:43 Dose: Not Given Isosorbide Mononitrate (Imdur) 60 mg PO DAILY [facility] Last Admin: 01/27/18 09:07 Dose: 60 mg - Labs Labs: 01/27/18 06:00 01/27/18 06:00 PT 17.3 SECONDS (9.4-12.5) H 01/20/18 20:30 INR 1.50 01/20/18 20:30 APTT 35.2 Seconds (25.1-36.5) 01/27/18 06:30 Attending/Attestation - Attestation I have personally seen and examined this patient.: Yes I have fully participated in the care of the patient.: Yes I have reviewed all pertinent clinical information, including history, physical exam and plan: Yes Notes (Text): Patient seen and examined by me at 9:50AM with resident 01/22/18. Case including HPI, physical exam, and assessment and plan discussed with resident. Agree with above with following additions/corrections. Patient is a 57-year-old male with past medical history significant for chronic kidney disease stage III, left lower extremity DVT, type 2 diabetes, hypertension, hyperlipidemia, and noncompliance of medications that presented to the emergency room with worsening of shortness of breath and increased swelling and pain in left lower extremity. Patient states that he feels about the same. Stil with bilateral lower extremity pain, left worse than right. Also still with discomfort at lundy catheter site. Patient denies any chest pain or shortness of breath. No nausea, vomiting,or abdominal pain. No headaches or dizziness. Patient remains afebrile.Patient is tolerating diet. Patient is also tolerating dialysis. Physical exam: General: Awake and alert, lying in bed in no acute distress HEENT: Normocephalic, atraumatic. Extraocular muscles intact. Pupils equal reactive. No scleral icterus. Oropharynx is pink and moist. Neck is supple. Cardiovascular: Tachycardic S1, S2. Positive systolic murmur. No rubs or gallops appreciated Pulmonary: Normal respiratory effort. Decreased breath sounds. No rhonchi, rales, or wheezing appreciated. Gastrointestinal: Soft, nondistended. Nontender. Positive bowel sounds all 4 quadrants, no guarding. Musculoskeletal: Moves all extremities. Positive bilateral lower extremity edema, left greater than right. Positive erythema left lower extremity. Positive calf tenderness left lower extremity. Central nervous system: AAO x3 Dermatologic: Skin warm and dry. Assessment and plan: Patient is a 57-year-old male with past medical history significant for chronic kidney disease stage III, left lower extremity DVT, type 2 diabetes, hypertension, hyperlipidemia, and noncompliance of medications that presented to the emergency room with worsening of shortness of breath and increased swelling and pain in left lower extremity. 1. Acute on chronic renal failure. BUN/Cr slowly improving. Nephrology following, recommendations appreciated. Patient to continue HD as per nephrology. Renal ultrasound per radiologist showed unremarkable renal sonogram; no significant interval change. CT abd/pelvis per radiologist showed no acute intra-abdominal findings. 2. Anemia. Likely secondary to renal failure. Patient has been transfused 3.5 units PRBCs. Stool for occult blood positive. GI following, recommendations appreciated. Continue with heparin drip for DVT. Continue to monitor CBC. Continue with protonix 3. Dyspnea. No dyspnea at rest. Likely multifactorial. Secondary to renal failure, CHF exacerbation, and anemia. Pending V/Q Scan to rule out PE. Continue dialysis. S/P 3.5 units PRBCs. 4. Elevated troponin. Tachycardia. Cardiology following, recommendations appreciated. Patient on heparin drip. Troponins uptrending. 2d echo per clinic licensed practical nurse showed four chamber dilatation consistent with CMP, EF 20-25%, global hypokinesis, trace to mild aortic regurgitation, mitral regurgitation is moderate, severe tricuspid regurgitation, IVC dilated, no pericardial effusion. Tachycardia improved. Started on metoprolol and imdur 5. Elevated BNP. Acute on chronic CHF exacerbation. 2d echo as above. Cardiology following, recommendations appreciated. Patient for dialysis. Monitor ins and outs. 6. Elevated d-dimer. Left lower extremity DVT. V/Q scan pending to rule out PE. On heparin drip. Left lower extremity venous Doppler per radiologist showed subacute/chronic partially occlusive thrombus in the left popliteal vein. 7. Leukocytosis. Uptrending today. Likely reactive. Blood culture with no growth to date. Urine culture pending. 8. DM2. Continue insulin sliding scale. Continue to monitor accuchecks. Hgb A1C 6.5. 9. Hypertension. Continue hydralazine. Started on imdur and metoprolol. 10. Cocaine abuse. Patient counseled on cessation. 11. GI and DVT prophylaxis. Protonix and heparin drip 12. Patient is a full code. Case was discussed in detail with patient regarding current diagnosis and treatment plan. All questions answered.
[2018-01-23 07:49] LABS: HEMOGLOBIN 7.3 g/dL (14.0-18.0); MEAN CELL VOLUME 87.3 fl (80.0-105.0); MEAN CORPUSCULAR HEMOGLOBIN 29.8 pg (25.0-35.0); MEAN CORPUSCULAR HGB CONC 34.1 g/dl (31.0-37.0); RBC 2.45 10^6/uL (3.5-6.1); WHITE BLOOD COUNT 14.6 10^3/ul (4.5-11.0)
--- NOTE | 2018-01-23 07:57 | PN ---
DATE: 01/23/2018 SUBJECTIVE: I reviewed the case of [place] with the house staff yesterday. Also discussed the case in detail with the ICU nurse. Concern was the patient's H and H were not moving after transfusions. Note that review of laboratory data indicates the patient's most recent H and H are 7.4/21 that is as of 4 o'clock this morning. There has been no evidence of hematemesis or rectal bleeding. The conversation with the house staff yesterday indicated that there was no need for endoscopic evaluation at the current time point given the fact that there is no active bleeding in the patient . Note that his indices are significant for a low iron and a low TIBC. Hematology input is warranted. I read the notes of Dr. Lea as well as Dr. Mendez and Dr. Lisa. He will be starting dialysis today. I will sign off the case today. Floyd Griffin DO, PhD [facility]
[2018-01-23 08:06] LABS: ALB/GLOB RATIO 0.8 (1.1-1.8); CALCIUM 7.8 mg/dL (8.4-10.5)
--- NOTE | 2018-01-23 09:31 | CP.PCM.PN ---
<Leonard Paz - Last Filed: 01/23/18 13:28> Subjective - Date & Time of Evaluation Date of Evaluation: 01/23/18 Time of Evaluation: 07:35 - Subjective Subjective: Leonard Paz DO, PGY-2: Nephrology Progress Note for Dr. Lea Patient was seen and examined at bedside. Patient denies dyspnea, anorexia, dysgeusia, pruritus. He complains of pain at the tunnel catheter site. He request for dialysis to be held off today. Chart review indicates patient had 1200 ml of urine output via [place]. Objective - Vital Signs/Intake and Output Vital Signs (last 24 hours): Temp Pulse Resp BP Pulse Ox 99.8 F H 98 H 12 147/77 100 01/23/18 04:00 01/23/18 06:00 01/22/18 18:00 01/22/18 21:47 01/22/18 18:00 Intake and Output: 01/23/18 01/23/18 06:59 18:59 Intake Total 350 250 Output Total 500 Balance -150 250 - Medications Medications: Current Medications Acetaminophen (Tylenol 325mg Tab) 650 mg PO Q6H PRN PRN Reason: Fever >100.4 F Last Admin: 01/23/18 08:48 Dose: 650 mg Dextrose (Dextrose 50% Inj) 0 ml IV STAT PRN; Protocol PRN Reason: Hypoglycemia Protocol Hydralazine HCl (Apresoline) 25 mg PO QID [facility] Last Admin: 01/22/18 21:47 Dose: 25 mg Dextrose (Dextrose 5% In Water 1000 Ml) 1,000 mls @ 0 mls/hr IV .Q0M PRN; Protocol PRN Reason: Hypoglycemia Protocol Heparin Sodium/Sodium Chloride (Heparin 44259 Units/250ml 1/2 Normal Saline) 25,000 units in 250 mls @ 18.37 mls/hr IV .[id number] PRN; Protocol PRN Reason: ADJUST RATE PER PROTOCOL Last Admin: 01/23/18 08:47 Dose: 24 units/kg/hr, 24.494 mls/hr Insulin Human Lispro (Humalog Med) 0 units SC ACHS [facility]; Protocol Last Admin: 01/22/18 21:44 Dose: Not Given Isosorbide Mononitrate (Imdur) 60 mg PO DAILY [facility] Last Admin: 01/22/18 13:00 Dose: 60 mg Metoprolol Tartrate (Lopressor) 50 mg PO BID [facility] Last Admin: 01/22/18 17:50 Dose: 50 mg Pantoprazole Sodium (Protonix Inj) 40 mg IVP Q12 [facility] Last Admin: 01/22/18 21:47 Dose: 40 mg - Labs Labs: 01/23/18 07:40 01/23/18 07:40 PT 17.3 SECONDS (9.4-12.5) H 01/20/18 20:30 INR 1.50 01/20/18 20:30 APTT 62.1 Seconds (25.1-36.5) H 01/23/18 07:40 - Constitutional Appears: Well, Non-toxic - Head Exam Head Exam: ATRAUMATIC, NORMOCEPHALIC - Eye Exam Eye Exam: EOMI, Normal appearance - Neck Exam Additional comments: JVD - Respiratory Exam Respiratory Exam: Clear to Ausculation Bilateral, NORMAL BREATHING PATTERN. absent: Accessory Muscle Use - Cardiovascular Exam Cardiovascular Exam: RRR, +S1, +S2 - GI/Abdominal Exam GI & Abdominal Exam: Soft, Normal Bowel Sounds - Extremities Exam Additional comments: legs tender to palpation, diffusely - Neurological Exam Neurological Exam: Alert, Awake - Psychiatric Exam Psychiatric exam: Normal Affect, Normal Mood - Skin Skin Exam: Dry, Intact, Normal Color, Warm Assessment and Plan (1) Anemia Assessment & Plan: Aranesp to be given 100 mcg IVP during dialysis Status: Acute (2) CKD (chronic kidney disease) stage V requiring chronic dialysis Assessment & Plan: Patient to receive full dialysis session today and take off 2 L. Patient to get vein mapping tomorrow. Status: Acute (3) Hypertensive kidney disease with CKD (chronic kidney disease) stage V Status: Acute - Assessment and Plan (Free Text) Plan: Case reviewed and discussed with attending physician, Dr. Lea <Philip Lea - Last Filed: 01/24/18 00:10> Objective - Vital Signs/Intake and Output Vital Signs (last 24 hours): Temp Pulse Resp BP Pulse Ox 99 F 113 H 20 132/85 99 01/23/18 22:00 01/23/18 22:00 01/23/18 22:00 01/23/18 22:00 01/23/18 22:00 Intake and Output: 01/23/18 01/24/18 18:59 06:59 Intake Total 1348 120 Output Total 500 100 Balance 848 20 - Medications Medications: Current Medications Acetaminophen (Tylenol 325mg Tab) 650 mg PO Q6H PRN PRN Reason: Fever >100.4 F Last Admin: 01/23/18 13:03 Dose: 650 mg Dextrose (Dextrose 50% Inj) 0 ml IV STAT PRN; Protocol PRN Reason: Hypoglycemia Protocol Hydralazine HCl (Apresoline) 25 mg PO QID [facility] Last Admin: 01/23/18 21:49 Dose: 25 mg Dextrose (Dextrose 5% In Water 1000 Ml) 1,000 mls @ 0 mls/hr IV .Q0M PRN; Protocol PRN Reason: Hypoglycemia Protocol Heparin Sodium/Sodium Chloride (Heparin 27187 Units/250ml 1/2 Normal Saline) 25,000 units in 250 mls @ 18.37 mls/hr IV .[id number] PRN; Protocol PRN Reason: ADJUST RATE PER PROTOCOL Last Admin: 01/23/18 18:36 Dose: 24 units/kg/hr, 24.494 mls/hr Insulin Human Lispro (Humalog Med) 0 units SC ACHS [facility]; Protocol Last Admin: 01/23/18 21:40 Dose: Not Given Isosorbide Mononitrate (Imdur) 60 mg PO DAILY [facility] Last Admin: 01/23/18 09:28 Dose: 60 mg Metoprolol Tartrate (Lopressor) 50 mg PO BID [facility] Last Admin: 01/23/18 17:16 Dose: 50 mg Pantoprazole Sodium (Protonix Inj) 40 mg IVP Q12 [facility] Last Admin: 01/23/18 21:49 Dose: 40 mg - Labs Labs: 01/23/18 07:40 01/23/18 07:40 PT 17.3 SECONDS (9.4-12.5) H 01/20/18 20:30 INR 1.50 01/20/18 20:30 APTT 62.1 Seconds (25.1-36.5) H 01/23/18 07:40 Assessment and Plan (1) CKD (chronic kidney disease) stage V requiring chronic dialysis Status: Acute (2) Hypertensive kidney disease with CKD (chronic kidney disease) stage V Status: Acute (3) Anemia Status: Acute Attending/Attestation - Attestation I have personally seen and examined this patient.: Yes I have fully participated in the care of the patient.: Yes I have reviewed all pertinent clinical information, including history, physical exam and plan: Yes Notes (Text): Patient seen and examined; I agree with the resident's note as above with the following additions/edits: Patient with htn, CKD IV w/ nephrotic range proteinuria, admitted with marked progression of renal insufficiency, hypertensive urgency and severe anemia; Initiated on HD 2 days ago via R IJ tunneled catheter, tolerated well, 3rd straight HD session today, this time with full blood flow and UF goal 2L; can be deemed ESRD at this point; Discussed again with patient regarding need for AVF creation, patient still undecided; risks of remaining with catheter for prolonged period explained; nursing staff instructed to avoid blood draws/IV lines on L arm; vein mapping ordered; Tachycardia of unclear etiology; VQ scan showing low probability for PE; Persistent anemia without appropriate response to multiple units prbc transfusion; aranesp 100 mcg given; awaiting hematology input; HTN of CKD/ESRD; BP better controlled on current meds; continue; Thank you for this referral; Dr. Lazo will resume care of this patient (was following with her as outpatient).
--- NOTE | 2018-01-23 10:05 | PN ---
DATE: 01/23/2018 SUBJECTIVE: The patient was seen and examined at bedside. He is comfortable. He talks full sentences without respiratory or otherwise distress. PHYSICAL EXAMINATION: VITAL SIGNS: Temperature 99.8, oxygen saturation 100% on room air, heart rate 108, blood pressure 130/79, respiratory 16. ENT: Head and neck atraumatic. LUNGS: Clear to auscultation bilaterally. HEART: Irregular rate and rhythm. S1, S2 distant. ABDOMEN: Soft, nontender, nondistended. MUSCULOSKELETAL: Trace bilateral pedal and ankle edema, unchanged bullae on the left cuff. SKIN: Moist. PSYCH: The patient is alert, awake and oriented. NEURO: The patient moves all extremities spontaneously. LABORATORY DATA: WBC 14.6, hemoglobin 7.3, platelet count 234. Sodium 136, potassium 4.4, chloride 104, carbon dioxide 16, BUN 93, creatinine 11.8 (the patient is on dialysis). MEDICATIONS: Tylenol p.r.n., Benadryl, heparin drip, hydralazine, regular insulin sliding scale medium protocol, isosorbide mononitrate 60 mg p.o. daily, metoprolol 50 mg p.o. b.i.d., Protonix 40 mg IV every 12 hours. ASSESSMENT AND PLAN: This is a 57-year-old gentleman who presented with what appears to be end-stage renal disease, now on dialysis, anemia, which as per GI service associated with end-stage renal disease and not GI bleed, left ventricular systolic dysfunction in the setting of cocaine abuse and left deep venous thrombosis treated with heparin drip. At present time, the patient is hemodynamically and respiratory burns stable. He received two sessions of dialysis which he tolerated well. He is on therapeutic anticoagulation with heparin. He did receive 5 units of blood for his anemia. There are no plans to scope him as per GI. CT of the abdomen and pelvis did not reveal any acute intracranial pathology that would explain anemia. GI service is on board. However, according to Dr. Griffin's note, he will sign off. The patient is on beta-blockers, Imdur and hydralazine for afterload reduction. As was mentioned above, the patient is relatively hemodynamically stable except for atrial fibrillation with occasional rapid ventricular rate. His heart rate is controlled much better. His blood pressure is stable. He is protecting airways. He is not in respiratory or otherwise distress. The patient will be transferred to Telemetry. ccm time 40 min Duarte Lisa MD [facility]
[2018-01-23] MEDS ORDERED: Darbepoetin Alfa 100 mcg/ml Inj IVP ONE (10:45)
[2018-01-23] MEDS: Insulin Lispro (humaLOG) MEDIUM Coverage SC SCH ×3 (11:50→21:40)
--- NOTE | 2018-01-23 12:08 | NM ---
Date of service: 01/23/2018 COMPARISON: 07/25/2013 ventilation perfusion scan. 01/21/2018 portable chest radiograph TECHNIQUE: 35.1 mCi technetium 99-m DTPA aerosol. 5.2 mCI technetium 99-m MAA administered intravenously. FINDINGS: VENTILATION COMPONENT: Mildly heterogeneous ventilation. Retention of radionuclide in the tracheobronchial tree and ingestion of radionuclide in the stomach, incidental findings PERFUSION COMPONENT: Heterogeneous distribution of radionuclide. No geographic, segmental, lobar abnormalities apparent on the present examination. IMPRESSION: Low probability ventilation perfusion scan for pulmonary embolism. No significant interval change compared to the prior examination(s).
--- NOTE | 2018-01-23 13:03 | CP.CCUPN ---
<Murtaza Kwok - Last Filed: 01/23/18 13:06> CCU Subjective - Physician Review Subjective (Free Text): Murtaza Kwok, PGY-1, CCU Progress Note for Dr. Lisa Patient seen and evaluated at bedside. No overnight events occurred. Patient reports bilateral calf pain and left leg warmth, redness, and swelling. Patient denies dizziness, headache, fever, chest pain, dyspnea, heart palpitations, abdominal pain, nausea, vomiting, constipation, diarrhea, dysuria, hematuria, numbness/tingling. CCU Objective - Vital Signs / Intake & Output Vital Signs (Last 4 hours): Vital Signs Pulse BP 01/23/18 09:28 130 H 148/87 Intake and Output (Last 8hrs): Intake & Output 01/22/18 01/23/18 01/23/18 22:59 06:59 14:59 Intake Total 350 250 Output Total 700 500 Balance -700 -150 250 Weight 225 lb Intake: IV 250 250 Oral 100 Output: Urine 700 500 Urethral (Bailey) 700 500 Other: # Bowel Movements 1 - Physical Exam Head: Positive for: Atraumatic, Normocephalic Pupils: Positive for: PERRL Extroacular Muscles: Positive for: EOMI Conjunctiva: Positive for: Icteric (b/l) Mouth: Positive for: Moist Mucous Membranes Neck: Positive for: Normal Range of Motion Respiratory/Chest: Positive for: Clear to Auscultation, Good Air Exchange. Negative for: Respiratory Distress, Accessory Muscle Use Cardiovascular: Positive for: Regular Rate and Rhythm, Normal S1, S2. Negative for: Murmurs Abdomen: Negative for: Tenderness, Distention, Peritoneal Signs Back: Positive for: Normal Inspection Upper Extremity: Positive for: Normal Inspection. Negative for: Cyanosis, Edema Lower Extremity: Positive for: Edema (4+ Worse on the left ), CALF TENDERNESS (B/L), Normal ROM, Tenderness, Erythema (Left lower leg), Neurovascularly Intact, Other (2 blisters noted on left lower extremity. left lower extremity is warm and painful to the touch and has no discharge.). Negative for: NORMAL PULSES (Decreased ) Neurological: Positive for: GCS=15, CN II-XII Intact, Speech Normal Skin: Positive for: Warm, Dry, Normal Color. Negative for: Rashes Psychiatric: Positive for: Alert, Oriented x 3, Normal Insight, Normal Concentration - Medications Active Medications: Active Medications Generic Name Dose Route Start Last Admin Trade Name Freq PRN Reason Stop Dose Admin Acetaminophen 650 mg 01/21/18 04:19 01/23/18 08:48 Tylenol 325mg Tab PO 650 mg Q6H PRN Administration Fever >100.4 F Dextrose 0 ml 01/21/18 00:34 Dextrose 50% Inj IV STAT PRN Hypoglycemia Protocol Protocol Hydralazine HCl 25 mg 01/22/18 14:00 01/23/18 09:28 Apresoline PO 25 mg QID CATHIE Administration Dextrose 1,000 mls @ 0 mls/hr 01/21/18 00:34 Dextrose 5% In Water 1000 Ml IV .Q0M PRN Hypoglycemia Protocol Protocol Per Protocol Heparin Sodium/Sodium Chloride 25,000 units in 250 mls @ 18.37 mls/hr 01/21/18 08:09 01/23/18 08:47 Heparin 75635 Units/250ml 1/2 Normal Saline IV 24 units/kg/hr .[id number] PRN 24.494 mls/hr ADJUST RATE PER PROTOCOL Administration Protocol 18 UNITS/KG/HR Insulin Human Lispro 0 units 01/21/18 07:30 01/23/18 11:50 Humalog Med SC Not Given ACHS [facility] Protocol Isosorbide Mononitrate 60 mg 01/22/18 11:00 01/23/18 09:28 Imdur PO 60 mg DAILY CATHIE Administration Metoprolol Tartrate 50 mg 01/22/18 16:30 01/23/18 09:28 Lopressor PO 50 mg BID CATHIE Administration Pantoprazole Sodium 40 mg 01/21/18 10:00 01/23/18 09:28 Protonix Inj IVP 40 mg Q12 CATHIE Administration - Patient Studies Lab Studies: Microbiology Studies 01/20/18 20:30 Blood Culture - Preliminary Blood-Venous NO GROWTH AFTER 48 HOURS 01/20/18 20:00 Blood Culture - Preliminary Blood-Venous NO GROWTH AFTER 48 HOURS 01/21/18 09:00 Urine Culture - Final Urine,Bailey No Growth (<1,000 CFU/ML) 01/21/18 03:56 MRSA Culture (Admit) - Final Nose MRSA NOT DETECTED 01/22/18 09:30 Gram Stain - Final Blood Transfusion Bag Lab Studies 01/23/18 01/23/18 01/23/18 Range/Units 11:45 07:40 07:40 WBC 14.6 H (4.5-11.0) 10^3/ul RBC 2.45 L (3.5-6.1) 10^6/uL Hgb 7.3 L (14.0-18.0) g/dL Hct 21.4 L (42.0-52.0) % MCV 87.3 (80.0-105.0) fl MCH 29.8 (25.0-35.0) pg MCHC 34.1 (31.0-37.0) g/dl RDW 15.0 H (11.5-14.5) % Plt Count 234 (120.0-450.0) 10^3/uL MPV 10.0 (7.0-11.0) fl Gran % (50.0-68.0) % Lymph % (Auto) (22.0-35.0) % Morehouse % (Auto) (1.0-6.0) % Eos % (Auto) (1.5-5.0) % Baso % (Auto) (0.0-3.0) % Gran # (1.4-6.5) Lymph # (Auto) (1.2-3.4) Morehouse # (Auto) (0.1-0.6) Eos # (Auto) (0.0-0.7) Baso # (Auto) (0.0-2.0) K/mm3 APTT (25.1-36.5) Seconds Sodium 136 (132-148) mmol/L Potassium 4.4 (3.6-5.0) mmol/L Chloride 104 (98-107) mmol/L Carbon Dioxide 16 L (21-33) mmol/L Anion Gap 20 (10-20) BUN 93 H (7-21) mg/dL Creatinine 11.8 H* (0.8-1.5) mg/dl Est GFR ( Amer) 5 Est GFR (Non-Af Amer) 4 POC Glucose (mg/dL) 141 H (65-110) mg/dL Random Glucose 109 (70-110) mg/dL Calcium 7.8 L (8.4-10.5) mg/dL Total Bilirubin 0.6 (0.2-1.3) mg/dL AST 29 (17-59) U/L ALT 18 (7-56) U/L Alkaline Phosphatase 117 (38-126) U/L Total Protein 6.8 (5.8-8.3) g/dL Albumin 3.0 (3.0-4.8) g/dL Globulin 3.8 gm/dL Albumin/Globulin Ratio 0.8 L (1.1-1.8) Procalcitonin (0.19-0.49) NG/ML PTH Intact Whole Molec (14-64) pg/mL Serum Immunofixation (Not Detected) 01/23/18 01/23/18 01/23/18 Range/Units 07:40 07:16 03:59 WBC (4.5-11.0) 10^3/ul RBC (3.5-6.1) 10^6/uL Hgb (14.0-18.0) g/dL Hct (42.0-52.0) % MCV (80.0-105.0) fl MCH (25.0-35.0) pg MCHC (31.0-37.0) g/dl RDW (11.5-14.5) % Plt Count (120.0-450.0) 10^3/uL MPV (7.0-11.0) fl Gran % (50.0-68.0) % Lymph % (Auto) (22.0-35.0) % Morehouse % (Auto) (1.0-6.0) % Eos % (Auto) (1.5-5.0) % Baso % (Auto) (0.0-3.0) % Gran # (1.4-6.5) Lymph # (Auto) (1.2-3.4) Morehouse # (Auto) (0.1-0.6) Eos # (Auto) (0.0-0.7) Baso # (Auto) (0.0-2.0) K/mm3 APTT 62.1 H (25.1-36.5) Seconds Sodium 137 (132-148) mmol/L Potassium 4.6 (3.6-5.0) mmol/L Chloride 106 (98-107) mmol/L Carbon Dioxide 18 L (21-33) mmol/L Anion Gap 18 (10-20) BUN 96 H (7-21) mg/dL Creatinine 11.8 H* (0.8-1.5) mg/dl Est GFR ( Amer) 5 Est GFR (Non-Af Amer) 4 POC Glucose (mg/dL) 114 H (65-110) mg/dL Random Glucose 124 H (70-110) mg/dL Calcium 7.6 L (8.4-10.5) mg/dL Total Bilirubin 0.6 (0.2-1.3) mg/dL AST 18 (17-59) U/L ALT 28 (7-56) U/L Alkaline Phosphatase 111 (38-126) U/L Total Protein 6.5 (5.8-8.3) g/dL Albumin 2.9 L (3.0-4.8) g/dL Globulin 3.5 gm/dL Albumin/Globulin Ratio 0.8 L (1.1-1.8) Procalcitonin (0.19-0.49) NG/ML PTH Intact Whole Molec (14-64) pg/mL Serum Immunofixation (Not Detected) 01/23/18 01/22/18 01/22/18 Range/Units 03:59 22:39 22:39 WBC 13.5 H (4.5-11.0) 10^3/ul RBC 2.51 L (3.5-6.1) 10^6/uL Hgb 7.4 L 7.0 L (14.0-18.0) g/dL Hct 21.8 L 20.3 L* (42.0-52.0) % MCV 86.9 (80.0-105.0) fl MCH 29.5 (25.0-35.0) pg MCHC 33.9 (31.0-37.0) g/dl RDW 14.9 H (11.5-14.5) % Plt Count 221 (120.0-450.0) 10^3/uL MPV 9.4 (7.0-11.0) fl Gran % 88.7 H (50.0-68.0) % Lymph % (Auto) 7.0 L (22.0-35.0) % Morehouse % (Auto) 3.9 (1.0-6.0) % Eos % (Auto) 0.3 L (1.5-5.0) % Baso % (Auto) 0.1 (0.0-3.0) % Gran # 11.96 H (1.4-6.5) Lymph # (Auto) 0.9 L (1.2-3.4) Morehouse # (Auto) 0.5 (0.1-0.6) Eos # (Auto) 0.0 (0.0-0.7) Baso # (Auto) 0.01 (0.0-2.0) K/mm3 APTT 54.1 H (25.1-36.5) Seconds Sodium (132-148) mmol/L Potassium (3.6-5.0) mmol/L Chloride (98-107) mmol/L Carbon Dioxide (21-33) mmol/L Anion Gap (10-20) BUN (7-21) mg/dL Creatinine (0.8-1.5) mg/dl Est GFR ( Amer) Est GFR (Non-Af Amer) POC Glucose (mg/dL) (65-110) mg/dL Random Glucose (70-110) mg/dL Calcium (8.4-10.5) mg/dL Total Bilirubin (0.2-1.3) mg/dL AST (17-59) U/L ALT (7-56) U/L Alkaline Phosphatase (38-126) U/L Total Protein (5.8-8.3) g/dL Albumin (3.0-4.8) g/dL Globulin gm/dL Albumin/Globulin Ratio (1.1-1.8) Procalcitonin (0.19-0.49) NG/ML PTH Intact Whole Molec (14-64) pg/mL Serum Immunofixation (Not Detected) 01/22/18 01/22/18 01/21/18 Range/Units 21:34 16:05 18:16 WBC (4.5-11.0) 10^3/ul RBC (3.5-6.1) 10^6/uL Hgb (14.0-18.0) g/dL Hct (42.0-52.0) % MCV (80.0-105.0) fl MCH (25.0-35.0) pg MCHC (31.0-37.0) g/dl RDW (11.5-14.5) % Plt Count (120.0-450.0) 10^3/uL MPV (7.0-11.0) fl Gran % (50.0-68.0) % Lymph % (Auto) (22.0-35.0) % Morehouse % (Auto) (1.0-6.0) % Eos % (Auto) (1.5-5.0) % Baso % (Auto) (0.0-3.0) % Gran # (1.4-6.5) Lymph # (Auto) (1.2-3.4) Morehouse # (Auto) (0.1-0.6) Eos # (Auto) (0.0-0.7) Baso # (Auto) (0.0-2.0) K/mm3 APTT (25.1-36.5) Seconds Sodium (132-148) mmol/L Potassium (3.6-5.0) mmol/L Chloride (98-107) mmol/L Carbon Dioxide (21-33) mmol/L Anion Gap (10-20) BUN (7-21) mg/dL Creatinine (0.8-1.5) mg/dl Est GFR ( Amer) Est GFR (Non-Af Amer) POC Glucose (mg/dL) 150 H 144 H (65-110) mg/dL Random Glucose (70-110) mg/dL Calcium (8.4-10.5) mg/dL Total Bilirubin (0.2-1.3) mg/dL AST (17-59) U/L ALT (7-56) U/L Alkaline Phosphatase (38-126) U/L Total Protein (5.8-8.3) g/dL Albumin (3.0-4.8) g/dL Globulin gm/dL Albumin/Globulin Ratio (1.1-1.8) Procalcitonin (0.19-0.49) NG/ML PTH Intact Whole Molec (14-64) pg/mL Serum Immunofixation Not detected (Not Detected) 01/21/18 01/21/18 Range/Units 12:14 05:10 WBC (4.5-11.0) 10^3/ul RBC (3.5-6.1) 10^6/uL Hgb (14.0-18.0) g/dL Hct (42.0-52.0) % MCV (80.0-105.0) fl MCH (25.0-35.0) pg MCHC (31.0-37.0) g/dl RDW (11.5-14.5) % Plt Count (120.0-450.0) 10^3/uL MPV (7.0-11.0) fl Gran % (50.0-68.0) % Lymph % (Auto) (22.0-35.0) % Morehouse % (Auto) (1.0-6.0) % Eos % (Auto) (1.5-5.0) % Baso % (Auto) (0.0-3.0) % Gran # (1.4-6.5) Lymph # (Auto) (1.2-3.4) Morehouse # (Auto) (0.1-0.6) Eos # (Auto) (0.0-0.7) Baso # (Auto) (0.0-2.0) K/mm3 APTT (25.1-36.5) Seconds Sodium (132-148) mmol/L Potassium (3.6-5.0) mmol/L Chloride (98-107) mmol/L Carbon Dioxide (21-33) mmol/L Anion Gap (10-20) BUN (7-21) mg/dL Creatinine (0.8-1.5) mg/dl Est GFR ( Amer) Est GFR (Non-Af Amer) POC Glucose (mg/dL) (65-110) mg/dL Random Glucose (70-110) mg/dL Calcium (8.4-10.5) mg/dL Total Bilirubin (0.2-1.3) mg/dL AST (17-59) U/L ALT (7-56) U/L Alkaline Phosphatase (38-126) U/L Total Protein (5.8-8.3) g/dL Albumin (3.0-4.8) g/dL Globulin gm/dL Albumin/Globulin Ratio (1.1-1.8) Procalcitonin 5.50 H (0.19-0.49) NG/ML PTH Intact Whole Molec 1649 H (14-64) pg/mL Serum Immunofixation (Not Detected) Laboratory Results - last 24 hr 01/21/18 01/21/18 01/21/18 05:10 12:14 18:16 WBC RBC Hgb Hct MCV MCH MCHC RDW Plt Count MPV Gran % Lymph % (Auto) [place] % (Auto) Eos % (Auto) Baso % (Auto) Gran # Lymph # (Auto) [place]house # (Auto) Eos # (Auto) Baso # (Auto) APTT Sodium Potassium Chloride Carbon Dioxide Anion Gap BUN Creatinine Est GFR ( Amer) Est GFR (Non-Af Amer) POC Glucose (mg/dL) Random Glucose Calcium Total Bilirubin AST ALT Alkaline Phosphatase Total Protein Albumin Globulin Albumin/Globulin Ratio Procalcitonin 5.50 H PTH Intact Whole Molec 1649 H Serum Immunofixation Not detected 01/22/18 01/22/18 01/22/18 16:05 21:34 22:39 WBC RBC Hgb 7.0 L Hct 20.3 L* MCV MCH MCHC RDW Plt Count MPV Gran % Lymph % (Auto) [place] % (Auto) Eos % (Auto) Baso % (Auto) Gran # Lymph # (Auto) [place]house # (Auto) Eos # (Auto) Baso # (Auto) APTT Sodium Potassium Chloride Carbon Dioxide Anion Gap BUN Creatinine Est GFR ( Amer) Est GFR (Non-Af Amer) POC Glucose (mg/dL) 144 H 150 H Random Glucose Calcium Total Bilirubin AST ALT Alkaline Phosphatase Total Protein Albumin Globulin Albumin/Globulin Ratio Procalcitonin PTH Intact Whole Molec Serum Immunofixation 01/22/18 01/23/18 01/23/18 22:39 03:59 03:59 WBC 13.5 H RBC 2.51 L Hgb 7.4 L Hct 21.8 L MCV 86.9 MCH 29.5 MCHC 33.9 RDW 14.9 H Plt Count 221 MPV 9.4 Gran % 88.7 H Lymph % (Auto) 7.0 L Morehouse % (Auto) 3.9 Eos % (Auto) 0.3 L Baso % (Auto) 0.1 Gran # 11.96 H Lymph # (Auto) 0.9 L [place]house # (Auto) 0.5 Eos # (Auto) 0.0 Baso # (Auto) 0.01 APTT 54.1 H Sodium 137 Potassium 4.6 Chloride 106 Carbon Dioxide 18 L Anion Gap 18 BUN 96 H Creatinine 11.8 H* Est GFR ( Amer) 5 Est GFR (Non-Af Amer) 4 POC Glucose (mg/dL) Random Glucose 124 H Calcium 7.6 L Total Bilirubin 0.6 AST 18 ALT 28 Alkaline Phosphatase 111 Total Protein 6.5 Albumin 2.9 L Globulin 3.5 Albumin/Globulin Ratio 0.8 L Procalcitonin PTH Intact Whole Molec Serum Immunofixation 01/23/18 01/23/18 01/23/18 07:16 07:40 07:40 WBC 14.6 H RBC 2.45 L Hgb 7.3 L Hct 21.4 L MCV 87.3 MCH 29.8 MCHC 34.1 RDW 15.0 H Plt Count 234 MPV 10.0 Gran % Lymph % (Auto) [place] % (Auto) Eos % (Auto) Baso % (Auto) Gran # Lymph # (Auto) [place] # (Auto) Eos # (Auto) Baso # (Auto) APTT 62.1 H Sodium Potassium Chloride Carbon Dioxide Anion Gap BUN Creatinine Est GFR ( Amer) Est GFR (Non-Af Amer) POC Glucose (mg/dL) 114 H Random Glucose Calcium Total Bilirubin AST ALT Alkaline Phosphatase Total Protein Albumin Globulin Albumin/Globulin Ratio Procalcitonin PTH Intact Whole Molec Serum Immunofixation 01/23/18 01/23/18 07:40 11:45 WBC RBC Hgb Hct MCV MCH MCHC RDW Plt Count MPV Gran % Lymph % (Auto) [place] % (Auto) Eos % (Auto) Baso % (Auto) Gran # Lymph # (Auto) [place] # (Auto) Eos # (Auto) Baso # (Auto) APTT Sodium 136 Potassium 4.4 Chloride 104 Carbon Dioxide 16 L Anion Gap 20 BUN 93 H Creatinine 11.8 H* Est GFR ( Amer) 5 Est GFR (Non-Af Amer) 4 POC Glucose (mg/dL) 141 H Random Glucose 109 Calcium 7.8 L Total Bilirubin 0.6 AST 29 ALT 18 Alkaline Phosphatase 117 Total Protein 6.8 Albumin 3.0 Globulin 3.8 Albumin/Globulin Ratio 0.8 L Procalcitonin PTH Intact Whole Molec Serum Immunofixation EKG/Cardiology Studies: Cardiology / EKG Studies 01/22/18 15:23 EKG [ELECTROCARDIOGRAM] Stat Comment: Reason For Exam: chest pain Fingerstick Blood Sugar Results: 140 Review of Systems - Constitutional Constitutional: absent: Fever, Chills, Sweats - EENT Eyes: absent: Blurred Vision Ears: absent: Decreased Hearing Nose/Mouth/Throat: absent: Dysphagia - Cardiovascular Cardiovascular: absent: Chest Pain - Respiratory Respiratory: absent: Cough, Dyspnea, Wheezing - Gastrointestinal Gastrointestinal: absent: Abdominal Pain, Constipation, Diarrhea, Nausea, Vomiting - Genitourinary Genitourinary: absent: Dysuria, Hematuria - Musculoskeletal Musculoskeletal: Muscle Cramps (calf) - Integumentary Integumentary: Skin Pain, Sores - Neurological Neurological: absent: Numbness, Tingling, Tremor Critical Care Progress Note - Ventilator Checklist Head of Bed 30 Degrees: Yes PUD Prophalyxis: Yes DVT Prophylaxis: Yes - Nutrition Nutrition: Nutrition Category Date Time Status Renal Diet [DIET] Diets 01/21/18 Breakfast Ordered Assessment/Plan - Assessment and Plan (Free Text) Assessment: 57 year old male with past medical history of CKD stage V, left lower extremity DVT, diabetes mellitus type II, Hypertension, hyperlipidemia, presents with shortness of breath worse with exertion; swelling, erythema, and pain of left lower extremity which started one month ago. Patient also presented with fecal occult blood test positive, had a hemoglobin of 6.9 on presentation and was given 1 U of PRBCs. Popliteal vein DVT was seen on ultrasound Plan: Neuro: -AAOx3, no FND, moving extremities past midline. -Monitor neuro status. -Reorient patient as necessary. Cardio: -Regular rate, hypertensive at 147/77, no signs of HD compromise -EKG: normal sinus rhythm with PACs and left atrial enlargement. HR: 99, MN: 128, QRS: 80, QTc: 451 -Patient had elevated troponins taken Q6 at 0.15, 0.18, 0.21. Elevated troponins likely due to elevated creatinine vs. right heart strain from massive PE vs. myocardial infarction vs. cocaine use. -Therapeutic heparin at 18 mg/kg/hr due to elevated troponins signifying NSTEMI and likely PE. -Echo: LVEF: 30.1%, severe tricuspid regurgitation, dilated IVC, moderate mitral regurgitation -BNP: 59,000 -Hydralazine 25 mg QID, Imdur 60 daily, and Lopressor 50 mg BID -Maintain MAP>65. -Monitor for S/S, HD compromise. -Dr. Mendez, Cardiology, consulted for recommendations. Dr. Mendez recommends patient get echocardiogram to evaluate cardiac function. Pulm: -No signs of respiratory distress. CTA B/L -Lower extremity ultrasound: left popliteal DVT -CXR: mild pulmonary congestion -V/Q scan performed to evaluate for PE since CTA cannot be done due to renal status. -Elevated troponins possibly due to right heart strain from PE. -Patient on therapeutic heparin 18 mg/kg/hr -Patient is stating well on 2L NC -Maintain O2 saturation>95%. GI: -Renal diet -CT abdomen ordered to rule out intraabdominal infection: showed no acute intraabdominal findings -Protonix 40 mg Q12 /Nephro: -BUN/Cr severely elevated at 124/13.5 -UA: protein>300, glucose>250, small blood, negative nitrate, negative leukocyte esterase, 15-20 RBC, 2-5 WBC, 6-8 epithelial cells -UDS: cocaine positive -Bailey catheter insertion: 1200 mL -Potassium: 4.4 -Bicarbonate 16 from 18. Sodium bicarbonate drip continued at 200 cc/hr -Renal ultrasound and renal duplex ultrasound ordered. -Tunnel catheter procedure performed yesterday -As per nephrology, ANNETTE, HIV, immunofixation, kappa light chain, antiphospholipid antibody, PTH, protein electrophoresis, hepatitis B panel -As per nephrology, hemodialysis to be done due to GIO on CKD stage V. 2 U of PRBCs will be given today with hemodialysis due to anemia. -Renal ultrasound: unremarkable and unchanged since last ultrasound but can't rule out echogenicity -Continue monitoring. -Replete electrolytes as needed. -Strict I and Os. Take daily weights. -Maintain euvolemia. Endocrinology: -Random glucose: 109 -Medium dose SSI -Maintain euglycemia. Heme/Onc: -H/H 7.3/21.4 from 7.6. 2 U of PRBCs to be given with hemodialysis today. Patient has had mild febrile transfusion reaction on last transfusion. Patient will receive acetaminophen and benadryl before this round of transfusion. -Iron low at 27. TIBC low at 190. Bilirubin normal at 0.4. Ferritin: elevated at 477. Anemia likely due to anemia of chronic disease. -As per GI, no need for endoscopy at this time. Heme consult ordered -One dose of aranesp given as per Dr. Lea. -Patient will likely need chronic hemodialysis. No need of renal biopsy due to the fact that kidneys are likely sclerosed due to significant damage. -Leukocytosis at 14.6. -Continue monitoring H/H ID: -Afebrile, Leukocytosis at 14.6 -Blood culture: no growth in 24 hours -CRP:>270 -VBG lactate: 1.1 -Monitor for signs and symptoms of infection. DVT prophylaxis: therapeutic heparin at 18 mg/kg/hr GI prophylaxis: protonix 40 mg BID Disposition: Patient stable and ready for transfer to medicine floors. Patient case discussed with Dr. Lisa. - Date & Time Date: 01/23/18 Time: 13:07 <Duarte Lisa - Last Filed: 01/23/18 13:27> CCU Objective - Vital Signs / Intake & Output Vital Signs (Last 4 hours): Vital Signs Temp Pulse BP 01/23/18 13:03 100.1 F H 01/23/18 09:28 130 H 148/87 Intake and Output (Last 8hrs): Intake & Output 01/22/18 01/23/18 01/23/18 22:59 06:59 14:59 Intake Total 350 250 Output Total 700 500 Balance -700 -150 250 Weight 225 lb Intake: IV 250 250 Oral 100 Output: Urine 700 500 Urethral (Bailey) 700 500 Other: # Bowel Movements 1 - Medications Active Medications: Active Medications Generic Name Dose Route Start Last Admin Trade Name Freq PRN Reason Stop Dose Admin Acetaminophen 650 mg 01/21/18 04:19 01/23/18 13:03 Tylenol 325mg Tab PO 650 mg Q6H PRN Administration Fever >100.4 F Dextrose 0 ml 01/21/18 00:34 Dextrose 50% Inj IV STAT PRN Hypoglycemia Protocol Protocol Hydralazine HCl 25 mg 01/22/18 14:00 01/23/18 09:28 Apresoline PO 25 mg QID CATHIE Administration Dextrose 1,000 mls @ 0 mls/hr 01/21/18 00:34 Dextrose 5% In Water 1000 Ml IV .Q0M PRN Hypoglycemia Protocol Protocol Per Protocol Heparin Sodium/Sodium Chloride 25,000 units in 250 mls @ 18.37 mls/hr 01/21/18 08:09 10/10/18 08:47 Heparin 65479 Units/250ml 1/2 Normal Saline IV 24 units/kg/hr .[id number] PRN 24.494 mls/hr ADJUST RATE PER PROTOCOL Administration Protocol 18 UNITS/KG/HR Insulin Human Lispro 0 units 01/21/18 07:30 01/23/18 11:50 Humalog Med SC Not Given ACHS [facility] Protocol Isosorbide Mononitrate 60 mg 01/22/18 11:00 01/23/18 09:28 Imdur PO 60 mg DAILY CATHIE Administration Metoprolol Tartrate 50 mg 01/22/18 16:30 01/23/18 09:28 Lopressor PO 50 mg BID CATHIE Administration Pantoprazole Sodium 40 mg 01/21/18 10:00 01/23/18 09:28 Protonix Inj IVP 40 mg Q12 CATHIE Administration - Patient Studies Lab Studies: Microbiology Studies 01/20/18 20:30 Blood Culture - Preliminary Blood-Venous NO GROWTH AFTER 48 HOURS 01/20/18 20:00 Blood Culture - Preliminary Blood-Venous NO GROWTH AFTER 48 HOURS 01/21/18 09:00 Urine Culture - Final Urine,Bailey No Growth (<1,000 CFU/ML) 01/21/18 03:56 MRSA Culture (Admit) - Final Nose MRSA NOT DETECTED 01/22/18 09:30 Gram Stain - Final Blood Transfusion Bag Lab Studies 01/23/18 01/23/18 01/23/18 Range/Units 11:45 07:40 07:40 WBC 14.6 H (4.5-11.0) 10^3/ul RBC 2.45 L (3.5-6.1) 10^6/uL Hgb 7.3 L (14.0-18.0) g/dL Hct 21.4 L (42.0-52.0) % MCV 87.3 (80.0-105.0) fl MCH 29.8 (25.0-35.0) pg MCHC 34.1 (31.0-37.0) g/dl RDW 15.0 H (11.5-14.5) % Plt Count 234 (120.0-450.0) 10^3/uL MPV 10.0 (7.0-11.0) fl Gran % (50.0-68.0) % Lymph % (Auto) (22.0-35.0) % [place] % (Auto) (1.0-6.0) % Eos % (Auto) (1.5-5.0) % Baso % (Auto) (0.0-3.0) % Gran # (1.4-6.5) Lymph # (Auto) (1.2-3.4) [place] # (Auto) (0.1-0.6) Eos # (Auto) (0.0-0.7) Baso # (Auto) (0.0-2.0) K/mm3 APTT (25.1-36.5) Seconds Sodium 136 (132-148) mmol/L Potassium 4.4 (3.6-5.0) mmol/L Chloride 104 (98-107) mmol/L Carbon Dioxide 16 L (21-33) mmol/L Anion Gap 20 (10-20) BUN 93 H (7-21) mg/dL Creatinine 11.8 H* (0.8-1.5) mg/dl Est GFR ( Amer) 5 Est GFR (Non-Af Amer) 4 POC Glucose (mg/dL) 141 H (65-110) mg/dL Random Glucose 109 (70-110) mg/dL Calcium 7.8 L (8.4-10.5) mg/dL Total Bilirubin 0.6 (0.2-1.3) mg/dL AST 29 (17-59) U/L ALT 18 (7-56) U/L Alkaline Phosphatase 117 (38-126) U/L Total Protein 6.8 (5.8-8.3) g/dL Albumin 3.0 (3.0-4.8) g/dL Globulin 3.8 gm/dL Albumin/Globulin Ratio 0.8 L (1.1-1.8) Procalcitonin (0.19-0.49) NG/ML PTH Intact Whole Molec (14-64) pg/mL Serum Immunofixation (Not Detected) 01/23/18 01/23/18 01/23/18 Range/Units 07:40 07:16 03:59 WBC (4.5-11.0) 10^3/ul RBC (3.5-6.1) 10^6/uL Hgb (14.0-18.0) g/dL Hct (42.0-52.0) % MCV (80.0-105.0) fl MCH (25.0-35.0) pg MCHC (31.0-37.0) g/dl RDW (11.5-14.5) % Plt Count (120.0-450.0) 10^3/uL MPV (7.0-11.0) fl Gran % (50.0-68.0) % Lymph % (Auto) (22.0-35.0) % [place]house % (Auto) (1.0-6.0) % Eos % (Auto) (1.5-5.0) % Baso % (Auto) (0.0-3.0) % Gran # (1.4-6.5) Lymph # (Auto) (1.2-3.4) Morehouse # (Auto) (0.1-0.6) Eos # (Auto) (0.0-0.7) Baso # (Auto) (0.0-2.0) K/mm3 APTT 62.1 H (25.1-36.5) Seconds Sodium 137 (132-148) mmol/L Potassium 4.6 (3.6-5.0) mmol/L Chloride 106 (98-107) mmol/L Carbon Dioxide 18 L (21-33) mmol/L Anion Gap 18 (10-20) BUN 96 H (7-21) mg/dL Creatinine 11.8 H* (0.8-1.5) mg/dl Est GFR ( Amer) 5 Est GFR (Non-Af Amer) 4 POC Glucose (mg/dL) 114 H (65-110) mg/dL Random Glucose 124 H (70-110) mg/dL Calcium 7.6 L (8.4-10.5) mg/dL Total Bilirubin 0.6 (0.2-1.3) mg/dL AST 18 (17-59) U/L ALT 28 (7-56) U/L Alkaline Phosphatase 111 (38-126) U/L Total Protein 6.5 (5.8-8.3) g/dL Albumin 2.9 L (3.0-4.8) g/dL Globulin 3.5 gm/dL Albumin/Globulin Ratio 0.8 L (1.1-1.8) Procalcitonin (0.19-0.49) NG/ML PTH Intact Whole Molec (14-64) pg/mL Serum Immunofixation (Not Detected) 01/23/18 01/22/18 01/22/18 Range/Units 03:59 22:39 22:39 WBC 13.5 H (4.5-11.0) 10^3/ul RBC 2.51 L (3.5-6.1) 10^6/uL Hgb 7.4 L 7.0 L (14.0-18.0) g/dL Hct 21.8 L 20.3 L* (42.0-52.0) % MCV 86.9 (80.0-105.0) fl MCH 29.5 (25.0-35.0) pg MCHC 33.9 (31.0-37.0) g/dl RDW 14.9 H (11.5-14.5) % Plt Count 221 (120.0-450.0) 10^3/uL MPV 9.4 (7.0-11.0) fl Gran % 88.7 H (50.0-68.0) % Lymph % (Auto) 7.0 L (22.0-35.0) % [place] % (Auto) 3.9 (1.0-6.0) % Eos % (Auto) 0.3 L (1.5-5.0) % Baso % (Auto) 0.1 (0.0-3.0) % Gran # 11.96 H (1.4-6.5) Lymph # (Auto) 0.9 L (1.2-3.4) [place] # (Auto) 0.5 (0.1-0.6) Eos # (Auto) 0.0 (0.0-0.7) Baso # (Auto) 0.01 (0.0-2.0) K/mm3 APTT 54.1 H (25.1-36.5) Seconds Sodium (132-148) mmol/L Potassium (3.6-5.0) mmol/L Chloride (98-107) mmol/L Carbon Dioxide (21-33) mmol/L Anion Gap (10-20) BUN (7-21) mg/dL Creatinine (0.8-1.5) mg/dl Est GFR ( Amer) Est GFR (Non-Af Amer) POC Glucose (mg/dL) (65-110) mg/dL Random Glucose (70-110) mg/dL Calcium (8.4-10.5) mg/dL Total Bilirubin (0.2-1.3) mg/dL AST (17-59) U/L ALT (7-56) U/L Alkaline Phosphatase (38-126) U/L Total Protein (5.8-8.3) g/dL Albumin (3.0-4.8) g/dL Globulin gm/dL Albumin/Globulin Ratio (1.1-1.8) Procalcitonin (0.19-0.49) NG/ML PTH Intact Whole Molec (14-64) pg/mL Serum Immunofixation (Not Detected) 01/22/18 01/22/18 01/21/18 Range/Units 21:34 16:05 18:16 WBC (4.5-11.0) 10^3/ul RBC (3.5-6.1) 10^6/uL Hgb (14.0-18.0) g/dL Hct (42.0-52.0) % MCV (80.0-105.0) fl MCH (25.0-35.0) pg MCHC (31.0-37.0) g/dl RDW (11.5-14.5) % Plt Count (120.0-450.0) 10^3/uL MPV (7.0-11.0) fl Gran % (50.0-68.0) % Lymph % (Auto) (22.0-35.0) % Morehouse % (Auto) (1.0-6.0) % Eos % (Auto) (1.5-5.0) % Baso % (Auto) (0.0-3.0) % Gran # (1.4-6.5) Lymph # (Auto) (1.2-3.4) Morehouse # (Auto) (0.1-0.6) Eos # (Auto) (0.0-0.7) Baso # (Auto) (0.0-2.0) K/mm3 APTT (25.1-36.5) Seconds Sodium (132-148) mmol/L Potassium (3.6-5.0) mmol/L Chloride (98-107) mmol/L Carbon Dioxide (21-33) mmol/L Anion Gap (10-20) BUN (7-21) mg/dL Creatinine (0.8-1.5) mg/dl Est GFR ( Amer) Est GFR (Non-Af Amer) POC Glucose (mg/dL) 150 H 144 H (65-110) mg/dL Random Glucose (70-110) mg/dL Calcium (8.4-10.5) mg/dL Total Bilirubin (0.2-1.3) mg/dL AST (17-59) U/L ALT (7-56) U/L Alkaline Phosphatase (38-126) U/L Total Protein (5.8-8.3) g/dL Albumin (3.0-4.8) g/dL Globulin gm/dL Albumin/Globulin Ratio (1.1-1.8) Procalcitonin (0.19-0.49) NG/ML PTH Intact Whole Molec (14-64) pg/mL Serum Immunofixation Not detected (Not Detected) 01/21/18 01/21/18 Range/Units 12:14 05:10 WBC (4.5-11.0) 10^3/ul RBC (3.5-6.1) 10^6/uL Hgb (14.0-18.0) g/dL Hct (42.0-52.0) % MCV (80.0-105.0) fl MCH (25.0-35.0) pg MCHC (31.0-37.0) g/dl RDW (11.5-14.5) % Plt Count (120.0-450.0) 10^3/uL MPV (7.0-11.0) fl Gran % (50.0-68.0) % Lymph % (Auto) (22.0-35.0) % Morehouse % (Auto) (1.0-6.0) % Eos % (Auto) (1.5-5.0) % Baso % (Auto) (0.0-3.0) % Gran # (1.4-6.5) Lymph # (Auto) (1.2-3.4) Morehouse # (Auto) (0.1-0.6) Eos # (Auto) (0.0-0.7) Baso # (Auto) (0.0-2.0) K/mm3 APTT (25.1-36.5) Seconds Sodium (132-148) mmol/L Potassium (3.6-5.0) mmol/L Chloride (98-107) mmol/L Carbon Dioxide (21-33) mmol/L Anion Gap (10-20) BUN (7-21) mg/dL Creatinine (0.8-1.5) mg/dl Est GFR ( Amer) Est GFR (Non-Af Amer) POC Glucose (mg/dL) (65-110) mg/dL Random Glucose (70-110) mg/dL Calcium (8.4-10.5) mg/dL Total Bilirubin (0.2-1.3) mg/dL AST (17-59) U/L ALT (7-56) U/L Alkaline Phosphatase (38-126) U/L Total Protein (5.8-8.3) g/dL Albumin (3.0-4.8) g/dL Globulin gm/dL Albumin/Globulin Ratio (1.1-1.8) Procalcitonin 5.50 H (0.19-0.49) NG/ML PTH Intact Whole Molec 1649 H (14-64) pg/mL Serum Immunofixation (Not Detected) Laboratory Results - last 24 hr 01/21/18 01/21/18 01/21/18 05:10 12:14 18:16 WBC RBC Hgb Hct MCV MCH MCHC RDW Plt Count MPV Gran % Lymph % (Auto) Morehouse % (Auto) Eos % (Auto) Baso % (Auto) Gran # Lymph # (Auto) Morehouse # (Auto) Eos # (Auto) Baso # (Auto) APTT Sodium Potassium Chloride Carbon Dioxide Anion Gap BUN Creatinine Est GFR ( Amer) Est GFR (Non-Af Amer) POC Glucose (mg/dL) Random Glucose Calcium Total Bilirubin AST ALT Alkaline Phosphatase Total Protein Albumin Globulin Albumin/Globulin Ratio Procalcitonin 5.50 H PTH Intact Whole Molec 1649 H Serum Immunofixation Not detected 01/22/18 01/22/18 01/22/18 16:05 21:34 22:39 WBC RBC Hgb 7.0 L Hct 20.3 L* MCV MCH MCHC RDW Plt Count MPV Gran % Lymph % (Auto) Morehouse % (Auto) Eos % (Auto) Baso % (Auto) Gran # Lymph # (Auto) Morehouse # (Auto) Eos # (Auto) Baso # (Auto) APTT Sodium Potassium Chloride Carbon Dioxide Anion Gap BUN Creatinine Est GFR ( Amer) Est GFR (Non-Af Amer) POC Glucose (mg/dL) 144 H 150 H Random Glucose Calcium Total Bilirubin AST ALT Alkaline Phosphatase Total Protein Albumin Globulin Albumin/Globulin Ratio Procalcitonin PTH Intact Whole Molec Serum Immunofixation 01/22/18 01/23/18 01/23/18 22:39 03:59 03:59 WBC 13.5 H RBC 2.51 L Hgb 7.4 L Hct 21.8 L MCV 86.9 MCH 29.5 MCHC 33.9 RDW 14.9 H Plt Count 221 MPV 9.4 Gran % 88.7 H Lymph % (Auto) 7.0 L Morehouse % (Auto) 3.9 Eos % (Auto) 0.3 L Baso % (Auto) 0.1 Gran # 11.96 H Lymph # (Auto) 0.9 L Morehouse # (Auto) 0.5 Eos # (Auto) 0.0 Baso # (Auto) 0.01 APTT 54.1 H Sodium 137 Potassium 4.6 Chloride 106 Carbon Dioxide 18 L Anion Gap 18 BUN 96 H Creatinine 11.8 H* Est GFR ( Amer) 5 Est GFR (Non-Af Amer) 4 POC Glucose (mg/dL) Random Glucose 124 H Calcium 7.6 L Total Bilirubin 0.6 AST 18 ALT 28 Alkaline Phosphatase 111 Total Protein 6.5 Albumin 2.9 L Globulin 3.5 Albumin/Globulin Ratio 0.8 L Procalcitonin PTH Intact Whole Molec Serum Immunofixation 01/23/18 01/23/18 01/23/18 07:16 07:40 07:40 WBC 14.6 H RBC 2.45 L Hgb 7.3 L Hct 21.4 L MCV 87.3 MCH 29.8 MCHC 34.1 RDW 15.0 H Plt Count 234 MPV 10.0 Gran % Lymph % (Auto) Morehouse % (Auto) Eos % (Auto) Baso % (Auto) Gran # Lymph # (Auto) Morehouse # (Auto) Eos # (Auto) Baso # (Auto) APTT 62.1 H Sodium Potassium Chloride Carbon Dioxide Anion Gap BUN Creatinine Est GFR ( Amer) Est GFR (Non-Af Amer) POC Glucose (mg/dL) 114 H Random Glucose Calcium Total Bilirubin AST ALT Alkaline Phosphatase Total Protein Albumin Globulin Albumin/Globulin Ratio Procalcitonin PTH Intact Whole Molec Serum Immunofixation 01/23/18 01/23/18 07:40 11:45 WBC RBC Hgb Hct MCV MCH MCHC RDW Plt Count MPV Gran % Lymph % (Auto) Morehouse % (Auto) Eos % (Auto) Baso % (Auto) Gran # Lymph # (Auto) Morehouse # (Auto) Eos # (Auto) Baso # (Auto) APTT Sodium 136 Potassium 4.4 Chloride 104 Carbon Dioxide 16 L Anion Gap 20 BUN 93 H Creatinine 11.8 H* Est GFR ( Amer) 5 Est GFR (Non-Af Amer) 4 POC Glucose (mg/dL) 141 H Random Glucose 109 Calcium 7.8 L Total Bilirubin 0.6 AST 29 ALT 18 Alkaline Phosphatase 117 Total Protein 6.8 Albumin 3.0 Globulin 3.8 Albumin/Globulin Ratio 0.8 L Procalcitonin PTH Intact Whole Molec Serum Immunofixation EKG/Cardiology Studies: Cardiology / EKG Studies 01/22/18 15:23 EKG [ELECTROCARDIOGRAM] Stat Comment: Reason For Exam: chest pain Critical Care Progress Note - Nutrition Nutrition: Nutrition Category Date Time Status Renal Diet [DIET] Diets 01/21/18 Breakfast Ordered Attending/Attestation - Attestation I have personally seen and examined this patient.: Yes I have fully participated in the care of the patient.: Yes I have reviewed all pertinent clinical information: Yes Notes (Text): 01/23/18 13:[address] Lisa note
[2018-01-23] MEDS ORDERED: Doxercalciferol 4 mcg/2 ml Inj IV ONE (13:50)
--- NOTE | 2018-01-23 17:23 | CP.PCM.PN ---
<Palmira Ruffin - Last Filed: 01/23/18 18:56> Subjective - Date & Time of Evaluation Date of Evaluation: 01/23/18 Time of Evaluation: 11:00 - Subjective Subjective: INTERNAL MEDICINE PROGRESS NOTE FOR DR. HILARIA WillisO. PGY-1 Pt seen and examined at bedside this am. Pt reports no acute complaints. Pt tolerating HD treatments. Pt to undergo another bedside HD today. He denies fevers, chills, headache, dizziness, chest pain, palpitations, shortness of breath, nausea, vomiting, constipation, diarrhea, dysuria. Objective - Vital Signs/Intake and Output Vital Signs (last 24 hours): Temp Pulse Resp BP Pulse Ox 100 F H 120 H 13 150/78 98 01/23/18 14:00 01/23/18 17:16 01/23/18 16:45 01/23/18 17:16 01/23/18 16:45 Intake and Output: 01/23/18 01/23/18 06:59 18:59 Intake Total 350 250 Output Total 500 Balance -150 250 - Medications Medications: Current Medications Acetaminophen (Tylenol 325mg Tab) 650 mg PO Q6H PRN PRN Reason: Fever >100.4 F Last Admin: 01/23/18 13:03 Dose: 650 mg Dextrose (Dextrose 50% Inj) 0 ml IV STAT PRN; Protocol PRN Reason: Hypoglycemia Protocol Hydralazine HCl (Apresoline) 25 mg PO QID CATHIE Last Admin: 01/23/18 17:18 Dose: Not Given Dextrose (Dextrose 5% In Water 1000 Ml) 1,000 mls @ 0 mls/hr IV .Q0M PRN; Protocol PRN Reason: Hypoglycemia Protocol Heparin Sodium/Sodium Chloride (Heparin 06426 Units/250ml 1/2 Normal Saline) 25,000 units in 250 mls @ 18.37 mls/hr IV .[id number] PRN; Protocol PRN Reason: ADJUST RATE PER PROTOCOL Last Admin: 01/23/18 08:47 Dose: 24 units/kg/hr, 24.494 mls/hr Insulin Human Lispro (Humalog Med) 0 units SC ACHS CATHIE; Protocol Last Admin: 01/23/18 17:17 Dose: Not Given Isosorbide Mononitrate (Imdur) 60 mg PO DAILY [facility] Last Admin: 01/23/18 09:28 Dose: 60 mg Metoprolol Tartrate (Lopressor) 50 mg PO BID [facility] Last Admin: 01/23/18 17:16 Dose: 50 mg Pantoprazole Sodium (Protonix Inj) 40 mg IVP Q12 [facility] Last Admin: 01/23/18 09:28 Dose: 40 mg - Labs Labs: 01/23/18 07:40 01/23/18 07:40 PT 17.3 SECONDS (9.4-12.5) H 01/20/18 20:30 INR 1.50 01/20/18 20:30 APTT 62.1 Seconds (25.1-36.5) H 01/23/18 07:40 - Constitutional Appears: Well, Non-toxic, No Acute Distress - Head Exam Head Exam: NORMAL INSPECTION, NORMOCEPHALIC - Eye Exam Eye Exam: EOMI, Normal appearance - ENT Exam ENT Exam: Mucous Membranes Moist, Normal Exam - Neck Exam Neck Exam: Normal Inspection. absent: Meningismus - Respiratory Exam Respiratory Exam: Clear to Ausculation Bilateral, NORMAL BREATHING PATTERN - Cardiovascular Exam Cardiovascular Exam: Tachycardia, +S1, +S2 - GI/Abdominal Exam GI & Abdominal Exam: Soft, Normal Bowel Sounds. absent: Tenderness - Extremities Exam Extremities Exam: Calf Tenderness (L calf), Joint Swelling Additional comments: 2cmx 3cm blister filled with fluid noted on LLE - Back Exam Back Exam: NORMAL INSPECTION. absent: CVA tenderness (L), CVA tenderness (R) - Neurological Exam Neurological Exam: Alert, Awake, Oriented x3 - Psychiatric Exam Psychiatric exam: Normal Affect, Normal Mood - Skin Skin Exam: Dry, Intact, Warm Assessment and Plan - Assessment and Plan (Free Text) Assessment: 57 year old male with past medical history of CKD on HD, left lower extremity DVT, diabetes mellitus type II, Hypertension, hyperlipidemia, presented with shortness of breath worse with exertion; swelling, erythema, and pain of left lower extremity which started one month ago. Patient also presented with fecal occult blood test positive, had a hemoglobin of 6.9 on presentation and has received a total of 5u PRBCs. Popliteal vein DVT was seen on ultrasound. Pt found to have increased BUN/Cr and has been undergoing bedside HD treatments in the ICU. Pt followed by GI, Nephro, Cardio, and Heme-Onc. Plan: CKD4 BUN/Cr severely elevated but imroving with HD @ 93/11.8 Unremarkable renal ultrasound report. Upon nephro note, echogeneity noted on renal u/s Initiated on HD via R tunneled IJ cath placed by IR; slow HD performed to avoid dialysis dysequilibrium Patient to receive full dialysis session today and take off 2 L. Patient to get vein mapping tomorrow As per nephrology, ANNETTE, HIV, immunofixation, kappa light chain, antiphospholipid antibody, PTH, protein electrophoresis, hepatitis B panel Has longstanding renal failure and has no history that suggests any acute insult (no GI losses, no acute illnesses); therefore, it is safe to say that patient will require chronic HD Per nephro, pt needs fistula for future dialysis Replete electrolytes as needed. Strict I and Os. Take daily weights. Maintain euvolemia. 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 right heart strain from massive PE vs. myocardial infarction vs. cocaine use Continue therapeutic heparin drip Monitor H&H for signs of bleeding. Appreciate GI recs Tachycardia Pt has been persistently tachycardic VQ scan shows low probability of pulmonary embolism Continue heparin drip Appreciate cardiology recs CHFrEF Echo: EF 20-25% BNP: 59,000 Elevated troponins likely due to elevated creatinine vs. right heart strain from massive PE vs. myocardial infarction vs. cocaine use Pt to start hemodialysis after IJ port placement Maintain MAP>65. Monitor for S/S, HD compromise. Dr. Mendez, Cardiology, consulted for recommendations. DM2 Hgb A1c 6.5% Medium dose SSI Maintain euglycemia. HTN Hydralazine 25 mg Q6 for elevated blood pressures Continue metoprolol Dr. Mendez, Cardiology, consulted for recommendations. HTN/ HR has improved with dialysis DVT prophylaxis: therapeutic heparin at 18 mg/kg/hr GI prophylaxis:protonix 40 mg IVP BID Dispo: As per ICU note, pt stable to transferred to medicine floors Case seen, examined & discussed with attending physician, Dr. Marc <Elizabeth Marc - Last Filed: 01/27/18 15:17> Objective - Vital Signs/Intake and Output Vital Signs (last 24 hours): Temp Pulse Resp BP Pulse Ox 99.4 F 129 H 22 154/90 H 98 01/27/18 12:00 01/27/18 13:50 01/27/18 12:00 01/27/18 13:50 01/27/18 06:00 Intake and Output: 01/27/18 01/27/18 06:59 18:59 Intake Total 1652 500 Output Total 1650 950 Balance 2 -450 - Medications Medications: Current Medications Acetaminophen (Tylenol 325mg Tab) 650 mg PO Q6H PRN PRN Reason: Fever >100.4 F Last Admin: 01/25/18 17:42 Dose: 650 mg Calcium Acetate (Phoslo) 667 mg PO WM [facility] Last Admin: 01/27/18 12:26 Dose: 667 mg Dextrose (Dextrose 50% Inj) 0 ml IV STAT PRN; Protocol PRN Reason: Hypoglycemia Protocol Digoxin (Lanoxin) 0.125 mg PO 1400 [facility] Last Admin: 01/27/18 13:49 Dose: 0.125 mg Diltiazem HCl (Cardizem Cd) 180 mg PO DAILY [facility] Last Admin: 01/27/18 13:49 Dose: 180 mg Hydralazine HCl (Apresoline) 25 mg PO QID [facility] Last Admin: 01/27/18 13:50 Dose: 25 mg Dextrose (Dextrose 5% In Water 1000 Ml) 1,000 mls @ 0 mls/hr IV .Q0M PRN; Protocol PRN Reason: Hypoglycemia Protocol Heparin Sodium/Sodium Chloride (Heparin 25337 Units/250ml 1/2 Normal Saline) 25,000 units in 250 mls @ 18.37 mls/hr IV .[id number] PRN; Protocol PRN Reason: ADJUST RATE PER PROTOCOL Last Titration: 01/27/18 08:40 Dose: 30 units/kg/hr, 30.617 mls/hr Insulin Human Lispro (Humalog Med) 0 units SC ACHS [facility]; Protocol Last Admin: 01/27/18 11:43 Dose: Not Given Isosorbide Mononitrate (Imdur) 60 mg PO DAILY [facility] Last Admin: 01/27/18 09:07 Dose: 60 mg Pantoprazole Sodium (Protonix Ec Tab) 40 mg PO 0600 [facility] - Labs Labs: 01/27/18 06:00 01/27/18 06:00 PT 17.3 SECONDS (9.4-12.5) H 01/20/18 20:30 INR 1.50 01/20/18 20:30 APTT 35.2 Seconds (25.1-36.5) 01/27/18 06:30 Attending/Attestation - Attestation I have personally seen and examined this patient.: Yes I have fully participated in the care of the patient.: Yes I have reviewed all pertinent clinical information, including history, physical exam and plan: Yes Notes (Text): Patient seen and examined by me at 9:50AM with resident 01/23/18. Case including HPI, physical exam, and assessment and plan discussed with resident. Agree with above with following additions/corrections. Patient is a 57-year-old male with past medical history significant for chronic kidney disease stage III, left lower extremity DVT, type 2 diabetes, hypertension, hyperlipidemia, and noncompliance of medications that presented to the emergency room with worsening of shortness of breath and increased swelling and pain in left lower extremity. Patient states that he feels ok. Still with lower extremity pain but feels a little better. Patient asking to have lundy catheter removed. He denies any chest pain or shortness of breath. No nausea, vomiting,or abdominal pain. No headaches or dizziness. No fevers or chills. Patient is also tolerating dialysis. Physical exam: General: Awake and alert, lying in bed in no acute distress HEENT: Normocephalic, atraumatic. Extraocular muscles intact. Pupils equal reactive. No scleral icterus. Oropharynx is pink and moist. No pharyngeal erythema or exudate appreciated. Neck is supple. Cardiovascular: Tachycardic S1, S2. Positive systolic murmur. No rubs or gallops appreciated Pulmonary: Normal respiratory effort. Decreased breath sounds. No rhonchi, rales, or wheezing appreciated. Gastrointestinal: Soft, nondistended. Nontender. Positive bowel sounds all 4 quadrants, no guarding. Musculoskeletal: Moves all extremities. Positive bilateral lower extremity edema, left greater than right. Positive erythema left lower extremity. Positive calf tenderness left lower extremity. Central nervous system: AAO x3 Dermatologic: Skin warm and dry. Assessment and plan: Patient is a 57-year-old male with past medical history significant for chronic kidney disease stage III, left lower extremity DVT, type 2 diabetes, hypertension, hyperlipidemia, and noncompliance of medications that presented to the emergency room with worsening of shortness of breath and increased swelling and pain in left lower extremity. 1. Acute on chronic renal failure. Nephrology following, recommendations appreciated. Continue dialysis as per nephrology. Renal ultrasound per radiologist showed unremarkable renal sonogram; no significant interval change. CT abd/pelvis per radiologist showed no acute intra-abdominal findings. 2. Anemia. Likely secondary to renal failure. S/P 3.5 units PRBCs. Patient being transfused 2 more units PRBCs today. Stool for occult blood positive. GI fo llowing, recommendations appreciated. Continue with heparin drip for DVT. Continue to monitor CBC. Continue with protonix. Patient to start Aranesp. 3. Dyspnea. No dyspnea at rest. Likely multifactorial. Secondary to renal failure, CHF exacerbation, and anemia. Patient for V/Q Scan today to rule out PE. Continue dialysis. Patient receiving 2 more units PRBCs today. 4. Elevated troponin. Tachycardia. Cardiology following, recommendations appreciated. Continue heparin drip. 2d echo per barrel cleaner showed four chamber dilatation consistent with CMP, EF 20-25%, global hypokinesis, trace to mild aortic regurgitation, mitral regurgitation is moderate, severe tricuspid regu rgitation, IVC dilated, no pericardial effusion. Continue imdur. Still with tachycardia, follow up cardio recommendations. 5. Elevated BNP. Acute on chronic CHF exacerbation. 2d echo as above. Cardiology following, recommendations appreciated. Continue dialysis. Monitor ins and outs. 6. Elevated d-dimer. Left lower extremity DVT. V/Q scan today to rule out PE. Continue heparin drip. Left lower extremity venous Doppler per radiologist showed subacute/chronic partially occlusive thrombus in the left popliteal vein. 7. Leukocytosis. Uptrending. Blood culture with no growth to date. Urine culture with no growth. Patient afebrile. 8. DM2. Continue insulin sliding scale. Continue to monitor accuchecks. Hgb A1C 6.5. 9. Hypertension. Continue hydralazine and imdur 10. Cocaine abuse. Patient counseled on cessation. 11. GI and DVT prophylaxis. Protonix and heparin drip 12. Patient is a full code. Case was discussed in detail with patient regarding current diagnosis and treatment plan.
[2018-01-23 22:56] LABS: CARDIOLIPIN AB (IGA) <11 APL (<=11); CARDIOLIPIN AB (IGG) <14 GPL (<=14)
[2018-01-23 23:58] LABS: B2 GLYCOPROTEIN I AB(IGA) <9 SAU (<=20); B2 GLYCOPROTEIN I AB(IGG) <9 SGU (<=20); B2 GLYCOPROTEIN I AB(IGM) <9 SMU (<=20)
--- NOTE | 2018-01-24 04:59 | CP.PCM.PN ---
<Palmira Ruffin - Last Filed: 01/24/18 15:39> Subjective - Date & Time of Evaluation Date of Evaluation: 01/24/18 Time of Evaluation: 11:00 - Subjective Subjective: INTERNAL MEDICINE PROGRESS NOTE FOR DR. HILARIA WillisO. PGY-1 Pt seen and examined this am. Pt transferred yesterday from ICU to tele floor. Lundy taken out in ICU. Pt underwent VQ scan yesterday. Pt transfused 2u pRBC yesterday. Discussion with patient about fistula formation. Vein mapping has been ordered. Pt denies complaints this am. He denies fevers, chills, chest pain palpitations, shortness of breath, nausea, vomiting, constipation, diarrhea, dysuria. Objective - Vital Signs/Intake and Output Vital Signs (last 24 hours): Temp Pulse Resp BP Pulse Ox 99 F 104 H 18 132/91 H 99 01/24/18 01:20 01/24/18 02:00 01/24/18 01:20 01/24/18 01:20 01/24/18 01:20 Intake and Output: 01/23/18 01/24/18 18:59 06:59 Intake Total 1348 240 Output Total 500 300 Balance 848 -60 - Medications Medications: Current Medications Acetaminophen (Tylenol 325mg Tab) 650 mg PO Q6H PRN PRN Reason: Fever >100.4 F Last Admin: 01/23/18 13:03 Dose: 650 mg Dextrose (Dextrose 50% Inj) 0 ml IV STAT PRN; Protocol PRN Reason: Hypoglycemia Protocol Hydralazine HCl (Apresoline) 25 mg PO QID CATHIE Last Admin: 01/23/18 21:49 Dose: 25 mg Dextrose (Dextrose 5% In Water 1000 Ml) 1,000 mls @ 0 mls/hr IV .Q0M PRN; Protocol PRN Reason: Hypoglycemia Protocol Heparin Sodium/Sodium Chloride (Heparin 72719 Units/250ml 1/2 Normal Saline) 25,000 units in 250 mls @ 18.37 mls/hr IV .[id number] PRN; Protocol PRN Reason: ADJUST RATE PER PROTOCOL Last Admin: 01/23/18 18:36 Dose: 24 units/kg/hr, 24.494 mls/hr Insulin Human Lispro (Humalog Med) 0 units SC ACHS [facility]; Protocol Last Admin: 01/23/18 21:40 Dose: Not Given Isosorbide Mononitrate (Imdur) 60 mg PO DAILY [facility] Last Admin: 01/23/18 09:28 Dose: 60 mg Metoprolol Tartrate (Lopressor) 50 mg PO BID [facility] Last Admin: 01/23/18 17:16 Dose: 50 mg Pantoprazole Sodium (Protonix Inj) 40 mg IVP Q12 [facility] Last Admin: 01/23/18 21:49 Dose: 40 mg - Labs Labs: 01/23/18 07:40 01/23/18 07:40 PT 17.3 SECONDS (9.4-12.5) H 01/20/18 20:30 INR 1.50 01/20/18 20:30 APTT 62.1 Seconds (25.1-36.5) H 01/23/18 07:40 - Constitutional Appears: Well, Non-toxic, No Acute Distress - Head Exam Head Exam: NORMAL INSPECTION, NORMOCEPHALIC - Eye Exam Eye Exam: EOMI, Normal appearance - ENT Exam ENT Exam: Mucous Membranes Moist, Normal Exam - Neck Exam Neck Exam: Normal Inspection. absent: Meningismus - Respiratory Exam Respiratory Exam: Clear to Ausculation Bilateral, NORMAL BREATHING PATTERN - Cardiovascular Exam Cardiovascular Exam: Tachycardia, +S1, +S2 - GI/Abdominal Exam GI & Abdominal Exam: Soft. absent: Tenderness - Exam Additional comments: No lundy in place. - Extremities Exam Extremities Exam: Calf Tenderness (L sided) Additional comments: L anterior 2x3cm fluid filled blister. Chronic in nature. - Back Exam Back Exam: NORMAL INSPECTION. absent: CVA tenderness (L), CVA tenderness (R) - Neurological Exam Neurological Exam: Alert, Awake, Oriented x3 - Psychiatric Exam Psychiatric exam: Normal Affect, Normal Mood - Skin Skin Exam: Dry, Intact, Warm Assessment and Plan - Assessment and Plan (Free Text) Assessment: 57 year old male with past medical history of CKD on HD, left lower extremity DVT, diabetes mellitus type II, Hypertension, hyperlipidemia, presented with shortness of breath worse with exertion; swelling, erythema, and pain of left lower extremity which started one month ago. Patient also presented with fecal occult blood test positive, had a hemoglobin of 6.9 on presentation and has received a total of 5u PRBCs. Popliteal vein DVT was seen on ultrasound. Pt found to have increased BUN/Cr and has been undergoing bedside HD treatments in the ICU. Pt underwent VQ scan yesterday. Received another 2u PRBC yesterday. Hemoglobin responded. Subsequently transferred out of ICU to telemetry floor. Pt followed by GI, Nephro, Cardio, and Heme-Onc. Plan: ESRD BUN/Cr severely elevated but improving with HD Unremarkable renal ultrasound report. Upon nephro note, echogeneity noted on renal u/s Pt to undergo HD via R tunneled IJ cath placed by IR; slow HD performed to avoid dialysis dysequilibrium Patient to get vein mapping tomorrow As per nephrology, ANNETTE, HIV, immunofixation, kappa light chain, antiphospholipid antibody, PTH, protein electrophoresis, hepatitis B panel Has longstanding renal failure and has no history that suggests any acute insult (no GI losses, no acute illnesses); therefore, it is safe to say that patient will require chronic HD Per nephro, pt needs fistula for future dialysis Replete electrolytes as needed. Strict I and Os. Take daily weights. Maintain euvolemia. CHFrEF Echo: EF 20-25% BNP: 59,000 Elevated troponins likely due to elevated creatinine vs. right heart strain from massive PE vs. myocardial infarction vs. cocaine use Continue HD with IJ placement. Discussion about fistula formation initiated. Pt unsure of whether he wants it or not. Maintain MAP>65. Monitor for S/S, HD compromise. Dr. Mendez, Cardiology, consulted for recommendations. Tachycardia Of unknown etiology Pt has been persistently tachycardic VQ scan shows low probability of pulmonary embolism Continue heparin drip Appreciate cardiology recs Normocytic Anemia Hgb 7.3. Previous, 7.4, 7.0, 7.6, 7.0 Pt transfused 2u PRBC yesterday. Transfused 5uPRBC total. Had adverse reaction to transfusion on 01/21/18, only 75cc given at that time. Persistent anemia with transfusions Aranasep 100mcg given yesterday Awaiting hematology input LLE DVT subacute/chronic partially occlusive thrombus in L popliteal vein Pt started on heparin drip Monitor H&H for signs of bleeding Appreciate GI recs Elevated troponin Elevated troponins likely due to elevated creatinine vs. right heart strain from massive PE vs. myocardial infarction vs. cocaine use Continue therapeutic heparin drip Monitor H&H for signs of bleeding. Appreciate GI recs DM2 Hgb A1c 6.5% Medium dose SSI Maintain euglycemia. HTN Hydralazine 25 mg qid for elevated blood pressures Continue 50mg bid metoprolol Dr. Mendez, Cardiology, consulted for recommendations. HTN/HR has improved with dialysis DVT prophylaxis/GI PPx: therapeutic heparin at 18 mg/kg/hr/protonix 40 mg IVP q12 Case seen, examined & discussed with attending physician, Dr. Marc <Elizabeth Marc R - Last Filed: 01/27/18 15:31> Objective - Vital Signs/Intake and Output Vital Signs (last 24 hours): Temp Pulse Resp BP Pulse Ox 99.4 F 129 H 22 154/90 H 98 01/27/18 12:00 01/27/18 13:50 01/27/18 12:00 01/27/18 13:50 01/27/18 06:00 Intake and Output: 01/27/18 01/27/18 06:59 18:59 Intake Total 1652 500 Output Total 1650 950 Balance 2 -450 - Medications Medications: Current Medications Acetaminophen (Tylenol 325mg Tab) 650 mg PO Q6H PRN PRN Reason: Fever >100.4 F Last Admin: 01/25/18 17:42 Dose: 650 mg Calcium Acetate (Phoslo) 667 mg PO WM [facility] Last Admin: 01/27/18 12:26 Dose: 667 mg Dextrose (Dextrose 50% Inj) 0 ml IV STAT PRN; Protocol PRN Reason: Hypoglycemia Protocol Digoxin (Lanoxin) 0.125 mg PO 1400 [facility] Last Admin: 01/27/18 13:49 Dose: 0.125 mg Diltiazem HCl (Cardizem Cd) 180 mg PO DAILY [facility] Last Admin: 01/27/18 13:49 Dose: 180 mg Hydralazine HCl (Apresoline) 25 mg PO QID [facility] Last Admin: 01/27/18 13:50 Dose: 25 mg Dextrose (Dextrose 5% In Water 1000 Ml) 1,000 mls @ 0 mls/hr IV .Q0M PRN; Protocol PRN Reason: Hypoglycemia Protocol Heparin Sodium/Sodium Chloride (Heparin 40545 Units/250ml 1/2 Normal Saline) 25,000 units in 250 mls @ 18.37 mls/hr IV .[id number] PRN; Protocol PRN Reason: ADJUST RATE PER PROTOCOL Last Titration: 01/27/18 08:40 Dose: 30 units/kg/hr, 30.617 mls/hr Insulin Human Lispro (Humalog Med) 0 units SC ACHS [facility]; Protocol Last Admin: 01/27/18 11:43 Dose: Not Given Isosorbide Mononitrate (Imdur) 60 mg PO DAILY [facility] Last Admin: 01/27/18 09:07 Dose: 60 mg Pantoprazole Sodium (Protonix Ec Tab) 40 mg PO 0600 [facility] - Labs Labs: 01/27/18 06:00 01/27/18 06:00 PT 17.3 SECONDS (9.4-12.5) H 01/20/18 20:30 INR 1.50 01/20/18 20:30 APTT 92.5 Seconds (25.1-36.5) H 01/27/18 14:46 Attending/Attestation - Attestation I have personally seen and examined this patient.: Yes I have fully participated in the care of the patient.: Yes I have reviewed all pertinent clinical information, including history, physical exam and plan: Yes Notes (Text): Patient seen and examined by me in dialysis at 12:25PM with resident 01/24/18. Case including HPI, physical exam, and assessment and plan discussed with resident. Agree with above with following additions/corrections. Patient is a 57-year-old male with past medical history significant for chronic kidney disease stage III, left lower extremity DVT, type 2 diabetes, hypertension, hyperlipidemia, and noncompliance of medications that presented to the emergency room with worsening of shortness of breath and increased swelling and pain in left lower extremity. Patient states that he is feeling tired. Complains of lower extremity pain, greater on left than right. Patient states he noticed some burning and small blood with urination after lundy catheter was removed. Patient denies chest pain or shortness of breath. He has no nausea, vomiting,or abdominal pain. No headaches or dizziness. No fevers or chills. Physical exam: General: Awake and alert, lying in bed in no acute distress HEENT: Normocephalic, atraumatic. Extraocular muscles intact. Pupils equal reactive. No scleral icterus. Oropharynx is pink and moist. No pharyngeal erythema or exudate appreciated. Neck is supple. Cardiovascular: Tachycardic S1, S2. Positive systolic murmur. No rubs or gallops appreciated Pulmonary: Normal respiratory effort. Decreased breath sounds. No rhonchi, rales, or wheezing appreciated. Gastrointestinal: Soft, nondistended. Nontender. Positive bowel sounds all 4 quadrants, no guarding. Musculoskeletal: Moves all extremities. Positive bilateral lower extremity edema, left greater than right. Positive erythema left lower extremity. Positive calf tenderness left lower extremity. Central nervous system: AAO x3 Dermatologic: Skin warm and dry. Assessment and plan: Patient is a 57-year-old male with past medical history significant for chronic kidney disease stage III, left lower extremity DVT, type 2 diabetes, hypertension, hyperlipidemia, and noncompliance of medications that presented to the emergency room with worsening of shortness of breath and increased swelling and pain in left lower extremity. 1. ESRD on HD. Continue dialysis as per nephrology. Patient for vein mapping today for AV fistula placement. Nephrology following, recommendations appreciated. Renal ultrasound per radiologist showed unremarkable renal sonogram; no significant interval change. CT abd/pelvis per radiologist showed no acute intra-abdominal findings. 2. Anemia. Likely secondary to renal failure. S/P 5.5 units PRBCs. Stool for occult blood positive. GI following, recommendations appreciated. Continue with heparin drip for DVT. Continue to monitor CBC. Continue with protonix. Continue Aranesp. Hematology following, recommendations appreciated. 3. Dyspnea. No dyspnea at rest. Likely multifactorial. Secondary to renal failure, CHF exacerbation, and anemia. Patient for V/Q per radiologist is low probability for PE. Continue dialysis. Continue to monitor CBC and transfuse as needed. 4. Elevated troponin. Tachycardia. Cardiology following, recommendations appreciated. Continue heparin drip. 2d echo per systems designer showed four chamber dilatation consistent with CMP, EF 20-25%, global hypokinesis, trace to mild aortic regurgitation, mitral regurgitation is moderate, severe tricuspid regurgitation, IVC dilated, no pericardial effusion. Continue imdur. Still with tachycardia. Patient started on Cardizem. 5. Elevated BNP. Acute on chronic CHF exacerbation. 2d echo as above. Cardiology following, recommendations appreciated. Continue dialysis. Monitor ins and outs. 6. Elevated d-dimer. Left lower extremity DVT. V/Q scan per radiologist is low probability for PE. Continue heparin drip. Left lower extremity venous Doppler per radiologist showed subacute/chronic partially occlusive thrombus in the left popliteal vein. 7. Leukocytosis. Downtrending. Blood culture with no growth to date. Urine culture with no growth. Patient afebrile. 8. DM2. Continue insulin sliding scale. Continue to monitor accuchecks. Hgb A1C 6.5. 9. Hypertension. Continue hydralazine and imdur. Started on Cardizem. 10. Cocaine abuse. Patient counseled on cessation. 11. GI and DVT prophylaxis. Protonix and heparin drip 12. Patient is a full code. Case was discussed in detail with patient regarding current diagnosis and treatment plan. All questions answered.
[2018-01-24] MEDS: Heparin25000 units/250ml 1/2NS 25,000 UNITS/250 ML BAG IV PRN ×2 (05:18→16:00)
[2018-01-24] MEDS ORDERED: Pantoprazole 40 mg EC Tab PO SCH (06:00)
[2018-01-24 06:50] LABS: BASO # 0.01 K/mm3 (0.0-2.0); BASO % 0.1 % (0.0-3.0); EOS # 0.1 (0.0-0.7); EOS % 0.4 % (1.5-5.0); GRAN # 11.49 (1.4-6.5); GRAN % 83.8 % (50.0-68.0); HEMOGLOBIN 8.3 g/dL (14.0-18.0); LYMPH # 0.9 (1.2-3.4); LYMPH % 6.2 % (22.0-35.0); MEAN CELL VOLUME 87.8 fl (80.0-105.0); MEAN CORPUSCULAR HEMOGLOBIN 29.9 pg (25.0-35.0); MEAN PLATELET VOLUME 10.7 fl (7.0-11.0); MONO # 1.3 (0.1-0.6); MONO % 9.5 % (1.0-6.0); RBC 2.78 10^6/uL (3.5-6.1); RED CELL DISTRIBUTION WIDTH 15.4 % (11.5-14.5); WHITE BLOOD COUNT 13.7 10^3/ul (4.5-11.0)
[2018-01-24 07:22] LABS: ALB/GLOB RATIO 0.8 (1.1-1.8); ALBUMIN 3.1 g/dL (3.0-4.8); CALCIUM 8.2 mg/dL (8.4-10.5)
[2018-01-24] MEDS: Insulin Lispro (humaLOG) MEDIUM Coverage SC SCH ×4 (08:30→22:00)
--- NOTE | 2018-01-24 09:30 | PN ---
DATE: 01/23/2018 SUBJECTIVE: The patient is seen in the CCU. He is starting dialysis. He is awake. He appears somewhat short of breath. He complains of pain in his legs. He also reports some constipation. He reports he is generally feeling much better than when he came into the hospital. He denies any chest tightness. He denies any palpitations. PHYSICAL EXAMINATION: GENERAL: Middle-aged male lying in bed in the ICU. VITAL SIGNS: Blood pressure 148/87, heart rate 130, respiratory rate 20-24, temperature 100.1, T-max is 100.1. HEENT: Normocephalic, atraumatic, positive pallor, no icterus. NECK: Supple, no JVD. LUNGS: Bilateral equal air entry, bilateral rhonchi, decreased breath sounds at bases. CARDIAC: S1 and S2, regular rate and rhythm, no murmur, no rub. ABDOMEN: . Criss Lazo MD
--- NOTE | 2018-01-24 14:27 | PN ---
DATE: 01/24/2018 CARDIOLOGY FOLLOWUP SUBJECTIVE: The patient is without shortness of breath. PHYSICAL EXAMINATION: VITAL SIGNS: Blood pressure is 142/90, the heart rate is in the 60s. NECK: Negative JVD. LUNGS: Without rales. HEART: Reveals S1, S2. EXTREMITIES: Without edema. LABORATORY DATA: Hemoglobin is 8.3. Chemistries: Potassium is 4.2. IMPRESSION: 1. Anemia. 2. End-stage renal disease. 3. Resolution of tachycardia. 4. Dilated cardiomyopathy. PLAN: Given these findings, the patient is for dialysis today. Maurizio Mendez MD
[2018-01-24] MEDS ORDERED: Doxercalciferol 4 mcg/2 ml Inj IV ONE (20:39)
[2018-01-24 20:56] LABS: CARDIOLIPIN AB (IGM) <12 MPL (<=12); PHOSPHATIDYLSERINE AB IGA <20 U/mL (<20); PHOSPHATIDYLSERINE AB IGG <10 U/mL (<10); PHOSPHATIDYLSERINE AB IGM <25 U/mL (<25)
--- NOTE | 2018-01-25 00:32 | PN ---
DATE: 01/24/2018 SUBJECTIVE: Patient is seen lying in bed. He is awake. He is alert. He appears somewhat sluggish. He complains of being tired. He had dialysis earlier today. He denies any chest pain. Denies any shortness of breath. PHYSICAL EXAMINATION: GENERAL: Middle-aged male lying in bed. VITAL SIGNS: Blood pressure 143/80, heart rate 147, respiratory rate 20, temperature 99.4. HEENT: Normocephalic, atraumatic, positive pallor. NECK: Supple, no JVD. LUNGS: Bilateral equal air entry, bilateral equal expansion. CARDIAC: S1 and S2, regular rate and rhythm, no murmur, no rub. ABDOMEN: Soft, nondistended, nontender. Bowel sounds present. EXTREMITIES: No lower extremity edema. INTAKE AND OUTPUT: 2458/1370. LABORATORY DATA: WBC 13.7, hemoglobin 8.3, hematocrit 24, platelets 232. Sodium 135, potassium 4.2, chloride 102, CO2 22, BUN 59, creatinine 8.4, glucose 120, calcium 8.2, phosphorus 6.9, magnesium 1.6. Albumin 3.1, globulin 3.9. ANNETTE negative. Free kappa light chain 272. Antiphospholipid antibody IgG and IgM negative. HIV nonreactive. Stool occult positive. CURRENT MEDICATIONS: Apresoline, Cardizem 60 three times a day, heparin 26 units per kilogram per hour, Imdur. ASSESSMENT: 1. Acute kidney injury superimposed on chronic kidney disease stage IV/V, now end-stage renal disease. 2. Severe anemia, multifactorial, anemia of chronic kidney disease, gastrointestinal blood loss?, hemoglobinopathy? 3. Congestive heart failure, dilated cardiomyopathy, decreased ejection fraction, global hypokinesis. 4. Severe secondary hyperparathyroidism. 5. Popliteal deep venous thrombosis. 6. Hypergammaglobulinemia? PLAN: 1. Stable dialysis today. 2. Patient has received total of 5 units of PRBCs, hemoglobin is 8.2 today. 3. Hematology evaluation. 4. Continue current antihypertensives. 5. Hectorol 4 mcg every dialysis. 6. PhosLo 667 mg p.o. three times a day with meals. No dialysis tomorrow. 7. Next dialysis will be on Sunday. Discharge planning to be arranged, we will need outpatient dialysis at [facility], second shift on Sunday, Sunday, and Sunday. Criss Lazo MD
[2018-01-25] MEDS: Heparin25000 units/250ml 1/2NS 25,000 UNITS/250 ML BAG IV PRN ×2 (02:06→12:21)
--- NOTE | 2018-01-25 07:00 | CP.PCM.PN ---
<Palmira Ruffin - Last Filed: 01/25/18 13:35> Subjective - Date & Time of Evaluation Date of Evaluation: 01/25/18 Time of Evaluation: 07:00 - Subjective Subjective: INTERNAL MEDICINE PROGRESS NOTE FOR DR. HILARIA Ruffin D.O. PGY-1 Pt seen and examined at bedside this am. He reports he has noticed some pus draining from his urethra, and endorses dysuria. He reports his b/l leg swelling is improved and pain is decreasing. He has been tolerating HD well. He is working with nephrology to get fistula formation. He denies fevers, chills, headache, dizziness, chest pain, palpitations, shortness of breath, nausea, vomiting, constipation, diarrhea. Objective - Vital Signs/Intake and Output Vital Signs (last 24 hours): Temp Pulse Resp BP Pulse Ox 99.6 F 94 H 20 135/74 96 01/25/18 06:00 01/25/18 06:00 01/25/18 06:00 01/25/18 06:00 01/25/18 06:00 Intake and Output: 01/25/18 01/25/18 06:59 18:59 Intake Total 1366 Output Total 650 Balance 716 - Medications Medications: Current Medications Acetaminophen (Tylenol 325mg Tab) 650 mg PO Q6H PRN PRN Reason: Fever >100.4 F Last Admin: 01/23/18 13:03 Dose: 650 mg Calcium Acetate (Phoslo) 667 mg PO WM [facility] Dextrose (Dextrose 50% Inj) 0 ml IV STAT PRN; Protocol PRN Reason: Hypoglycemia Protocol Diltiazem HCl (Cardizem) 60 mg PO TID [facility] Last Admin: 01/24/18 19:00 Dose: 60 mg Hydralazine HCl (Apresoline) 25 mg PO QID [facility] Last Admin: 01/24/18 23:16 Dose: 25 mg Dextrose (Dextrose 5% In Water 1000 Ml) 1,000 mls @ 0 mls/hr IV .Q0M PRN; Protocol PRN Reason: Hypoglycemia Protocol Heparin Sodium/Sodium Chloride (Heparin 70043 Units/250ml 1/2 Normal Saline) 25,000 units in 250 mls @ 18.37 mls/hr IV .[id number] PRN; Protocol PRN Reason: ADJUST RATE PER PROTOCOL Last Admin: 01/25/18 02:06 Dose: 26 units/kg/hr, 26.535 mls/hr Insulin Human Lispro (Humalog Med) 0 units SC ACHS [facility]; Protocol Last Admin: 01/24/18 22:00 Dose: Not Given Isosorbide Mononitrate (Imdur) 60 mg PO DAILY [facility] Last Admin: 01/24/18 13:54 Dose: 60 mg - Labs Labs: 01/24/18 05:45 01/24/18 05:45 PT 17.3 SECONDS (9.4-12.5) H 01/20/18 20:30 INR 1.50 01/20/18 20:30 APTT 52.1 Seconds (25.1-36.5) H 01/25/18 05:20 - Constitutional Appears: Well, Non-toxic, No Acute Distress - Head Exam Head Exam: NORMAL INSPECTION, NORMOCEPHALIC - Eye Exam Eye Exam: EOMI, Normal appearance - ENT Exam ENT Exam: Mucous Membranes Moist, Normal Exam - Neck Exam Neck Exam: Normal Inspection. absent: Meningismus - Respiratory Exam Respiratory Exam: Clear to Ausculation Bilateral, NORMAL BREATHING PATTERN - Cardiovascular Exam Cardiovascular Exam: REGULAR RHYTHM, +S1, +S2 - GI/Abdominal Exam GI & Abdominal Exam: Soft, Normal Bowel Sounds. absent: Distended - Exam Exam: absent: Testicular Tenderness Additional comments: Dried blood on external urethra - Extremities Exam Extremities Exam: Normal Inspection. absent: Calf Tenderness - Back Exam Back Exam: NORMAL INSPECTION. absent: CVA tenderness (L), CVA tenderness (R) - Neurological Exam Neurological Exam: Alert, Awake, Oriented x3 - Psychiatric Exam Psychiatric exam: Normal Affect, Normal Mood - Skin Skin Exam: Dry, Intact, Warm Assessment and Plan - Assessment and Plan (Free Text) Assessment: 57 year old male with past medical history of CKD on HD, left lower extremity DVT, diabetes mellitus type II, Hypertension, hyperlipidemia, presented with shortness of breath worse with exertion; swelling, erythema, and pain of left lower extremity which started one month ago. Patient also presented with fecal occult blood test positive, had a hemoglobin of 6.9 on presentation and has received a total of 5u PRBCs. Popliteal vein DVT was seen on ultrasound. Pt found to have increased BUN/Cr and has been undergoing bedside HD treatments in the ICU. Pt underwent VQ scan yesterday. Received another 2u PRBC yesterday. Hemoglobin responded. Subsequently transferred out of ICU to telemetry floor. Pt followed by GI, Nephro, Cardio, and Heme-Onc. Plan: ESRD Has longstanding renal failure and has no history that suggests any acute insult (no GI losses, no acute illnesses); therefore, Patient will require chronic HD BUN/Cr severely elevated but improving with HD Per nephro note, echogeneity noted on renal u/s Hectorol 4 mcg every dialysis PhosLo 667 po tid with meals. No dialysis today. Next dialysis Sunday F/u vein mapping. Pt to get fistula formation. As per nephrology, ANNETTE, HIV, immunofixation, kappa light chain, antiphospholipid antibody, PTH, protein electrophoresis, hepatitis B panel Strict I and Os. Take daily weights. Maintain euvolemia. Discharge planning to be arranged. Will need outpatient dialysis at [facility], second shift on Sunday, Sunday, Sunday CHFrEF Echo: EF 20-25% BNP: 59,000 Elevated troponins likely due to elevated creatinine vs. right heart strain from massive PE vs. myocardial infarction vs. cocaine use Continue HD with IJ placement. Pending fistula formation Maintain MAP>65. Monitor for S/S, HD compromise. Dr. Mendez, Cardiology, consulted for recommendations. Tachycardia Of unknown etiology Pt has been persistently tachycardic VQ scan shows low probability of pulmonary embolism Continue heparin drip Appreciate cardiology recs Normocytic Anemia Hgb 7.3. Previous, 7.4, 7.0, 7.6, 7.0 Pt transfused 2u PRBC yesterday. Transfused 5uPRBC total. Had adverse reaction to transfusion on 01/21/18, only 75cc given at that time. Persistent anemia with transfusions Aranasep 100mcg given yesterday Awaiting hematology input LLE DVT subacute/chronic partially occlusive thrombus in L popliteal vein Pt started on heparin drip Monitor H&H for signs of bleeding Appreciate GI recs Elevated troponin Elevated troponins likely due to elevated creatinine vs. right heart strain from massive PE vs. myocardial infarction vs. cocaine use Continue therapeutic heparin drip Monitor H&H for signs of bleeding. Appreciate GI recs DM2 Hgb A1c 6.5% Medium dose SSI Maintain euglycemia. HTN Hydralazine 25 mg qid for elevated blood pressures Cardizem 60mg Imdur 60mg daily Dr. Mendez, Cardiology, consulted for recommendations. HTN/HR has improved with dialysis DVT prophylaxis/GI PPx: therapeutic heparin at 18 mg/kg/hr/protonix 40 mg IVP q12 Case seen, examined & discussed with attending physician, Dr. Marc <Elizabeth Marc R - Last Filed: 01/27/18 15:39> Objective - Vital Signs/Intake and Output Vital Signs (last 24 hours): Temp Pulse Resp BP Pulse Ox 99.4 F 129 H 22 154/90 H 98 01/27/18 12:00 01/27/18 13:50 01/27/18 12:00 01/27/18 13:50 01/27/18 06:00 Intake and Output: 01/27/18 01/27/18 06:59 18:59 Intake Total 1652 500 Output Total 1650 950 Balance 2 -450 - Medications Medications: Current Medications Acetaminophen (Tylenol 325mg Tab) 650 mg PO Q6H PRN PRN Reason: Fever >100.4 F Last Admin: 01/25/18 17:42 Dose: 650 mg Calcium Acetate (Phoslo) 667 mg PO WM [facility] Last Admin: 01/27/18 12:26 Dose: 667 mg Dextrose (Dextrose 50% Inj) 0 ml IV STAT PRN; Protocol PRN Reason: Hypoglycemia Protocol Digoxin (Lanoxin) 0.125 mg PO 1400 [facility] Last Admin: 01/27/18 13:49 Dose: 0.125 mg Diltiazem HCl (Cardizem Cd) 180 mg PO DAILY [facility] Last Admin: 01/27/18 13:49 Dose: 180 mg Hydralazine HCl (Apresoline) 25 mg PO QID [facility] Last Admin: 01/27/18 13:50 Dose: 25 mg Dextrose (Dextrose 5% In Water 1000 Ml) 1,000 mls @ 0 mls/hr IV .Q0M PRN; Protocol PRN Reason: Hypoglycemia Protocol Heparin Sodium/Sodium Chloride (Heparin 21926 Units/250ml 1/2 Normal Saline) 25,000 units in 250 mls @ 18.37 mls/hr IV .[id number] PRN; Protocol PRN Reason: ADJUST RATE PER PROTOCOL Last Titration: 01/27/18 08:40 Dose: 30 units/kg/hr, 30.617 mls/hr Insulin Human Lispro (Humalog Med) 0 units SC ACHS [facility]; Protocol Last Admin: 01/27/18 11:43 Dose: Not Given Isosorbide Mononitrate (Imdur) 60 mg PO DAILY [facility] Last Admin: 01/27/18 09:07 Dose: 60 mg Pantoprazole Sodium (Protonix Ec Tab) 40 mg PO 0600 [facility] - Labs Labs: 01/27/18 06:00 01/27/18 06:00 PT 17.3 SECONDS (9.4-12.5) H 01/20/18 20:30 INR 1.50 01/20/18 20:30 APTT 92.5 Seconds (25.1-36.5) H 01/27/18 14:46 Attending/Attestation - Attestation I have personally seen and examined this patient.: Yes I have fully participated in the care of the patient.: Yes I have reviewed all pertinent clinical information, including history, physical exam and plan: Yes Notes (Text): Patient seen and examined by me at 10:35AM with resident 01/25/18. Case including HPI, physical exam, and assessment and plan discussed with resident. Agree with above with following additions/corrections. Patient is a 57-year-old male with past medical history significant for chronic kidney disease stage III, left lower extremity DVT, type 2 diabetes, hypertension, hyperlipidemia, and noncompliance of medications that presented to the emergency room with worsening of shortness of breath and increased swelling and pain in left lower extremity. Patient states that he feels much better today. States he wants to get out of bed and ambulate. States pain in his lower extremities also feels better. Still with some dysuria. No chest pain or shortness of breath. No nausea, vomiting,or abdominal pain. No headaches or dizziness. No fevers or chills. Physical exam: General: Awake and alert, lying in bed in no acute distress HEENT: Normocephalic, atraumatic. Extraocular muscles intact. Pupils equal reactive. No scleral icterus. Oropharynx is pink and moist. No pharyngeal erythema or exudate appreciated. Neck is supple. Cardiovascular: Normal S1, S2. Positive systolic murmur. No rubs or gallops appreciated Pulmonary: Normal respiratory effort. Decreased breath sounds. No rhonchi, rales, or wheezing appreciated. Gastrointestinal: Soft, nondistended. Nontender. Positive bowel sounds all 4 quadrants, no guarding. Musculoskeletal: Moves all extremities. Improved bilateral lower extremity edema, left greater than right. Positive erythema left lower extremity. Improved calf tenderness left lower extremity. Central nervous system: AAO x3 Dermatologic: Skin warm and dry. Assessment and plan: Patient is a 57-year-old male with past medical history significant for chronic kidney disease stage III, left lower extremity DVT, type 2 diabetes, hypertension, hyperlipidemia, and noncompliance of medications that presented to the emergency room with worsening of shortness of breath and increased swelling and pain in left lower extremity. 1. ESRD on HD. Continue dialysis as per nephrology. S/P vein mapping for AV fistula placement. Nephrology following, recommendations appreciated. Renal ultrasound per radiologist showed unremarkable renal sonogram; no significant interval change. CT abd/pelvis per radiologist showed no acute intra-abdominal findings. 2. Anemia. Likely secondary to renal failure. S/P 5.5 units PRBCs. Patient to be transfused 1 unit PRBC today. Stool for occult blood positive. GI following, recommendations appreciated. Continue with heparin drip for DVT. Continue to monitor CBC. Continue with protonix. Continue Aranesp. Hematology following, recommendations appreciated. 3. Dyspnea. No dyspnea at rest. Likely multifactorial. Secondary to renal failure, CHF exacerbation, and anemia. Patient for V/Q per radiologist is low probability for PE. Continue dialysis. Continue to monitor CBC and transfuse as needed. 4. Elevated troponin. Tachycardia. Cardiology following, recommendations appreciated. Continue heparin drip. 2d echo per manager latin showed four chamber dilatation consistent with CMP, EF 20-25%, global hypokinesis, trace to mild aor tic regurgitation, mitral regurgitation is moderate, severe tricuspid regurgitation, IVC dilated, no pericardial effusion. Continue imdur. Tachycardia improved with cardizem. 5. Elevated BNP. Acute on chronic CHF exacerbation. 2d echo as above. Cardiology following, recommendations appreciated. Continue dialysis. Continue to monitor ins and outs. 6. Elevated d-dimer. Left lower extremity DVT. V/Q scan per radiologist is low probability for PE. Continue heparin drip. Left lower extremity venous Doppler per radiologist showed subacute/chronic partially occlusive thrombus in the left popliteal vein. Hematology following, recommendations appreciated. 7. Leukocytosis. Downtrending. Blood culture with no growth to date. Urine culture with no growth. Patient afebrile. 8. DM2. Continue insulin sliding scale. Continue to monitor accuchecks. Hgb A1C 6.5. 9. Hypertension. Continue hydralazine and imdur. Continue Cardizem. 10. Cocaine abuse. Patient counseled on cessation. 11. Dysuria. Follow up urinalysis. 12. GI and DVT prophylaxis. Protonix and heparin drip 13. Patient is a full code. Case was discussed in detail with patient regarding current diagnosis and treatment plan. All questions answered.
[2018-01-25] MEDS ORDERED: Darbepoetin Alfa 60 mcg/ml Inj SC ONE (07:50)
[2018-01-25] MEDS: Insulin Lispro (humaLOG) MEDIUM Coverage SC SCH ×5 (08:20→22:00)
[2018-01-25 09:24] LABS: IRON 35 ug/dL (45-180)
[2018-01-25 09:46] LABS: % IRON SATURATION 14 % (20-55); TOTAL IRON BINDING CAPACITY 245 ug/dL (261-462)
[2018-01-25 09:48] LABS: BASO # 0.02 K/mm3 (0.0-2.0); BASO % 0.2 % (0.0-3.0); EOS # 0.1 (0.0-0.7); EOS % 0.6 % (1.5-5.0); GRAN # 10.38 (1.4-6.5); GRAN % 82.5 % (50.0-68.0); HEMOGLOBIN 7.9 g/dL (14.0-18.0); LYMPH # 0.8 (1.2-3.4); LYMPH % 6.4 % (22.0-35.0); MEAN CELL VOLUME 90.6 fl (80.0-105.0); MEAN CORPUSCULAR HEMOGLOBIN 29.8 pg (25.0-35.0); MEAN CORPUSCULAR HGB CONC 32.9 g/dl (31.0-37.0); MEAN PLATELET VOLUME 11.2 fl (7.0-11.0); MONO # 1.3 (0.1-0.6); MONO % 10.3 % (1.0-6.0); RBC 2.65 10^6/uL (3.5-6.1); RED CELL DISTRIBUTION WIDTH 15.6 % (11.5-14.5); WHITE BLOOD COUNT 12.6 10^3/ul (4.5-11.0)
--- NOTE | 2018-01-25 10:09 | CARD ---
APPROVED REPORT Date of service: 01/24/2018 EKG Measurement Heart [id number] <Conclusion> Sinus tachycardia with blocked premature atrial complexes with occasional premature ventricular complexes and fusion complexe Nonspecific T wave abnormality. Poor R Progression in V Leads. Abnormal ECG
[2018-01-25 10:13] LABS: ALB/GLOB RATIO 0.8 (1.1-1.8); ALBUMIN 2.8 g/dL (3.0-4.8); CALCIUM 8.1 mg/dL (8.4-10.5)
[2018-01-25] MEDS ORDERED: Digoxin 250 mcg (0.25 mg) Tab PO STA (13:53)
--- NOTE | 2018-01-25 15:01 | PN ---
DATE: 01/25/2018 CARDIOLOGY FOLLOWUP SUBJECTIVE: The patient is comfortable in bed. PHYSICAL EXAMINATION: VITAL SIGNS: Blood pressure is 140/73, the heart rate is in 90s. There are periods of intermittent tachycardia, which is consistent with an SVT. NECK: Negative JVD. LUNGS: Decreased breath sounds. HEART: Reveals S1, S2. EXTREMITIES: Without edema. LABORATORY DATA: The hemoglobin is 7.9, potassium is 3.7. Echocardiogram shows an ejection fraction of 30%. IMPRESSION: 1. End-stage renal disease. 2. Marked anemia. 3. Dilated cardiomyopathy. 4. Supraventricular tachycardia. 5. 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 PLAN: Given these findings, the patient has been ordered a packed red blood cells transfusion. We will add digoxin to his regimen. Maurizio Mendez MD
--- NOTE | 2018-01-25 16:09 | CP.PCM.CON ---
History of Present Illness - History of Present Illness History of Present Illness: 57 year old male with a PMHx of CKD currently on HD, left lower extremity DVT, DM2, HTN, HLD, non-compliance who was admitted for worsening shortness of breath and swelling of his left lower extremity. Patient was noted to have severe drop in Hemoglobin and FOBT+ on admission with an acute blood loss anemia. Since admission he has received multiple blood transfusions and his condition has stabilized since. Hematology consulted for worsening anemia and left lower extremity VTE. Currently patients states that he feels better and his lower extremity swelling is subsiding. No blood in the stool, no hematuria, epistaxis, or hemoptysis. Patient denies any prior colonoscopy or endoscopy. States that he has been on coumadin for his LLE DVT which was recurrent. Does not remember his dose of coumadin. PMHx: CKD stage III, left lower extremity DVT, DM2, HTN, HLD PSHx: ACL repair 2012 All: NKA Home Meds: FamHx: Mother with diabetes and unknown cancer; Father with unknown cancer, sister has breast cancer SocialHx: Denies tobacco use and hx, social alcohol use, denies illicit drug use Review of Systems - Review of Systems All systems: reviewed and no additional remarkable complaints except - Constitutional Constitutional: As Per HPI - EENT Eyes: As Per HPI Ears: As Per HPI Nose/Mouth/Throat: As Per HPI - Cardiovascular Cardiovascular: As Per HPI - Respiratory Respiratory: As Per HPI - Gastrointestinal Gastrointestinal: As Per HPI - Genitourinary Genitourinary: As Per HPI - Reproductive: Male Reproductive:Male: As Per HPI - Musculoskeletal Musculoskeletal: As Per HPI - Integumentary Integumentary: As Per HPI - Neurological Neurological: As Per HPI - Psychiatric Psychiatric: As Per HPI - Endocrine Endocrine: As Per HPI Past Patient History - Past Social History Smoking Status: Never Smoked - CARDIAC Hx Cardiac Disorders: Yes Hx Hypertension: Yes - PULMONARY Hx Respiratory Disorders: No - NEUROLOGICAL Hx Neurological Disorder: No - HEENT Hx HEENT Problems: No - RENAL Hx Chronic Kidney Disease: No - ENDOCRINE/METABOLIC Hx Endocrine Disorders: Yes Hx Adrenal Cancer: Yes Hx Diabetes Mellitus Type 1: Yes Hx Diabetes Mellitus Type 2: Yes - HEMATOLOGICAL/ONCOLOGICAL Hx Blood Disorders: No - INTEGUMENTARY Hx Dermatological Problems: No - MUSCULOSKELETAL/RHEUMATOLOGICAL Hx Musculoskeletal Disorders: No Hx Falls: No Other/Comment: Orthopedic surgery to L knee 07/02/2013 - GASTROINTESTINAL Hx Gastrointestinal Disorders: No - GENITOURINARY/GYNECOLOGICAL Hx Genitourinary Disorders: No - PSYCHIATRIC Hx Psychophysiologic Disorder: No - SURGICAL HISTORY Hx Orthopedic Surgery: Yes Meds Allergies/Adverse Reactions: Allergies Allergy/AdvReac Type Severity Reaction Status Date / Time No Known Allergies Allergy Verified 01/20/18 19:34 - Medications Medications: Current Medications Acetaminophen (Tylenol 325mg Tab) 650 mg PO Q6H PRN PRN Reason: Fever >100.4 F Last Admin: 01/23/18 13:03 Dose: 650 mg Calcium Acetate (Phoslo) 667 mg PO WM [facility] Last Admin: 01/25/18 12:22 Dose: 667 mg Dextrose (Dextrose 50% Inj) 0 ml IV STAT PRN; Protocol PRN Reason: Hypoglycemia Protocol Digoxin (Lanoxin) 0.125 mg PO 1400 CATHIE Diltiazem HCl (Cardizem) 60 mg PO TID [facility] Last Admin: 01/25/18 15:11 Dose: 60 mg Hydralazine HCl (Apresoline) 25 mg PO QID [facility] Last Admin: 01/25/18 15:10 Dose: 25 mg Dextrose (Dextrose 5% In Water 1000 Ml) 1,000 mls @ 0 mls/hr IV .Q0M PRN; Protocol PRN Reason: Hypoglycemia Protocol Heparin Sodium/Sodium Chloride (Heparin 95859 Units/250ml 1/2 Normal Saline) 25,000 units in 250 mls @ 18.37 mls/hr IV .[id number] PRN; Protocol PRN Reason: ADJUST RATE PER PROTOCOL Last Admin: 01/25/18 12:21 Dose: 26 units/kg/hr, 26.535 mls/hr Insulin Human Lispro (Humalog Med) 0 units SC ACHS [facility]; Protocol Last Admin: 01/25/18 12:26 Dose: Not Given Isosorbide Mononitrate (Imdur) 60 mg PO DAILY [facility] Last Admin: 01/25/18 09:08 Dose: 60 mg Physical Exam - Constitutional Appears: Well, Non-toxic, No Acute Distress - Head Exam Head Exam: ATRAUMATIC, NORMAL INSPECTION, NORMOCEPHALIC - Eye Exam Eye Exam: EOMI, Normal appearance, PERRL - ENT Exam ENT Exam: Mucous Membranes Moist - Neck Exam Neck exam: Positive for: Full Rom, Normal Inspection. Negative for: Lymphadenop athy, Tenderness, Thyromegaly - Respiratory Exam Respiratory Exam: Clear to Auscultation Bilateral, NORMAL BREATHING PATTERN. absent: Rhonchi, Wheezes - Cardiovascular Exam Cardiovascular Exam: REGULAR RHYTHM, +S1, +S2 - GI/Abdominal Exam GI & Abdominal Exam: Normal Bowel Sounds - Rectal Exam Rectal Exam: Deferred - Extremities Exam Extremities exam: Positive for: full ROM, pedal edema - Back Exam Back exam: absent: CVA tenderness (L), CVA tenderness (R) - Neurological Exam Neurological exam: Alert, CN II-XII Intact, Oriented x3 - Psychiatric Exam Psychiatric exam: Normal Affect, Normal Mood Results - Vital Signs Recent Vital Signs: Last Vital Signs Temp 100.1 F H 01/25/18 12:00 Pulse 130 H 01/25/18 15:11 Resp 19 01/25/18 12:00 BP 149/88 01/25/18 15:11 Pulse Ox 96 01/25/18 06:00 - Labs Result Diagrams: 01/25/18 06:30 01/25/18 06:30 Labs: Laboratory Results - last 24 hr 01/21/18 01/24/18 01/24/18 18:16 16:31 19:28 WBC RBC Hgb Hct MCV MCH MCHC RDW Plt Count MPV Gran % Lymph % (Auto) [place] % (Auto) Eos % (Auto) Baso % (Auto) Gran # Lymph # (Auto) [place] # (Auto) Eos # (Auto) Baso # (Auto) APTT 64.7 H Sodium Potassium Chloride Carbon Dioxide Anion Gap BUN Creatinine Est GFR ( Amer) Est GFR (Non-Af Amer) POC Glucose (mg/dL) 145 H Random Glucose Calcium Phosphorus Magnesium Iron TIBC % Saturation Ferritin Total Bilirubin AST ALT Alkaline Phosphatase Total Protein Albumin Globulin Albumin/Globulin Ratio Phosphatidylserine IgG <10 Phosphatidylserine IgA <20 Phosphatidylserine IgM <25 Anti-Phospholipid Intrp see note Anti-Cardiolipin IgM Ab <12 01/24/18 01/25/18 01/25/18 21:13 05:20 05:20 WBC RBC Hgb Hct MCV MCH MCHC RDW Plt Count MPV Gran % Lymph % (Auto) [place] % (Auto) Eos % (Auto) Baso % (Auto) Gran # Lymph # (Auto) [place] # (Auto) Eos # (Auto) Baso # (Auto) APTT 52.1 H Sodium Potassium Chloride Carbon Dioxide Anion Gap BUN Creatinine Est GFR ( Amer) Est GFR (Non-Af Amer) POC Glucose (mg/dL) 158 H Random Glucose Calcium Phosphorus 6.3 H Magnesium 1.7 Iron TIBC % Saturation Ferritin Total Bilirubin AST ALT Alkaline Phosphatase Total Protein Albumin Globulin Albumin/Globulin Ratio Phosphatidylserine IgG Phosphatidylserine IgA Phosphatidylserine IgM Anti-Phospholipid Intrp Anti-Cardiolipin IgM Ab 01/25/18 01/25/18 01/25/18 05:20 06:30 06:30 WBC 12.6 H RBC 2.65 L Hgb 7.9 L Hct 24.0 L MCV 90.6 MCH 29.8 MCHC 32.9 RDW 15.6 H Plt Count 239 MPV 11.2 H Gran % 82.5 H Lymph % (Auto) 6.4 L [place] % (Auto) 10.3 H Eos % (Auto) 0.6 L Baso % (Auto) 0.2 Gran # 10.38 H Lymph # (Auto) 0.8 L [place] # (Auto) 1.3 H Eos # (Auto) 0.1 Baso # (Auto) 0.02 APTT Sodium 135 Potassium 3.7 Chloride 102 Carbon Dioxide 25 Anion Gap 13 BUN 47 H Creatinine 6.4 H Est GFR ( Amer) 11 Est GFR (Non-Af Amer) 9 POC Glucose (mg/dL) Random Glucose 109 Calcium 8.1 L Phosphorus Magnesium Iron TIBC % Saturation Ferritin 890.0 Total Bilirubin 0.5 AST 60 H D ALT 40 Alkaline Phosphatase 212 H Total Protein 6.4 Albumin 2.8 L Globulin 3.6 Albumin/Globulin Ratio 0.8 L Phosphatidylserine IgG Phosphatidylserine IgA Phosphatidylserine IgM Anti-Phospholipid Intrp Anti-Cardiolipin IgM Ab 01/25/18 01/25/18 01/25/18 07:32 08:50 11:46 WBC RBC Hgb Hct MCV MCH MCHC RDW Plt Count MPV Gran % Lymph % (Auto) [place] % (Auto) Eos % (Auto) Baso % (Auto) Gran # Lymph # (Auto) [place] # (Auto) Eos # (Auto) Baso # (Auto) APTT Sodium Potassium Chloride Carbon Dioxide Anion Gap BUN Creatinine Est GFR ( Amer) Est GFR (Non-Af Amer) POC Glucose (mg/dL) 110 177 H Random Glucose Calcium Phosphorus Magnesium Iron 35 L TIBC 245 L % Saturation 14 L Ferritin Total Bilirubin AST ALT Alkaline Phosphatase Total Protein Albumin Globulin Albumin/Globulin Ratio Phosphatidylserine IgG Phosphatidylserine IgA Phosphatidylserine IgM Anti-Phospholipid Intrp Anti-Cardiolipin IgM Ab - Imaging and Cardiology CT scan - abdomen Status: Report reviewed by me Assessment & Plan - Assessment and Plan (Free Text) Assessment: 57 year old male with a multiple comorbid conditions admitted for worsening SOB due to symptomatic anemia as well as LLE VTE. Patients anemia is 2/2 acute on chronic blood loss along with renal disease. Patient has responded well to blood transfusions, but continues to require blood products while on anticoagulation therapy for his VTE. Plan Monitor CBC and transfuse as clinically indicated Continue Heparin drip at this time and transition to coumadin once Hb remains stable If he continues to have bleeding episodes and cannot be anticoagualted will need a temp IVC filter Patient will need full endoscopic once stable Thank you for allowing me to partake in your patients care. Sincerely, Les Hernandez (Covering for Dr. Alberts)
--- NOTE | 2018-01-25 18:15 | PN ---
DATE: 01/25/2018 SUBJECTIVE: The patient is seen lying in bed. He is awake, he appears fatigued, he complains of some shortness of breath. He complains of some cough. PHYSICAL EXAMINATION: GENERAL: A middle-aged male, lying in bed. VITAL SIGNS: Blood pressure 149/88, heart rate of 130, respiratory rate 19, temperature 100.1, T-max is 100.2. HEENT: Normocephalic, atraumatic, positive pallor. NECK: Supple, no JVD. LUNGS: Bilateral equal air entry, bilateral equal expansion. CARDIAC: S1 and S2, regular rate and rhythm, no murmur, no rub. ABDOMEN: Obese, distended, soft, nontender, bowel sounds present. EXTREMITIES: Dressing of the left calf. INTAKE AND OUTPUT: 2636/1000. LABORATORY DATA: WBC 12.6, hemoglobin 7.9, hematocrit 24, platelets 239. Sodium 135, potassium 3.6, chloride 102, CO2 of 25, BUN 47, creatinine 6.4, glucose 109, calcium 8.1, phosphorus 6.3 magnesium 1.7. Iron saturation 14, iron 35, ferritin 890, AST 60, ALT 40. Urine culture no growth. Blood culture no growth. Status post 2 units of PRBC yesterday, total of 6 so far. CURRENT MEDICATIONS: Apresoline 25 four times a day, Cardizem 60 p.o. t.i.d., heparin 26 units/kg/hour, Imdur 60, digoxin 0.125, PhosLo, Tylenol, Aranesp 60 mcg subcu given today, Hectorol 4 mcg IV given on dialysis, digoxin 0.5 given this afternoon. ASSESSMENT: 1. Acute kidney injury superimposed on chronic kidney disease stage V. 2. Acute severe anemia superimposed on chronic anemia. 3. Dilated cardiomyopathy, with diffuse hypokinesis, decreased ejection fraction of 15-20%. 4. Supraventricular tachycardia. 5. Severe secondary hyperparathyroidism. 6. Hyperphosphatemia. 7. Gastrointestinal blood loss? 8. Elevated kappa chains. PLAN: 1. In light of his severe anemia, tachycardia, cardiomyopathy, we will give him 1 unit of PRBC today and another unit of PRBC on dialysis tomorrow. 2. Hematology evaluation, rule out multiple myeloma? 3. GI followup. 4. Continue phosphate binder. 5. Continue activated vitamin D3. 6. Monitor H and H closely. 7. Case discussed with Dr. Mendez, further cardiology evaluation including stress test once the patient is stable and most likely as outpatient. 8. Dialysis tomorrow. Criss Lazo MD
--- NOTE | 2018-01-25 22:19 | CON ---
DATE: 01/25/2018 HEMATOLOGY CONSULTATION HISTORY OF PRESENT ILLNESS: This is a 57-year-old man, who had severe anemia. The patient gives a very poor history, but says that he has been seen by Renal in the past, though not got any real treatment for this and comes in with weakness and with pains in his legs. PHYSICAL EXAMINATION: SKIN: No petechiae. No bruises. HEENT: Anicteric. NODES: None palpable in the axillary, cervical, supraclavicular or inguinal regions. LUNGS: Clear at present. No vertebral tenderness. The patient is able to lie flat in bed. HEART: S1 and S2. ABDOMEN: Shows no liver, no spleen, no tenderness, no rebound, no ascites. EXTREMITIES: Shows some trace edema. [employer]: No focal finding. ASSESSMENT: The patient has anemia most likely due to the renal insufficiency, has not really been treated. His creatinine has been between the 5 and 8 range. I started him on Aranesp 60 mcg SubQ weekly or you could give as an outpatient Procrit 40 q. week, initially weekly, but at this point, I think that the anemia is due to the renal insufficiency and I have ordered a hemoglobinopathy to rule out thalassemia, but I think this is going to be the major issue here. I believe they are making plans to give him dialysis as well. Abdoulaye Weeks MD
[2018-01-26] MEDS: Heparin25000 units/250ml 1/2NS 25,000 UNITS/250 ML BAG IV PRN ×3 (02:04→22:19)
[2018-01-26 04:04] LABS: MCH 30.6 pg (27.0-33.0); MCV 92.9 fL (80.0-100.0)
[2018-01-26] MEDS ORDERED: Darbepoetin Alfa 100 mcg/ml Inj IVP ONE (07:04)
[2018-01-26] MEDS ORDERED: Doxercalciferol 4 mcg/2 ml Inj IV ONE (07:27)
[2018-01-26 07:32] LABS: BASO # 0.02 K/mm3 (0.0-2.0); BASO % 0.2 % (0.0-3.0); EOS # 0.1 (0.0-0.7); EOS % 1.2 % (1.5-5.0); GRAN # 9.95 (1.4-6.5); GRAN % 87.2 % (50.0-68.0); HEMOGLOBIN 8.9 g/dL (14.0-18.0); LYMPH # 0.9 (1.2-3.4); LYMPH % 8.2 % (22.0-35.0); MEAN CELL VOLUME 91.2 fl (80.0-105.0); MEAN CORPUSCULAR HGB CONC 32.8 g/dl (31.0-37.0); MONO # 0.4 (0.1-0.6); MONO % 3.2 % (1.0-6.0); RBC 2.97 10^6/uL (3.5-6.1); WHITE BLOOD COUNT 11.4 10^3/ul (4.5-11.0)
[2018-01-26] MEDS: Insulin Lispro (humaLOG) MEDIUM Coverage SC SCH ×4 (07:59→22:24)
[2018-01-26 08:02] LABS: ALB/GLOB RATIO 0.8 (1.1-1.8); ALBUMIN 2.7 g/dL (3.0-4.8); CALCIUM 8.3 mg/dL (8.4-10.5)
[2018-01-26] MEDS: Digoxin 250 mcg (0.25 mg) Tab PO SCH (14:07)
--- NOTE | 2018-01-26 14:13 | CP.PCM.PN ---
<Fredrick Claire - Last Filed: 01/26/18 14:30> Subjective - Date & Time of Evaluation Date of Evaluation: 01/26/18 Time of Evaluation: 14:09 - Subjective Subjective: PGY-2 medicine progress note for Dr Langston No acute events noted overnight. Patient seen in dialysis (received 1u pRBC during HD). He did not offer any complaints. He stated his left leg pain and swelling has been getting better day by day. Objective - Vital Signs/Intake and Output Vital Signs (last 24 hours): Temp Pulse Resp BP Pulse Ox 99.8 F H 117 H 20 127/80 97 01/26/18 10:09 01/26/18 14:07 01/26/18 10:09 01/26/18 14:07 01/26/18 09:24 Intake and Output: 01/26/18 01/26/18 06:59 18:59 Intake Total 1055 250 Output Total 1000 Balance 55 250 - Medications Medications: Current Medications Acetaminophen (Tylenol 325mg Tab) 650 mg PO Q6H PRN PRN Reason: Fever >100.4 F Last Admin: 01/25/18 17:42 Dose: 650 mg Calcium Acetate (Phoslo) 667 mg PO WM [facility] Last Admin: 01/26/18 12:07 Dose: 667 mg Dextrose (Dextrose 50% Inj) 0 ml IV STAT PRN; Protocol PRN Reason: Hypoglycemia Protocol Digoxin (Lanoxin) 0.125 mg PO 1400 [facility] Last Admin: 01/26/18 14:07 Dose: 0.125 mg Diltiazem HCl (Cardizem) 60 mg PO TID [facility] Last Admin: 01/26/18 14:06 Dose: 60 mg Hydralazine HCl (Apresoline) 25 mg PO QID [facility] Last Admin: 01/26/18 14:07 Dose: 25 mg Dextrose (Dextrose 5% In Water 1000 Ml) 1,000 mls @ 0 mls/hr IV .Q0M PRN; Protocol PRN Reason: Hypoglycemia Protocol Heparin Sodium/Sodium Chloride (Heparin 50882 Units/250ml 1/2 Normal Saline) 25,000 units in 250 mls @ 18.37 mls/hr IV .[id number] PRN; Protocol PRN Reason: ADJUST RATE PER PROTOCOL Last Admin: 01/26/18 12:04 Dose: 28 units/kg/hr, 28.576 mls/hr Insulin Human Lispro (Humalog Med) 0 units SC ACHS [facility]; Protocol Last Admin: 01/26/18 12:35 Dose: Not Given Isosorbide Mononitrate (Imdur) 60 mg PO DAILY [facility] Last Admin: 01/26/18 10:40 Dose: 60 mg - Labs Labs: 01/26/18 06:00 01/26/18 06:00 PT 17.3 SECONDS (9.4-12.5) H 01/20/18 20:30 INR 1.50 01/20/18 20:30 APTT 45.6 Seconds (25.1-36.5) H 01/26/18 06:00 - Additional Findings Additional findings: - Constitutional Appears: Well, Non-toxic, No Acute Distress - Head Exam Head Exam: NORMAL INSPECTION, NORMOCEPHALIC - Eye Exam Eye Exam: EOMI, Normal appearance - ENT Exam ENT Exam: Mucous Membranes Moist, Normal Exam - Neck Exam Neck Exam: Normal Inspection. absent: Meningismus - Respiratory Exam Respiratory Exam: Clear to Ausculation Bilateral, NORMAL BREATHING PATTERN - Cardiovascular Exam Cardiovascular Exam: REGULAR RHYTHM, +S1, +S2 - GI/Abdominal Exam GI & Abdominal Exam: Soft, Normal Bowel Sounds. absent: Distended - Extremities Exam Extremities Exam: Normal Inspection. absent: Calf Tenderness - Back Exam Back Exam: NORMAL INSPECTION. absent: CVA tenderness (L), CVA tenderness (R) - Neurological Exam Neurological Exam: Alert, Awake, Oriented x3 - Psychiatric Exam Psychiatric exam: Normal Affect, Normal Mood - Skin Skin Exam: Dry, Intact, Warm Assessment and Plan - Assessment and Plan (Free Text) Plan: 57 year old male with past medical history of CKD on HD, left lower extremity DVT, diabetes mellitus type II, Hypertension, hyperlipidemia, presented with shortness of breath worse with exertion; swelling, erythema, and pain of left lower extremity which started one month ago. Patient also presented with fecal occult blood test positive, had a hemoglobin of 6.9 on presentation and has received a total of 5u PRBCs. Popliteal vein DVT was seen on ultrasound. Plan: ESRD -Has longstanding renal failure and has no history that suggests any acute insult (no GI losses, no acute illnesses); therefore, patient will require chronic HD -BUN/Cr severely elevated but improving with HD -echogeneity noted on renal u/s -Hectorol 4 mcg every dialysis -PhosLo 667 po wm arabella -s/p vein mapping -Pt to get fistula formation. -As per nephrology, ANNETTE, HIV, immunofixation, kappa light chain, antiphospholipid antibody, PTH, protein electrophoresis, hepatitis B panel -Strict I and Os. Take daily weights. -Maintain euvolemia. -Discharge planning to be arranged. Will need outpatient dialysis at [facility], second shift on Sunday, Sunday, Sunday CHFrEF -Echo: EF 20-25% -BNP on admission: 59,000 -Elevated troponins likely due to elevated creatinine vs. right heart strain from massive PE vs. myocardial infarction vs. cocaine use -Dr. Mendez, Cardiology, consulted for recommendations. * Added digoxin 0.125mg po qd -digoxin 0.125 po qd -imdur 60mg po qd Tachycardia -Of unknown etiology -Pt has been persistently tachycardic -VQ scan shows low probability of pulmonary embolism -Continue heparin drip -Appreciate cardiology recs Normocytic Anemia -likely anemia of renal disease + anemia of chronic disease -Persistent anemia even with transfusions -Hgb 6.9 on admission -Transfused 6u PRBC total. Had adverse reaction to transfusion on 01/21/18, only 75cc given at that time. Other transfusions were okay. -Aranasep 100mcg given 01/24/18 -GI consulted, Dr Griffin * No active bleeding thus no need for endoscopic evaluation at this time * Hematology input is needed * Signed off -Hematology consulted, Dr Weeks * most likely due to renal insufficiency * ordered a hemoglobinopathy to rule out thalassemia LLE DVT -DVT diagnosed prior to arrival however patient not compliant with coumadin -subacute/chronic partially occlusive thrombus in L popliteal vein -heparin drip DVT protocol -Monitor H&H for signs of bleeding Elevated troponin -Elevated troponins likely due to elevated creatinine vs. cocaine use -Continue therapeutic heparin drip -Monitor H&H for signs of bleeding. Appreciate GI recs DM2 -Hgb A1c 6.5% -Medium dose SSI -Maintain euglycemia. HTN -Hydralazine 25 mg qid -Cardizem 60mg tid arabella -Imdur 60mg daily -Dr. Mendez, Cardiology, consulted for recommendations. Cocaine on UDS -avoid beta blockers for now DVT prophylaxis/GI PPx: therapeutic heparin at 18 mg/kg/hr/protonix 40 mg IVP q12 Case seen, examined & discussed with attending physician, Dr. Langston <Nomi Langston - Last Filed: 01/26/18 15:37> Objective - Vital Signs/Intake and Output Vital Signs (last 24 hours): Temp Pulse Resp BP Pulse Ox 99.8 F H 117 H 20 127/80 97 01/26/18 12:00 01/26/18 14:07 01/26/18 12:00 01/26/18 14:07 01/26/18 09:24 Intake and Output: 01/26/18 01/26/18 06:59 18:59 Intake Total 1055 250 Output Total 1000 Balance 55 250 - Medications Medications: Current Medications Acetaminophen (Tylenol 325mg Tab) 650 mg PO Q6H PRN PRN Reason: Fever >100.4 F Last Admin: 01/25/18 17:42 Dose: 650 mg Calcium Acetate (Phoslo) 667 mg PO WM [facility] Last Admin: 01/26/18 12:07 Dose: 667 mg Dextrose (Dextrose 50% Inj) 0 ml IV STAT PRN; Protocol PRN Reason: Hypoglycemia Protocol Digoxin (Lanoxin) 0.125 mg PO 1400 [facility] Last Admin: 01/26/18 14:07 Dose: 0.125 mg Diltiazem HCl (Cardizem) 60 mg PO TID [facility] Last Admin: 01/26/18 14:06 Dose: 60 mg Hydralazine HCl (Apresoline) 25 mg PO QID [facility] Last Admin: 01/26/18 14:07 Dose: 25 mg Dextrose (Dextrose 5% In Water 1000 Ml) 1,000 mls @ 0 mls/hr IV .Q0M PRN; Protocol PRN Reason: Hypoglycemia Protocol Heparin Sodium/Sodium Chloride (Heparin 32206 Units/250ml 1/2 Normal Saline) 25,000 units in 250 mls @ 18.37 mls/hr IV .[id number] PRN; Protocol PRN Reason: ADJUST RATE PER PROTOCOL Last Admin: 01/26/18 12:04 Dose: 28 units/kg/hr, 28.576 mls/hr Insulin Human Lispro (Humalog Med) 0 units SC [facility]; Protocol Last Admin: 01/26/18 12:35 Dose: Not Given Isosorbide Mononitrate (Imdur) 60 mg PO DAILY [facility] Last Admin: 01/26/18 10:40 Dose: 60 mg - Labs Labs: 01/26/18 06:00 01/26/18 06:00 PT 17.3 SECONDS (9.4-12.5) H 01/20/18 20:30 INR 1.50 01/20/18 20:30 APTT 64.3 Seconds (25.1-36.5) H 01/26/18 14:15 Attending/Attestation - Attestation I have personally seen and examined this patient.: Yes I have fully participated in the care of the patient.: Yes I have reviewed all pertinent clinical information, including history, physical exam and plan: Yes
[2018-01-27 06:50] LABS: BASO # 0.01 K/mm3 (0.0-2.0); BASO % 0.1 % (0.0-3.0); EOS # 0.1 (0.0-0.7); EOS % 1.2 % (1.5-5.0); GRAN # 7.19 (1.4-6.5); GRAN % 78.5 % (50.0-68.0); HEMOGLOBIN 9.4 g/dL (14.0-18.0); LYMPH # 1.4 (1.2-3.4); LYMPH % 15.7 % (22.0-35.0); MEAN CELL VOLUME 91.6 fl (80.0-105.0); MEAN CORPUSCULAR HEMOGLOBIN 30.2 pg (25.0-35.0); MEAN PLATELET VOLUME 10.6 fl (7.0-11.0); MONO # 0.4 (0.1-0.6); MONO % 4.5 % (1.0-6.0); RBC 3.11 10^6/uL (3.5-6.1); RED CELL DISTRIBUTION WIDTH 15.1 % (11.5-14.5); WHITE BLOOD COUNT 9.2 10^3/ul (4.5-11.0)
[2018-01-27 07:21] LABS: ALB/GLOB RATIO 0.7 (1.1-1.8); ALBUMIN 2.7 g/dL (3.0-4.8); CALCIUM 8.4 mg/dL (8.4-10.5)
[2018-01-27] MEDS: Insulin Lispro (humaLOG) MEDIUM Coverage SC SCH ×4 (07:44→21:49)
[2018-01-27] MEDS: Heparin25000 units/250ml 1/2NS 25,000 UNITS/250 ML BAG IV PRN ×2 (08:20→17:50)
[2018-01-27 09:01] LABS: PH,URINE 7.5 (4.7-8.0); URINE BILIRUBIN NEGATIVE (NEGATIVE); URINE BLOOD MODERATE (NEGATIVE); URINE GLUCOSE (UA) 100 mg/dL (NEGATIVE); URINE LEUKOCYTE ESTERASE SMALL Leu/uL (NEGATIVE); URINE PROTEIN 100 mg/dL (<30 mg/dL); URINE UROBILINOGEN 0.2 E.U./dL (<1 E.U./dL)
[2018-01-27 09:02] LABS: URINE APPEARANCE CLEAR (CLEAR); URINE COLOR YELLOW (YELLOW)
[2018-01-27 10:14] LABS: URINE WBC 0 - 2 /hpf (0-6)
[2018-01-27 10:15] LABS: URINE BACTERIA NEG (NEG)
[2018-01-27] MEDS: Digoxin 250 mcg (0.25 mg) Tab PO SCH (13:49)
[2018-01-27] MEDS: diltiaZEM 180 mg/24 Hours CD Cap PO SCH (13:49)
--- NOTE | 2018-01-27 18:23 | PN ---
DATE: 01/27/2018 CARDIOLOGY FOLLOWUP SUBJECTIVE: The patient is comfortable in bed. No shortness of breath. No chest pain. PHYSICAL EXAMINATION: VITAL SIGNS: Blood pressure is 160/93, heart rate is 110, sinus tachycardia. NECK: Negative JVD. LUNGS: Without rales. HEART: S1, S2. EXTREMITIES: Without edema. LABORATORY DATA: Hemoglobin is 9.4. Chemistries: BUN and creatinine are 50 and 6.4. IMPRESSION: 1. End-stage renal disease. 2. Dilated cardiomyopathy. 3. No congestive heart failure. 4. History of short OR interval. 5. History of supraventricular tachycardia. Given these findings, the patient's SVT is well-controlled on his present medication. He is on diltiazem t.i.d. as well as low-dose digoxin. We will change his Cardizem to long-acting Cardizem. Muarizio Mendez MD
--- NOTE | 2018-01-27 21:26 | CP.PCM.PN ---
Subjective - Date & Time of Evaluation Date of Evaluation: 01/27/18 Time of Evaluation: 21:12 - Subjective Subjective: Internal Medicine Progress Note (Hospitalist Service): Kamran PGY2 Patient seen and assessed at bedside. No acute events noted overnight. Patient denies any complaints at this time including fevers, chills, headache, chest pain, SOB, abdominal pain, N/V/D/C, changes in urine output or any new skin changes. Objective - Vital Signs/Intake and Output Vital Signs (last 24 hours): Temp Pulse Resp BP Pulse Ox 98.4 F 94 H 20 157/98 H 98 01/27/18 18:00 01/27/18 18:00 01/27/18 18:00 01/27/18 18:00 01/27/18 18:00 Intake and Output: 01/27/18 01/28/18 18:59 06:59 Intake Total 740 1385 Output Total 950 1250 Balance -210 135 - Medications Medications: Current Medications Acetaminophen (Tylenol 325mg Tab) 650 mg PO Q6H PRN PRN Reason: Fever >100.4 F Last Admin: 01/25/18 17:42 Dose: 650 mg Calcium Acetate (Phoslo) 667 mg PO WM [facility] Last Admin: 01/27/18 17:50 Dose: 667 mg Dextrose (Dextrose 50% Inj) 0 ml IV STAT PRN; Protocol PRN Reason: Hypoglycemia Protocol Digoxin (Lanoxin) 0.125 mg PO 1400 [facility] Last Admin: 01/27/18 13:49 Dose: 0.125 mg Diltiazem HCl (Cardizem Cd) 180 mg PO DAILY [facility] Last Admin: 01/27/18 13:49 Dose: 180 mg Hydralazine HCl (Apresoline) 25 mg PO QID [facility] Last Admin: 01/27/18 17:50 Dose: 25 mg Dextrose (Dextrose 5% In Water 1000 Ml) 1,000 mls @ 0 mls/hr IV .Q0M PRN; Protocol PRN Reason: Hypoglycemia Protocol Heparin Sodium/Sodium Chloride (Heparin 13033 Units/250ml 1/2 Normal Saline) 25,000 units in 250 mls @ 18.37 mls/hr IV .[id number] PRN; Protocol PRN Reason: ADJUST RATE PER PROTOCOL Last Admin: 01/27/18 17:50 Dose: 30 units/kg/hr, 30.617 mls/hr Insulin Human Lispro (Humalog Med) 0 units SC ACHS [facility]; Protocol Last Admin: 01/27/18 16:39 Dose: Not Given Isosorbide Mononitrate (Imdur) 60 mg PO DAILY [facility] Last Admin: 01/27/18 09:07 Dose: 60 mg Pantoprazole Sodium (Protonix Ec Tab) 40 mg PO 0600 [facility] - Labs Labs: 01/27/18 06:00 01/27/18 06:00 PT 17.3 SECONDS (9.4-12.5) H 01/20/18 20:30 INR 1.50 01/20/18 20:30 APTT 75.6 Seconds (25.1-36.5) H 01/27/18 15:50 - Constitutional Appears: Non-toxic, No Acute Distress - Head Exam Head Exam: ATRAUMATIC, NORMOCEPHALIC - Eye Exam Eye Exam: EOMI - ENT Exam ENT Exam: Mucous Membranes Moist - Neck Exam Neck Exam: absent: Meningismus - Respiratory Exam Respiratory Exam: Clear to Ausculation Bilateral, NORMAL BREATHING PATTERN. absent: Rales, Rhonchi, Wheezes, Respiratory Distress - Cardiovascular Exam Cardiovascular Exam: Tachycardia, REGULAR RHYTHM, +S1, +S2 - GI/Abdominal Exam GI & Abdominal Exam: Soft, Normal Bowel Sounds. absent: Firm, Guarding, Rigid, Tenderness - Extremities Exam Extremities Exam: Calf Tenderness (LLE), Tenderness (LLE) - Neurological Exam Neurological Exam: Alert, Awake, Oriented x3 - Psychiatric Exam Psychiatric exam: Normal Affect, Normal Mood - Skin Skin Exam: Dry, Intact, Normal Color, Warm Assessment and Plan - Assessment and Plan (Free Text) Assessment: 57 year old male with past medical history significant for CKD on HD, left lower extremity DVT, DM2, HTN, and HLD who presented with shortness of breath worse with exertion as well as swelling, erythema, and pain of left lower extremity. Plan: 1. ESRD -S/P Vein mapping; Official radiologist interpretation pending -Will place fistula as an outpatient once patient is more stable, per Nephrology -Renal US showed echogeneity -ANNETTE, HIV, immunofixation, kappa light chain, antiphospholipid antibody, PTH, protein electrophoresis, and hepatitis B panel pending -Continue Hectorol every dialysis session -Continue Phoslo -Continue Strict I/O's and daily weights -Will need outpatient HD at [facility] second shift on MWF -Nephrology consulted, all recommendations appreciated 2. CHFrEF -Echocardiogram showed an LVEF of 20-25% -BNP on admission: 59,000 -Continue Digoxin 0.125mg daily -Continue Imdur 60mg daily 3. LLE DVT -LLE US showed subacute/chronic partially occlusive thrombus in the left popliteal vein -Continue Heparin gtt -Patient reports he was previously on Coumadin for his DVT and that he would like to be started on this medication for his DVT -Will bridge to Coumadin when appropriate -Hematology/Oncology consulted, all recommendations appreciated 4. Normocytic Anemia -Likely secondary to anemia of chronic disease versus anemia secondary to renal failure -S/P six units of pRBC's and one dose of Anaresp -No need for endoscopic evaluation at this time, per GI -Thalassemia workup pending -Continue to monitor with daily CBC's -GI and Hematology/Oncology consulted, all recommendations appreciated 5. Sinus Tachycardia -Unknown etiology -VQ scan showed low probability of PE -Cardiology consulted, all recommendations appreciated 6. History of DM2 -A1c: 6.5% -Continue SSI-Medium and Accuchecks ACHS 7. History of HTN -Continue Hydralazine -Increased Cardizem to 180mg daily 8. History of Cocaine Abuse -Avoid Beta Blockers GI Prophylaxis: Protonix DVT Prophylaxis: Heparin gtt Patient seen and case discussed with attending, Dr. Langston.
--- NOTE | 2018-01-27 23:12 | PN ---
DATE: 01/27/2018 SUBJECTIVE: The patient is seen lying in bed. He is awake, he is alert. He denies any chest pain. Denies any shortness of breath. He denies any nausea, vomiting or diarrhea. PHYSICAL EXAMINATION: GENERAL: Middle-aged male lying in bed. VITAL SIGNS: Blood pressure 154/90, heart rate 129, respiratory rate 18-20, temperature 99.4. HEENT: Normocephalic, atraumatic, positive pallor. NECK: Supple, no JVD. LUNGS: Bilateral equal air entry, no rales. CARDIAC: S1 and S2, regular rate rhythm, no murmur, no rub. ABDOMEN: Obese, distended, soft, nontender, bowel sounds present. EXTREMITIES: No lower extremity edema. Intake and output not charted. LABORATORY DATA: WBC 9, hemoglobin 9.4, hematocrit 28.5, platelets 258. Sodium 132, potassium 3.7, chloride 97, CO2 24, BUN 50, creatinine 6.4, glucose 90. Calcium 8.4. Albumin 2.7. Urinalysis: Yellow, clear, pH 7.5, specific gravity 1.010, protein 100, glucose 100, blood moderate, leukocyte esterase small. Urine culture, no growth. Blood culture, no growth. CURRENT MEDICATIONS: Apresoline 25 four times a day, Cardizem 180 daily, heparin 30 units/kg, Imdur 60, Lanoxin 0.25 daily, PhosLo, Protonix, Tylenol. ASSESSMENT: 1. Acute kidney injury superimposed on chronic kidney disease stage IV/V, now end-stage renal disease. 2. Severe dilated cardiomyopathy, decreased ejection fraction. 3. Severe anemia, multifactorial, anemia of chronic kidney disease plus gastrointestinal blood loss plus (?) multiple myeloma. 4. Severe secondary hyperparathyroidism. 5. Severe uncontrolled hypertension. 6. Left lower extremity deep vein thrombosis. 7. Poor medical followup. 8. Noncompliance. PLAN: 1. The patient has received 2 units of blood, hemoglobin is appropriately increased, monitor H and H closely. 2. Dialysis tomorrow, the patient will require dialysis Sunday, Sunday and Sunday as outpatient. 3. Outpatient dialysis to be arranged at [facility] in [place]. 4. The patient has been started on digoxin for SVT by Cardiology. 5. Continue phosphate binders. 6. Check labs and dialysis tomorrow. 7. Physical therapy. 8. GI follow up. 9. We will hold off on AV access right now because the patient is febrile in WBC count is high. Criss Lazo MD
[2018-01-28] MEDS: Heparin25000 units/250ml 1/2NS 25,000 UNITS/250 ML BAG IV PRN (02:40)
[2018-01-28] MEDS: Pantoprazole 40 mg EC Tab PO SCH (04:59)
[2018-01-28 06:51] LABS: BASO # 0.02 K/mm3 (0.0-2.0); BASO % 0.2 % (0.0-3.0); EOS # 0.2 (0.0-0.7); EOS % 1.9 % (1.5-5.0); GRAN # 7.85 (1.4-6.5); GRAN % 78.3 % (50.0-68.0); HEMOGLOBIN 9.2 g/dL (14.0-18.0); LYMPH # 1.4 (1.2-3.4); LYMPH % 14.1 % (22.0-35.0); MEAN CELL VOLUME 91.2 fl (80.0-105.0); MEAN CORPUSCULAR HGB CONC 32.9 g/dl (31.0-37.0); MEAN PLATELET VOLUME 10.3 fl (7.0-11.0); MONO # 0.6 (0.1-0.6); MONO % 5.5 % (1.0-6.0); RBC 3.07 10^6/uL (3.5-6.1)
[2018-01-28] MEDS ORDERED: Doxercalciferol 4 mcg/2 ml Inj IV ONE (07:16)
[2018-01-28] MEDS ORDERED: Darbepoetin Alfa 100 mcg/ml Inj IVP ONE (07:17)
[2018-01-28] MEDS: Insulin Lispro (humaLOG) MEDIUM Coverage SC SCH ×4 (07:30→22:52)
[2018-01-28 07:37] LABS: ALB/GLOB RATIO 0.9 (1.1-1.8); ALBUMIN 2.9 g/dL (3.0-4.8); CALCIUM 8.4 mg/dL (8.4-10.5)
[2018-01-28 07:42] LABS: INR 1.26; PROTHROMBIN TIME 14.6 SECONDS (9.4-12.5)
[2018-01-28] MEDS: diltiaZEM 180 mg/24 Hours CD Cap PO SCH (11:59)
--- NOTE | 2018-01-28 12:04 | PN ---
DATE: 01/28/2018 SUBJECTIVE: The patient's heart rate is reasonably controlled on long-acting Cardizem. PHYSICAL EXAMINATION: VITAL SIGNS: Blood pressure 165/95. NECK: Negative JVD. LUNGS: Without rales. HEART: S1, S2. EXTREMITIES: Without edema. LABORATORY DATA: Hemoglobin is 9.2, BUN and creatinine is 67 and 7.9. IMPRESSION: 1. End-stage renal disease. 2. Dilated cardiomyopathy. 3. History of supraventricular tachycardia. 4. History of short OR interval Given these findings, the patient's anemia is better after transfusion and seems to be stable at above 9. From a cardiac perspective, he will need workup once his comorbidities are stable to rule out significant coronary disease as a cause of his cardiomyopathy. Maurizio Mendez MD [facility] # [id number]
--- NOTE | 2018-01-28 13:37 | CP.PCM.PN ---
<Palmira Ruffin - Last Filed: 01/28/18 17:27> Subjective - Date & Time of Evaluation Date of Evaluation: 01/28/18 Time of Evaluation: 13:37 - Subjective Subjective: INTERNAL MEDICINE PROGRESS NOTE FOR DR. GERI Ruffin PGY-1 Pt seen and examined at bedside today. Pt underwent HD today. He has been receiving darepoetin and doxercalciferol treatments with HD. No acute complaints this am. No acute nursing events overnight. Tolerating diet well. Denies fevers, chills, headache, dizziness, chest pain, palpitations, shortness of breath, nausea, vomiting, constipation, diarrhea, dysuria. Objective - Vital Signs/Intake and Output Vital Signs (last 24 hours): Temp Pulse Resp BP Pulse Ox 99.5 F 90 20 164/111 H 99 01/28/18 06:00 01/28/18 11:59 01/28/18 06:00 01/28/18 11:59 01/28/18 06:00 Intake and Output: 01/28/18 01/28/18 06:59 18:59 Intake Total 2487 Output Total 2850 Balance -363 - Medications Medications: Current Medications Acetaminophen (Tylenol 325mg Tab) 650 mg PO Q6H PRN PRN Reason: Fever >100.4 F Last Admin: 01/25/18 17:42 Dose: 650 mg Calcium Acetate (Phoslo) 667 mg PO WM [facility] Last Admin: 01/28/18 09:06 Dose: 667 mg Dextrose (Dextrose 50% Inj) 0 ml IV STAT PRN; Protocol PRN Reason: Hypoglycemia Protocol Digoxin (Lanoxin) 0.125 mg PO 1400 [facility] Last Admin: 01/27/18 13:49 Dose: 0.125 mg Diltiazem HCl (Cardizem Cd) 180 mg PO DAILY [facility] Last Admin: 01/28/18 11:59 Dose: 180 mg Hydralazine HCl (Apresoline) 25 mg PO QID [facility] Last Admin: 01/28/18 11:59 Dose: 25 mg Dextrose (Dextrose 5% In Water 1000 Ml) 1,000 mls @ 0 mls/hr IV .Q0M PRN; Protocol PRN Reason: Hypoglycemia Protocol Heparin Sodium/Sodium Chloride (Heparin 38848 Units/250ml 1/2 Normal Saline) 25,000 units in 250 mls @ 18.37 mls/hr IV .[id number] PRN; Protocol PRN Reason: ADJUST RATE PER PROTOCOL Last Admin: 01/28/18 02:40 Dose: 30 units/kg/hr, 30.617 mls/hr Insulin Human Lispro (Humalog Med) 0 units SC ACHS [facility]; Protocol Last Admin: 01/27/18 21:49 Dose: Not Given Isosorbide Mononitrate (Imdur) 60 mg PO DAILY [facility] Last Admin: 01/28/18 11:59 Dose: 60 mg Pantoprazole Sodium (Protonix Ec Tab) 40 mg PO 0600 [facility] Last Admin: 01/28/18 04:59 Dose: 40 mg Warfarin Sodium (Coumadin) 2 mg PO 1800 [facility]; Protocol - Labs Labs: 01/28/18 05:30 01/28/18 05:30 PT 14.6 SECONDS (9.4-12.5) H 01/28/18 06:00 INR 1.26 01/28/18 06:00 APTT 66.5 Seconds (25.1-36.5) H 01/28/18 08:06 - Constitutional Appears: Well, Non-toxic, No Acute Distress - Head Exam Head Exam: NORMAL INSPECTION, NORMOCEPHALIC - Eye Exam Eye Exam: EOMI, Normal appearance - ENT Exam ENT Exam: Mucous Membranes Moist, Normal Exam - Neck Exam Neck Exam: Normal Inspection - Respiratory Exam Respiratory Exam: Clear to Ausculation Bilateral, NORMAL BREATHING PATTERN - Cardiovascular Exam Cardiovascular Exam: REGULAR RHYTHM, +S1, +S2 - GI/Abdominal Exam GI & Abdominal Exam: Soft, Normal Bowel Sounds. absent: Tenderness - Extremities Exam Extremities Exam: Calf Tenderness (L sided), Normal Inspection Additional comments: Fluid filled blister on L tibial region - Back Exam Back Exam: NORMAL INSPECTION - Neurological Exam Neurological Exam: Alert, Awake, Oriented x3 - Psychiatric Exam Psychiatric exam: Normal Affect, Normal Mood - Skin Skin Exam: Dry, Intact, Warm Additional comments: R IJ central catheter in place. Clean/dry/intact Assessment and Plan - Assessment and Plan (Free Text) Assessment: Patient is a 57-year-old male with past medical history significant for ESRD on HD, recurrent left lower extremity DVT, type 2 diabetes, hypertension, hyperlipidemia, and noncompliance of medications that presented to the emergency room with worsening of shortness of breath and increased swelling and pain in left lower extremity. Plan: 1. ESRD on HD. Continue dialysis as per nephrology. S/P vein mapping for AV fistula placement. Nephrology following, recommendations appreciated. Renal ultrasound per radiologist showed unremarkable renal sonogram; no significant interval change. CT abd/pelvis per radiologist showed no acute intra-abdominal findings. Outpatient dialysis to be arranged at [facility] in [place]. MWF. Nephro to create AV fistula 2. Anemia. Likely secondary to renal failure. S/P 7.5 units PRBCs. Stool for occult blood positive. GI following, recommendations appreciated. Continue Darbepoetin ricarda shots with HD Continue Doxercalciferol with HD Continue with heparin drip for DVT. Bridge to eliquis Continue to monitor CBC. Continue with protonix. Hematology following, recommendations appreciated. 3. Dyspnea. No dyspnea at rest. Likely multifactorial. Secondary to renal failure, CHF exacerbation, and anemia. Patient for V/Q per radiologist is low probability for PE. Continue dialysis. Continue to monitor CBC and transfuse as needed. 4. Elevated troponin. Tachycardia. Cardiology following, recommendations appreciated. Continue heparin drip. Bridge to eliquis 2d echo per intelligence consultant showed four chamber dilatation consistent with CMP, EF 20-25%, global hypokinesis, trace to mild aortic regurgitation, mitral regurgitation is moderate, severe tricuspid regurgitation, IVC dilated, no pericardial effusion. Continue imdur. Tachycardia improved with cardizem. 5. Elevated BNP. Acute on chronic CHF exacerbation. 2d echo as above. Cardiology following, recommendations appreciated. Continue dialysis. Continue to monitor ins and outs. 6. Elevated d-dimer. Left lower extremity DVT. V/Q scan per radiologist is low probability for PE. Continue heparin drip. Bridge to eliquis Left lower extremity venous Doppler per radiologist showed subacute/chronic partially occlusive thrombus in the left popliteal vein. Hematology following, recommendations appreciated. 7. Leukocytosis. Downtrending. Blood culture with no growth to date. Urine culture with no growth. Patient afebrile. 8. DM2. Continue insulin sliding scale. Continue to monitor accuchecks. Hgb A1C 6.5. 9. Hypertension. Continue hydralazine and imdur. Continue Cardizem. 10. Cocaine abuse. Patient counseled on cessation. 11. Dysuria. Follow up urinalysis. 12. GI and DVT prophylaxis. Protonix and heparin drip Patient is a full code. Case seen, examined and discussed with attending physician, Dr. Guthrie <Robin Guthrie - Last Filed: 01/28/18 18:40> Objective - Vital Signs/Intake and Output Vital Signs (last 24 hours): Temp Pulse Resp BP Pulse Ox 98.6 F 98 H 19 160/98 H 99 01/28/18 12:00 01/28/18 18:01 01/28/18 12:00 01/28/18 18:01 01/28/18 06:00 Intake and Output: 01/28/18 01/28/18 06:59 18:59 Intake Total 2487 840 Output Total 2850 1999 Balance -363 -1160 - Medications Medications: Current Medications Acetaminophen (Tylenol 325mg Tab) 650 mg PO Q6H PRN PRN Reason: Fever >100.4 F Last Admin: 01/25/18 17:42 Dose: 650 mg Apixaban (Eliquis) 5 mg PO BID [facility]; Protocol Last Admin: 01/28/18 18:01 Dose: 5 mg Calcium Acetate (Phoslo) 667 mg PO WM [facility] Last Admin: 01/28/18 16:28 Dose: 667 mg Dextrose (Dextrose 50% Inj) 0 ml IV STAT PRN; Protocol PRN Reason: Hypoglycemia Protocol Digoxin (Lanoxin) 0.125 mg PO 1400 [facility] Last Admin: 01/28/18 14:30 Dose: 0.125 mg Diltiazem HCl (Cardizem Cd) 300 mg PO DAILY [facility] Hydralazine HCl (Apresoline) 25 mg PO QID [facility] Last Admin: 01/28/18 18:01 Dose: 25 mg Dextrose (Dextrose 5% In Water 1000 Ml) 1,000 mls @ 0 mls/hr IV .Q0M PRN; Protocol PRN Reason: Hypoglycemia Protocol Insulin Human Lispro (Humalog Med) 0 units SC ACHS [facility]; Protocol Last Admin: 01/28/18 16:30 Dose: Not Given Isosorbide Mononitrate (Imdur) 60 mg PO DAILY [facility] Last Admin: 01/28/18 11:59 Dose: 60 mg Pantoprazole Sodium (Protonix Ec Tab) 40 mg PO 0600 [facility] Last Admin: 01/28/18 04:59 Dose: 40 mg - Labs Labs: 01/28/18 05:30 01/28/18 05:30 PT 14.6 SECONDS (9.4-12.5) H 01/28/18 06:00 INR 1.26 01/28/18 06:00 APTT 66.5 Seconds (25.1-36.5) H 01/28/18 08:06 Attending/Attestation - Attestation I have personally seen and examined this patient.: Yes I have fully participated in the care of the patient.: Yes I have reviewed all pertinent clinical information, including history, physical exam and plan: Yes Notes (Text): 01/28/18 18:23 attending note; Patient seen and examined with resident. Patient had hemodialysis today. Currently denies any complaints. Denies any hematuria or melena. Denies any nausea, vomiting. Tolerating dialysis well. Tolerating diet well. Patient is a 57-year-old male with past medical history significant for chronic kidney disease stage III, left lower extremity DVT, type 2 diabetes, hypertension, hyperlipidemia, and noncompliance of medications that presented to the emergency room with worsening of shortness of breath and increased swelling and pain in left lower extremity. 1. ESRD on HD. Patient has R permacath placement for dialysis. patient had hemodialysis today. S/P vein mapping for AV fistula placement. Needs outpatient AV fistula placement. Case discussed phrologist in detail. Currently on heparin drip for DVT. we will start eliquis today. 2. Anemia. Likely secondary to renal failure.case discussed with GI Dr. arrington in detail. agreed to start eliquis since there is no active bleeding. 3. Dyspnea. resolved. Secondary to renal failure, CHF exacerbation, and anemia. Patient for V/Q per radiologist is low probability for PE. Continue dialysis. 4. Elevated troponin. cardiology evaluation appreciated. on heparin drip. we will start eliquis. 2d echo per intelligence consultant showed four chamber dilatation consistent with CMP, EF 20-25%, global hypokinesis, trace to mild aortic regurgitation, mitral regurgitation is moderate, severe tricuspid regurgitation, IVC dilated, no pericardial effusion. Continue imdur. Tachycardia improved with cardizem and digoxin. 5. Left lower extremity DVT. V/Q scan per radiologist is low probability for PE. Continue heparin drip. Left lower extremity venous Doppler showed subacute/chronic partially occlusive thrombus in the left popliteal vein. Hematology following, recommendations appreciated. 6. Leukocytosis. resolved. Blood culture with no growth to date. Urine culture with no growth. Patient afebrile. 7. DM2. Continue insulin sliding scale. Continue to monitor accuchecks. Hgb A1C 6.5. 8. Hypertension. Continue hydralazine and imdur. Continue Cardizem and digoxin. 9. Cocaine abuse. Patient counseled on cessation. case discussed with watch caser for outpatient dialysis arrangements. PT evaluation requested. Case was discussed in detail with patient regarding current diagnosis and treatment plan. upon discharge patient will follow up with PMD . Patient is very noncompliant with follow-up and medical treatment. The need for medication compliance and follow up insisted in detail.
[2018-01-28] MEDS: Digoxin 250 mcg (0.25 mg) Tab PO SCH (14:30)
[2018-01-28] MEDS ORDERED: diltiaZEM 180 mg/24 Hours CD Cap PO SCH (15:02)
[2018-01-28] MEDS ORDERED: diltiaZEM 300 mg/24 Hours CD Cap PO ONE (15:15)
[2018-01-28] MEDS ORDERED: Heparin25000 units/250ml 1/2NS 25,000 UNITS/250 ML BAG IV PRN (15:53)
[2018-01-29] MEDS: Pantoprazole 40 mg EC Tab PO SCH (06:10)
[2018-01-29 06:40] LABS: BASO # 0.02 K/mm3 (0.0-2.0); BASO % 0.2 % (0.0-3.0); EOS # 0.2 (0.0-0.7); GRAN # 6.52 (1.4-6.5); GRAN % 76.7 % (50.0-68.0); HEMOGLOBIN 9.1 g/dL (14.0-18.0); LYMPH # 1.4 (1.2-3.4); LYMPH % 16.3 % (22.0-35.0); MEAN CELL VOLUME 93.3 fl (80.0-105.0); MEAN CORPUSCULAR HEMOGLOBIN 29.1 pg (25.0-35.0); MEAN CORPUSCULAR HGB CONC 31.2 g/dl (31.0-37.0); MEAN PLATELET VOLUME 10.4 fl (7.0-11.0); MONO # 0.4 (0.1-0.6); MONO % 4.8 % (1.0-6.0); RBC 3.13 10^6/uL (3.5-6.1); RED CELL DISTRIBUTION WIDTH 15.2 % (11.5-14.5); WHITE BLOOD COUNT 8.5 10^3/ul (4.5-11.0)
[2018-01-29 06:41] LABS: INR 1.32; PROTHROMBIN TIME 15.3 SECONDS (9.4-12.5)
--- NOTE | 2018-01-29 07:00 | CP.PCM.PN ---
<Palmira Ruffin - Last Filed: 01/29/18 21:23> Subjective - Date & Time of Evaluation Date of Evaluation: 01/29/18 Time of Evaluation: 06:59 - Subjective Subjective: INTERNAL MEDICINE PROGRESS NOTE FOR DR. GERI Ruffin PGY-1 Pt seen and examined at bedside this am. He reports mild chest pain with inhalation, without radiation, without associated diophoresis, nausea/vomiting/dizziness. No other acute nursing events overnight. Pt tolerated HD well yesterday. Pt tolerating diet well, and would like to start ambulating. He reports discomfort around urethral area. Denies fevers, chills, headache, dizziness, chest pain, palpitations, shortness of breath, nausea, vomiting, constipation, diarrhea. Objective - Vital Signs/Intake and Output Vital Signs (last 24 hours): Temp Pulse Resp BP Pulse Ox 99.4 F 98 H 20 127/80 97 01/29/18 00:01 01/29/18 02:00 01/29/18 00:01 01/29/18 00:01 01/29/18 00:01 Intake and Output: 01/28/18 01/29/18 18:59 06:59 Intake Total 840 120 Output Total 2000 1000 Balance -1160 -880 - Medications Medications: Current Medications Acetaminophen (Tylenol 325mg Tab) 650 mg PO Q6H PRN PRN Reason: Fever >100.4 F Last Admin: 01/25/18 17:42 Dose: 650 mg Apixaban (Eliquis) 5 mg PO BID [facility]; Protocol Last Admin: 01/28/18 18:01 Dose: 5 mg Calcium Acetate (Phoslo) 667 mg PO WM [facility] Last Admin: 01/28/18 16:28 Dose: 667 mg Dextrose (Dextrose 50% Inj) 0 ml IV STAT PRN; Protocol PRN Reason: Hypoglycemia Protocol Digoxin (Lanoxin) 0.125 mg PO 1400 [facility] Last Admin: 01/28/18 14:30 Dose: 0.125 mg Diltiazem HCl (Cardizem Cd) 300 mg PO DAILY [facility] Hydralazine HCl (Apresoline) 25 mg PO QID [facility] Last Admin: 01/28/18 22:49 Dose: 25 mg Dextrose (Dextrose 5% In Water 1000 Ml) 1,000 mls @ 0 mls/hr IV .Q0M PRN; Protocol PRN Reason: Hypoglycemia Protocol Insulin Human Lispro (Humalog Med) 0 units SC ACHS [facility]; Protocol Last Admin: 01/28/18 22:52 Dose: Not Given Isosorbide Mononitrate (Imdur) 60 mg PO DAILY [facility] Last Admin: 01/28/18 11:59 Dose: 60 mg Pantoprazole Sodium (Protonix Ec Tab) 40 mg PO 0600 [facility] Last Admin: 01/29/18 06:10 Dose: 40 mg - Labs Labs: 01/29/18 05:20 01/28/18 05:30 PT 15.3 SECONDS (9.4-12.5) H 01/29/18 05:20 INR 1.32 01/29/18 05:20 APTT 66.5 Seconds (25.1-36.5) H 01/28/18 08:06 - Constitutional Appears: Well, Non-toxic, No Acute Distress - Head Exam Head Exam: ATRAUMATIC, NORMAL INSPECTION - Eye Exam Eye Exam: EOMI, Normal appearance - ENT Exam ENT Exam: Mucous Membranes Moist, Normal Exam - Neck Exam Neck Exam: Normal Inspection. absent: Meningismus - Respiratory Exam Respiratory Exam: Clear to Ausculation Bilateral, NORMAL BREATHING PATTERN - Cardiovascular Exam Cardiovascular Exam: Tachycardia, +S1, +S2 - GI/Abdominal Exam GI & Abdominal Exam: Soft, Normal Bowel Sounds. absent: Distended - Exam Exam: absent: Scrotal Swelling, Testicular Tenderness, Uretheral Discharge (dried blood noted) - Extremities Exam Extremities Exam: Calf Tenderness (L sided) Additional comments: fluid filled blister on L tibial region - Back Exam Back Exam: NORMAL INSPECTION. absent: CVA tenderness (L), CVA tenderness (R) - Neurological Exam Neurological Exam: Alert, Awake, Oriented x3 - Psychiatric Exam Psychiatric exam: Normal Affect, Normal Mood - Skin Skin Exam: Dry, Intact, Warm Assessment and Plan - Assessment and Plan (Free Text) Assessment: Patient is a 57-year-old male with past medical history significant for ESRD on HD, recurrent DVTs (popliteal and femoral), type 2 diabetes, hypertension, hyperlipidemia, and noncompliance of medications that presented to the emergency room with worsening of shortness of breath and increased swelling and pain in left lower extremity. Pt was diagnosed with ESRD on this admission and has been undergoing HD on MWF. He has been on a heparin drip, and is being bridged to oral eliquis for DVT prophylaxis and treatment at home. Plan: Plan: 1. ESRD on HD. Continue dialysis as per nephrology. S/P vein mapping for AV fistula placement. Nephrology following, recommendations appreciated. Renal ultrasound per radiologist showed unremarkable renal sonogram; no significant interval change. CT abd/pelvis per radiologist showed no acute intra-abdominal findings. Outpatient dialysis to be arranged. Nephro to create AV fistula 2. Anemia. Likely secondary to renal failure. S/P 7.5 units PRBCs. Hx of stool for occult blood positive. GI following, recommendations appreciated. As per Dr. Griffin, pt ok to start oral eliquis. Continue with heparin drip for DVT. Bridge to eliquis Continue Darbepoetin ricarda shots with HD Continue Doxercalciferol with HD Continue to monitor CBC. Continue with protonix. Hematology following, recommendations appreciated. 3. Dyspnea. No dyspnea at rest. Likely multifactorial. Secondary to renal failure, CHF exacerbation, and anemia. Patient for V/Q per radiologist is low probability for PE. Continue dialysis. Continue to monitor CBC and transfuse as needed. 4. Elevated troponin. Tachycardia. Cardiology following, recommendations appreciated. Continue heparin drip. Bridge to eliquis 2d echo per satellite project site monitor showed four chamber dilatation consistent with CMP, EF 20-25%, global hypokinesis, trace to mild aortic regurgitation, mitral regurgitation is moderate, severe tricuspid regurgitation, IVC dilated, no pericardial effusion. Continue imdur. Tachycardia improved with cardizem. 5. Elevated BNP. Acute on chronic CHF exacerbation. 2d echo as above. Cardiology following, recommendations appreciated. Continue dialysis. Continue to monitor ins and outs. 6. Elevated d-dimer. Left lower extremity DVT. V/Q scan per radiologist is low probability for PE. Continue heparin drip. Bridge to eliquis Left lower extremity venous Doppler per radiologist showed subacute/chronic partially occlusive thrombus in the left popliteal vein. Hematology following, recommendations appreciated. 7. Leukocytosis. Downtrending. Blood culture with no growth to date. Urine culture with no growth. Patient afebrile. 8. DM2. Continue insulin sliding scale. Continue to monitor accuchecks. Hgb A1C 6.5. 9. Hypertension. Continue hydralazine and imdur. Increase cardizem to 300mg po 10. Cocaine abuse. Patient counseled on cessation. 11. Dysuria. Follow up urinalysis. 12. GI and DVT prophylaxis. Protonix and heparin drip Patient is a full code. Case seen, examined and discussed with attending physician, Dr. Guthrie <Robin Guthrie - Last Filed: 01/31/18 18:32> Objective - Vital Signs/Intake and Output Vital Signs (last 24 hours): Temp Pulse Resp BP Pulse Ox 99 F 105 H 18 177/96 H 95 01/30/18 15:30 01/30/18 16:30 01/30/18 15:30 01/30/18 16:30 01/30/18 15:30 Intake and Output: 01/30/18 01/30/18 06:59 18:59 Intake Total 420 Output Total 640 Balance -220 - Medications Medications: Current Medications Acetaminophen (Tylenol 325mg Tab) 650 mg PO Q6H PRN PRN Reason: Fever >100.4 F Last Admin: 01/29/18 23:08 Dose: 650 mg Apixaban (Eliquis) 5 mg PO BID [facility]; Protocol Last Admin: 01/30/18 15:50 Dose: 5 mg Calcium Acetate (Phoslo) 667 mg PO WM [facility] Last Admin: 01/30/18 15:52 Dose: 667 mg Dextrose (Dextrose 50% Inj) 0 ml IV STAT PRN; Protocol PRN Reason: Hypoglycemia Protocol Digoxin (Lanoxin) 0.125 mg PO 1400 [facility] Last Admin: 01/30/18 15:51 Dose: 0.125 mg Diltiazem HCl (Cardizem Cd) 300 mg PO DAILY [facility] Last Admin: 01/30/18 15:48 Dose: 300 mg Hydralazine HCl (Apresoline) 25 mg PO QID [facility] Last Admin: 01/30/18 15:49 Dose: 25 mg Dextrose (Dextrose 5% In Water 1000 Ml) 1,000 mls @ 0 mls/hr IV .Q0M PRN; Protocol PRN Reason: Hypoglycemia Protocol Meropenem 250 mg/ Sodium (Chloride) 100 mls @ 25 mls/hr IVPB Q12H [facility]; Protocol Stop: 02/06/18 09:46 Insulin Human Lispro (Humalog Med) 0 units SC ACHS [facility]; Protocol Last Admin: 01/30/18 07:58 Dose: Not Given Isosorbide Mononitrate (Imdur) 60 mg PO DAILY [facility] Last Admin: 01/30/18 15:55 Dose: 60 mg Lidocaine HCl (Xylocaine 2%) 0 ea TOP DAILY PRN PRN Reason: Pain, moderate (4-7) Last Admin: 01/30/18 02:12 Dose: 1 applic Pantoprazole Sodium (Protonix Ec Tab) 40 mg PO 0600 [facility] Last Admin: 01/30/18 06:11 Dose: 40 mg - Labs Labs: 01/30/18 05:30 01/30/18 05:30 PT 16.5 SECONDS (9.4-12.5) H 01/30/18 05:30 INR 1.42 01/30/18 05:30 APTT 66.5 Seconds (25.1-36.5) H 01/28/18 08:06 Attending/Attestation - Attestation I have personally seen and examined this patient.: Yes I have fully participated in the care of the patient.: Yes I have reviewed all pertinent clinical information, including history, physical exam and plan: Yes Notes (Text): 01/30/18 17:45 attending note; Patient seen and examined with resident. Currently denies any complaints. Denies any hematuria or melena. Denies any nausea, vomiting. Tolerating diet well. Patient is a 57-year-old male with past medical history significant for chronic kidney disease stage III, left lower extremity DVT, type 2 diabetes, hypertension, hyperlipidemia, and noncompliance of medications that presented to the emergency room with worsening of shortness of breath and increased swelling and pain in left lower extremity. 1. ESRD on HD. Patient has R permacath placement for dialysis. continue HD per nephrology. S/P vein mapping for AV fistula placement. Needs outpatient AV fistula placement. on eliquis. 2. Anemia. Likely secondary to renal failure.case discussed with GI Dr. griffin in detail. on start eliquis since there is no active bleeding. hemoglobin is stable. 3. Dyspnea. resolved. Secondary to renal failure, CHF exacerbation, and anemia. Patient for V/Q per radiologist is low probability for PE. Continue dialysis. 4. Elevated troponin. cardiology evaluation appreciated. on eliquis now. 2d echo per satellite project site monitor showed four chamber dilatation consistent with CMP, EF 20-25%, global hypokinesis, trace to mild aortic re gurgitation, mitral regurgitation is moderate, severe tricuspid regurgitation, IVC dilated, no pericardial effusion. Continue imdur. Tachycardia improved with cardizem and digoxin. 5. Left lower extremity DVT. V/Q scan per radiologist is low probability for PE. On eliquis. Left lower extremity venous Doppler showed subacute/chronic partially occlusive thrombus in the left popliteal vein. Hematology following, recommendations appreciated. 6. Leukocytosis. resolved. Blood culture with no growth to date. Urine culture with no growth. Patient afebrile. 7. DM2. Continue insulin sliding scale. Continue to monitor accuchecks. Hgb A1C 6.5. 8. Hypertension. Continue hydralazine and imdur. Continue Cardizem and digoxin. PT evaluation requested. Case was discussed in detail with patient regarding current diagnosis and treatment plan. upon discharge patient will follow up with PMD .
[2018-01-29 07:25] LABS: ALB/GLOB RATIO 0.8 (1.1-1.8); ALBUMIN 2.8 g/dL (3.0-4.8); CALCIUM 8.4 mg/dL (8.4-10.5)
[2018-01-29] MEDS: Insulin Lispro (humaLOG) MEDIUM Coverage SC SCH ×4 (08:38→22:15)
--- NOTE | 2018-01-29 08:59 | PN ---
DATE: 01/28/2018 SUBJECTIVE: The patient is seen lying in dialysis unit. The patient is awake and seems somewhat tachypneic. He denies chest . PHYSICAL EXAMINATION: GENERAL: Middle-aged male lying in bed in the dialysis unit. VITAL SIGNS: Blood pressure /100, heart rate 82, respiratory rate 24, temperature 98.6. HEENT: Normocephalic, atraumatic, positive pallor. NECK: Supple, no JVD. LUNGS: Bilateral equal air entry, bilateral rhonchi, no rales. CARDIAC: S1 and S2, regular rate and rhythm, no murmur, no rub. ABDOMEN: Obese, distended, soft, nontender, bowel sounds present. EXTREMITIES: +2 pitting edema of the lower extremities. INTAKE AND OUTPUT: 3227/3800. LABORATORY DATA: WBC 10, hemoglobin 9.2, hematocrit 28, platelets 257. Sodium 136, potassium 3.8, chloride 97, CO2 of 22, BUN 67, creatinine 7.9, glucose 90, calcium 8.4, phosphorus 6.4, magnesium 1.7. AST 61. Albumin 2.9, globulin 6.4. Urinalysis: Yellow, clear, pH 7.5, specific gravity 1.010, protein 100, glucose 100, moderate blood, leukocyte esterase small. Free kappa light chain 251, free lambda light chain 186. Urine cultures, no growth from 01/24/2018. CURRENT MEDICATIONS: Apresoline 25 four times a day, Cardizem 180 b.i.d., Imdur 60, digoxin 0.125 daily, PhosLo 667 p.o. t.i.d., Protonix, Tylenol, Aranesp 100, Hectorol 4. ASSESSMENT: 1. Acute kidney injury superimposed on chronic kidney disease stage 5, now end-stage renal disease. 2. Severe dilated cardiomyopathy, decreased ejection fraction. 3. Supraventricular tachycardia. 4. Left deep vein thrombosis. 5. Severe anemia, multifactorial, anemia of chronic kidney disease, gastrointestinal blood loss, ? multiple myeloma. 6. Secondary hyperparathyroidism. 7. History of noncompliance. 8. Severe uncontrolled hypertension. PLAN: 1. Stable dialysis. 2. Hemoglobin stable after 2 units of PRBCs. 3. Continue phosphate binders. 4. Continue IV Hectorol. 5. Continue . 6. Increase Cardizem CD to 300 mg daily. 7. Agree with . 8. Outpatient dialysis at [facility]. Criss Lazo MD MEGAN
[2018-01-29] MEDS: diltiaZEM 300 mg/24 Hours CD Cap PO SCH (11:14)
[2018-01-29 11:16] LABS: HEMOGLOBIN A 90.7 Percent (>96.0); HEMOGLOBIN A2 2.1 Percent (1.8-3.5)
[2018-01-29] MEDS ORDERED: Lidocaine 2% Jelly (30 ml) TOP PRN (13:32)
[2018-01-29] MEDS: Digoxin 250 mcg (0.25 mg) Tab PO SCH (14:01)
--- NOTE | 2018-01-29 15:51 | CARD ---
APPROVED REPORT Date of service: 01/29/2018 EKG Measurement Heart [id number] <Conclusion> Sinus tachycardia with premature atrial complexes with aberrant conduction Nonspecific T wave abnormality Abnormal ECG
--- NOTE | 2018-01-29 16:27 | PN ---
DATE: 01/29/2018 CARDIOLOGY FOLLOWUP SUBJECTIVE: The patient is resting comfortably without shortness of breath. PHYSICAL EXAMINATION: VITAL SIGNS: Blood pressure is 144/58, the heart rate is in 100s, normal sinus rhythm. NECK: Negative JVD. LUNGS: Without rales. HEART: Reveals S1, S2. EXTREMITIES: Without edema. LABORATORY DATA: Potassium is 3.8, hemoglobin is 9.1. IMPRESSION: 1. End-stage renal disease. 2. Dilated cardiomyopathy. 3. Supraventricular tachycardia. 4. Hypertension. PLAN: Given these findings, the patient's heart rate is reasonably controlled. Will need to have an outpatient stress test when the patient's renal situation is stabilized. We will discontinue telemetry today. Maurizio Mendez MD
--- NOTE | 2018-01-29 16:38 | PN ---
DATE: 01/29/2018 SUBJECTIVE: The patient is currently seen on 2R. He is lying comfortable in bed. He had an uneventful dialysis yesterday with removal of 2000 mL of fluid. The patient's blood pressure control appears to be improved. He is less short of breath. He has no complaints today. MEDICATIONS: Medication list reviewed. The patient is currently on hydralazine, Cardizem, Eliquis, insulin, Lanoxin, PhosLo, Protonix, Tylenol p.r.n. and Xylocaine. OBJECTIVE: INTAKE/OUTPUT: Intake 960, output 3000 of which 2000 was with dialysis yesterday. VITAL SIGNS: Blood pressure 144/58, temperature 98.7, respiratory rate 20 with a pulse of 105. Pulse ox is 97% on room air. HEENT: Shows him to be normocephalic, atraumatic. Conjunctivae are pale. Sclerae are nonicteric. NECK: Supple. No neck vein distention. CHEST: Clear to auscultation and percussion. No rales, rhonchi or wheezing. CARDIOVASCULAR: Shows a regular rate and rhythm with TR/MR/AI. No S3, no S4, no rub. ABDOMEN: Soft. Bowel sounds normal. No rebound, guarding or masses. EXTREMITIES: Show 1+ pitting edema of his lower extremities. He has a dressing over a left foot ulcer. He has a right chest wall PermCath. NEURO: Shows him to be alert, oriented with no focal deficits. LABORATORY DATA AND IMAGING: CBC: White blood cell count today 8.5, hemoglobin stable at 9.1, platelet count is 260,000. Coags today: PT of 15.2 with an INR of 1.32. Chemistries show normal electrolytes. BUN 47 with a creatinine of 6.2 today. Glucose is 90. Calcium 8.4. Phosphorus 4.8, down from 6.4. Magnesium level is 1.7. Microbiology: All cultures are negative. ASSESSMENT: 1. Acute renal failure superimposed on chronic kidney disease stage 5, now with end-stage renal disease. The patient appears to be agreeable for outpatient dialysis. The patient does live in [place] and is willing to accept dialysis at [facility]. There is no availability at [facility] dialysis unit at present. 2. History of severe dilated cardiomyopathy, ejection fraction 20-25% with severe tricuspid regurgitation and mitral regurgitation/aortic insufficiency. 3. Deep venous thrombosis, left lower extremity. The patient continues on chronic anticoagulation. He is currently on Eliquis. 4. History of anemia. In part, secondary to chronic kidney disease. In part, secondary to possible gastrointestinal blood loss. The patient will continue receiving Aranesp with dialysis. His last hemoglobin was 9.1. The patient last iron saturations were 14%. The patient should be receiving IV Venofer with dialysis. 5. History of secondary hyperparathyroidism. Phosphorus level is improved at 4.8, down from a high of 7.1. The patient will continue binder therapy. He is on PhosLo 667 three times a day. 6. History of noncompliance. 7. History of severe uncontrolled hypertension with hypertensive nephrosclerosis. The patient understands the need to keep blood pressure controlled. This will be accomplished with both blood pressure medication and dialyzing him down to his estimated dry weight. PLAN: 1. Apparently, arrangements are being made for the patient to be transferred over to at [facility] upon discharge. He does live in [place], [place]. 2. I would make certain that the patient is receiving IV Venofer with dialysis. 3. Continue present blood pressure medication as blood pressure is trending downward and again stressed the patient the compliance of taking the medication. 4. The patient will continue Sunday, Sunday and Sunday dialysis. He is scheduled for dialysis tomorrow. 5. Local wound care for his ulcer on his left lower extremity. Bartolome Lopez MD
[2018-01-29] MEDS: Lidocaine 2% Jelly (30 ml) TOP PRN (17:59)
[2018-01-30] MEDS: Lidocaine 2% Jelly (30 ml) TOP PRN (02:12)
--- NOTE | 2018-01-30 05:59 | CP.PCM.PN ---
<Palmira Ruffin - Last Filed: 01/30/18 14:03> Subjective - Date & Time of Evaluation Date of Evaluation: 01/30/18 Time of Evaluation: 05:54 - Subjective Subjective: INTERNAL MEDICINE PROGRESS NOTE FOR DR. GERI Ruffin PGY-1 Pt seen and examined at bedside this am. Pt had a fever of 100.3 overnight. Pt to undergo HD this am, blood cultures to be collected during dialysis. 2500ml uf. Social work pending placement to subacute rehab and dialysis center where Dr. Lazo visits. Pt may need transportation to & from dialysis. This am, pt denies fevers, chills, headache, dizziness, nausea, vomiting, chest pain, palpitations, shortness of breath, nausea, vomiting, constipation, diarrhea, dy suria. Objective - Vital Signs/Intake and Output Vital Signs (last 24 hours): Temp Pulse Resp BP Pulse Ox 100.3 F H 76 18 177/96 H 96 01/30/18 00:01 01/30/18 00:01 01/30/18 00:01 01/30/18 00:01 01/30/18 00:01 Intake and Output: 01/29/18 01/30/18 18:59 06:59 Intake Total 100 Balance 100 - Medications Medications: Current Medications Acetaminophen (Tylenol 325mg Tab) 650 mg PO Q6H PRN PRN Reason: Fever >100.4 F Last Admin: 01/29/18 23:08 Dose: 650 mg Apixaban (Eliquis) 5 mg PO BID CATHIE; Protocol Last Admin: 01/29/18 17:57 Dose: 5 mg Calcium Acetate (Phoslo) 667 mg PO WM [facility]ATHIE Last Admin: 01/29/18 17:57 Dose: 667 mg Dextrose (Dextrose 50% Inj) 0 ml IV STAT PRN; Protocol PRN Reason: Hypoglycemia Protocol Digoxin (Lanoxin) 0.125 mg PO 1400 [facility] Last Admin: 01/29/18 14:01 Dose: 0.125 mg Diltiazem HCl (Cardizem Cd) 300 mg PO DAILY [facility] Last Admin: 01/29/18 11:14 Dose: 300 mg Hydralazine HCl (Apresoline) 25 mg PO QID [facility] Last Admin: 01/29/18 23:07 Dose: 25 mg Dextrose (Dextrose 5% In Water 1000 Ml) 1,000 mls @ 0 mls/hr IV .Q0M PRN; Protocol PRN Reason: Hypoglycemia Protocol Insulin Human Lispro (Humalog Med) 0 units SC ACHS [facility]; Protocol Last Admin: 01/29/18 22:15 Dose: Not Given Isosorbide Mononitrate (Imdur) 60 mg PO DAILY [facility] Last Admin: 01/29/18 11:12 Dose: 60 mg Lidocaine HCl (Xylocaine 2%) 0 ea TOP DAILY PRN PRN Reason: Pain, moderate (4-7) Last Admin: 01/30/18 02:12 Dose: 1 applic Pantoprazole Sodium (Protonix Ec Tab) 40 mg PO 0600 [facility] Last Admin: 01/29/18 06:10 Dose: 40 mg - Labs Labs: 01/29/18 05:20 01/29/18 05:20 PT 15.3 SECONDS (9.4-12.5) H 01/29/18 05:20 INR 1.32 01/29/18 05:20 APTT 66.5 Seconds (25.1-36.5) H 01/28/18 08:06 - Constitutional Appears: Well, Non-toxic, No Acute Distress - Head Exam Head Exam: NORMAL INSPECTION, NORMOCEPHALIC - Eye Exam Eye Exam: EOMI, Normal appearance - ENT Exam ENT Exam: Mucous Membranes Moist, Normal Exam - Neck Exam Additional comments: R IJ catheter in place. Clean/dry/intact - Respiratory Exam Respiratory Exam: Clear to Ausculation Bilateral, NORMAL BREATHING PATTERN - Cardiovascular Exam Cardiovascular Exam: REGULAR RHYTHM, +S1, +S2 - GI/Abdominal Exam GI & Abdominal Exam: Soft, Normal Bowel Sounds - Extremities Exam Extremities Exam: Calf Tenderness (L side) Additional comments: Dressing C/D/I over L tibial region for wound. clean/dry/intact - Back Exam Back Exam: NORMAL INSPECTION - Neurological Exam Neurological Exam: Alert, Awake, Oriented x3 - Psychiatric Exam Psychiatric exam: Normal Affect, Normal Mood - Skin Skin Exam: Dry, Intact, Warm Assessment and Plan - Assessment and Plan (Free Text) Assessment: Patient is a 57-year-old male with past medical history significant for ESRD on HD, recurrent DVTs (popliteal and femoral), type 2 diabetes, hypertension, hyperlipidemia, and noncompliance of medications that presented to the emergency room with worsening of shortness of breath and increased swelling and pain in left lower extremity. Pt was diagnosed with ESRD on this admission and has been undergoing HD on MWF. He was on heparin drip for NSTEMI & DVT treatment, and is being bridged to oral eliquis for DVT prophylaxis and treatment at home. Plan: ESRD on HD. 2500cc UF removed today. f/u CBC/CMP post treatment. Pt to receive IV venofer with dialysis. Continue with current bp meds Continue dialysis as per nephrology, [facility] S/P vein mapping for AV fistula placement. Nephro to create AV fistula outpatient Renal ultrasound per radiologist showed unremarkable renal sonogram; no signi ficant interval change. Nephro appreciated echogeneity CT abd/pelvis per radiologist showed no acute intra-abdominal findings. Outpatient dialysis to be arranged. Social work onboard Anemia. Likely secondary to renal failure. S/P 7.5 units PRBCs. Hx of stool for occult blood positive. GI following, recommendations appreciated. As per Dr. Griffin, pt ok to start oral eliquis. Continue eliquis Continue Darbepoetin ricarda shots with HD Continue Doxercalciferol with HD Continue to monitor CBC. Continue with protonix. Hematology following, recommendations appreciated. Dyspnea. No dyspnea at rest. Likely multifactorial. Secondary to renal failure, CHF exacerbation, and anemia. Patient for V/Q per radiologist is low probability for PE. Continue dialysis. Continue to monitor CBC and transfuse as needed. Elevated troponin. Tachycardia improved discontinue telemetry Per cardio: outpatient stress test when ESRD is stable Cardiology following, recommendations appreciated. Continue eliquis 2d echo per forensic scientist showed four chamber dilatation consistent with CMP, EF 20-25%, global hypokinesis, trace to mild aortic regurgitation, mitral regurgitation is moderate, severe tricuspid regurgitation, IVC dilated, no pericardial effusion. Continue imdur. Tachycardia improved with cardizem. Elevated BNP Continue digoxin per cardio recs Acute on chronic CHF exacerbation. 2d echo as above. Cardiology following, recommendations appreciated. Continue dialysis. Continue to monitor ins and outs. Elevated d-dimer. Left lower extremity DVT. V/Q scan per radiologist is low probability for PE. Continue eliquis Left lower extremity venous Doppler per radiologist showed subacute/chronic partially occlusive thrombus in the left popliteal vein. Hematology following, recommendations appreciated. Urethral Pain Likely secondary to lundy removal Continue topical lidocaine ointment U/A & UCx negative. No signs of active infection DM2. Continue insulin sliding scale. Continue to monitor accuchecks. Hgb A1C 6.5. Hypertension. Continue hydralazine and imdur. Increase cardizem to 300mg po Cocaine abuse. Patient counseled on cessation. Dysuria. Follow up urinalysis. GI and DVT prophylaxis: Protonix/Eliquis. Pt not a candidate for SCD d/t calf tenderness Disposition: Set up for dialysis outpatient at [facility]. 1st tx set up for 02/01/18 Patient is a full code. Case seen, examined and discussed with attending physician, Dr. Guthrie <Robin Guthrie - Last Filed: 01/31/18 18:35> Objective - Vital Signs/Intake and Output Vital Signs (last 24 hours): Temp Pulse Resp BP Pulse Ox 98.8 F 101 H 20 162/89 H 98 01/31/18 14:00 01/31/18 14:00 01/31/18 14:00 01/31/18 15:31 01/31/18 14:00 Intake and Output: 01/31/18 01/31/18 06:59 18:59 Intake Total 1000 720 Output Total 3200 200 Balance -2200 520 - Medications Medications: Current Medications Acetaminophen (Tylenol 325mg Tab) 650 mg PO Q6H PRN PRN Reason: Fever >100.4 F Last Admin: 01/29/18 23:08 Dose: 650 mg Apixaban (Eliquis) 5 mg PO BID [facility]; Protocol Last Admin: 01/31/18 10:17 Dose: 5 mg Calcium Acetate (Phoslo) 667 mg PO WM [facility] Last Admin: 01/31/18 13:43 Dose: 667 mg Dextrose (Dextrose 50% Inj) 0 ml IV STAT PRN; Protocol PRN Reason: Hypoglycemia Protocol Digoxin (Lanoxin) 0.125 mg PO 1400 [facility] Last Admin: 01/31/18 13:43 Dose: 0.125 mg Diltiazem HCl (Cardizem Cd) 300 mg PO DAILY [facility] Last Admin: 01/31/18 10:17 Dose: 300 mg Hydralazine HCl (Apresoline) 50 mg PO QID [facility] Last Admin: 01/31/18 14:12 Dose: 50 mg Dextrose (Dextrose 5% In Water 1000 Ml) 1,000 mls @ 0 mls/hr IV .Q0M PRN; Protocol PRN Reason: Hypoglycemia Protocol Meropenem 250 mg/ Sodium (Chloride) 100 mls @ 25 mls/hr IVPB Q12H [facility]; Protocol Stop: 02/06/18 09:46 Last Admin: 01/31/18 10:20 Dose: 25 mls/hr Insulin Human Lispro (Humalog Med) 0 units SC ACHS [facility]; Protocol Last Admin: 01/31/18 08:00 Dose: Not Given Isosorbide Mononitrate (Imdur) 60 mg PO DAILY [facility] Last Admin: 01/31/18 10:17 Dose: 60 mg Lidocaine HCl (Xylocaine 2%) 0 ea TOP DAILY PRN PRN Reason: Pain, moderate (4-7) Last Admin: 01/30/18 02:12 Dose: 1 applic Pantoprazole Sodium (Protonix Ec Tab) 40 mg PO 0600 [facility] Last Admin: 01/31/18 05:24 Dose: 40 mg - Labs Labs: 01/30/18 05:30 01/30/18 05:30 PT 16.1 SECONDS (9.4-12.5) H 01/31/18 07:00 INR 1.39 01/31/18 07:00 APTT 66.5 Seconds (25.1-36.5) H 01/28/18 08:06 Attending/Attestation - Attestation I have personally seen and examined this patient.: Yes I have fully participated in the care of the patient.: Yes I have reviewed all pertinent clinical information, including history, physical exam and plan: Yes Notes (Text): 01/31/18 18:33 attending note; Patient seen and examined with resident. Currently denies any complaints. patient had low-grade temperature. Patient is a 57-year-old male with past medical history significant for chronic kidney disease stage III, left lower extremity DVT, type 2 diabetes, hypertension, hyperlipidemia, and noncompliance of medications that presented to the emergency room with worsening of shortness of breath and increased swelling and pain in left lower extremity. 1. ESRD on HD. Patient has R permacath placement for dialysis. Going for HD today. S/P vein mapping for AV fistula placement. Needs outpatient AV fistula placement. 2. Anemia. no active bleeding. hemoglobin is stable. 3. Dyspnea. resolved. Secondary to renal failure, CHF exacerbation, and anemia. Patient for V/Q per radiologist is low probability for PE. Continue dialysis. 4. Elevated troponin. cardiology evaluation appreciated. on eliquis now. 2d echo per forensic scientist showed four chamber dilatation consistent with CMP, EF 20-25%, global hypokinesis, trace to mild aortic regurgitation, mitral regurgitation is moderate, severe tricuspid regurgitation, IVC dilated, no pericardial effusion. Continue imdur. Tachycardia improved with cardizem and digoxin. telemetry discontinued. 5. Left lower extremity DVT. V/Q scan per radiologist is low probability for PE. On eliquis. Left lower extremity venous Doppler showed subacute/chronic partially occlusive thrombus in the left popliteal vein. 6. Low grade fever. resolved. Blood culture with no growth to date. Urine culture with no growth. repeat blood culture ordered. ID evaluation appreciated. Currently on meropenem. 7. DM2. Continue insulin sliding scale. Continue to monitor accuchecks. Hgb A1C 6.5. 8. Hypertension. Continue hydralazine and imdur. Continue Cardizem and digoxin. PT evaluation appreciated. Case discuss division merchandise manager for discharge planning. upon discharge patient will follow up with PMD . 01/31/18 18:35
[2018-01-30] MEDS: Pantoprazole 40 mg EC Tab PO SCH (06:11)
[2018-01-30 06:22] LABS: INR 1.42; PROTHROMBIN TIME 16.5 SECONDS (9.4-12.5)
[2018-01-30 06:24] LABS: BASO # 0.02 K/mm3 (0.0-2.0); BASO % 0.3 % (0.0-3.0); EOS # 0.2 (0.0-0.7); EOS % 2.4 % (1.5-5.0); GRAN # 5.66 (1.4-6.5); GRAN % 71.6 % (50.0-68.0); HEMOGLOBIN 9.2 g/dL (14.0-18.0); LYMPH # 0.8 (1.2-3.4); LYMPH % 10.2 % (22.0-35.0); MEAN CELL VOLUME 92.9 fl (80.0-105.0); MEAN CORPUSCULAR HEMOGLOBIN 29.5 pg (25.0-35.0); MEAN CORPUSCULAR HGB CONC 31.7 g/dl (31.0-37.0); MEAN PLATELET VOLUME 10.3 fl (7.0-11.0); MONO # 1.2 (0.1-0.6); MONO % 15.5 % (1.0-6.0); RBC 3.12 10^6/uL (3.5-6.1); WHITE BLOOD COUNT 7.9 10^3/ul (4.5-11.0)
[2018-01-30 07:12] LABS: ALB/GLOB RATIO 0.8 (1.1-1.8); CALCIUM 8.6 mg/dL (8.4-10.5)
[2018-01-30] MEDS: Insulin Lispro (humaLOG) MEDIUM Coverage SC SCH ×2 (07:58→16:30)
[2018-01-30] MEDS ORDERED: Darbepoetin Alfa 100 mcg/ml Inj IVP ONE (09:00)
[2018-01-30] MEDS ORDERED: Doxercalciferol 4 mcg/2 ml Inj IVP ONE (09:03)
[2018-01-30] MEDS ORDERED: Vancomycin 1gm in NS 250ml 1 GM/250 ML BAG IVPB ONE (11:00)
--- NOTE | 2018-01-30 11:19 | PN ---
DATE: 01/30/2018 SUBJECTIVE: The patient is without shortness of breath, without chest pain. PHYSICAL EXAMINATION: VITAL SIGNS: On physical exam, blood pressure is 167/92, the heart rate is in the 90s. NECK: Negative JVD. LUNGS: Without rales. HEART: S1, S2. EXTREMITIES: Without edema. LABORATORY DATA: Hemoglobin is 9.2. Chemistries, BUN and creatinine are unchanged. Potassium is 3.6. IMPRESSION: 1. End-stage renal disease. 2. Dilated cardiomyopathy. 3. Anemia. 4. Resolution of supraventricular tachycardia. 5. History of hypertension. Given these findings, we will discontinue telemetry today. His medications for his SVT are appropriate. As I have discussed with Dr. Lazo, once her anemia and renal function is stabilized with chronic dialysis, the patient should have a stress test to rule out coronary artery disease as a cause of his dilated cardiomyopathy. Maurizio Mendez MD
--- NOTE | 2018-01-30 14:24 | CT ---
Date of service: 2018-01-30 13:48:40 PROCEDURE: CT Chest without contrast HISTORY: r/o pneumonia COMPARISON: 01/22/2018 TECHNIQUE: Contiguous axial images were obtained through the chest without intravenous contrast enhancement. Sagittal and coronal reconstructions were performed. Radiation dose: Total exam DLP = 799.4 mGy-cm. This CT exam was performed using one or more of the following dose reduction techniques: Automated exposure control, adjustment of the mA and/or kV according to patient size, and/or use of iterative reconstruction technique. FINDINGS: LUNGS: There is atelectasis at the right lung base adjacent to the pleural effusion. MEDIASTINUM: Unremarkable thoracic aorta. No aneurysm. Moderate cardiomegaly. Coronary artery calcification main pulmonary artery unremarkable. No vascular congestion. No lymphadenopathy. No atherosclerotic calcification or mural plaque present. PLEURA: Moderate right-sided pleural effusion and small left effusion. BONES: No fracture. No destructive lesion. UPPER ABDOMEN: Grossly unremarkable. OTHER FINDINGS: None. IMPRESSION: There is atelectasis at the right lung base. There are bilateral pleural effusions right greater than left.
[2018-01-30] MEDS: diltiaZEM 300 mg/24 Hours CD Cap PO SCH (15:48)
[2018-01-30] MEDS: Digoxin 250 mcg (0.25 mg) Tab PO SCH (15:51)
--- NOTE | 2018-01-30 16:26 | US ---
Date of service: 01/30/2018 HISTORY: Size of the CBD COMPARISON: 01/22/2018 CT abdomen and pelvis TECHNIQUE: Sonographic evaluation of the abdomen. FINDINGS: LIVER: Measures 18.95 cm. Hepatopedal blood flow. Fatty infiltration manifest ultrasonographically as increased echogenicity of the liver parenchyma. No mass. No intrahepatic bile duct dilatation. GALLBLADDER: Unremarkable. No gallstones. COMMON BILE DUCT: Measures 2.6 mm. No stones. No dilatation. PANCREAS: Unremarkable as visualized. No mass. No ductal dilatation. RIGHT KIDNEY: Measures 3.5 x 10.9cm. Normal echogenicity. No calculus, mass, or hydronephrosis. LEFT KIDNEY: Measures 5.3 x 10.6cm. Normal echogenicity. No calculus, mass, or hydronephrosis. SPLEEN: Normal in size and contour. No mass. AORTA: No aneurysmal dilatation. IVC: Unremarkable. OTHER FINDINGS: None. IMPRESSION: Hepatomegaly, hepatic steatosis. No acute findings
--- NOTE | 2018-01-30 19:37 | PN ---
DATE: 01/30/2018 SUBJECTIVE: The patient is seen lying in bed. He had dialysis earlier today. He complains of being washed out. He denies any chest tightness. He denies any palpitations. He complains of pain in his lower extremities. PHYSICAL EXAMINATION: GENERAL: Middle-aged male lying in bed. VITAL SIGNS: Blood pressure 167/92, heart rate 102, respiratory rate 20, temperature 99.9, and T-max is 100.3. HEENT: Normocephalic, atraumatic, positive pallor. NECK: Supple, no JVD. LUNGS: Bilateral equal air entry, bilateral rhonchi. CARDIAC: S1 and S2, regular rate and rhythm,, no murmur, no rub. ABDOMEN: Obese, distended, soft, nontender, bowel sounds present. EXTREMITIES: No lower extremity edema. INTAKE AND OUTPUT: 520/640 LABORATORY DATA: WBC 7.9, hemoglobin 9.2, hematocrit 29, and platelets 272. Sodium 133, potassium 3.6, chloride 95, CO2 of 25. BUN 57, creatinine 7.8. Glucose 83. Calcium 8.6, phosphorus 5.2 magnesium 1.7. AST 37, ALT 32. CT of the chest, atelectasis at the right base, bilateral pleural effusions right greater than left. CURRENT MEDICATIONS: Apresoline 25 four times daily, Cardizem 300, Eliquis 5 b.i.d., Imdur 60, digoxin 0.125 daily, meropenem 250 every 12 hours started today, PhosLo, Protonix, and Tylenol. ASSESSMENT: 1. Fever, with temperature spike. 2. Severe anemia, multifactorial, anemia of chronic kidney disease per gastrointestinal blood loss. 3. Left deep vein thrombosis. 4. End-stage renal disease. 5. Severe dilated cardiomyopathy with decreased ejection fraction. 6. Severe secondary hyperparathyroidism, hyperphosphatemia. 7. Severe uncontrolled hypertension. 8. Tachycardia. PLAN: 1. Stable dialysis earlier today. 2. Agree with ID evaluation for persistent fevers and new temperature spike. 3. Continue Cardizem. 4. Continue phosphate binders. 5. Continue Aranesp and Hectorol on dialysis. 6. No plans for permanent access right now because of fevers. 7. Continue physical therapy. 8. Followup abdominal ultrasound. 9. Consider gallium scan/WBC scan? Criss Lazo MD [facility] # [id number]
--- NOTE | 2018-01-30 20:41 | CARD ---
APPROVED REPORT Date of service: 01/30/2018 EKG Measurement Heart [id number] <Conclusion> Sinus tachycardia with premature atrial complexes Nonspecific T wave abnormality Abnormal ECG
[2018-01-31] MEDS: Pantoprazole 40 mg EC Tab PO SCH (05:24)
[2018-01-31 07:22] LABS: INR 1.39; PROTHROMBIN TIME 16.1 SECONDS (9.4-12.5)
--- NOTE | 2018-01-31 07:32 | CON ---
DATE: 01/30/2018 The patient is in seen earlier today. CHIEF COMPLAINT: Low-grade temperature times several days. HISTORY OF PRESENT ILLNESS: This is a 57-year-old male, who was admitted on 01/20/2018, 10 days ago, has been in the hospital, now renal failure and hemodialysis, diabetes mellitus, DVT, hypertension, adrenal cancer, systolic congestive heart failure, left DVT, and on dialysis, low-grade fever, mild shortness of breath, and minimal cough. No abdominal pain, diarrhea, or constipation. No bright red blood per rectum. No melena. REVIEW OF SYSTEMS: A 12-point review of systems is performed. PAST MEDICAL HISTORY: Diabetes mellitus, DVT, hypertension, adrenal cancer, chronic renal failure on hemodialysis, systolic congestive heart failure, and left DVT. PAST SURGICAL HISTORY: Significant for tonsillectomy and orthopedic surgery in 06/2013. ALLERGIES: THE PATIENT HAS NO KNOWN ALLERGIES. MEDICATIONS: Reviewed. PHYSICAL EXAMINATION: On exam, temperature is 100.3, heart rate of 102, blood pressure is 167/92, respiratory rate of 20. Examination of HEENT is unremarkable. Neck is supple. Lungs have decreased breath sounds. Heart reveals normal S1, S2. Abdomen examination is soft, nontender. No rebound or guarding. LABORATORY EXAMINATION: Reveals a white count is 7.9, it was 12.6; creatinine is 7.8; alk phos is 274. Urinalysis is noted. Stool for occult blood is positive. Toxicology is noted. Immunology is reviewed. Serology, HIV is negative, and hepatitis profile is negative. Microbiology reveals the blood cultures have been negative. Urine cultures have been negative. Repeat blood cultures and urine cultures are negative. The patient had a CT scan of the abdomen and pelvis without any p.o or IV contrast, and there was no active disease. ASSESSMENT AND PLAN: This is a 57-year-old male with diabetes and deep venous thrombosis, hypertension, adrenal cancer, chronic renal failure on hemodialysis systolic congestive heart failure, left deep venous thrombosis, now with low-grade fevers, tachycardia, dyspnea with systemic inflammatory response syndrome, must rule out healthcare-associated pneumonia and/or bacteremia. Does have a dialysis catheter. We will treat the patient with vanco and meropenem and must also rule out gallbladder disease, and we will order pancultures, blood, urine, sputum, MRSA screen, and give one dose of vancomycin and meropenem, procalcitonin, and urine for Legionella antigen, and we will make a CAT scan of the chest, and we will make further recommendations upon availability. We will also add doxycycline to the vanco, meropenem, and pending repeat pancultures, abdominal ultrasound, and CT scan of the chest. The patient also had a HIV, which was negative. We will follow with you. Miko Slade MD
[2018-01-31] MEDS: Insulin Lispro (humaLOG) MEDIUM Coverage SC SCH (08:00)
[2018-01-31] MEDS: diltiaZEM 300 mg/24 Hours CD Cap PO SCH (10:17)
[2018-01-31] MEDS: Digoxin 250 mcg (0.25 mg) Tab PO SCH (13:43)
--- NOTE | 2018-01-31 14:52 | CP.PCM.PN ---
<Palmira Ruffin - Last Filed: 01/31/18 15:08> Subjective - Date & Time of Evaluation Date of Evaluation: 01/31/18 Time of Evaluation: 14:48 - Subjective Subjective: Pt seen and examined at bedside this am. Pt had an episode of shortness of breath last night. EKG was unchanged. Recent CT scan showed b/l pleural effusions w/ R greater than left. Pt started on meropenem. Pt to undergo HD tomorrow. Social work arranging outpatient rehab/dialysis. 12 point ROS was negative Objective - Vital Signs/Intake and Output Vital Signs (last 24 hours): Temp Pulse Resp BP Pulse Ox 98.3 F 98 H 20 163/94 H 100 01/31/18 06:00 01/31/18 06:00 01/31/18 06:00 01/31/18 06:00 01/31/18 06:00 Intake and Output: 01/31/18 01/31/18 06:59 18:59 Intake Total 1000 720 Output Total 3200 200 Balance -2200 520 - Medications Medications: Current Medications Acetaminophen (Tylenol 325mg Tab) 650 mg PO Q6H PRN PRN Reason: Fever >100.4 F Last Admin: 01/29/18 23:08 Dose: 650 mg Apixaban (Eliquis) 5 mg PO BID CATHIE; Protocol Last Admin: 01/31/18 10:17 Dose: 5 mg Calcium Acetate (Phoslo) 667 mg PO WM CATHIE Last Admin: 01/31/18 13:43 Dose: 667 mg Dextrose (Dextrose 50% Inj) 0 ml IV STAT PRN; Protocol PRN Reason: Hypoglycemia Protocol Digoxin (Lanoxin) 0.125 mg PO 1400 [facility] Last Admin: 01/31/18 13:43 Dose: 0.125 mg Diltiazem HCl (Cardizem Cd) 300 mg PO DAILY [facility] Last Admin: 01/31/18 10:17 Dose: 300 mg Hydralazine HCl (Apresoline) 50 mg PO QID CATHIE Last Admin: 01/31/18 14:12 Dose: 50 mg Dextrose (Dextrose 5% In Water 1000 Ml) 1,000 mls @ 0 mls/hr IV .Q0M PRN; Protocol PRN Reason: Hypoglycemia Protocol Meropenem 250 mg/ Sodium (Chloride) 100 mls @ 25 mls/hr IVPB Q12H CATHIE; Protocol Stop: 02/06/18 09:46 Last Admin: 01/31/18 10:20 Dose: 25 mls/hr Insulin Human Lispro (Humalog Med) 0 units SC ACHS [facility]; Protocol Last Admin: 01/31/18 08:00 Dose: Not Given Isosorbide Mononitrate (Imdur) 60 mg PO DAILY [facility] Last Admin: 01/31/18 10:17 Dose: 60 mg Lidocaine HCl (Xylocaine 2%) 0 ea TOP DAILY PRN PRN Reason: Pain, moderate (4-7) Last Admin: 01/30/18 02:12 Dose: 1 applic Pantoprazole Sodium (Protonix Ec Tab) 40 mg PO 0600 [facility] Last Admin: 01/31/18 05:24 Dose: 40 mg - Labs Labs: 01/30/18 05:30 01/30/18 05:30 PT 16.1 SECONDS (9.4-12.5) H 01/31/18 07:00 INR 1.39 01/31/18 07:00 APTT 66.5 Seconds (25.1-36.5) H 01/28/18 08:06 - Constitutional Appears: Well, Non-toxic, No Acute Distress - Head Exam Head Exam: NORMAL INSPECTION, NORMOCEPHALIC - Eye Exam Eye Exam: EOMI, Normal appearance - ENT Exam ENT Exam: Mucous Membranes Moist, Normal Exam - Neck Exam Neck Exam: Normal Inspection. absent: Meningismus - Respiratory Exam Respiratory Exam: Clear to Ausculation Bilateral, NORMAL BREATHING PATTERN - Cardiovascular Exam Cardiovascular Exam: REGULAR RHYTHM, +S1, +S2 - GI/Abdominal Exam GI & Abdominal Exam: Soft. absent: Tenderness - Extremities Exam Extremities Exam: Normal Inspection. absent: Calf Tenderness - Back Exam Back Exam: NORMAL INSPECTION. absent: CVA tenderness (L), CVA tenderness (R) - Neurological Exam Neurological Exam: Alert, Awake, Oriented x3 - Psychiatric Exam Psychiatric exam: Normal Mood - Skin Additional comments: R IJ catheter in place. Clean/dry/intact Dressing noted on L tibial region. Clean/dry/intact Assessment and Plan - Assessment and Plan (Free Text) Assessment: Patient is a 57-year-old male with past medical history significant for ESRD on HD, recurrent DVTs (popliteal and femoral), type 2 diabetes, hypertension, hyperlipidemia, and noncompliance of medications that presented to the emergency room with worsening of shortness of breath and increased swelling and pain in left lower extremity. Pt was diagnosed with ESRD on this admission and has been undergoing HD on MWF. He was on heparin drip for NSTEMI & DVT treatment, and is being bridged to oral eliquis for DVT prophylaxis and treatment at home. Pt had shortness of breath overnight, CT showed b/l pleural effusion and atelectasis at R lung base. ID started meropenem Plan: ESRD on HD. 2500cc UF removed today. f/u CBC/CMP post treatment. Pt to receive IV venofer with dialysis. Continue with current bp meds Continue dialysis as per nephrology, F S/P vein mapping for AV fistula placement. Nephro to create AV fistula outpatient Renal ultrasound per radiologist showed unremarkable renal sonogram; no significant interval change. Nephro appreciated echogeneity CT abd/pelvis per radiologist showed no acute intra-abdominal findings. Outpatient dialysis to be arranged. Pending social work arrangements Anemia. Likely secondary to renal failure. S/P 7.5 units PRBCs. Hx of stool for occult blood positive. GI following, recommendations appreciated. As per Dr. Griffin, pt ok to start oral eliquis. Continue eliquis Continue Darbepoetin ricarda shots with HD Continue Doxercalciferol with HD Continue to monitor CBC. Continue with protonix. Hematology following, recommendations appreciated. Dyspnea. Chest CT 01/30: atelectasis at R lung base. There are bilateral pleural effusions right greater than left. Start meropenem as per ID recs Likely multifactorial. Secondary to renal failure, CHF exacerbation, and anemia. Patient for V/Q per radiologist is low probability for PE. Continue dialysis. Continue to monitor CBC and transfuse as needed. Elevated troponin. Tachycardia improved discontinue telemetry Per cardio: outpatient stress test when ESRD is stable Cardiology following, recommendations appreciated. Continue eliquis 2d echo per block hacker showed four chamber dilatation consistent with CMP, EF 20-25%, global hypokinesis, trace to mild aortic regurgitation, mitral regurgitation is moderate, severe tricuspid regurgitation, IVC dilated, no pericardial effusion. Continue imdur. Tachycardia improved with cardizem. Elevated BNP Continue digoxin per cardio recs Acute on chronic CHF exacerbation. 2d echo as above. Cardiology following, recommendations appreciated. Continue dialysis. Continue to monitor ins and outs. Elevated d-dimer. Left lower extremity DVT. V/Q scan per radiologist is low probability for PE. Continue eliquis Left lower extremity venous Doppler per radiologist showed subacute/chronic partially occlusive thrombus in the left popliteal vein. Hematology following, recommendations appreciated. Urethral Pain Likely secondary to lundy removal Continue topical lidocaine ointment U/A & UCx negative. No signs of active infection DM2. Continue insulin sliding scale. Continue to monitor accuchecks. Hgb A1C 6.5. Hypertension. Continue hydralazine and imdur. Increase cardizem to 300mg po Cocaine abuse. Patient counseled on cessation. Dysuria. Follow up urinalysis. GI and DVT prophylaxis: Protonix/Eliquis. Pt not a candidate for SCD d/t calf tenderness Disposition: Set up for dialysis outpatient at [facility]. 1st tx set up for 02/01/18 Patient is a full code. Case seen, examined and discussed with attending physician, Dr. Guthrie <Robin Guthrie - Last Filed: 01/31/18 18:39> Objective - Vital Signs/Intake and Output Vital Signs (last 24 hours): Temp Pulse Resp BP Pulse Ox 98.8 F 101 H 20 162/89 H 98 01/31/18 14:00 01/31/18 14:00 01/31/18 14:00 01/31/18 15:31 01/31/18 14:00 Intake and Output: 01/31/18 01/31/18 06:59 18:59 Intake Total 1000 720 Output Total 3200 200 Balance -2200 520 - Medications Medications: Current Medications Acetaminophen (Tylenol 325mg Tab) 650 mg PO Q6H PRN PRN Reason: Fever >100.4 F Last Admin: 01/29/18 23:08 Dose: 650 mg Apixaban (Eliquis) 5 mg PO BID CATHIE; Protocol Last Admin: 01/31/18 10:17 Dose: 5 mg Calcium Acetate (Phoslo) 667 mg PO WM CATHIE Last Admin: 01/31/18 13:43 Dose: 667 mg Dextrose (Dextrose 50% Inj) 0 ml IV STAT PRN; Protocol PRN Reason: Hypoglycemia Protocol Digoxin (Lanoxin) 0.125 mg PO 1400 CATHIE Last Admin: 01/31/18 13:43 Dose: 0.125 mg Diltiazem HCl (Cardizem Cd) 300 mg PO DAILY [facility] Last Admin: 01/31/18 10:17 Dose: 300 mg Hydralazine HCl (Apresoline) 50 mg PO QID [facility] Last Admin: 01/31/18 14:12 Dose: 50 mg Dextrose (Dextrose 5% In Water 1000 Ml) 1,000 mls @ 0 mls/hr IV .Q0M PRN; Protocol PRN Reason: Hypoglycemia Protocol Meropenem 250 mg/ Sodium (Chloride) 100 mls @ 25 mls/hr IVPB Q12H CATHIE; Protocol Stop: 02/06/18 09:46 Last Admin: 01/31/18 10:20 Dose: 25 mls/hr Insulin Human Lispro (Humalog Med) 0 units SC ACHS [facility]; Protocol Last Admin: 01/31/18 08:00 Dose: Not Given Isosorbide Mononitrate (Imdur) 60 mg PO DAILY [facility] Last Admin: 01/31/18 10:17 Dose: 60 mg Lidocaine HCl (Xylocaine 2%) 0 ea TOP DAILY PRN PRN Reason: Pain, moderate (4-7) Last Admin: 01/30/18 02:12 Dose: 1 applic Pantoprazole Sodium (Protonix Ec Tab) 40 mg PO 0600 [facility] Last Admin: 01/31/18 05:24 Dose: 40 mg - Labs Labs: 01/30/18 05:30 01/30/18 05:30 PT 16.1 SECONDS (9.4-12.5) H 01/31/18 07:00 INR 1.39 01/31/18 07:00 APTT 66.5 Seconds (25.1-36.5) H 01/28/18 08:06 Attending/Attestation - Attestation I have personally seen and examined this patient.: Yes I have fully participated in the care of the patient.: Yes I have reviewed all pertinent clinical information, including history, physical exam and plan: Yes Notes (Text): 01/31/18 18:37 attending note; Patient seen and examined with resident. Currently denies any complaints. Denies any fevers, chills. Tolerating diet well. Patient is a 57-year-old male with past medical history significant for chronic kidney disease stage III, left lower extremity DVT, type 2 diabetes, hypertension, hyperlipidemia, and noncompliance of medications that presented to the emergency room with worsening of shortness of breath and increased swelling and pain in left lower extremity. 1. ESRD on HD. Patient has R permacath placement for dialysis. continue dialysis per nephrology. S/P vein mapping for AV fistula placement. Needs outpatient AV fistula placement. 2. Anemia. no active bleeding. hemoglobin is stable. 3. Dyspnea. resolved. Secondary to renal failure, CHF exacerbation, and anemia. Patient for V/Q per radiologist is low probability for PE. Continue dialysis. 4. Elevated troponin. cardiology evaluation appreciated. on eliquis now. 2d echo per block hacker showed four chamber dilatation consi stent with CMP, EF 20-25%, global hypokinesis, trace to mild aortic regurgitation, mitral regurgitation is moderate, severe tricuspid regurgitation, IVC dilated, no pericardial effusion. Continue imdur. Tachycardia improved with cardizem and digoxin. telemetry discontinued. 5. Left lower extremity DVT. V/Q scan per radiologist is low probability for PE. On eliquis. Left lower extremity venous Doppler showed subacute/chronic partially occlusive thrombus in the left popliteal vein. 6. Low grade fever. rsolved. repeat blood culture is negative. MRSA screen negative. ID evaluation appreciated. Currently on meropenem. abdominal ultrasound is negative for gallbladder disease. CT chest showed atelectasis of the right lower lobe and bilateral pleural effusion. Currently patient is afebrile nontoxic. 7. DM2. Continue insulin sliding scale. Continue to monitor accuchecks. Hgb A1C 6.5. 8. Hypertension. Continue hydralazine and imdur. Continue Cardizem and digoxin. PT evaluation appreciated. Case discuss facility service manager for discharge planning. upon discharge patient will follow up with PMD .
[2018-01-31] MEDS ORDERED: Darbepoetin Alfa 60 mcg/ml Inj IVP ONE (16:17)
[2018-01-31] MEDS ORDERED: Doxercalciferol 4 mcg/2 ml Inj IVP ONE (16:17)
--- NOTE | 2018-01-31 17:31 | PN ---
DATE: 01/31/2018 SUBJECTIVE: The patient is seen lying in bed. He is awake. He is alert. He is a little tachypneic. He denies any pain. Denies any shortness of breath. PHYSICAL EXAMINATION: GENERAL: Middle-aged male, lying in bed. VITAL SIGNS: Blood pressure 163/94, heart rate 98, respiratory rate 20, temperature 98.8. HEENT: Normocephalic, atraumatic, positive pallor. NECK: Supple, no JVD. LUNGS: Bilateral equal air entry, bilaterally equal expansion, basal rales. CARDIAC: S1 and S2, regular rate and rhythm, no murmur, no rub. ABDOMEN: Obese, distended, soft, nontender, bowel sounds present. EXTREMITIES: 1+ pitting edema of the lower extremities. INTAKE AND OUTPUT: 1620/3625. LABORATORY DATA: WBC 7.5, hemoglobin 9.2, hematocrit 29, platelets 272. No chemistry today. Blood cultures: No growth. Chest CT showing bilateral pleural effusions. CURRENT MEDICATIONS: Apresoline 50 four times a day, Cardizem 300, Eliquis 5 b.i.d., Imdur 60, digoxin 0.125 daily, meropenem 250 every 12, PhosLo 667 t.i.d. with meals, Protonix, Tylenol, Xylocaine. ASSESSMENT: 1. Low-grade fevers. 2. Severe cardiomyopathy, decreased ejection fraction, supraventricular tachycardia. 3. Severe anemia. 4. End-stage renal disease. 5. Left lower extremity deep venous thrombosis. 6. Bilateral pleural effusions. PLAN: 1. Ultrafiltration today 2 hours, removed 2 kilos. 2. Continue empiric antibiotics as per ID recommendations. 3. Increase hydralazine to 50 four times a day. 4. Continue digoxin. 5. Monitor H and H. 6. Continue Eliquis. 7. Dialysis tomorrow. Criss Lazo MD
--- NOTE | 2018-01-31 18:09 | PN ---
DATE: 01/31/[address] Maurizio Mendez. SUBJECTIVE: The patient's shortness of breath has improved. He is still reporting less swelling. He denies retrosternal chest pain. PHYSICAL EXAMINATION: VITAL SIGNS: Blood pressure 170/102, heart rate 101, temperature 98.8, respirations 20. HEENT: Pale conjunctivae. CHEST: Diminished breath sounds over the bases. HEART: S1 and S2 regular. ABDOMEN: Soft. EXTREMITIES: 1+ pitting edema. Chest x-ray on admission revealed cardiomegaly with mild CHF. Most recent EKG yesterday revealed sinus tachycardia with APCs, nonspecific T-wave abnormality. CAT scan of the chest without contrast reveals atelectasis on right lung base and bilateral pleural effusion, right greater than left. Echocardiography study: Echo revealed ejection fraction of 20-25% with global hypokinesis, severe tricuspid insufficiency. ASSESSMENT: 1. Dilated cardiomyopathy. 2. End-stage renal disease, on hemodialysis. 3. Supraventricular tachycardia. 4. Uncontrolled hypertension. 5. cocaine abuse. RECOMMENDATIONS: Continue hydralazine at 50 mg four times a day, which was started today; Cardizem CD at 300 mg daily, Eliquis 5 mg twice a day, Imdur 60 mg once a day, Lanoxin 0.15 mg daily, meropenem at 250 mg intravenously every 12 hours. Obtain serum digoxin level in the a.m. Arben Hess MD
[2018-01-31 22:25] LABS: URINE BILIRUBIN NEGATIVE (NEGATIVE); URINE BLOOD SMALL (NEGATIVE); URINE GLUCOSE (UA) 250 mg/dL (NEGATIVE); URINE LEUKOCYTE ESTERASE SMALL Leu/uL (NEGATIVE); URINE PROTEIN 100 mg/dL (<30 mg/dL); URINE UROBILINOGEN 0.2 E.U./dL (<1 E.U./dL)
[2018-01-31 22:26] LABS: URINE APPEARANCE CLEAR (CLEAR); URINE COLOR YELLOW (YELLOW)
--- NOTE | 2018-02-01 04:07 | PN ---
DATE: 01/31/2018 SUBJECTIVE: The patient is in bed, in no acute distress, nontoxic. PHYSICAL EXAMINATION: VITAL SIGNS: Temperature is 98, T-max is 100.3 yesterday. HEENT: Unremarkable. NECK: Supple. LUNGS: Have decreased breath sounds. HEART: Normal S1 and S2. ABDOMEN: Soft, nontender. LABORATORY EXAMINATION: Reveals the patient's white count is 7.9. Chemistries are reviewed. Patient's creatinine from yesterday is 7.8. Urinalysis is noted. Blood cultures are negative and MRSA is not detected. Patient had a CAT scan of the chest, which reveals atelectasis in the right lung, bilateral effusion. ASSESSMENT AND PLAN: This is a 57-year-old male who is seen earlier today in 573, bed 1 who has diabetes, has deep venous thrombosis, hypertension, adrenal cancer, chronic renal failure on hemodialysis, systolic congestive heart failure, left deep venous thrombosis, low-grade fevers, tachycardia, dyspnea with systemic inflammatory response syndrome, and thus far, the fever has responded. Blood cultures are negative. Methicillin-resistant Staphylococcus aureus is not detected. CAT scan is minimal, no evidence of pneumonia. We will follow final culture and currently on intermittent vancomycin. We will follow with you. Patient is currently on meropenem. Miko Slade MD
[2018-02-01] MEDS: Pantoprazole 40 mg EC Tab PO SCH (06:40)
[2018-02-01] MEDS: Insulin Lispro (humaLOG) MEDIUM Coverage SC SCH ×4 (06:40→17:14)
[2018-02-01 08:22] VITALS: RESP 20; TEMP 98.5; O2SAT 98
[2018-02-01] MEDS: diltiaZEM 300 mg/24 Hours CD Cap PO SCH (09:33)
--- NOTE | 2018-02-01 12:27 | PN ---
DATE: 02/01/2018 FOLLOWUP SUBJECTIVE: The patient seems comfortable in bed. He denies any chest pain. PHYSICAL EXAMINATION: VITAL SIGNS: Blood pressure 168/94, heart rate 98, temperature 98.5, respirations 20. HEENT: Normocephalic. CHEST: Diminished breath sounds over the bases. HEART: S1 and S2 regular. ABDOMEN: Soft. EXTREMITIES: 1+ pitting edema and dressing is applied to the left lower leg. LABORATORY DATA: Today's blood sugar is 92. ASSESSMENT: 1. Dilated cardiomyopathy. 2. End-stage renal disease, on hemodialysis. 3. Supraventricular tachycardia. 4. Uncontrolled hypertension. 5. History of cocaine abuse. RECOMMENDATIONS: Continue at 300 mg daily, hydralazine 50 mg four times a day, Eliquis 5 mg twice a day, digoxin 0.125 mg daily, IV meropenem at 250 mg every 12 hours. Digoxin level obtained yesterday was 1. Arben Hess MD
[2018-02-01] MEDS ORDERED: Darbepoetin Alfa 60 mcg/ml Inj IVP ONE (13:00)
[2018-02-01] MEDS ORDERED: Doxercalciferol 4 mcg/2 ml Inj IV ONE (13:00)
[2018-02-01] MEDS: Digoxin 250 mcg (0.25 mg) Tab PO SCH (13:21)
[2018-02-01 13:23] VITALS: PULSE 80
--- NOTE | 2018-02-01 14:04 | CP.PCM.DIS ---
<Palmira Ruffin - Last Filed: 02/01/18 19:16> Provider - Provider Date of Admission: 01/20/18 22:20 Attending physician: Robin Guthrie MD Primary care physician: Naya Patel MD Consults: Cardio: Dr. Mendez GI: Dr. Griffin Nephro: Dr. Lea IR: Dr. Soria Heme-Once: Dr. Weeks ID: Dr. [email or web address] Time Spent in preparation of Discharge (in minutes): 45 Hospital Course - Lab Results Lab Results: Micro Results 01/30/18 08:10 Blood-Venous Blood Culture - Preliminary NO GROWTH AFTER 48 HOURS 01/30/18 07:40 Blood-Venous Blood Culture - Preliminary NO GROWTH AFTER 48 HOURS 01/30/18 18:23 Naris MRSA Culture (Admit) - Final MRSA NOT DETECTED 01/23/18 14:15 Blood-During Dialysis Blood Culture - Final NO GROWTH AFTER 5 DAYS 01/23/18 14:15 Blood-During Dialysis Gram Stain - Final TEST NOT PERFORMED 01/23/18 14:00 Blood-During Dialysis Blood Culture - Final NO GROWTH AFTER 5 DAYS 01/23/18 14:00 Blood-During Dialysis Gram Stain - Final TEST NOT PERFORMED 01/22/18 09:30 Blood Transfusion Bag Gram Stain - Final 01/22/18 09:30 Blood Transfusion Bag - Final NO GROWTH AFTER 5 DAYS 01/20/18 20:30 Blood-Venous Blood Culture - Final NO GROWTH AFTER 5 DAYS 01/20/18 20:30 Blood-Venous Gram Stain - Final TEST NOT PERFORMED 01/20/18 20:00 Blood-Venous Blood Culture - Final NO GROWTH AFTER 5 DAYS 01/20/18 20:00 Blood-Venous Gram Stain - Final TEST NOT PERFORMED 01/24/18 01:30 Urine Urine Culture - Final No Growth (<1,000 CFU/ML) 01/21/18 09:00 Urine,Bailey Urine Culture - Final No Growth (<1,000 CFU/ML) 01/21/18 03:56 Nose MRSA Culture (Admit) - Final MRSA NOT DETECTED Most Recent Lab Values WBC 7.9 10^3/ul (4.5-11.0) 01/30/18 05:30 RBC 3.12 10^6/uL (3.5-6.1) L 01/30/18 05:30 Hgb 9.2 g/dL (14.0-18.0) L 01/30/18 05:30 Hct 29.0 % (42.0-52.0) L 01/30/18 05:30 MCV 92.9 fl (80.0-105.0) 01/30/18 05:30 MCH 29.5 pg (25.0-35.0) 01/30/18 05:30 MCHC 31.7 g/dl (31.0-37.0) 01/30/18 05:30 RDW 15.0 % (11.5-14.5) H 01/30/18 05:30 Plt Count 272 10^3/uL (120.0-450.0) 01/30/18 05:30 MPV 10.3 fl (7.0-11.0) 01/30/18 05:30 Gran % 71.6 % (50.0-68.0) H 01/30/18 05:30 Lymph % (Auto) 10.2 % (22.0-35.0) L 01/30/18 05:30 [place] % (Auto) 15.5 % (1.0-6.0) H 01/30/18 05:30 Eos % (Auto) 2.4 % (1.5-5.0) 01/30/18 05:30 Baso % (Auto) 0.3 % (0.0-3.0) 01/30/18 05:30 Gran # 5.66 (1.4-6.5) 01/30/18 05:30 Lymph # (Auto) 0.8 (1.2-3.4) L 01/30/18 05:30 [place] # (Auto) 1.2 (0.1-0.6) H 01/30/18 05:30 Eos # (Auto) 0.2 (0.0-0.7) 01/30/18 05:30 Baso # (Auto) 0.02 K/mm3 (0.0-2.0) 01/30/18 05:30 Neutrophils % (Manual) 91 % (50.0-70.0) H 01/20/18 20:30 Band Neutrophils % 0 % (0-2) 01/20/18 20:30 Lymphocytes % (Manual) 4 % (22.0-35.0) L 01/20/18 20:30 Atypical Lymphs % 0 % (0.0-0.0) 01/20/18 20:30 Monocytes % (Manual) 5 % (1.0-6.0) 01/20/18 20:30 Toxic Granulation 3+ 01/20/18 20:30 Platelet Evaluation Normal (NORMAL) 01/20/18 20:30 Hypochromasia 2+ 01/20/18 20:30 Target Cells 1+ 01/20/18 20:30 Rouleaux 2+ 01/20/18 20:30 Retic Count 2.49 % (0.5-1.5) H 01/21/18 05:10 Hemoglobin A 90.7 Percent (>96.0) L 01/25/18 05:20 Hemoglobin A2 2.1 Percent (1.8-3.5) 01/25/18 05:20 Hemoglobin C 0.0 Percent (0.0-0.0) 01/25/18 05:20 Hemoglobin F () <1.0 Percent (<2.0) 01/25/18 05:20 Hemoglobin S 0.0 Percent (0.0-0.0) 01/25/18 05:20 Variant Hemoglobin 6.2 Percent (0.0-0.0) H 01/25/18 05:20 Hemoglobinopathy Red Blood Count 2.66 Mill/mcL (4.20-5.80) L 01/25/18 05:20 Hemoglobinopathy Hct 24.7 % (38.5-50.0) L 01/25/18 05:20 Hemoglobinopathy Hgb 8.1 g/dL (13.2-17.1) L 01/25/18 05:20 Hemoglobinopathy MCV 92.9 fL (80.0-100.0) 01/25/18 05:20 Hemoglobinopathy MCH 30.6 pg (27.0-33.0) 01/25/18 05:20 Hemoglobinopathy RDW 15.3 % (11.0-15.0) H 01/25/18 05:20 Hemoglobinopathy Interp See note 01/25/18 05:20 PT 16.1 SECONDS (9.4-12.5) H 01/31/18 07:00 INR 1.39 01/31/18 07:00 APTT 66.5 Seconds (25.1-36.5) H 01/28/18 08:06 D-Dimer, Quantitative 2331 ng/mlDDU (0-243) H 01/20/18 20:30 pO2 40 mm/Hg (30-55) 01/20/18 20:30 VBG pH 7.24 (7.32-7.43) L 01/20/18 20:30 VBG pCO2 28.0 (40-60) L 01/20/18 20:30 VBG HCO3 12.0 mmol/l (21-28) L 01/20/18 20:30 VBG Total CO2 12.9 mmol.L (22-28) L 01/20/18 20:30 VBG O2 Sat (Calc) 73.7 % (40-65) H 01/20/18 20:30 VBG Base Excess -13.9 mmol/L (0.0-2.0) L 01/20/18 20:30 VBG Potassium 5.1 mmol/L (3.6-5.2) 01/20/18 20:30 Sodium 133.0 mmol/L (132-148) 01/20/18 20:30 Chloride 104.0 mmol/L (98-107) 01/20/18 20:30 Glucose 158 mg/dl (75-110) H 01/20/18 20:30 Lactate 1.1 mmol/L (0.7-2.1) 01/20/18 20:30 FiO2 21.0 % 01/20/18 20:30 Sodium 133 mmol/L (132-148) 01/30/18 05:30 Potassium 3.6 mmol/L (3.6-5.0) 01/30/18 05:30 Chloride 95 mmol/L (98-107) L 01/30/18 05:30 Carbon Dioxide 25 mmol/L (21-33) 01/30/18 05:30 Anion Gap 17 (10-20) 01/30/18 05:30 BUN 57 mg/dL (7-21) H 01/30/18 05:30 Creatinine 7.8 mg/dl (0.8-1.5) H* D 01/30/18 05:30 Est GFR ( Amer) 9 01/30/18 05:30 Est GFR (Non-Af Amer) 7 01/30/18 05:30 POC Glucose (mg/dL) 92 mg/dL (65-110) 02/01/18 06:46 Random Glucose 83 mg/dL (70-110) 01/30/18 05:30 Hemoglobin A1c 6.5 % (4.2-6.5) 01/21/18 05:10 Calcium 8.6 mg/dL (8.4-10.5) 01/30/18 05:30 Phosphorus 5.2 mg/dL (2.5-4.5) H 01/30/18 05:30 Magnesium 1.7 mg/dL (1.7-2.2) 01/30/18 05:30 Iron 35 ug/dL (45-180) L 01/25/18 08:50 TIBC 245 ug/dL (261-462) L 01/25/18 08:50 % Saturation 14 % (20-55) L 01/25/18 08:50 Ferritin 890.0 ng/mL 01/25/18 05:20 Total Bilirubin 0.6 mg/dL (0.2-1.3) 01/30/18 05:30 Pre-Trans Tot Bilirubin 0.8 mg/dL (0.2-1.3) 01/22/18 00:40 Post-Trans Total Bili 0.9 mg/dL 01/22/18 06:20 AST 37 U/L (17-59) 01/30/18 05:30 ALT 32 U/L (7-56) 01/30/18 05:30 Alkaline Phosphatase 274 U/L (38-126) H 01/30/18 05:30 Lactate Dehydrogenase 514 U/L (333-699) 01/20/18 20:30 Total Creatine Kinase 217 U/L (35-230) 01/21/18 10:50 Troponin I 0.21 ng/mL H* 01/21/18 10:50 NT-Pro-B Natriuret Pep 16741 pg/mL (0-450) H 01/20/18 20:30 Total Protein 6.9 g/dL (5.8-8.3) 01/30/18 05:30 Total Protein (PEP) 6.3 g/dL (6.1-8.1) 01/21/18 12:16 Albumin 3.0 g/dL (3.0-4.8) 01/30/18 05:30 Albumin (PEP) 2.5 g/dL (3.8-4.8) L 01/21/18 12:16 Globulin 3.8 gm/dL 01/30/18 05:30 Albumin/Globulin Ratio 0.8 (1.1-1.8) L 01/30/18 05:30 Mcqwv-6-Ygctnxvzi 0.6 g/dL (0.2-0.3) H 01/21/18 12:16 Jolnw-8-Bwyouyllx 1.1 g/dL (0.5-0.9) H 01/21/18 12:16 Jsdo-7-Xwazgsvy 0.3 g/dL (0.4-0.6) L 01/21/18 12:16 Asqq-5-Kfvvdngs 0.4 g/dL (0.2-0.5) 01/21/18 12:16 Gamma Globulins 1.4 g/dL (0.8-1.7) 01/21/18 12:16 Abnorm Protein Band 1 TEST NOT PERFORMED 01/21/18 12:16 Abnorm Protein Band 2 TEST NOT PERFORMED 01/21/18 12:16 Abnorm Protein Band 3 TEST NOT PERFORMED 01/21/18 12:16 Triglycerides 71 mg/dL (35-160) 01/21/18 05:10 Cholesterol 105 mg/dL (130-200) L 01/21/18 05:10 LDL Cholesterol Direct 34 mg/dL (0-129) 01/21/18 05:10 HDL Cholesterol 43 mg/dL (29-60) 01/21/18 05:10 Vitamin B12 820 pg/mL (239-931) 01/21/18 05:10 25-OH Vitamin D Total 31.4 NG/ML (30.0-100.0) 01/21/18 13:31 Folate 7.3 ng/mL 01/21/18 05:10 Procalcitonin 2.32 NG/ML (0.19-0.49) H 01/30/18 09:00 TSH 3rd Generation 1.73 mIU/mL (0.46-4.68) 01/21/18 05:10 PTH Intact Whole Molec 1649 pg/mL (14-64) H 01/21/18 12:14 Venous Blood Potassium 5.1 mmol/L (3.6-5.2) 01/20/18 20:30 Urine Color Yellow (YELLOW) 01/31/18 22:17 Urine Appearance Clear (CLEAR) 01/31/18 22:17 Urine pH 8.0 (4.7-8.0) 01/31/18 22:17 Ur Specific [place] 1.015 (1.005-1.035) 01/31/18 22:17 Urine Protein 100 mg/dL (<30 mg/dL) H 01/31/18 22:17 Urine Glucose (UA) 250 mg/dL (NEGATIVE) H 01/31/18 22:17 Urine Ketones Negative mg/dL (NEGATIVE) 01/31/18 22:17 Urine Blood Small (NEGATIVE) H 01/31/18 22:17 Urine Nitrate Negative (NEGATIVE) 01/31/18 22:17 Urine Bilirubin Negative (NEGATIVE) 01/31/18 22:17 Urine Urobilinogen 0.2 E.U./dL (<1 E.U./dL) 01/31/18 22:17 Ur Leukocyte Esterase Small Krystle/uL (NEGATIVE) H 01/31/18 22:17 Urine RBC 5 - 10 /hpf (0-2) 01/31/18 22:17 Urine WBC 5 - 10 /hpf (0-6) 01/31/18 22:17 Ur Epithelial Cells 3 - 4 /hpf (0-5) 01/31/18 22:17 Urine Bacteria Neg (NEG) 01/27/18 07:55 Stool Occult Blood Positive (NEGATIVE) H 01/20/18 21:50 Digoxin 1.0 ng/mL (0.8-2.0) 01/31/18 19:42 Urine Opiates Screen Negative (NEGATIVE) 01/20/18 21:50 Urine Methadone Screen Negative (NEGATIVE) 01/20/18 21:50 Ur Barbiturates Screen Negative (NEGATIVE) 01/20/18 21:50 Ur Phencyclidine Scrn Negative (NEGATIVE) 01/20/18 21:50 Ur Amphetamines Screen Negative (NEGATIVE) 01/20/18 21:50 U Benzodiazepines Scrn Negative (NEGATIVE) 01/20/18 21:50 U Oth Cocaine Metabols Positive (NEGATIVE) H 01/20/18 21:50 U Cannabinoids Screen Negative (NEGATIVE) 01/20/18 21:50 Alcohol, Quantitative < 10 mg/dL (0-10) 01/20/18 20:30 TANIYA & SPEP Interp See note 01/21/18 12:16 Serum Immunofixation Not detected 01/21/18 18:16 Urine Immunofixation Not detected (Not Detected) 01/27/18 07:55 ANNETTE Screen Negative (Negative) 01/21/18 12:16 ANNETTE Titer TEST NOT PERFORMED 01/21/18 12:16 ANNETTE Titer 2 TEST NOT PERFORMED 01/21/18 12:16 ANNETTE Pattern TEST NOT PERFORMED 01/21/18 12:16 ANNETTE Pattern 2 TEST NOT PERFORMED 01/21/18 12:16 Ikdt-0-Vnizzmvnwuqr Ab <9 CHAPARRO (<=20) 01/21/18 18:16 Beta-2 GPI IgG Ab <9 SGU (<=20) 01/21/18 18:16 Beta-2 GPI IgM Ab <9 SMU (<=20) 01/21/18 18:16 Phosphatidylserine IgG <10 U/mL (<10) 01/21/18 18:16 Phosphatidylserine IgA <20 U/mL (<20) 01/21/18 18:16 Phosphatidylserine IgM <25 U/mL (<25) 01/21/18 18:16 Anti-Phospholipid Intrp see note 01/21/18 18:16 Anti-Cardiolipin IgG Ab <14 GPL (<=14) 01/21/18 18:16 Anti-Cardiolipin IgA Ab <11 APL (<=11) 01/21/18 18:16 Anti-Cardiolipin IgM Ab <12 MPL (<=12) 01/21/18 18:16 [place]/Lambda Light Chain (()) 01/23/18 11:00 Free [place] Light Chains 251.6 mg/L (3.3-19.4) H 01/23/18 11:00 Free Lambda Light Chain 186.1 mg/L (5.7-26.3) H 01/23/18 11:00 Free [place]/Lambda Ratio 1.35 (0.26-1.65) 01/23/18 11:00 RPR Nonreactive (NONREACTIVE) 01/30/18 07:40 Hep Bs Antigen Negative (NEGATIVE) 01/21/18 13:44 Hep Bs Antibody Negative (NEGATIVE) 01/21/18 13:44 Hep B Core IgM Ab Negative (NEGATIVE) 01/21/18 13:44 HIV-1 Antibody TEST NOT PERFORMED 01/21/18 18:16 HIV-2 Antibody TEST NOT PERFORMED 01/21/18 18:16 HIV 1&2 Ag/Ab, 4th Gen Nonreactive (Nonreactive) 01/21/18 18:16 Blood Type A POSITIVE 01/25/18 15:49 Blood Type Confirm A POSITIVE 01/20/18 22:22 Antibody Screen Negative 01/25/18 15:49 Crossmatch See Detail 01/25/18 15:49 Reaction Clerical Check No discrepancy (NO DISCREPA) 01/22/18 00:36 Pre-Trans Blood Type A POSITIVE 01/22/18 00:36 Pre-Trans Bld Appearanc No hemolysis (NO HEMOLYSI) 01/22/18 00:36 Pre-Trans BEA Negative (NEGATIVE) 01/22/18 00:36 Post-Trans Blood Type A POSITIVE 01/22/18 00:36 Post-Trans Spec Appear No hemolysis (NO HEMOLYSI) 01/22/18 00:36 Post-Trans BEA Negative (NEGATIVE) 01/22/18 00:36 Reaction Pathol Review 01/22/18 00:36 BBK History Checked Patient has bt 01/25/18 15:49 - Hospital Course Hospital Course: Upon Admission Mr Meadows is a 57 year old male with a PMHx of CKD stage III, left lower extremity DVT, DM2, HTN, HLD, non-compliance with medications, who presented with worsening shortness of breath and increased swelling and pain in his lower left extremity. He stated these symptoms began concurrently 1 month ago. He had not seen a doctor because he felt the symptoms would go away on their own. He states his dyspnea is worse with exertion. His lower left extremity pain is most pronounced in the cha/calf area. He stated he hasn't seen his PMD in over a year. He ambulates normally with a cane. Hospital Course Pt was initially admitted to the ICU after he was found to have a (+) FOBT and a Hgb of 6.9. Pt was transfused 3u pRBCs in ICU, and 4th unit stopped due to transfusion reaction of hypertension and chills. GI was consulted for possible GI bleed. GI believed anemia was secondary to renal failure. CT abdomen showed no acute findings. Pt was also found to have a severe GIO on CKD with BUN/Cr 162/18.5. Renal ultrasound showed echogenity. Nephrology was consulted. Bailey catheter was placed, R subclavian central IV access was created, and pt was started on dialysis every Sunday, Sunday and Sunday. [place] [address]. Echo showed EF 20-25% with 4-chamber dilatation. Troponin was elevated at 0.15. He was also found to have an elevated D-dimer at 2331. LE ultrasound was performed, which showed subacute/partially occlusive thrombus in the L popliteal vein. VQ scan was performed which showed low probability of pulmonary embolism. Pt was started on heparin drip and continued on it throughout the hospital course. Leukocytosis at 13.4. He was started on empiric antibiotics. During his stay, he was tolerated his HD, his LLE swelling had improved, his troponins had downtrended, his shortness of breath improved, leukocytosis improved. He was given darbepoetin shots and doxercaliferol with HD, along with pRBC transfusions as needed. He received a total of 7.5 units of pRBC. Vein mapping was done for outpatient fistula formation. He was switched to oral eliquis to prepare for discharge. Pt was evaluated by PT and approved for home health services. He was set up with HD at [facility] for scheduled dialysis sessions. Upon Discharge Pts vitals were stable, he had no acute complaints and he was ambulating well with physical therapy. He was tolerating his renal diet. His 12 point ROS was negative. He was set up with instructions for follow-up with his PMD as well as the specialists who had followed him throughout his hospital course. He was set up with home nursing services for additional help. He agreed with plan and was discharged home. Discharge Exam - Head Exam Head Exam: NORMAL INSPECTION, NORMOCEPHALIC Discharge Plan - Discharge Medications Prescriptions: Apixaban [Eliquis] 5 mg PO BID #60 tab Calcium Acetate [Phoslo] 667 mg PO WM #30 tab Digoxin [Lanoxin] 0.125 mg PO 1400 #30 tab [id number] CD [Cardizem CD] 300 mg PO DAILY #30 cap Doxycycline Monohydrate 100 mg PO BID #10 capsule hydrALAZINE [Apresoline] 50 mg PO QID #90 tab Isosorbide Mononitrate [Imdur] 60 mg PO DAILY #30 tab - Follow Up Plan Condition: GUARDED Disposition: HOME/ ROUTINE Instructions: Dialysis Diet , Anemia of Chronic Disease (DC), Chronic Kidney Disease (DC), End Stage Kidney Disease (DC) Additional Instructions: Please make an appointment with your primary care physician, Dr. Patel within 1 week upon discharge It is very important that you follow up with the following medical specialists who have been seeing you while you were in the hospital Please follow up with your roofer assistant (kidney doctor), Dr. Lazo within 1-2 weeks of being discharged from the hospital Please follow up with your transit operator (heart doctor), Dr. Mendez within 1-2 weeks of being discharged from the hospital Please follow up with your yarn inspector (stomach doctor), Dr. Griffin within within 1-2 weeks of being discharged from the hospital You will be starting dialysis at: [address] [address] , fax [phone] mwF @ [phone] The contact lens blocker is: Dusty (Clinical Coordinator) [phone] You will be going to dialysis every Sunday, Sunday and Sunday. Your first dialysis session will be on Sunday at 2:30pm. Please arrive to your first appointment 30 minutes early. You will be given prescriptions for medications that you have been taking while you were in the hospital. Please continue taking the medications as prescribed at home. You have been prescribed Eliquis, Phoslo, Digoxin, Cardizem, Doxycycline, hydralazine, imdur If your symptoms return, please return to the nearest emergency room Referrals: Miko Slade MD [Staff Provider] - Abdoulaye Weeks MD [Medical Doctor] - Philip Lea MD [Staff Provider] - Jorge-Naya Plasencia MD [Primary Care Provider] - Maurizio Soria MD [Staff Provider] - Maurizio Mendez MD [Staff Provider] - Floyd Griffin DO [Staff Provider] - <Robin Guthrie - Last Filed: 02/02/18 14:56> Provider - Provider Date of Admission: 01/20/18 22:20 Attending physician: Robin Guthrie MD Primary care physician: Naya Patel MD Hospital Course - Lab Results Lab Results: Micro Results 01/30/18 08:10 Blood-Venous Blood Culture - Preliminary NO GROWTH AFTER 3 DAYS 01/30/18 07:40 Blood-Venous Blood Culture - Preliminary NO GROWTH AFTER 3 DAYS 01/31/18 22:17 Urine,Random Urine Culture - Final No Growth (<1,000 CFU/ML) 01/30/18 18:23 Naris MRSA Culture (Admit) - Final MRSA NOT DETECTED 01/23/18 14:15 Blood-During Dialysis Blood Culture - Final NO GROWTH AFTER 5 DAYS 01/23/18 14:15 Blood-During Dialysis Gram Stain - Final TEST NOT PERFORMED 01/23/18 14:00 Blood-During Dialysis Blood Culture - Final NO GROWTH AFTER 5 DAYS 01/23/18 14:00 Blood-During Dialysis Gram Stain - Final TEST NOT PERFORMED 01/22/18 09:30 Blood Transfusion Bag Gram Stain - Final 01/22/18 09:30 Blood Transfusion Bag - Final NO GROWTH AFTER 5 DAYS 01/20/18 20:30 Blood-Venous Blood Culture - Final NO GROWTH AFTER 5 DAYS 01/20/18 20:30 Blood-Venous Gram Stain - Final TEST NOT PERFORMED 01/20/18 20:00 Blood-Venous Blood Culture - Final NO GROWTH AFTER 5 DAYS 01/20/18 20:00 Blood-Venous Gram Stain - Final TEST NOT PERFORMED 01/24/18 01:30 Urine Urine Culture - Final No Growth (<1,000 CFU/ML) 01/21/18 09:00 Urine,Bailey Urine Culture - Final No Growth (<1,000 CFU/ML) 01/21/18 03:56 Nose MRSA Culture (Admit) - Final MRSA NOT DETECTED Most Recent Lab Values WBC 7.9 10^3/ul (4.5-11.0) 01/30/18 05:30 RBC 3.12 10^6/uL (3.5-6.1) L 01/30/18 05:30 Hgb 9.2 g/dL (14.0-18.0) L 01/30/18 05:30 Hct 29.0 % (42.0-52.0) L 01/30/18 05:30 MCV 92.9 fl (80.0-105.0) 01/30/18 05:30 MCH 29.5 pg (25.0-35.0) 01/30/18 05:30 MCHC 31.7 g/dl (31.0-37.0) 01/30/18 05:30 RDW 15.0 % (11.5-14.5) H 01/30/18 05:30 Plt Count 272 10^3/uL (120.0-450.0) 01/30/18 05:30 MPV 10.3 fl (7.0-11.0) 01/30/18 05:30 Gran % 71.6 % (50.0-68.0) H 01/30/18 05:30 Lymph % (Auto) 10.2 % (22.0-35.0) L 01/30/18 05:30 [place] % (Auto) 15.5 % (1.0-6.0) H 01/30/18 05:30 Eos % (Auto) 2.4 % (1.5-5.0) 01/30/18 05:30 Baso % (Auto) 0.3 % (0.0-3.0) 01/30/18 05:30 Gran # 5.66 (1.4-6.5) 01/30/18 05:30 Lymph # (Auto) 0.8 (1.2-3.4) L 01/30/18 05:30 [place] # (Auto) 1.2 (0.1-0.6) H 01/30/18 05:30 Eos # (Auto) 0.2 (0.0-0.7) 01/30/18 05:30 Baso # (Auto) 0.02 K/mm3 (0.0-2.0) 01/30/18 05:30 Neutrophils % (Manual) 91 % (50.0-70.0) H 01/20/18 20:30 Band Neutrophils % 0 % (0-2) 01/20/18 20:30 Lymphocytes % (Manual) 4 % (22.0-35.0) L 01/20/18 20:30 Atypical Lymphs % 0 % (0.0-0.0) 01/20/18 20:30 Monocytes % (Manual) 5 % (1.0-6.0) 01/20/18 20:30 Toxic Granulation 3+ 01/20/18 20:30 Platelet Evaluation Normal (NORMAL) 01/20/18 20:30 Hypochromasia 2+ 01/20/18 20:30 Target Cells 1+ 01/20/18 20:30 Rouleaux 2+ 01/20/18 20:30 Retic Count 2.49 % (0.5-1.5) H 01/21/18 05:10 Hemoglobin A 90.7 Percent (>96.0) L 01/25/18 05:20 Hemoglobin A2 2.1 Percent (1.8-3.5) 01/25/18 05:20 Hemoglobin C 0.0 Percent (0.0-0.0) 01/25/18 05:20 Hemoglobin F () <1.0 Percent (<2.0) 01/25/18 05:20 Hemoglobin S 0.0 Percent (0.0-0.0) 01/25/18 05:20 Variant Hemoglobin 6.2 Percent (0.0-0.0) H 01/25/18 05:20 Hemoglobinopathy Red Blood Count 2.66 Mill/mcL (4.20-5.80) L 01/25/18 05:20 Hemoglobinopathy Hct 24.7 % (38.5-50.0) L 01/25/18 05:20 Hemoglobinopathy Hgb 8.1 g/dL (13.2-17.1) L 01/25/18 05:20 Hemoglobinopathy MCV 92.9 fL (80.0-100.0) 01/25/18 05:20 Hemoglobinopathy MCH 30.6 pg (27.0-33.0) 01/25/18 05:20 Hemoglobinopathy RDW 15.3 % (11.0-15.0) H 01/25/18 05:20 Hemoglobinopathy Interp See note 01/25/18 05:20 PT 16.1 SECONDS (9.4-12.5) H 01/31/18 07:00 INR 1.39 01/31/18 07:00 APTT 66.5 Seconds (25.1-36.5) H 01/28/18 08:06 D-Dimer, Quantitative 2331 ng/mlDDU (0-243) H 01/20/18 20:30 pO2 40 mm/Hg (30-55) 01/20/18 20:30 VBG pH 7.24 (7.32-7.43) L 01/20/18 20:30 VBG pCO2 28.0 (40-60) L 01/20/18 20:30 VBG HCO3 12.0 mmol/l (21-28) L 01/20/18 20:30 VBG Total CO2 12.9 mmol.L (22-28) L 01/20/18 20:30 VBG O2 Sat (Calc) 73.7 % (40-65) H 01/20/18 20:30 VBG Base Excess -13.9 mmol/L (0.0-2.0) L 01/20/18 20:30 VBG Potassium 5.1 mmol/L (3.6-5.2) 01/20/18 20:30 Sodium 133.0 mmol/L (132-148) 01/20/18 20:30 Chloride 104.0 mmol/L (98-107) 01/20/18 20:30 Glucose 158 mg/dl (75-110) H 01/20/18 20:30 Lactate 1.1 mmol/L (0.7-2.1) 01/20/18 20:30 FiO2 21.0 % 01/20/18 20:30 Sodium 133 mmol/L (132-148) 01/30/18 05:30 Potassium 3.6 mmol/L (3.6-5.0) 01/30/18 05:30 Chloride 95 mmol/L (98-107) L 01/30/18 05:30 Carbon Dioxide 25 mmol/L (21-33) 01/30/18 05:30 Anion Gap 17 (10-20) 01/30/18 05:30 BUN 57 mg/dL (7-21) H 01/30/18 05:30 Creatinine 7.8 mg/dl (0.8-1.5) H* D 01/30/18 05:30 Est GFR ( Amer) 9 01/30/18 05:30 Est GFR (Non-Af Amer) 7 01/30/18 05:30 POC Glucose (mg/dL) 184 mg/dL (65-110) H 02/01/18 16:34 Random Glucose 83 mg/dL (70-110) 01/30/18 05:30 Hemoglobin A1c 6.5 % (4.2-6.5) 01/21/18 05:10 Calcium 8.6 mg/dL (8.4-10.5) 01/30/18 05:30 Phosphorus 5.2 mg/dL (2.5-4.5) H 01/30/18 05:30 Magnesium 1.7 mg/dL (1.7-2.2) 01/30/18 05:30 Iron 35 ug/dL (45-180) L 01/25/18 08:50 TIBC 245 ug/dL (261-462) L 01/25/18 08:50 % Saturation 14 % (20-55) L 01/25/18 08:50 Ferritin 890.0 ng/mL 01/25/18 05:20 Total Bilirubin 0.6 mg/dL (0.2-1.3) 01/30/18 05:30 Pre-Trans Tot Bilirubin 0.8 mg/dL (0.2-1.3) 01/22/18 00:40 Post-Trans Total Bili 0.9 mg/dL 01/22/18 06:20 AST 37 U/L (17-59) 01/30/18 05:30 ALT 32 U/L (7-56) 01/30/18 05:30 Alkaline Phosphatase 274 U/L (38-126) H 01/30/18 05:30 Lactate Dehydrogenase 514 U/L (333-699) 01/20/18 20:30 Total Creatine Kinase 217 U/L (35-230) 01/21/18 10:50 Troponin I 0.21 ng/mL H* 01/21/18 10:50 NT-Pro-B Natriuret Pep 10647 pg/mL (0-450) H 01/20/18 20:30 Total Protein 6.9 g/dL (5.8-8.3) 01/30/18 05:30 Total Protein (PEP) 6.3 g/dL (6.1-8.1) 01/21/18 12:16 Albumin 3.0 g/dL (3.0-4.8) 01/30/18 05:30 Albumin (PEP) 2.5 g/dL (3.8-4.8) L 01/21/18 12:16 Globulin 3.8 gm/dL 01/30/18 05:30 Albumin/Globulin Ratio 0.8 (1.1-1.8) L 01/30/18 05:30 Zgafs-8-Fuvcbpmgx 0.6 g/dL (0.2-0.3) H 01/21/18 12:16 Xgpou-1-Lubstnypu 1.1 g/dL (0.5-0.9) H 01/21/18 12:16 Jkes-7-Swejiwfs 0.3 g/dL (0.4-0.6) L 01/21/18 12:16 Juul-1-Ulnkside 0.4 g/dL (0.2-0.5) 01/21/18 12:16 Gamma Globulins 1.4 g/dL (0.8-1.7) 01/21/18 12:16 Abnorm Protein Band 1 TEST NOT PERFORMED 01/21/18 12:16 Abnorm Protein Band 2 TEST NOT PERFORMED 01/21/18 12:16 Abnorm Protein Band 3 TEST NOT PERFORMED 01/21/18 12:16 Triglycerides 71 mg/dL (35-160) 01/21/18 05:10 Cholesterol 105 mg/dL (130-200) L 01/21/18 05:10 LDL Cholesterol Direct 34 mg/dL (0-129) 01/21/18 05:10 HDL Cholesterol 43 mg/dL (29-60) 01/21/18 05:10 Vitamin B12 820 pg/mL (239-931) 01/21/18 05:10 25-OH Vitamin D Total 31.4 NG/ML (30.0-100.0) 01/21/18 13:31 Folate 7.3 ng/mL 01/21/18 05:10 Procalcitonin 2.32 NG/ML (0.19-0.49) H 01/30/18 09:00 TSH 3rd Generation 1.73 mIU/mL (0.46-4.68) 01/21/18 05:10 PTH Intact Whole Molec 1649 pg/mL (14-64) H 01/21/18 12:14 Venous Blood Potassium 5.1 mmol/L (3.6-5.2) 01/20/18 20:30 Urine Color Yellow (YELLOW) 01/31/18 22:17 Urine Appearance Clear (CLEAR) 01/31/18 22:17 Urine pH 8.0 (4.7-8.0) 01/31/18 22:17 Ur Specific [place] 1.015 (1.005-1.035) 01/31/18 22:17 Urine Protein 100 mg/dL (<30 mg/dL) H 01/31/18 22:17 Urine Glucose (UA) 250 mg/dL (NEGATIVE) H 01/31/18 22:17 Urine Ketones Negative mg/dL (NEGATIVE) 01/31/18 22:17 Urine Blood Small (NEGATIVE) H 01/31/18 22:17 Urine Nitrate Negative (NEGATIVE) 01/31/18 22:17 Urine Bilirubin Negative (NEGATIVE) 01/31/18 22:17 Urine Urobilinogen 0.2 E.U./dL (<1 E.U./dL) 01/31/18 22:17 Ur Leukocyte Esterase Small Krystle/uL (NEGATIVE) H 01/31/18 22:17 Urine RBC 5 - 10 /hpf (0-2) 01/31/18 22:17 Urine WBC 5 - 10 /hpf (0-6) 01/31/18 22:17 Ur Epithelial Cells 3 - 4 /hpf (0-5) 01/31/18 22:17 Urine Bacteria Neg (NEG) 01/27/18 07:55 Stool Occult Blood Positive (NEGATIVE) H 01/20/18 21:50 Digoxin 1.0 ng/mL (0.8-2.0) 01/31/18 19:42 Urine Opiates Screen Negative (NEGATIVE) 01/20/18 21:50 Urine Methadone Screen Negative (NEGATIVE) 01/20/18 21:50 Ur Barbiturates Screen Negative (NEGATIVE) 01/20/18 21:50 Ur Phencyclidine Scrn Negative (NEGATIVE) 01/20/18 21:50 Ur Amphetamines Screen Negative (NEGATIVE) 01/20/18 21:50 U Benzodiazepines Scrn Negative (NEGATIVE) 01/20/18 21:50 U Oth Cocaine Metabols Positive (NEGATIVE) H 01/20/18 21:50 U Cannabinoids Screen Negative (NEGATIVE) 01/20/18 21:50 Alcohol, Quantitative < 10 mg/dL (0-10) 01/20/18 20:30 TANIYA & SPEP Interp See note 01/21/18 12:16 Serum Immunofixation Not detected 01/21/18 18:16 Urine Immunofixation Not detected (Not Detected) 01/27/18 07:55 ANNETTE Screen Negative (Negative) 01/21/18 12:16 ANNETTE Titer TEST NOT PERFORMED 01/21/18 12:16 ANNETTE Titer 2 TEST NOT PERFORMED 01/21/18 12:16 ANNETTE Pattern TEST NOT PERFORMED 01/21/18 12:16 ANNETTE Pattern 2 TEST NOT PERFORMED 01/21/18 12:16 [id number] Ab <9 CHAPARRO (<=20) 01/21/18 18:16 Beta-2 GPI IgG Ab <9 SGU (<=20) 01/21/18 18:16 Beta-2 GPI IgM Ab <9 SMU (<=20) 01/21/18 18:16 Phosphatidylserine IgG <10 U/mL (<10) 01/21/18 18:16 Phosphatidylserine IgA <20 U/mL (<20) 01/21/18 18:16 Phosphatidylserine IgM <25 U/mL (<25) 01/21/18 18:16 Anti-Phospholipid Intrp see note 01/21/18 18:16 Anti-Cardiolipin IgG Ab <14 GPL (<=14) 01/21/18 18:16 Anti-Cardiolipin IgA Ab <11 APL (<=11) 01/21/18 18:16 Anti-Cardiolipin IgM Ab <12 MPL (<=12) 01/21/18 18:16 [place]/Lambda Light Chain (()) 01/23/18 11:00 Free [place] Light Chains 251.6 mg/L (3.3-19.4) H 01/23/18 11:00 Free Lambda Light Chain 186.1 mg/L (5.7-26.3) H 01/23/18 11:00 Free [place]/Lambda Ratio 1.35 (0.26-1.65) 01/23/18 11:00 RPR Nonreactive (NONREACTIVE) 01/30/18 07:40 Hep Bs Antigen Negative (NEGATIVE) 01/21/18 13:44 Hep Bs Antibody Negative (NEGATIVE) 01/21/18 13:44 Hep B Core IgM Ab Negative (NEGATIVE) 01/21/18 13:44 HIV-1 Antibody TEST NOT PERFORMED 01/21/18 18:16 HIV-2 Antibody TEST NOT PERFORMED 01/21/18 18:16 HIV 1&2 Ag/Ab, 4th Gen Nonreactive (Nonreactive) 01/21/18 18:16 Ur L.pneumophila Ag Negative (NEGATIVE) 01/31/18 22:17 Blood Type A POSITIVE 01/25/18 15:49 Blood Type Confirm A POSITIVE 01/20/18 22:22 Antibody Screen Negative 01/25/18 15:49 Crossmatch See Detail 01/25/18 15:49 Reaction Clerical Check No discrepancy (NO DISCREPA) 01/22/18 00:36 Pre-Trans Blood Type A POSITIVE 01/22/18 00:36 Pre-Trans Bld Appearanc No hemolysis (NO HEMOLYSI) 01/22/18 00:36 Pre-Trans BEA Negative (NEGATIVE) 01/22/18 00:36 Post-Trans Blood Type A POSITIVE 01/22/18 00:36 Post-Trans Spec Appear No hemolysis (NO HEMOLYSI) 01/22/18 00:36 Post-Trans BEA Negative (NEGATIVE) 01/22/18 00:36 Reaction Pathol Review 01/22/18 00:36 BBK History Checked Patient has bt 01/25/18 15:49 Attending/Attestation - Attestation I have personally seen and examined this patient.: Yes I have fully participated in the care of the patient.: Yes I have reviewed all pertinent clinical information, including history, physical exam and plan: Yes Notes (Text): 02/02/18 14:54 attending note; Patient seen and examined with resident. Currently denies any complaints. Denies any fevers, chills. Tolerating diet well. Patient is a 57-year-old male with past medical history significant for chronic kidney disease stage III, left lower extremity DVT, type 2 diabetes, hypertension, hyperlipidemia, and noncompliance of medications that presented to the emergency room with worsening of shortness of breath and increased swelling and pain in left lower extremity. 1. ESRD on HD. Patient has R permacath placement for dialysis. continue dialysis per nephrology. S/P vein mapping for AV fistula placement. Needs outpatient AV fistula placement. Outpatient dialysis arranged by porter sample case. 2. Anemia. no active bleeding. hemoglobin is stable. 3. Dyspnea. resolved. Secondary to renal failure, CHF exacerbation, and anemia. Patient for V/Q per radiologist is low probability for PE. Continue dialysis. 4. Elevated troponin. cardiology evaluation appreciated. needs patient follow up. on eliquis now. 5. Left lower extremity DVT. V/Q scan is low probability for PE. On eliquis. Left lower extremity venous Doppler showed subacute/chronic partially occlusive thrombus in the left popliteal vein. 6. Low grade fever. rsolved. repeat blood culture is negative. MRSA screen negative. ID evaluation appreciated. Treated with IV meropenem. abdominal ultrasound is negative for gallbladder disease. CT chest showed atelectasis of the right lower lobe and bilateral pleural effusion. Currently patient is afebrile nontoxic. 7. DM2. Continue insulin sliding scale. Continue to monitor accuchecks. Hgb A1C 6.5. 8. Hypertension. Continue hydralazine and imdur. Continue Cardizem and digoxin. PT evaluation appreciated. Case discuss door manager for discharge planning. Patient will be discharged home with services. The diagnosis and follow-up plan discussed with patient in detail. upon discharge patient will follow up with PMD . 02/02/18 14:56
[2018-02-01 14:32] VITALS: PULSE 108
[2018-02-01 17:16] VITALS: BP 160/98
--- NOTE | 2018-02-01 21:23 | PN ---
DATE: 02/01/2018 SUBJECTIVE: The patient is seen in the dialysis unit. He is awake. He is alert. He complains of some shortness of breath. He reports that he was short of breath last night. He denies any chest pain. PHYSICAL EXAMINATION: GENERAL: Middle-aged male lying in bed in the dialysis unit. VITAL SIGNS: Blood pressure 195/108, heart rate 108, respiratory rate 20, temperature 98.5. HEENT: Normocephalic, atraumatic, positive pallor. NECK: Supple, no JVD. LUNGS: Bilateral equal air entry, bilateral equal expansion, decreased breath sounds at bases. CARDIAC: S1 and S2, regular rate and rhythm, no murmur, no rub. ABDOMEN: Obese, distended, soft, nontender. Bowel sounds present. EXTREMITIES: No lower extremity edema. LABORATORY DATA: No chemistry today. CURRENT MEDICATIONS: Hydralazine 50 q.i.d., Aranesp, Cardizem 300, Catapres p.r.n., Eliquis 5 b.i.d., Hectorol, insulin, Imdur 60, digoxin 0.125, meropenem 250 every 12, PhosLo, Protonix, Tylenol. ASSESSMENT: 1. Chronic kidney disease 5 now end-stage renal disease. 2. Severe anemia. 3. Severe dilated cardiomyopathy, decreased ejection fraction. 4. Supraventricular tachycardia/tachycardia. 5. Fever of unknown origin. 6. Severe secondary hyperparathyroidism. 7. Left deep vein thrombosis. 8. Uncontrolled hypertension. PLAN: 1. Clonidine 0.1 mg stat now. 2. Continue hydralazine 50 q.i.d. 3. Continue Cardizem 300 daily. 4. Continue digoxin as per Cardiology. 5. Continue intermittent vancomycin and meropenem as per ID recommendations. 6. Stable dialysis. 7. Next dialysis Sunday. Criss Lazo MD
--- NOTE | 2018-02-01 23:21 | PN ---
DATE: 02/01/2018 SUBJECTIVE: The patient is in bed, in no acute distress. PHYSICAL EXAMINATION VITAL SIGNS: Temperature is 98, blood pressure is 190/100, respiratory rate of 20. HEENT: Unremarkable. NECK: Supple. LUNGS: Decreased breath sounds. HEART: Normal S1, S2. ABDOMEN: Soft. LABORATORY DATA: Reveals the patient's white count is down to 7.9, hemoglobin of 9. Chemistry reveals the patient to be on BUN of 57, creatinine of 7.8, procalcitonin is 2.32. Microbiology is noted. ASSESSMENT AND PLAN: A 57-year-old male who was seen earlier this morning in 573, bed 1 with diabetes; deep venous thrombosis; hypertension; adrenal cancer; chronic renal failure, on hemodialysis; cardiac congestive heart failure; left deep venous thrombosis; low-grade fevers; tachycardia; dyspnea with systemic inflammatory response syndrome with has negative cultures and CT with no infiltrate seen. We will follow with you. Miko Slade MD
== END 2018-02-01 19:23 | disposition home or self-care (01) | DRG 682 ==
LOC: ED 19:15 → ERH 22:20 → CCU 01-21 03:50 → 2RNO 01-23 19:24 → 5RSO 01-30 14:07
PROVIDERS: ADMIT Internal Medicine; ATTEND Internal Medicine
PROC: 02H633Z Insertion of Infusion Device into Right Atrium, Percutaneous Approach (ICD-10-PCS; principal; 2018-01-21)
PROC: B543ZZA Ultrasonography of Right Jugular Veins, Guidance (ICD-10-PCS; 2018-01-21)
PROC: 5A1D70Z Performance of Urinary Filtration, Intermittent, Less than 6 Hours Per Day (ICD-10-PCS; 2018-01-21)
PROC: 30233N1 Transfusion of Nonautologous Red Blood Cells into Peripheral Vein, Percutaneous Approach (ICD-10-PCS; 2018-01-21)
PROC: 5A1D70Z Performance of Urinary Filtration, Intermittent, Less than 6 Hours Per Day (ICD-10-PCS; 2018-01-22)
PROC: 3E033GC Introduction of Other Therapeutic Substance into Peripheral Vein, Percutaneous Approach (ICD-10-PCS; 2018-01-22)
PROC: 5A1D70Z Performance of Urinary Filtration, Intermittent, Less than 6 Hours Per Day (ICD-10-PCS; 2018-01-23)
PROC: 5A1D70Z Performance of Urinary Filtration, Intermittent, Less than 6 Hours Per Day (ICD-10-PCS; 2018-01-24)
PROC: 5A1D70Z Performance of Urinary Filtration, Intermittent, Less than 6 Hours Per Day (ICD-10-PCS; 2018-01-28)
PROC: 5A1D70Z Performance of Urinary Filtration, Intermittent, Less than 6 Hours Per Day (ICD-10-PCS; 2018-01-31)
PROC: 5A1D70Z Performance of Urinary Filtration, Intermittent, Less than 6 Hours Per Day (ICD-10-PCS; 2018-02-01)
DX: N17.9 Acute kidney failure, unspecified (principal); I50.23 Acute on chronic systolic (congestive) heart failure; I13.2 Hypertensive heart and chronic kidney disease with heart failure and with stage 5 chronic kidney disease, or end stage renal disease; I42.0 Dilated cardiomyopathy; E87.2 Acidosis; I47.1 Supraventricular tachycardia; I82.432 Acute embolism and thrombosis of left popliteal vein; J98.11 Atelectasis; R65.10 Systemic inflammatory response syndrome (SIRS) of non-infectious origin without acute organ dysfunction; C74.90 Malignant neoplasm of unspecified part of unspecified adrenal gland; C90.00 Multiple myeloma not having achieved remission; N18.6 End stage renal disease; F14.10 Cocaine abuse, uncomplicated; D63.1 Anemia in chronic kidney disease; N25.81 Secondary hyperparathyroidism of renal origin; I08.3 Combined rheumatic disorders of mitral, aortic and tricuspid valves; I48.91 Unspecified atrial fibrillation; I49.1 Atrial premature depolarization; I49.3 Ventricular premature depolarization; R30.0 Dysuria; E78.00 Pure hypercholesterolemia, unspecified; E78.5 Hyperlipidemia, unspecified; D50.0 Iron deficiency anemia secondary to blood loss (chronic); E11.22 Type 2 diabetes mellitus with diabetic chronic kidney disease; E83.39 Other disorders of phosphorus metabolism; Z91.14 Patient's other noncompliance with medication regimen; Z99.2 Dependence on renal dialysis; Z87.891 Personal history of nicotine dependence; Z91.19 Patient's noncompliance with other medical treatment and regimen; Z79.4 Long term (current) use of insulin